=== PATIENT | male | born 1955 ===

== ENCOUNTER 2019-09-16 07:24 | Day surgery (SDC) | payer BC ==
[~2019-09-16 07:24] MED LIST: DEXAMETHASONE SOD PHOSPHATE 10 MG/ML 1 ML VIAL IV ONE; HEPARIN SODIUM,PORCINE 5,000 UNIT/ML 1 ML VIAL SQ ONE; HYDROmorphone 0.5 MG/0.5 ML SYRINGE IVP PRN; LACTATED RINGERS 1,000 ML IV SCH; LIDOCAINE 1% (10MG/ML) FOR IV START INTRADERMA PRN; MIDAZOLAM 2 MG/2 ML VIAL IV PRN; ONDANSETRON 4 MG/2 ML VIAL IVP ONE; metroNIDAZOLE-NS PMX 500 MG in SALINE 1 100ML.BAG IVPB ONE
[2019-09-16 07:38] VITALS: TEMP 98.8
[2019-09-16 08:09] LABS: Glucose,Whole Blood 124 mg/dL (75-99)
[2019-09-16] MEDS ORDERED: KETOROLAC 30 MG/ML 1 ML VIAL ONE (08:18)
[2019-09-16] MEDS ORDERED: fentaNYL (PF) 50 MCG/ML 2 ML AMP ONE (08:18)
[2019-09-16] MEDS ORDERED: PROPOFOL 10 MG/ML 20 ML VIAL IV ONE (08:18)
[2019-09-16] MEDS ORDERED: MIDAZOLAM 2 MG/2 ML VIAL ONE (08:18)
--- NOTE | 2019-09-16 08:29 | P.GSHP ---
History of Present Illness H&P Date: 09/16/19 Chief Complaint: Perirectal abscess This is a 64-year-old male with a chronically inflamed perirectal abscess. Patient presents today for incision and drainage and debridement. Past Medical History Past Medical History: Diabetes Mellitus, Hyperlipidemia, Hypertension History of Any Multi-Drug Resistant Organisms: None Reported Past Surgical History: Ear Surgery Additional Past Surgical History / Comment(s): RHINOPLASTY. TOOTH IMPLANT. EAR SX Past Anesthesia/Blood Transfusion Reactions: No Reported Reaction Smoking Status: Never smoker - Past Family History Mother Family Medical History: No Reported History Medications and Allergies Home Medications Medication Instructions Recorded Confirmed Type Empagliflozin [Jardiance] 10 mg PO DAILY 09/14/19 09/14/19 History Lisinopril [Zestril] 10 mg PO DAILY 09/14/19 09/14/19 History Simvastatin 10 mg PO DAILY 09/14/19 09/14/19 History metFORMIN HCL 1,000 mg PO BID 09/14/19 09/14/19 History sitaGLIPtin [Januvia] 100 mg PO DAILY 09/14/19 09/14/19 History Allergies Allergy/AdvReac Type Severity Reaction Status Date / Time No Known Allergies Allergy Verified 09/14/19 10:54 Surgical - Exam Vital Signs Temp Pulse Resp BP Pulse Ox 98.8 F 60 20 167/87 99 09/16/19 07:35 09/16/19 07:35 09/16/19 07:35 09/16/19 07:35 09/16/19 07:35 - General well developed, well nourished, no distress - Eyes PERRL - ENT normal pinna - Neck no masses - Respiratory normal expansion - Cardiovascular Rhythm: regular - Abdomen Abdomen: soft, non tender - Rectum 1 cm perirectal abscess in the left lateral area Results - Labs Abnormal Lab Results - Last 24 Hours (Table) 09/16/19 Range/Units 07:52 POC Glucose (mg/dL) 124 H (75-99) mg/dL Assessment and Plan Assessment: Labs is. We'll perform incision and drainage and debridement.
[2019-09-16] MEDS ORDERED: BUPIVACAINE (PF) 0.5% 30 ML VIAL SQ ONE (08:39)
--- NOTE | 2019-09-16 08:56 | P.OP ---
Date of Procedure: 09/16/19 Preoperative Diagnosis: Left perirectal abscess Postoperative Diagnosis: Left perirectal abscess Procedure(s) Performed: Incision and drainage and debridement of left perirectal abscess Anesthesia: MAC Surgeon: Bob Segundo Estimated Blood Loss (ml): 5 Pathology: other (Left perirectal abscess) Disposition: PACU Description of Procedure: The patient's placed on the operating table in the lateral position. He received IV sedation. His perineum was prepped and draped usual sterile fashion. The perianal area was examined. There is evidence of chronic inflammation the left sami-anal area. The skin was anesthetized 1% local Xylocaine. Using an elliptical skin incision the area was incised and using cautery the subcu tissues and chronically inflamed fat were debrided. This was taken back to the level of healthy tissue. The area about approximately 2 x 1 x 1 cm. The Bovie hemostasis. The wound was then packed with wet-to-dry dressing. Sterile dressing was applied. Patient top she will was sent to recovery room stable condition.
[2019-09-16 09:14] VITALS: BP 113/71; PULSE 87; RESP 18
== END 2019-09-16 10:21 | disposition home or self-care (01) ==
LOC: OR 07:24
PROVIDERS: ATTEND Surgery
DX: K61.1 Rectal abscess (principal); E11.9 Type 2 diabetes mellitus without complications; I10 Essential (primary) hypertension; E78.5 Hyperlipidemia, unspecified; Z79.899 Other long term (current) drug therapy; Z79.84 Long term (current) use of oral hypoglycemic drugs; Z98.890 Other specified postprocedural states
CPT/HCPCS: 88304; 46040; J2250; J1644; J1100; J0690; J2405; J3010; J1885; J2704

== ENCOUNTER 2020-05-18 10:58 | Day surgery (SDC) | payer BC, OTHER ==
[2020-05-17 09:29] VITALS: BMI 29.0
[~2020-05-18 10:58] MED LIST changes: +ACETAMINOPHEN TAB 500 MG TAB PO ONE; -LIDOCAINE 1% (10MG/ML) FOR IV START INTRADERMA PRN; +LIDOCAINE 1%-EPI 1:100,000 20 ML VIAL SQ ONE; -MIDAZOLAM 2 MG/2 ML VIAL IV PRN
[2020-05-18 11:21] LABS: Glucose,Whole Blood 104 mg/dL (75-99)
[2020-05-18] MEDS ORDERED: LIDOCAINE 1% (10MG/ML) FOR IV START INTRADERMA ONE (11:21)
[2020-05-18] MEDS ORDERED: LIDOCAINE 1% INJ 10MG/ML (20 ML MDV) ONE (11:36)
[2020-05-18] MEDS ORDERED: SUCCINYLCHOLINE CHLORIDE 100 MG/5 ML SYR IV ONE (11:36)
[2020-05-18] MEDS ORDERED: MIDAZOLAM 2 MG/2 ML VIAL ONE (11:36)
[2020-05-18] MEDS ORDERED: PROPOFOL 10 MG/ML 20 ML VIAL IV ONE (11:36)
[2020-05-18] MEDS ORDERED: fentaNYL (PF) 50 MCG/ML 2 ML AMP ONE (11:36)
--- NOTE | 2020-05-18 11:36 | P.GSHP ---
History of Present Illness H&P Date: 05/18/20 Chief Complaint: History of perirectal abscess This is a 62-year-old male with chronic. Biopsies. Patient will stay for incision and drainage. Past Medical History Past Medical History: Diabetes Mellitus, Hyperlipidemia, Hypertension Additional Past Medical History / Comment(s): perirectal abscess History of Any Multi-Drug Resistant Organisms: None Reported Past Surgical History: Ear Surgery Additional Past Surgical History / Comment(s): RHINOPLASTY. TOOTH IMPLANT Past Anesthesia/Blood Transfusion Reactions: No Reported Reaction Additional Past Anesthesia/Blood Transfusion Reaction / Comment(s): no hx blood transfusion Smoking Status: Never smoker - Past Family History Mother Family Medical History: Diabetes Mellitus Medications and Allergies Home Medications Medication Instructions Recorded Confirmed Type Empagliflozin [Jardiance] 10 mg PO DAILY 09/14/19 05/18/20 History Simvastatin 10 mg PO DAILY 09/14/19 05/18/20 History lisinopriL [Zestril] 10 mg PO QAM 09/14/19 05/18/20 History metFORMIN HCL 1,000 mg PO BID 09/14/19 05/18/20 History sitaGLIPtin [Januvia] 100 mg PO DAILY 09/14/19 05/18/20 History Allergies Allergy/AdvReac Type Severity Reaction Status Date / Time No Known Allergies Allergy Verified 05/17/20 09:21 Surgical - Exam Vital Signs Temp Pulse Resp BP Pulse Ox 97.6 F 79 16 136/78 95 05/18/20 11:11 05/18/20 11:11 05/18/20 11:11 05/18/20 11:11 05/18/20 11:11 - General well developed, well nourished, no distress - Eyes PERRL - ENT normal pinna - Neck no masses - Respiratory normal expansion - Cardiovascular Rhythm: regular - Abdomen Abdomen: soft, non tender - Rectum 1 cm perirectal abscess Results - Labs Abnormal Lab Results - Last 24 Hours (Table) 05/18/20 Range/Units 11:19 POC Glucose (mg/dL) 104 H (75-99) mg/dL Assessment and Plan Assessment: Total abscess. We'll perform incision and drainage.
[2020-05-18] MEDS ORDERED: LIDOCAINE 1%-EPI 1:100,000 20 ML VIAL SQ ONE (12:01)
--- NOTE | 2020-05-18 12:09 | P.OP ---
Date of Procedure: 05/18/20 Preoperative Diagnosis: Perirectal fistula Postoperative Diagnosis: Perirectal fistula Procedure(s) Performed: Unroofing of perirectal fistula Anesthesia: JERRI Surgeon: Bob Segundo Estimated Blood Loss (ml): 5 Pathology: none sent Condition: stable Disposition: PACU Description of Procedure: The patient's placed on the operative table in the prone position after receiving general anesthesia. His anus was prepped and draped usual sterile fashion. Patient had a fistulous tract to the left. Rectal area. A blunt probe was placed through the tract and the tract was followed to the area the anus. The tract was very superficial and believed to be superficial to the sphincter. This point the tract was unroofed using left cautery. The internal/external sphincter were not visualized. The tract was superficial to the sphincter. The wound was examined for cyst. No bleeding seen. A she received a sterile dressing. Patient sent to recovery in stable condition.
[2020-05-18 12:21] VITALS: TEMP 97.8
[2020-05-18 12:34] LABS: Glucose,Whole Blood 140 mg/dL (75-99)
[2020-05-18 13:24] VITALS: RESP 20
[2020-05-18 14:06] VITALS: BP 124/70; PULSE 69
== END 2020-05-18 14:09 | disposition home or self-care (01) ==
LOC: OR 10:58
PROVIDERS: ATTEND Surgery
DX: K61.1 Rectal abscess (principal); I10 Essential (primary) hypertension; E78.5 Hyperlipidemia, unspecified; E11.9 Type 2 diabetes mellitus without complications; Z79.84 Long term (current) use of oral hypoglycemic drugs; Z79.899 Other long term (current) drug therapy; Z98.890 Other specified postprocedural states; Z83.3 Family history of diabetes mellitus
CPT/HCPCS: 46050; J2250; J1644; J1100; J0690; J2405; J2001; J3010; J0330; J2704

== ENCOUNTER 2024-01-06 20:49 | Emergency (ER) | payer MEDICARE, OTHER ==
--- NOTE | 2024-01-06 21:16 | ED ---
General Adult HPI - General Source: patient, family, RN notes reviewed Mode of arrival: ambulatory Limitations: language barrier <Stephanie Galindo - Last Filed: 01/06/24 21:15> - General Source: patient, family, RN notes reviewed, old records reviewed Mode of arrival: ambulatory Limitations: language barrier - History of Present Illness -: days(s) Location: abdomen Severity scale (1-10): 10 Consistency: constant, intermittent Worsens with: none <Zacarias Miles - Last Filed: 01/17/24 22:34> - General Stated complaint: Abnormal Labs Time Seen by Provider: 01/06/24 21:16 - History of Present Illness Initial comments: Quick note: 68-year-old male presented to the ER with a chief complaint of fatigue. Patient had labs performed recently and was found to have transaminitis. Patient is a known diabetic. States for the past couple days he is also noticed yellowing of the sclera. He denies any abdominal pain, unintentional weight loss, fevers, chills. (Stephanie Galindo) This is a 68-year-old male to the ER for evaluation with recent abnormal lab values. Patient had significant yellowing of skin and sclera (Zacarias Miles) - Related Data Home Medications Medication Instructions Recorded Confirmed Empagliflozin [Jardiance] 10 mg PO DAILY 09/14/19 05/18/20 Simvastatin 10 mg PO DAILY 09/14/19 05/18/20 lisinopriL [Zestril] 10 mg PO QAM 09/14/19 05/18/20 metFORMIN HCL [Glucophage] 1,000 mg PO BID 09/14/19 05/18/20 sitaGLIPtin [Januvia] 100 mg PO DAILY 09/14/19 05/18/20 Previous Rx's Medication Instructions Recorded Acetaminophen Tab [Tylenol] 650 mg PO Q6H #30 tab 05/18/20 Docusate [Colace] 100 mg PO BID #20 capsule 05/18/20 Ibuprofen [Motrin] 600 mg PO Q6HR PRN #40 tab 05/18/20 oxyCODONE HCL [OxyIR] 5 mg PO Q4H PRN 3 Days #18 tab 05/18/20 Allergies Allergy/AdvReac Type Severity Reaction Status Date / Time No Known Allergies Allergy Verified 05/17/20 09:21 Review of Systems ROS Other: All systems not noted in ROS Statement are negative. <Stephanie Galindo - Last Filed: 01/06/24 21:15> ROS Other: All systems not noted in ROS Statement are negative. <Zacarias Miles - Last Filed: 01/17/24 22:34> ROS Statement: Those systems with pertinent positive or pertinent negative responses have been documented in the HPI. Past Medical History Past Medical History: Diabetes Mellitus, Hyperlipidemia, Hypertension Additional Past Medical History / Comment(s): perirectal abscess History of Any Multi-Drug Resistant Organisms: None Reported Past Surgical History: Ear Surgery Additional Past Surgical History / Comment(s): RHINOPLASTY. TOOTH IMPLANT Past Anesthesia/Blood Transfusion Reactions: No Reported Reaction Additional Past Anesthesia/Blood Transfusion Reaction / Comment(s): no hx blood transfusion Smoking Status: Never smoker - Past Family History Mother Family Medical History: Diabetes Mellitus <Stephanie Galindo - Last Filed: 01/06/24 21:15> General Exam <AnthonyStephanie sweeney - Last Filed: 01/06/24 21:15> General appearance: alert, in no apparent distress Head exam: Present: atraumatic, normocephalic, normal inspection Eye exam: Present: normal appearance, PERRL, EOMI. Absent: scleral icterus, conjunctival injection, periorbital swelling ENT exam: Present: normal exam, mucous membranes moist Neck exam: Present: normal inspection. Absent: tenderness, meningismus, lymphadenopathy Respiratory exam: Present: normal lung sounds bilaterally. Absent: respiratory distress, wheezes, rales, rhonchi, stridor Cardiovascular Exam: Present: regular rate, normal rhythm, normal heart sounds. Absent: systolic murmur, diastolic murmur, rubs, gallop, clicks GI/Abdominal exam: Present: soft, normal bowel sounds. Absent: distended, tenderness, guarding, rebound, rigid Extremities exam: Present: normal inspection, full ROM, normal capillary refill. Absent: tenderness, pedal edema, joint swelling, calf tenderness Back exam: Present: normal inspection Neurological exam: Present: alert, oriented X3, CN II-XII intact Psychiatric exam: Present: normal affect, normal mood Skin exam: Present: warm, dry, intact, normal color. Absent: rash <Zaacrias Miles - Last Filed: 01/17/24 22:34> - General Exam Comments Initial Comments: Visual Physical Exam Vital signs reviewed General: Well-appearing, nontoxic, no acute distress. Head: Normocephalic, atraumatic Eyes: PERRLA, EOMI ENT: Airway patent Chest: Nonlabored breathing Skin: No visual rash, normal skin tone Neuro: Alert and oriented 3 Musculoskeletal: No gross abnormalities (Stephanie Galindo) jaundice (Zacarias Miles) Course <Zacarias Miles - Last Filed: 01/17/24 22:34> Vital Signs 01/06/24 01/06/24 01/07/24 21:17 23:08 01:39 Temperature 98.1 F Pulse Rate 63 63 59 L Respiratory 17 16 16 Rate Blood Pressure 158/81 143/83 130/80 O2 Sat by Pulse 98 98 98 Oximetry 01/07/24 03:28 Temperature Pulse Rate 60 Respiratory 16 Rate Blood Pressure O2 Sat by Pulse 95 Oximetry - Reevaluation(s) Reevaluation #1: 01/07/24 01:58 Records reviewed (Zacarias Miles) Reevaluation #2: 01/07/24 01:58 Patient symptoms unchanged (Zacarias Miles) Reevaluation #3: 01/07/24 01:58 Patient informed of results and questions answered (Zacarias Miles) Reevaluation #4: Was pt. sent in by a medical professional or institution (, PA, STEREO EQUIPMENT REPAIRER, urgent care, hospital, or jail...) When possible be specific @ -no Did you speak to anyone other than the patient for history (EMS, parent, family, police, friend...)? What history was obtained from this source @ -no Did you review nursing and triage notes (agree or disagree)? Why? @ -agree Are old charts reviewed (outside hosp., previous admission, EMS record, old EKG, old radiological studies, urgent care reports/EKG's, jail records)? Report findings @ -yes Differential Diagnosis (chest pain, altered mental status, abdominal pain women, abdominal pain men, vaginal bleeding, weakness, fever, dyspnea, syncope, headache, dizziness, GI bleed, back pain, seizure, CVA, palpatations, mental he alth, musculoskeletal)? @ -prior EKG interpreted by me (3pts min.). @ -yes X-rays interpreted by me (1pt min.). @ -no CT interpreted by me (1pt min.). @ -no U/S interpreted by me (1pt. min.). @ -yes negative for acute disease What testing was considered but not performed or refused? (CT, X-rays, U/S, labs)? Why? @ -none What meds were considered but not given or refused? Why? @ -none Did you discuss the management of the patient with other professionals (professionals i.e. , PA, STEREO EQUIPMENT REPAIRER, lab, RT, psych nurse, social science teacher, cobol developer, teacher, mortgage loan officer, telephonic nurse case manager)? Give summary @ -no Was smoking cessation discussed for >3mins.? @ -no Was critical care preformed (if so, how long)? @ -no Were there social determinants of health that impacted care today? How? (Homelessness, low income, unemployed, alcoholism, drug addiction, transportation, low edu. Level, literacy, decrease access to med. care, intermediate, rehab)? @ -none Was there de-escalation of care discussed even if they declined (Discuss DNR or withdrawal of care, Hospice)? DNR status @ -no What co-morbidities impacted this encounter? (DM, HTN, Smoking, COPD, CAD, Cancer, CVA, ARF, Chemo, Hep., AIDS, mental health diagnosis, sleep apnea, morbid obesity)? @ -none Was patient admitted / discharged? Hospital course, mention meds given and route, prescriptions, significant lab abnormalities, going to OR and other pe rtinent info. @ - 68 male to the ED co abnormal outpatient labs, acute hepatitis, transaminitis, hyperbili, hyperammonemia, will transfer to outside facility [facility] Transferred Undiagnosed new problem with uncertain prognosis? @ -no Drug Therapy requiring intensive monitoring for toxicity (Heparin, Nitro, Insulin, Cardizem)? @ -no Were any procedures done? @ -no Diagnosis/symptom? @ -Acute hepatitis and transaminitis hyperbilirubinemia and hyperammonemia Acute, or Chronic, or Acute on Chronic? @ -Acute Uncomplicated (without systemic symptoms) or Complicated (systemic symptoms)? @ -Complicated Side effects of treatment? @ -no Exacerbation, Progression, or Severe Exacerbation? @ -exacerbation Poses a threat to life or bodily function? How? (Chest pain, USA, MT, pneumonia, PE, COPD, DKA, ARF, appy, cholecystitis, CVA, Diverticulitis, Homicidal, Suicidal, threat to staff... and all critical care pts) @ -yes significant liver damage (Zacarias Miles) - Consultations Consultation #1: Spoke with [facility] they do accept this patient as a transfer (Zacarias Miles) Medical Decision Making <Stephanie Galindo - Last Filed: 01/06/24 21:15> - Lab Data Result diagrams: 01/06/24 21:30 01/06/24 21:30 - Radiology Data Radiology results: report reviewed (Ultrasound gallbladder is negative for acute disease), image reviewed <Zacarias Miles - Last Filed: 01/17/24 22:34> - Medical Decision Making I performed the quick note portion of this chart. Electronically signed by Stephanie Galindo PA-C (Stephanie Galindo) 68 male to the ED co abnormal outpatient labs, acute hepatitis, transaminitis, hyperbili, hyperammonemia, will transfer to outside facility [facility] (Zacarias Miles) - Lab Data Lab Results 01/06/24 01/06/24 01/06/24 Range/Units 21:30 21:30 21:30 WBC 7.4 (3.8-10.6) k/uL RBC 5.39 (4.30-5.90) m/uL Hgb 15.5 (13.0-17.5) gm/dL Hct 50.3 (39.0-53.0) % MCV 93.4 (80.0-100.0) fL MCH 28.8 (25.0-35.0) pg MCHC 30.9 L (31.0-37.0) g/dL RDW 15.5 (11.5-15.5) % Plt Count 194 (150-450) k/uL MPV 8.7 Neutrophils % 62 % Lymphocytes % 24 % Monocytes % 8 % Eosinophils % 2 % Basophils % 1 % Neutrophils # 4.6 (1.3-7.7) k/uL Lymphocytes # 1.8 (1.0-4.8) k/uL Monocytes # 0.6 (0-1.0) k/uL Eosinophils # 0.1 (0-0.7) k/uL Basophils # 0.1 (0-0.2) k/uL PT (10.0-12.5) sec INR (<1.2) APTT (22.0-30.0) sec Sodium 137 (137-145) mmol/L Potassium 4.8 (3.5-5.1) mmol/L Chloride 104 (98-107) mmol/L Carbon Dioxide 17 L (22-30) mmol/L Anion Gap 16 mmol/L BUN 16 (9-20) mg/dL Creatinine 0.79 (0.66-1.25) mg/dL Est GFR (CKD-EPI)AfAm >90 (>60 ml/min/1.73 sqM) Est GFR (CKD-EPI)NonAf >90 (>60 ml/min/1.73 sqM) Glucose 121 H (74-99) mg/dL Plasma Lactic Acid Chris (0.7-2.0) mmol/L Calcium 9.2 (8.4-10.2) mg/dL Phosphorus 3.6 (2.5-4.5) mg/dL Magnesium 1.9 (1.6-2.3) mg/dL Total Bilirubin 8.6 H (0.2-1.3) mg/dL Conjugated Bilirubin 4.2 H (0.0-0.3) mg/dL Unconjugated Bilirubin 1.4 H (0.0-1.1) mg/dL Delta Bilirubin 3.0 H (0.0-0.2) mg/dL AST 189 H (17-59) U/L ALT 350 H (4-49) U/L Alkaline Phosphatase 183 H (38-126) U/L Ammonia (<30) umol/L Total Protein 7.7 (6.3-8.2) g/dL Albumin 4.4 (3.5-5.0) g/dL Lipase 351 H (23-300) U/L Acetaminophen ug/mL Hepatitis A IgM Ab (Nonreactive) Hep Bs Antigen (Nonreactive) Hep B Core IgM Ab (Nonreactive) Hep C IgG Ab (Nonreactive) 0601/06/24 01/07/24 Range/Units 21:30 23:35 02:45 WBC (3.8-10.6) k/uL RBC (4.30-5.90) m/uL Hgb (13.0-17.5) gm/dL Hct (39.0-53.0) % MCV (80.0-100.0) fL MCH (25.0-35.0) pg MCHC (31.0-37.0) g/dL RDW (11.5-15.5) % Plt Count (150-450) k/uL MPV Neutrophils % % Lymphocytes % % Monocytes % % Eosinophils % % Basophils % % Neutrophils # (1.3-7.7) k/uL Lymphocytes # (1.0-4.8) k/uL Monocytes # (0-1.0) k/uL Eosinophils # (0-0.7) k/uL Basophils # (0-0.2) k/uL PT 10.8 (10.0-12.5) sec INR 1.0 (<1.2) APTT 22.1 (22.0-30.0) sec Sodium (137-145) mmol/L Potassium (3.5-5.1) mmol/L Chloride (98-107) mmol/L Carbon Dioxide (22-30) mmol/L Anion Gap mmol/L BUN (9-20) mg/dL Creatinine (0.66-1.25) mg/dL Est GFR (CKD-EPI)AfAm (>60 ml/min/1.73 sqM) Est GFR (CKD-EPI)NonAf (>60 ml/min/1.73 sqM) Glucose (74-99) mg/dL Plasma Lactic Acid Chris 1.5 (0.7-2.0) mmol/L Calcium (8.4-10.2) mg/dL Phosphorus (2.5-4.5) mg/dL Magnesium (1.6-2.3) mg/dL Total Bilirubin (0.2-1.3) mg/dL Conjugated Bilirubin (0.0-0.3) mg/dL Unconjugated Bilirubin (0.0-1.1) mg/dL Delta Bilirubin (0.0-0.2) mg/dL AST (17-59) U/L ALT (4-49) U/L Alkaline Phosphatase (38-126) U/L Ammonia 41 H (<30) umol/L Total Protein (6.3-8.2) g/dL Albumin (3.5-5.0) g/dL Lipase (23-300) U/L Acetaminophen <10.0 ug/mL Hepatitis A IgM Ab (Nonreactive) Hep Bs Antigen (Nonreactive) Hep B Core IgM Ab (Nonreactive) Hep C IgG Ab (Nonreactive) 01/07/24 Range/Units 02:57 WBC (3.8-10.6) k/uL RBC (4.30-5.90) m/uL Hgb (13.0-17.5) gm/dL Hct (39.0-53.0) % MCV (80.0-100.0) fL MCH (25.0-35.0) pg MCHC (31.0-37.0) g/dL RDW (11.5-15.5) % Plt Count (150-450) k/uL MPV Neutrophils % % Lymphocytes % % Monocytes % % Eosinophils % % Basophils % % Neutrophils # (1.3-7.7) k/uL Lymphocytes # (1.0-4.8) k/uL Monocytes # (0-1.0) k/uL Eosinophils # (0-0.7) k/uL Basophils # (0-0.2) k/uL PT (10.0-12.5) sec INR (<1.2) APTT (22.0-30.0) sec Sodium (137-145) mmol/L Potassium (3.5-5.1) mmol/L Chloride (98-107) mmol/L Carbon Dioxide (22-30) mmol/L Anion Gap mmol/L BUN (9-20) mg/dL Creatinine (0.66-1.25) mg/dL Est GFR (CKD-EPI)AfAm (>60 ml/min/1.73 sqM) Est GFR (CKD-EPI)NonAf (>60 ml/min/1.73 sqM) Glucose (74-99) mg/dL Plasma Lactic Acid Chris (0.7-2.0) mmol/L Calcium (8.4-10.2) mg/dL Phosphorus (2.5-4.5) mg/dL Magnesium (1.6-2.3) mg/dL Total Bilirubin (0.2-1.3) mg/dL Conjugated Bilirubin (0.0-0.3) mg/dL Unconjugated Bilirubin (0.0-1.1) mg/dL Delta Bilirubin (0.0-0.2) mg/dL AST (17-59) U/L ALT (4-49) U/L Alkaline Phosphatase (38-126) U/L Ammonia (<30) umol/L Total Protein (6.3-8.2) g/dL Albumin (3.5-5.0) g/dL Lipase (23-300) U/L Acetaminophen ug/mL Hepatitis A IgM Ab Nonreactive (Nonreactive) Hep Bs Antigen Nonreactive (Nonreactive) Hep B Core IgM Ab Nonreactive (Nonreactive) Hep C IgG Ab Nonreactive (Nonreactive) Disposition <Stephanie Galindo - Last Filed: 01/06/24 21:15> Is patient prescribed a controlled substance at d/c from ED?: No - Out of Hospital Transfer - Req. Specs Out of Hospital Transfer - Requested Specifics: Other Emergency Center ([facility]) <Zacarias Miles - Last Filed: 01/17/24 22:34> Clinical Impression: Acute hepatitis, Hyperbilirubinemia, Hyperammonemia Disposition: TRANSFER TO PSYCH HOSP/UNIT Condition: Fair Referrals: Carole Jaimes DO [Primary Care Provider] - 1-2 days
[2024-01-06 21:20] VITALS: TEMP 98.1
[2024-01-06 21:40] LABS: Basophils # (A) 0.1 k/uL (0-0.2); Basophils % (A) 1 %; Eosinophils # (A) 0.1 k/uL (0-0.7); Eosinophils % (A) 2 %; HCT 50.3 % (39.0-53.0); HGB 15.5 gm/dL (13.0-17.5); Lymphocytes # (A) 1.8 k/uL (1.0-4.8); Lymphocytes % (A) 24 %; MCH 28.8 pg (25.0-35.0); MCHC 30.9 g/dL (31.0-37.0); MCV 93.4 fL (80.0-100.0); Mean Platelet Volume 8.7; Monocytes # (A) 0.6 k/uL (0-1.0); Monocytes % (A) 8 %; Neutrophils # (A) 4.6 k/uL (1.3-7.7); Neutrophils % (A) 62 %; Platelet Count 194 k/uL (150-450); RBC 5.39 m/uL (4.30-5.90); RDW 15.5 % (11.5-15.5); WBC 7.4 k/uL (3.8-10.6)
[2024-01-06 22:01] LABS: ALT 350 U/L (4-49); AST 189 U/L (17-59); African American GFR (CKD) >90 (>60 ml/min/1.73 sqM); Albumin 4.4 g/dL (3.5-5.0); Alkaline Phosphatase 183 U/L (38-126); Bilirubin, Conjugated 4.2 mg/dL (0.0-0.3); Bilirubin,Unconjugated 1.4 mg/dL (0.0-1.1); Blood Urea Nitrogen 16 mg/dL (9-20); Calcium 9.2 mg/dL (8.4-10.2); Carbon Dioxide 17 mmol/L (22-30); Chloride 104 mmol/L (98-107); Glucose 121 mg/dL (74-99); Non-African American GFR(CKD) >90 (>60 ml/min/1.73 sqM); Total Bilirubin 8.6 mg/dL (0.2-1.3); Total Protein 7.7 g/dL (6.3-8.2)
[2024-01-06 22:10] LABS: Anion Gap 16 mmol/L; Potassium 4.8 mmol/L (3.5-5.1); Sodium 137 mmol/L (137-145)
[2024-01-06 23:11] VITALS: RESP 16
[2024-01-06] MEDS: SODIUM CHLORIDE 0.9% 1,000 ML IV STA (23:36)
[2024-01-06] MEDS: SODIUM CHLORIDE 0.9% 1,000 ML IV SCH (23:36)
[2024-01-06 23:56] LABS: Magnesium 1.9 mg/dL (1.6-2.3); Phosphorus 3.6 mg/dL (2.5-4.5)
[2024-01-07 00:38] LABS: Lactic Acid, Venous 1.5 mmol/L (0.7-2.0)
[2024-01-07 01:42] VITALS: BP 130/80
--- NOTE | 2024-01-07 01:58 | US ---
EXAM: US Abdomen Limited, Gallbladder CLINICAL HISTORY: ITS.REASON US Reason: transaminitis TECHNIQUE: Real-time ultrasound of the right upper quadrant with image documentation. COMPARISON: No relevant prior studies available. FINDINGS: Limitations: Exam slightly limited secondary to overlying bowel gas. Gallbladder: Unremarkable. No gallstones. Common bile duct: Unremarkable as visualized. No stones. No dilation. Pancreas: Unremarkable as visualized. IMPRESSION: No acute findings in the right upper quadrant.
[2024-01-07 03:30] LABS: Partial Thromboplastin Time 22.1 sec (22.0-30.0); Prothrombin Time 10.8 sec (10.0-12.5)
[2024-01-07 03:37] VITALS: PULSE 60
[2024-01-07 08:53] LABS: Hepatitis A Antibody IgM Nonreactive (Nonreactive); Hepatitis B Core IgM Nonreactive (Nonreactive); Hepatitis B Surface Antigen Nonreactive (Nonreactive); Hepatitis C IgG Antibody Nonreactive (Nonreactive)
== END 2024-01-07 03:36 ==
LOC: EC 20:49
DX: B17.9 Acute viral hepatitis, unspecified (principal); E72.20 Disorder of urea cycle metabolism, unspecified
CPT/HCPCS: 36415; 76705; 80053; 80074; 80143; 82140; 82248; 83605; 83690; 83735; 84100; 85025; 85610; 85730; 96360; 96361; 99285

== ENCOUNTER 2024-04-10 16:10 | Inpatient (IN) | payer MEDICARE ==
--- NOTE | 2024-04-10 16:37 | ED ---
ENT HPI - General Chief complaint: ENT Stated complaint: ELEANOR, throat swelling, chemo Time Seen by Provider: 04/10/24 16:30 Source: patient, RN notes reviewed Mode of arrival: ambulatory Limitations: no limitations - History of Present Illness Initial comments: This is a 68-year-old male with pancreatic cancer currently on chemotherapy presenting to the emergency department accompanied by her daughter with chief complaint of throat pain and difficulty swallowing liquids. Majority of history is provided by patient's daughter as the patient is predominantly Portuguese- speaking. It is reported that patient has been complaining of pain of his neck and difficulty swallowing liquids over the past 4 days. Patient's daughter spoke with oncologist who reports that this is a common side effect from the chemotherapy that he is on and they will decrease his dosage. Recommend that patient use thickened liquids at home to combat symptoms, but this has not been trialed yet. Patient denies difficulty breathing, chest pain, heart palpitations, abdominal pain, fevers, chills. He has been having a mild cough as well however this was reported as a side effect of his chemotherapy. - Related Data Home Medications Medication Instructions Recorded Confirmed metFORMIN HCL [Glucophage] 1,000 mg PO BID 09/14/19 04/10/24 Pantoprazole [Protonix] 40 mg PO DAILY 03/10/24 04/10/24 OLANZapine [ZyPREXA] 2.5 mg PO HS 03/24/24 04/10/24 Benzonatate [Tessalon Perles] 100 mg PO TID PRN 04/10/24 04/10/24 Empagliflozin [Jardiance] 25 mg PO DAILY 04/10/24 04/10/24 Lipase/Protease/Amylase [[place] Dr 1 cap PO TID-W/MEALS 04/10/24 04/10/24 36,000 Unit Capsule] Ondansetron Odt [Zofran Odt] 4 - 8 mg PO Q4H PRN 04/10/24 04/10/24 Prochlorperazine [Compazine] 10 mg PO Q6H PRN 04/10/24 04/10/24 lisinopriL [Zestril] 20 mg PO DAILY 04/10/24 04/10/24 Allergies Allergy/AdvReac Type Severity Reaction Status Date / Time No Known Allergies Allergy Verified 04/10/24 19:17 Review of Systems ROS Statement: Those systems with pertinent positive or pertinent negative responses have been documented in the HPI. ROS Other: All systems not noted in ROS Statement are negative. Past Medical History Past Medical History: Cancer, Diabetes Mellitus, Hyperlipidemia, Hypertension Additional Past Medical History / Comment(s): perirectal abscess,PANCREATIC CANC ER History of Any Multi-Drug Resistant Organisms: None Reported Past Surgical History: Ear Surgery Additional Past Surgical History / Comment(s): RHINOPLASTY. TOOTH IMPLANT,WHIPPLE Past Anesthesia/Blood Transfusion Reactions: No Reported Reaction Additional Past Anesthesia/Blood Transfusion Reaction / Comment(s): no hx blood transfusion Past Psychological History: No Psychological Hx Reported Smoking Status: Never smoker - Past Family History Mother Family Medical History: Diabetes Mellitus General Exam Limitations: no limitations, language barrier (mainly khmer speaking) Head exam: Present: atraumatic, normocephalic, normal inspection ENT exam: Present: normal exam, mucous membranes moist Neck exam: Present: normal inspection, tenderness (with ROM/rotation). Absent: meningismus, lymphadenopathy, thyromegaly Expanded Neck exam: Absent: midline deformity, anterior neck swelling, thyroid mass, tracheal deviation Respiratory exam: Present: normal lung sounds bilaterally. Absent: respiratory distress, wheezes, rales, rhonchi, stridor Cardiovascular Exam: Present: regular rate, normal rhythm, normal heart sounds. Absent: systolic murmur, diastolic murmur, rubs, gallop, clicks GI/Abdominal exam: Present: soft, normal bowel sounds. Absent: distended, tenderness, guarding, rebound, rigid Extremities exam: Present: normal inspection, full ROM, normal capillary refill. Absent: tenderness, pedal edema, joint swelling, calf tenderness Back exam: Present: normal inspection Skin exam: Present: warm, dry, intact, normal color. Absent: rash Course Vital Signs 04/10/24 04/10/24 16:14 18:47 Temperature 97.8 F 98.1 F Pulse Rate 70 68 Respiratory 20 16 Rate Blood Pressure 114/75 110/74 O2 Sat by Pulse 99 100 Oximetry Medical Decision Making - Medical Decision Making Was pt. sent in by a medical professional or institution (, PA, [employer], urgent care, hospital, or fci...) When possible be specific @ -No Did you speak to anyone other than the patient for history (EMS, parent, family, police, friend...)? What history was obtained from this source @ -Spoke to the patient's daughter at bedside who relayed most of the history of present illness due to patient being predominantly Portuguese-speaking. Did you review nursing and triage notes (agree or disagree)? Why? @ -I reviewed and agree with nursing and triage notes Were old charts reviewed (outside hosp., previous admission, EMS record, old EKG, old radiological studies, urgent care reports/EKG's, fci records)? Report findings @ -No old charts were reviewed Differential Diagnosis (chest pain, altered mental status, abdominal pain women, abdominal pain men, vaginal bleeding, weakness, fever, dyspnea, syncope, headache, dizziness, GI bleed, back pain, seizure, CVA, palpatations, mental health, musculoskeletal)? @ -COVID 19, RSV, influenza, pneumonia, acute bronchitis, URI, this list is not all inclusive EKG interpreted by me (3pts min.). @ -None X-rays interpreted by me (1pt min.). @ -None done CT interpreted by me (1pt min.). @ -CT of the soft tissues of the neck with contrast reveals a enlarged left neck lymph node adjacent to the thyroid gland, correlate for history of malignancy U/S interpreted by me (1pt. min.). @ -None done What testing was considered but not performed or refused? (CT, X-rays, U/S, labs)? Why? @ -None What meds were considered but not given or refused? Why? @ -None Did you discuss the management of the patient with other professionals (professionals i.e. , PA, [employer], lab, RT, psych nurse, social work coordinator, dispenser operator, teacher, jail officer, field case manager)? Give summary @ -I spoke with nurse practitioner from the service and hospitalist in regard to the patient's hyponatremia and dysphagia. Patient is excepted for admission with swallow study and oncology on consult for further evaluation of possible metastatic disease, hyponatremia, and dysphagia. Was smoking cessation discussed for >3mins.? @ -No Was critical care preformed (if so, how long)? @ -No Were there social determinants of health that impacted care today? How? (Homelessness, low income, unemployed, alcoholism, drug addiction, t ransportation, low edu. Level, literacy, decrease access to med. care, fci, rehab)? @ -No Was there de-escalation of care discussed even if they declined (Discuss DNR or withdrawal of care, Hospice)? DNR status @ -No What co-morbidities impacted this encounter? (DM, HTN, Smoking, COPD, CAD, Cancer, CVA, ARF, Chemo, Hep., AIDS, mental health diagnosis, sleep apnea, morbid obesity)? @ -None Was patient admitted / discharged? Hospital course, mention meds given and route, prescriptions, significant lab abnormalities, going to OR and other pertinent info. @ -admitted. 68-year-old male with dysphagia. Vitals are stable. Patient is majority Portuguese-speaking and daughter at bedside aids in translation. CBC reveals mild leukocytosis of 12.6, neutrophils of 10.1, hyponatremia of 127, elevated alk phos of 231. Patient will be admitted to internal medicine with heme-onc on consult and swallow study ordered for further evaluation of dysphagia and hyponatremia. Initially, see CT scan of the neck with IV contrast reveals an enlarged lymph node of the left side of the neck which is possible for metastatic disease and oncology will be on board for further evaluation of this. Discussed with Dr. Golden Undiagnosed new problem with uncertain prognosis? @ -No Drug Therapy requiring intensive monitoring for toxicity (Heparin, Nitro, Insulin, Cardizem)? @ -No Were any procedures done? @ -No Diagnosis/symptom? @ -dysphagia, hyponatremia, pancreatic cancer Acute, or Chronic, or Acute on Chronic? @ -Acute Uncomplicated (without systemic symptoms) or Complicated (systemic symptoms)? @ -Uncomplicated Side effects of treatment? @ -No Exacerbation, Progression, or Severe Exacerbation? @ -No Poses a threat to life or bodily function? How? (Chest pain, [place], [place], pneumonia, PE, COPD, DKA, ARF, appy, cholecystitis, CVA, Diverticulitis, Homicidal, Suicidal, threat to staff... and all critical care pts) @ -No - Lab Data Result diagrams: 04/10/24 17:10 04/10/24 17:10 Lab Results 04/10/24 04/10/24 04/10/24 Range/Units 17:10 17:10 18:54 WBC 12.6 H (3.8-10.6) k/uL RBC 4.79 (4.30-5.90) m/uL Hgb 12.3 L (13.0-17.5) gm/dL Hct 38.7 L (39.0-53.0) % MCV 80.8 (80.0-100.0) fL MCH 25.7 (25.0-35.0) pg MCHC 31.9 (31.0-37.0) g/dL RDW 17.8 H (11.5-15.5) % Plt Count 267 (150-450) k/uL MPV 7.3 Neutrophils % 80 % Lymphocytes % 17 % Monocytes % 2 % Eosinophils % 1 % Basophils % 0 % Neutrophils # 10.1 H (1.3-7.7) k/uL Lymphocytes # 2.1 (1.0-4.8) k/uL Monocytes # 0.2 (0-1.0) k/uL Eosinophils # 0.1 (0-0.7) k/uL Basophils # 0.0 (0-0.2) k/uL Hypochromasia Slight Anisocytosis Slight Sodium 127 L (137-145) mmol/L Potassium 4.3 (3.5-5.1) mmol/L Chloride 101 (98-107) mmol/L Carbon Dioxide 23 (22-30) mmol/L Anion Gap 3 mmol/L BUN 12 (9-20) mg/dL Creatinine 0.49 L (0.66-1.25) mg/dL Est GFR (CKD-EPI)AfAm >90 (>60 ml/min/1.73 sqM) Est GFR (CKD-EPI)NonAf >90 (>60 ml/min/1.73 sqM) Glucose 117 H (74-99) mg/dL Calcium 8.1 L (8.4-10.2) mg/dL Total Bilirubin 0.8 (0.2-1.3) mg/dL AST 39 (17-59) U/L ALT 42 (4-49) U/L Alkaline Phosphatase 231 H (38-126) U/L Total Protein 5.8 L (6.3-8.2) g/dL Albumin 2.9 L (3.5-5.0) g/dL Influenza Type A (PCR) Not Detected (Not Detectd) Influenza Type B (PCR) Not Detected (Not Detectd) RSV (PCR) Not Detected (Not Detectd) SARS-CoV-2 (PCR) Not Detected (Not Detectd) Disposition Clinical Impression: Hyponatremia, Dysphagia Disposition: ADMITTED IP TO THIS HOSP Condition: Stable Is patient prescribed a controlled substance at d/c from ED?: No Decision to Admit Reason: Admit from EC Decision Date: 04/10/24 Decision Time: 19:22
[2024-04-10] MEDS: SODIUM CHLORIDE 0.9% 1,000 ML IV STA (17:07)
[2024-04-10 17:22] LABS: Anisocytosis Slight; Basophils % (A) 0 %; Eosinophils # (A) 0.1 k/uL (0-0.7); Eosinophils % (A) 1 %; HCT 38.7 % (39.0-53.0); HGB 12.3 gm/dL (13.0-17.5); Hypochromasia Slight; Lymphocytes # (A) 2.1 k/uL (1.0-4.8); Lymphocytes % (A) 17 %; MCH 25.7 pg (25.0-35.0); MCHC 31.9 g/dL (31.0-37.0); MCV 80.8 fL (80.0-100.0); Mean Platelet Volume 7.3; Monocytes # (A) 0.2 k/uL (0-1.0); Monocytes % (A) 2 %; Neutrophils # (A) 10.1 k/uL (1.3-7.7); Neutrophils % (A) 80 %; Platelet Count 267 k/uL (150-450); RBC 4.79 m/uL (4.30-5.90); RDW 17.8 % (11.5-15.5); WBC 12.6 k/uL (3.8-10.6)
[2024-04-10 17:32] LABS: ALT 42 U/L (4-49); AST 39 U/L (17-59); African American GFR (CKD) >90 (>60 ml/min/1.73 sqM); Albumin 2.9 g/dL (3.5-5.0); Alkaline Phosphatase 231 U/L (38-126); Anion Gap 3 mmol/L; Blood Urea Nitrogen 12 mg/dL (9-20); Calcium 8.1 mg/dL (8.4-10.2); Carbon Dioxide 23 mmol/L (22-30); Chloride 101 mmol/L (98-107); Glucose 117 mg/dL (74-99); Non-African American GFR(CKD) >90 (>60 ml/min/1.73 sqM); Potassium 4.3 mmol/L (3.5-5.1); Sodium 127 mmol/L (137-145); Total Bilirubin 0.8 mg/dL (0.2-1.3); Total Protein 5.8 g/dL (6.3-8.2)
--- NOTE | 2024-04-10 18:47 | CT ---
EXAMINATION TYPE: CT soft tissue neck w con CT DLP: 162.9 mGycm, Automated exposure control for dose reduction was used. DATE OF EXAM: 04/10/2024 6:32 PM COMPARISON: None. CLINICAL INDICATION: Male, 68 years old with history of throat pain, difficulty swallowing liquids; P HH, Throat pain and difficulty swallowing x3 days. TECHNIQUE: Standard enhanced CT of the neck. Axial sections with coronal and sagittal reformats were obtained. Contrast used:100 ml mL of Isovue 300 with IV Contrast, (None if empty) Oral contrast used: (None if empty) FINDINGS: Brain: Visualized portions are grossly unremarkable. Orbits: Unremarkable Sinuses: Grossly unremarkable. Spaces of the neck: Clear and symmetric. Musculoskeletal: No acute osseous pathology. Lymph nodes: Enlarged left neck lymph node just lateral to the left thyroid gland measuring up to 19 mm. Vascular structures: Visualized major arteries are patent without evidence of aneurysm. Thoracic Inlet/airway: Airway is patent. The lung apices are clear. Soft tissues/Thyroid: Thyroid and remainder of the soft tissues are unremarkable. Other: none. IMPRESSION Enlarged left neck lymph node adjacent to the thyroid gland. Correlate for history of malignancy. [facility], , 04/10/2024 6:44 PM
[2024-04-10] MEDS ORDERED: ACETAMINOPHEN TAB 325 MG TAB PO PRN (19:23)
[2024-04-10] MEDS ORDERED: IBUPROFEN 400 MG TAB PO PRN (19:23)
[2024-04-10] MEDS ORDERED: NALOXONE 0.4 MG/ML 1 ML VIAL IV PRN (19:23)
[2024-04-10] MEDS: SODIUM CHLORIDE 0.9% 1,000 ML IV SCH (19:44)
[2024-04-10] MEDS: KETOROLAC 15 MG/ML 1 ML VIAL IVP PRN (19:52)
[2024-04-10] MEDS ORDERED: DEXTROSE 50% SYRINGE 50 ML IVP PRN ×2 (20:37)
[2024-04-10] MEDS: INSULIN ASPART (NovoLOG) 100 UNIT/ML VIAL SQ SCH (21:47)
[2024-04-11 08:29] VITALS: RESP 16
[2024-04-11] MEDS: guaiFENesin SYRUP 100MG/5ML 200 MG/10 ML CUP PO PRN (08:31)
[2024-04-11 09:53] LABS: HCT 33.3 % (39.6-50.0); HGB 10.5 g/dL (13.0-17.0); MCHC 31.5 g/dL (32.0-37.0); MCV 79.3 FL (80.0-97.0); Mean Platelet Volume 9.2 FL (9.5-12.2); NRBC Per 100 WBC 0 X 10*3/uL (0.00-0.01); Platelet Count 181 X 10*3/uL (140-440); RDW 18.4 % (11.5-14.5); WBC 34.98 X 10*3/uL (4.50-10.00)
[2024-04-11 10:37] LABS: Basophils # (A) 0.18 X 10*3/uL (0.00-0.10); Basophils % (A) 0.5 %; Eosinophils # (A) 0.17 X 10*3/uL (0.04-0.35); Eosinophils % (A) 0.5 %; Lymphocytes % (A) 6.6 %; Monocytes # (A) 0.15 X 10*3/uL (0.20-1.00); Monocytes % (A) 0.4 %; Neutrophils # (A) 30.68 X 10*3/uL (1.80-7.70); Neutrophils % (A) 87.7 %
[2024-04-11 11:18] LABS: ALT 31 U/L (10-49); AST 27 U/L (14-35); Albumin 2.7 g/dL (3.8-4.9); Albumin/Globulin Ratio 1.12 Ratio (1.60-3.17); Alkaline Phosphatase 239 U/L (41-126); Blood Urea Nitrogen 10.1 mg/dL (9.0-27.0); Calcium 7.7 mg/dL (8.7-10.3); Carbon Dioxide 20.2 mmol/L (21.6-31.8); Chloride 102 mmol/L (96-109); Globulin 2.4 g/dL (1.6-3.3); Glucose 78 mg/dL (70-110); Potassium 4.5 mmol/L (3.5-5.5); Sodium 132 mmol/L (135-145); Total Bilirubin 0.4 mg/dL (0.3-1.2); Total Protein 5.1 g/dL (6.2-8.2)
[2024-04-11 11:34] VITALS: BMI 20.1
--- NOTE | 2024-04-11 13:22 | P.HPIM ---
History of Present Illness This is a pleasant 68 years old male with past medical history of diabetes mellitus, hypertension, hyperlipidemia He was recently diagnosed with pancreatic cancer last December. His oncologist is Dr. Dee, he is getting chemotherapy, his third cycle was finished last Saturday. Patient has been having coughing with phlegm especially at night for about 1 week He comes to the hospital with swallowing difficulty especially for liquids, he states when he drinks liquids his throat closes up. He has no neck pain, he denies coughing currently no chest pain or dyspnea No GI/ symptom No headache dizziness weakness numbness He denies smoking alcohol or illicit drugs patient has 2 daughters at bedside this morning. Patient states that this morning he feels better And that he can eat and drink. Actually patient was requesting to go home. However patient agrees to stay in the hospital and treated especially with significant worsening leukocytosis Vital stable and afebrile Labs reviewed his sodium on admission was 127, he was placed on normal saline 75 mL/h and sodium this morning is 132 Also his white cell count jumped from 12 yesterday down to 34. Today, hemoglobin slightly low 12 down to 10.5 Liver enzymes and respiratory viruses were checked and they were negative He has soft tissue neck CAT scan with IV contrast showing enlarged lymph node on the left side with adjacent to the thyroid gland Review of Systems Review of systems CONSTITUTIONAL: No fever, no malaise, no fatigue. HEENT: No recent visual problems or hearing problems. Denied any sore throat. CARDIOVASCULAR: No orthopnea, PND, no palpitations, no syncope. PULMONARY: No shortness of breath, no cough, no hemoptysis. GASTROINTESTINAL: No diarrhea, no nausea, no vomiting, no abdominal pain. Normoactive bowel sounds. NEUROLOGICAL: No headaches, no weakness, no numbness. HEMATOLOGICAL: Denies any bleeding or petechiae. GENITOURINARY: Denies any burning micturition, frequency, or urgency. MUSCULOSKELETAL/RHEUMATOLOGICAL: Denies any joint pain, swelling, or any muscle pain. ENDOCRINE: Denies any polyuria or polydipsia. Past Medical History Past Medical History: Cancer, Diabetes Mellitus, Hyperlipidemia, Hypertension Additional Past Medical History / Comment(s): perirectal abscess,PANCREATIC CANCER History of Any Multi-Drug Resistant Organisms: None Reported Past Surgical History: Ear Surgery Additional Past Surgical History / Comment(s): RHINOPLASTY. TOOTH IMPLANT,WHIPPLE Past Anesthesia/Blood Transfusion Reactions: No Reported Reaction Additional Past Anesthesia/Blood Transfusion Reaction / Comment(s): no hx blood transfusion Past Psychological History: No Psychological Hx Reported Smoking Status: Never smoker Past Alcohol Use History: None Reported Past Drug Use History: None Reported - Past Family History Mother Family Medical History: Diabetes Mellitus Father Family Medical History: Diabetes Mellitus Medications and Allergies Home Medications Medication Instructions Recorded Confirmed Type metFORMIN HCL [Glucophage] 1,000 mg PO BID 09/14/19 04/10/24 History Pantoprazole [Protonix] 40 mg PO DAILY 03/10/24 04/10/24 History OLANZapine [ZyPREXA] 2.5 mg PO HS 03/24/24 04/10/24 History Benzonatate [Tessalon Perles] 100 mg PO TID PRN 04/10/24 04/10/24 History Empagliflozin [Jardiance] 25 mg PO DAILY 04/10/24 04/10/24 History Lipase/Protease/Amylase [[place] Dr 1 cap PO TID-W/MEALS 04/10/24 04/10/24 History 36,000 Unit Capsule] Ondansetron Odt [Zofran Odt] 4 - 8 mg PO Q4H PRN 04/10/24 04/10/24 History Prochlorperazine [Compazine] 10 mg PO Q6H PRN 04/10/24 04/10/24 History lisinopriL [Zestril] 20 mg PO DAILY 04/10/24 04/10/24 History Allergies Allergy/AdvReac Type Severity Reaction Status Date / Time No Known Allergies Allergy Verified 04/10/24 19:17 Physical Exam Vitals: Vital Signs Temp Pulse Pulse Resp BP BP BP 04/11/24 09:00 61 16 04/11/24 07:21 98.1 F 61 16 111/71 04/11/24 02:00 98.4 F 68 14 116/72 04/10/24 20:00 98.2 F 66 14 116/78 04/10/24 19:46 68 18 119/81 04/10/24 18:47 98.1 F 68 16 110/74 04/10/24 16:14 97.8 F 70 20 114/75 Pulse Ox 04/11/24 09:00 04/11/24 07:21 100 04/11/24 02:00 04/10/24 20:00 99 04/10/24 19:46 99 04/10/24 18:47 100 04/10/24 16:14 99 Intake and Output 04/10/24 04/11/24 04/11/24 22:59 06:59 14:59 Intake Total 795 Balance 795 Intake: Intake, IV Titration 675 Amount Sodium Chloride 0.9% 1, 675 000 ml @ 75 mls/hr IV . [id number] [facility] Rx#:[id number] Oral 120 Other: Voiding Method Toilet Toilet Urinal Urinal Weight 56.699 kg 56.699 kg GENERAL: The patient is alert and oriented x3, not in any acute distress. Well developed, well nourished. -HEENT: Pupils are round and equally reacting to light. EOMI. No scleral icterus. No conjunctival pallor. Normocephalic, atraumatic. No pharyngeal erythema. No thyromegaly. Slight fullness on the left neck CARDIOVASCULAR: S1 and S2 present. No murmurs, rubs, or gallops. PULMONARY: Chest is clear to auscultation, no wheezing , no crackles. ABDOMEN: Soft, nontender, nondistended, normoactive bowel sounds. No palpable organomegaly. MUSCULOSKELETAL: No joint swelling or deformity. EXTREMITIES: No cyanosis, clubbing, or pedal edema. NEUROLOGICAL: Gross neurological examination did not reveal any focal deficits. SKIN: No rashes. no petechiae. Results CBC & Chem 7: 04/11/24 05:33 04/11/24 05:33 Labs: Abnormal Lab Results - Last 24 Hours (Table) 04/10/24 04/10/24 04/11/24 Range/Units 17:10 17:10 05:33 WBC 12.6 H (3.8-10.6) k/uL RBC (4.40-5.60) X 10*6/uL Hgb 12.3 L (13.0-17.5) gm/dL Hct 38.7 L (39.0-53.0) % MCV (80.0-97.0) FL MCH (27.0-32.0) pg MCHC (32.0-37.0) g/dL RDW 17.8 H (11.5-15.5) % MPV (9.5-12.2) FL Immature Gran # (0.00-0.04) X 10*3/uL Neutrophils # 10.1 H (1.3-7.7) k/uL Monocytes # (0.20-1.00) X 10*3/uL Basophils # (0.00-0.10) X 10*3/uL Sodium 127 L (137-145) mmol/L Carbon Dioxide (21.6-31.8) mmol/L Creatinine 0.49 L (0.66-1.25) mg/dL BUN/Creatinine Ratio (12.00-20.00) Ratio Glucose 117 H (74-99) mg/dL Hemoglobin A1c 7.6 H (<=6.0) % Calcium 8.1 L (8.4-10.2) mg/dL Alkaline Phosphatase 231 H (38-126) U/L Total Protein 5.8 L (6.3-8.2) g/dL Albumin 2.9 L (3.5-5.0) g/dL Albumin/Globulin Ratio (1.60-3.17) Ratio 04/11/24 04/11/24 Range/Units 05:33 05:33 WBC 34.98 H (3.8-10.6) k/uL RBC 4.20 L (4.40-5.60) X 10*6/uL Hgb 10.5 L (13.0-17.5) gm/dL Hct 33.3 L (39.0-53.0) % MCV 79.3 L (80.0-97.0) FL MCH 25.0 L (27.0-32.0) pg MCHC 31.5 L (32.0-37.0) g/dL RDW 18.4 H (11.5-15.5) % MPV 9.2 L (9.5-12.2) FL Immature Gran # 1.50 H (0.00-0.04) X 10*3/uL Neutrophils # 30.68 H (1.3-7.7) k/uL Monocytes # 0.15 L (0.20-1.00) X 10*3/uL Basophils # 0.18 H (0.00-0.10) X 10*3/uL Sodium 132 L (137-145) mmol/L Carbon Dioxide 20.2 L (21.6-31.8) mmol/L Creatinine 0.5 L (0.66-1.25) mg/dL BUN/Creatinine Ratio 20.20 H (12.00-20.00) Ratio Glucose (74-99) mg/dL Hemoglobin A1c (<=6.0) % Calcium 7.7 L (8.4-10.2) mg/dL Alkaline Phosphatase 239 H (38-126) U/L Total Protein 5.1 L (6.3-8.2) g/dL Albumin 2.7 L (3.5-5.0) g/dL Albumin/Globulin Ratio 1.12 L (1.60-3.17) Ratio Thrombosis Risk Factor Assmnt - Choose All That Apply Any of the Below Risk Factors Present?: No Other Risk Factors: Yes Each Risk Factor Represents 2 Points: Age 61-74 years Each Risk Factor Represents 5 Points: Major surgery lasting over 3 hours Thrombosis Risk Factor Assessment Total Risk Factor Score: 7 Thrombosis Risk Factor Assessment Level: High Risk Assessment and Plan Assessment: Dysphagia related to a large left cervical lymphadenopathy, could be related to his history of pancreatic cancer Pancreatic cancer recently diagnosed getting chemotherapy, 3 cycles of 4 Dehydration and hypovolemic hyponatremia secondary to above, improving Significant leukocytosis, suspicious of infection is high which could be respiratory versus soft tissue neck versus others Diabetes mellitus Hypertension Hyperlipidemia Plan: Check blood culture and procalcitonin Check chest x-ray and urine analysis Start Zosyn Consult infectious disease team Dr. Dong up has been consulted his oncologist Continue with normal saline Speech and swallow evaluation Labs and medication were reviewed.. Continue same treatment. Continue with symptomatic treatment. Resume home medication. Monitor lytes and vitals. DVT and GI prophylaxis. Further recommendations depends on the clinical course of the patient DVT prophylaxis: Subcutaneous heparin GI Prophylaxis: Pepcid PT/OT: Pending Prognosis is guarded
--- NOTE | 2024-04-11 14:01 | XR ---
EXAMINATION TYPE: XR chest 2V DATE OF EXAM: 04/11/2024 1:57 PM CLINICAL INDICATION: Male, 68 years old with history of Leukocytosis; [facility] COMPARISON: None TECHNIQUE: XR chest 2V Frontal view of the chest. FINDINGS: Lungs/Pleura: There is no evidence of pleural effusion, focal consolidation, or pneumothorax. Pulmonary vascularity: Unremarkable. Heart/mediastinum: Cardiomediastinal silhouette is unremarkable. Musculoskeletal: No acute osseous pathology. Other findings: None Lines/Tubes: [id number] projecting over the left hemithorax with distal tip at the cavoatrial junction. IMPRESSION: No acute cardiopulmonary disease/process. [facility], , 04/11/2024 1:58 PM
[2024-04-11] MEDS: ONDANSETRON 4 MG/2 ML VIAL IVP PRN (14:58)
[2024-04-11] MEDS: PIPERACILLIN-TAZOBACTAM 3.375 GM in SODIUM CHLORIDE 0.9% 100 ML IVPB SCH (15:10)
[2024-04-11 18:36] LABS: Appearance,Urine Clear (Clear); Bilirubin,Urine Negative (Negative); Blood,Urine Negative (Negative); Color,Urine Light Yellow; Glucose,Urine (UA) 2+ (Negative); Ketones,Urine Negative (Negative); Leukocyte Esterase,Urine Negative (Negative); Nitrite,Urine Negative (Negative); Protein,Urine Negative (Negative); Urobilinogen,Urine <2.0 mg/dL (<2.0)
[2024-04-11] MEDS: AMPICILLIN-SULBACTAM 3 GM in SODIUM CHLORIDE 0.9% 100 ML IVPB SCH (18:53)
[2024-04-11] MEDS: PANTOPRAZOLE 40 MG/10 ML VIAL IVP SCH (22:05)
[2024-04-12] MEDS: HEPARIN SODIUM,PORCINE 5,000 UNIT/ML 1 ML VIAL SQ SCH (08:23)
--- NOTE | 2024-04-12 08:54 | P.CONS ---
History of Present Illness - Reason for Consult Consult date: 04/11/24 Leukocytosis Requesting physician: Chris E Sheet - Chief Complaint Neck pain and difficulty swallowing x 1 day - History of Present Illness Patient is a 68-year-old male Nepali-speaking apparently the patient recently did have Whipple procedure at [facility] for pancreatic cancer and the patient has been started on chemotherapy with the patient is currently receiving care at [place] last chemo was on patient has been brought into the hospital concerning for throat pain and difficulty swallowing liquids and this patient symptom has been going on for a day or 2 before the patient has been brought into the hospital patient denies having any headache any sinus or upper airway symptoms mostly soreness at the left lateral angle of the mouth and difficulty swallowing but no sores in the mouth denies having difficulty breathing no chest pain shortness of breath or cough no nausea no vomiting no abdominal pain or any diarrhea with the symptoms the patient has been evaluated on presentation to the hospital the patient was afebrile and a few have been recorded subsequently patient was not tachycardic hypotensive or hypoxic and no need for supplemental oxygen he did have white count of 12.6 repeat is up to 34,000 that has prompted this consultation patient kidney function was normal liver enzymes are normal urine has been negative he tested negative for influenza RSV and COVID patient did have chest x-ray and large left neck lymph node adjacent to the thyroid gland correlate for history of malignancy no other acute abnormality patient did have a chest x-ray that was negative for acute cardiopulmonary disease process patient was started on Zosyn infectious disease was consulted for further management of antibiotic therapy Review of Systems Positive point and negatives has been mentioned in the HPI, complete review of systems was performed and all other systems are negative Past Medical History Past Medical History: Cancer, Diabetes Mellitus, Hyperlipidemia, Hypertension Additional Past Medical History / Comment(s): perirectal abscess,PANCREATIC CANCER History of Any Multi-Drug Resistant Organisms: None Reported Past Surgical History: Ear Surgery Additional Past Surgical History / Comment(s): RHINOPLASTY. TOOTH IMPLANT,WHIPPLE Past Anesthesia/Blood Transfusion Reactions: No Reported Reaction Additional Past Anesthesia/Blood Transfusion Reaction / Comm: no hx blood transfusion Past Psychological History: No Psychological Hx Reported Smoking Status: Never smoker Past Alcohol Use History: None Reported Past Drug Use History: None Reported - Past Family History Mother Family Medical History: Diabetes Mellitus Father Family Medical History: Diabetes Mellitus Medications and Allergies Home Medications Medication Instructions Recorded Confirmed Type metFORMIN HCL [Glucophage] 1,000 mg PO BID 09/14/19 04/10/24 History Pantoprazole [Protonix] 40 mg PO DAILY 03/10/24 04/10/24 History OLANZapine [ZyPREXA] 2.5 mg PO HS 03/24/24 04/10/24 History Benzonatate [Tessalon Perles] 100 mg PO TID PRN 04/10/24 04/10/24 History Empagliflozin [Jardiance] 25 mg PO DAILY 04/10/24 04/10/24 History Lipase/Protease/Amylase [Fernando Dr 1 cap PO TID-W/MEALS 04/10/24 04/10/24 History 36,000 Unit Capsule] Ondansetron Odt [Zofran Odt] 4 - 8 mg PO Q4H PRN 04/10/24 04/10/24 History Prochlorperazine [Compazine] 10 mg PO Q6H PRN 04/10/24 04/10/24 History lisinopriL [Zestril] 20 mg PO DAILY 04/10/24 04/10/24 History Allergies Allergy/AdvReac Type Severity Reaction Status Date / Time No Known Allergies Allergy Verified 04/10/24 19:17 Physical Exam Vitals: Vital Signs Temp Pulse Pulse Resp BP BP BP 04/11/24 13:24 97.6 F 74 16 144/80 04/11/24 09:00 61 16 04/11/24 07:21 98.1 F 61 16 111/71 04/11/24 02:00 98.4 F 68 14 116/72 04/10/24 20:00 98.2 F 66 14 116/78 04/10/24 19:46 68 18 119/81 04/10/24 18:47 98.1 F 68 16 110/74 04/10/24 16:14 97.8 F 70 20 114/75 Pulse Ox 04/11/24 13:24 99 04/11/24 09:00 04/11/24 07:21 100 04/11/24 02:00 04/10/24 20:00 99 04/10/24 19:46 99 04/10/24 18:47 100 04/10/24 16:14 99 Intake and Output 0904/11/24 04/11/24 06:59 14:59 22:59 Intake Total 795 Balance 795 Intake: Intake, IV Titration 675 Amount Sodium Chloride 0.9% 1, 675 000 ml @ 75 mls/hr IV . [id number] REPLACED BY [facility] Rx#:[id number] Oral 120 Other: Voiding Method Toilet Urinal Weight 56.699 kg GENERAL DESCRIPTION: Middle-aged male lying in bed, no distress. No tachypnea or accessory muscle of respiration use. HEENT: Shows Pallor , no scleral icterus. Oral mucous membrane is dry. No pharyngeal erythema or thrush NECK: Trachea central, no thyromegaly. LUNGS: Unlabored breathing. Clear to auscultation anteriorly. No wheeze or crackle. HEART: S1, S2, regular rate and rhythm. No loud murmur ABDOMEN: Soft, no tenderness , guarding or rigidity, no organomegaly EXTREMITIES: No edema of feet. SKIN: No rash, no masses palpable. NEUROLOGICAL: The patient is awake, alert, oriented x3, mood and affect normal. Results CBC & Chem 7: 04/11/24 05:33 04/11/24 05:33 Labs: Abnormal Lab Results - Last 24 Hours (Table) 04/10/24 04/10/24 04/11/24 Range/Units 17:10 17:10 05:33 WBC 12.6 H (3.8-10.6) k/uL RBC (4.40-5.60) X 10*6/uL Hgb 12.3 L (13.0-17.5) gm/dL Hct 38.7 L (39.0-53.0) % MCV (80.0-97.0) FL MCH (27.0-32.0) pg MCHC (32.0-37.0) g/dL RDW 17.8 H (11.5-15.5) % MPV (9.5-12.2) FL Immature Gran # (0.00-0.04) X 10*3/uL Neutrophils # 10.1 H (1.3-7.7) k/uL Monocytes # (0.20-1.00) X 10*3/uL Basophils # (0.00-0.10) X 10*3/uL Sodium 127 L (137-145) mmol/L Carbon Dioxide (21.6-31.8) mmol/L Creatinine 0.49 L (0.66-1.25) mg/dL BUN/Creatinine Ratio (12.00-20.00) Ratio Glucose 117 H (74-99) mg/dL Hemoglobin A1c 7.6 H (<=6.0) % Calcium 8.1 L (8.4-10.2) mg/dL Alkaline Phosphatase 231 H (38-126) U/L Total Protein 5.8 L (6.3-8.2) g/dL Albumin 2.9 L (3.5-5.0) g/dL Albumin/Globulin Ratio (1.60-3.17) Ratio 04/11/24 04/11/24 Range/Units 05:33 05:33 WBC 34.98 H (3.8-10.6) k/uL RBC 4.20 L (4.40-5.60) X 10*6/uL Hgb 10.5 L (13.0-17.5) gm/dL Hct 33.3 L (39.0-53.0) % MCV 79.3 L (80.0-97.0) FL MCH 25.0 L (27.0-32.0) pg MCHC 31.5 L (32.0-37.0) g/dL RDW 18.4 H (11.5-15.5) % MPV 9.2 L (9.5-12.2) FL Immature Gran # 1.50 H (0.00-0.04) X 10*3/uL Neutrophils # 30.68 H (1.3-7.7) k/uL Monocytes # 0.15 L (0.20-1.00) X 10*3/uL Basophils # 0.18 H (0.00-0.10) X 10*3/uL Sodium 132 L (137-145) mmol/L Carbon Dioxide 20.2 L (21.6-31.8) mmol/L Creatinine 0.5 L (0.66-1.25) mg/dL BUN/Creatinine Ratio 20.20 H (12.00-20.00) Ratio Glucose (74-99) mg/dL Hemoglobin A1c (<=6.0) % Calcium 7.7 L (8.4-10.2) mg/dL Alkaline Phosphatase 239 H (38-126) U/L Total Protein 5.1 L (6.3-8.2) g/dL Albumin 2.7 L (3.5-5.0) g/dL Albumin/Globulin Ratio 1.12 L (1.60-3.17) Ratio Assessment and Plan (1) Leukocytosis Current Visit: Yes Status: Acute Code(s): D72.829 - ELEVATED WHITE BLOOD CELL COUNT, UNSPECIFIED SNOMED Code(s): 482710287 (2) Cervical lymphadenopathy Current Visit: Yes Status: Acute Code(s): R59.0 - LOCALIZED ENLARGED LYMPH NODES SNOMED Code(s): 624107554 Plan: 1patient with elevated white count in this patient who did have a history of pancreatic cancer status post Whipple procedure has been on chemotherapy last chemo few days before presentation to the hospital and the patient may have received Neulasta as per discussion with the daughter at the bedside presenting predominantly with the neck pain and difficulty swallowing there is no evidence of any oral ulcer except at the angle of the mouth no evidence of thrush questionably elevated white related to the drug effect versus related to the upper airway/mouth area 2-we will wait for the inflammatory markers to be finalized and cultures 3-switch Zosyn to Unasyn Multiple question concern answered We will follow on clinical condition and cultures to further adjust medication if needed Thank you for this consultation we will follow the patient along with you Dictation was produced using [employer] dictation software. please excuse any grammatical, word or spelling errors. Time with Patient: Greater than 30
[2024-04-12 09:20] LABS: HGB 10.4 g/dL (13.0-17.0); MCH 24.9 pg (27.0-32.0); MCHC 31.5 g/dL (32.0-37.0); MCV 79.1 FL (80.0-97.0); Mean Platelet Volume 9.2 FL (9.5-12.2); NRBC Per 100 WBC 0 X 10*3/uL (0.00-0.01); Platelet Count 161 X 10*3/uL (140-440); RBC 4.17 X 10*6/uL (4.40-5.60); RDW 18.2 % (11.5-14.5); WBC 24.22 X 10*3/uL (4.50-10.00)
[2024-04-12 10:26] LABS: Blood Urea Nitrogen 4.6 mg/dL (9.0-27.0); Calcium 7.5 mg/dL (8.7-10.3); Carbon Dioxide 21.1 mmol/L (21.6-31.8); Chloride 102 mmol/L (96-109); Glucose 104 mg/dL (70-110); Sodium 133 mmol/L (135-145)
[2024-04-12 11:10] LABS: Basophils # (M) 0 X 10*3/uL (0.00-0.10); Eosinophils # (M) 0 X 10*3/uL (0.04-0.35); Lymphocytes # (M) 0.48 X 10*3/uL (0.90-5.00); Monocytes # (M) 0 X 10*3/uL (0.20-1.00); Neutrophils # (M) 23.74 X 10*3/uL (1.80-7.70); Neutrophils % (M) 98 %
--- NOTE | 2024-04-12 11:27 | P.CONS ---
History of Present Illness - Reason for Consult Consult date: 04/12/24 pancreatic cancer Requesting physician: Pato Chaudhry - Chief Complaint Dysphagia and throat pain - History of Present Illness Pt comes in for throat pain and dysphagia, worsening over past 2 days. He comes to ED where work up shows leukocytosis, WBC 34, Hgb 10.5, plt 180. Cr and LFT's normal. Na 132. Infectious work up including CXR and UA, and COVID/flu negative. He had CT neck which shows left neck LN enlargement, likely reactive. Started on IV fluids and antibiotics. Feeling better. We were consulted for further rec's on his oncologic care with pancreatic cancer, on chemo. Onc History Follows with Dr. Burton Stanford 02/03/24: Initial consult: Mr. Cloud is a 68-year-old gentleman with a past medical history significant for diabetes mellitus type 2, hypertension, hyperlipidemia who presents to establish care for recently diagnosed pancreatic adenocarcinoma. He was noted to have progressive weight loss of 10 to 20 pounds, constipation, anorexia, and progressive scleral icterus. He had imaging revealing pancreatic head mass with obstructive jaundice. He was transferred to [facility] where MRCP along with EGD/EUS performed with biopsy of the pancreatic head mass revealed adenocarcinoma. Shortly thereafter, he developed progressive abdominal pain and presented to [facility] in [place], [place]. CT abdomen/pelvis on 01/11/2024 noted distended gallbladder with mild wall thickening along with placement of common bile duct stent. There was an ill-defined hypodense lesion in the pancreatic head measuring 1.9 x 1 x 1.9 cm with no pancreatic ductal dilatation. CT of the chest on 01/12/2024 revealed no evidence of metastatic disease. CA 19-9 at that time was noted to be 81 with normal CEA of 3.2. He was evaluated by Dr. Brandt Mustafa who performed Whipple with regional lymphadenectomy on 01/14/2024. Postoperative pathology revealed poorly differentiated pancreatic adenocarcinoma measuring 3 cm with negative margins. Perineural invasion was noted along with 11 of 23 lymph nodes being positive for metastatic carcinoma. Pathologic diagnosis was pT2N2. Currently, he has recovered well from surgery. He did have hospitalization for abdominal pain and was noted to have constipation, has been relieved with stool softeners. He denies any postoperative fevers, chills, or bleeding. He is currently able to increasingly eat solids and liquids without nausea, vomiting, or abdominal pain. He denies any cigarette smoking, alcohol abuse, or illicit drug use. He has had 2 first-degree cousins with malignancy, but does not recall details with regards to the primary site. He also had second-degree paternal uncle also diagnosed with malignancy of the GI tract. He has a total of 4 children ranging from the late 20s to the late 30s in age and are otherwise healthy. 03/10/24: C1D1 of adjuvant FOLFIRINOX 03/24/24: C2D1 of adjuvant FOLFIRINOX 04/07/24: C3D1 of adjuvant FOLFIRINOX Past Medical History Past Medical History: Cancer, Diabetes Mellitus, Hyperlipidemia, Hypertension Additional Past Medical History / Comment(s): perirectal abscess,PANCREATIC CANCER History of Any Multi-Drug Resistant Organisms: None Reported Past Surgical History: Ear Surgery Additional Past Surgical History / Comment(s): RHINOPLASTY. TOOTH IMPLANT,WHIPPLE Past Anesthesia/Blood Transfusion Reactions: No Reported Reaction Additional Past Anesthesia/Blood Transfusion Reaction / Comm: no hx blood transfusion Past Psychological History: No Psychological Hx Reported Smoking Status: Never smoker Past Alcohol Use History: None Reported Past Drug Use History: None Reported - Past Family History Mother Family Medical History: Diabetes Mellitus Father Family Medical History: Diabetes Mellitus Medications and Allergies Home Medications Medication Instructions Recorded Confirmed Type metFORMIN HCL [Glucophage] 1,000 mg PO BID 09/14/19 04/10/24 History Pantoprazole [Protonix] 40 mg PO DAILY 03/10/24 04/10/24 History OLANZapine [ZyPREXA] 2.5 mg PO HS 03/24/24 04/10/24 History Benzonatate [Tessalon Perles] 100 mg PO TID PRN 04/10/24 04/10/24 History Empagliflozin [Jardiance] 25 mg PO DAILY 04/10/24 04/10/24 History Lipase/Protease/Amylase [Creon Dr 1 cap PO TID-W/MEALS 04/10/24 04/10/24 History 36,000 Unit Capsule] Ondansetron Odt [Zofran Odt] 4 - 8 mg PO Q4H PRN 04/10/24 04/10/24 History Prochlorperazine [Compazine] 10 mg PO Q6H PRN 04/10/24 04/10/24 History lisinopriL [Zestril] 20 mg PO DAILY 04/10/24 04/10/24 History Allergies Allergy/AdvReac Type Severity Reaction Status Date / Time No Known Allergies Allergy Verified 04/10/24 19:17 Physical Exam Vitals: Vital Signs Temp Pulse Pulse Resp BP Pulse Ox 04/12/24 07:20 98.1 F 65 16 126/74 100 04/12/24 02:00 98.1 F 67 16 109/68 100 04/11/24 20:00 98.4 F 80 61 16 130/77 04/11/24 13:24 97.6 F 74 16 144/80 99 Intake and Output 04/11/24 04/12/24 04/12/24 22:59 06:59 14:59 Intake Total 720 240 Balance 720 240 Intake: Oral 720 240 Other: Voiding Method Toilet Urinal In no acute distress. Mucosa moist. Has signs of thrush on tongue. small sore/crack on the left corner of his lip. No respiratory distress. Heart is regular rate. No leg swelling. Alert and oriented x 3. Results CBC & Chem 7: 04/12/24 05:54 04/12/24 05:54 Labs: Abnormal Lab Results - Last 24 Hours (Table) 04/11/24 04/11/24 04/11/24 Range/Units 05:33 05:33 18:30 WBC 34.98 H (4.50-10.00) X 10*3/uL RBC 4.20 L (4.40-5.60) X 10*6/uL Hgb 10.5 L (13.0-17.0) g/dL Hct 33.3 L (39.6-50.0) % MCV 79.3 L (80.0-97.0) FL MCH 25.0 L (27.0-32.0) pg MCHC 31.5 L (32.0-37.0) g/dL RDW 18.4 H (11.5-14.5) % MPV 9.2 L (9.5-12.2) FL Immature Gran # 1.50 H (0.00-0.04) X 10*3/uL Neutrophils # 30.68 H (1.80-7.70) X 10*3/uL Monocytes # 0.15 L (0.20-1.00) X 10*3/uL Basophils # 0.18 H (0.00-0.10) X 10*3/uL Sodium 132 L (135-145) mmol/L Carbon Dioxide 20.2 L (21.6-31.8) mmol/L Creatinine 0.5 L (0.6-1.5) mg/dL BUN/Creatinine Ratio 20.20 H (12.00-20.00) Ratio Calcium 7.7 L (8.7-10.3) mg/dL Alkaline Phosphatase 239 H (41-126) U/L Total Protein 5.1 L (6.2-8.2) g/dL Albumin 2.7 L (3.8-4.9) g/dL Albumin/Globulin Ratio 1.12 L (1.60-3.17) Ratio Urine Glucose (UA) 2+ H (Negative) 04/12/24 Range/Units 05:54 WBC 24.22 H (4.50-10.00) X 10*3/uL RBC 4.17 L (4.40-5.60) X 10*6/uL Hgb 10.4 L (13.0-17.0) g/dL Hct 33.0 L (39.6-50.0) % MCV 79.1 L (80.0-97.0) FL MCH 24.9 L (27.0-32.0) pg MCHC 31.5 L (32.0-37.0) g/dL RDW 18.2 H (11.5-14.5) % MPV 9.2 L (9.5-12.2) FL Immature Gran # (0.00-0.04) X 10*3/uL Neutrophils # (1.80-7.70) X 10*3/uL Monocytes # (0.20-1.00) X 10*3/uL Basophils # (0.00-0.10) X 10*3/uL Sodium (135-145) mmol/L Carbon Dioxide (21.6-31.8) mmol/L Creatinine (0.6-1.5) mg/dL BUN/Creatinine Ratio (12.00-20.00) Ratio Calcium (8.7-10.3) mg/dL Alkaline Phosphatase (41-126) U/L Total Protein (6.2-8.2) g/dL Albumin (3.8-4.9) g/dL Albumin/Globulin Ratio (1.60-3.17) Ratio Urine Glucose (UA) (Negative) Chest x-ray: report reviewed (CT neck report reviewed) Assessment and Plan Assessment: 1. Chemo induced mucositis 2. Leukocytosis, likely reactive due to infection 3. Anemia due to chemo 4. Dehydration Plan: Mr. Cloud is a very pleasant 68 yo male with history of pancreatic cancer, s/p Whipple followed by 3 cycles of adjuvant FOLFIRINOX, here for throat pain and dysphagia, likely due to chemo induced mucositis with possible superimposed infection. - CT neck reviewed, LAD likely reactive - Agree with antibiotics as per ID, feeling better - Hydration - Supportive care, antiemetics prn, pain control - Nystatin solution - Consider diflucan if thrush dysphagia/odynophagia not improving - Monitor CBC, Hgb and plt overall stable, leukocytosis likely due to G-CSF which he received on 04/10/24, and possibly in part reactive due to infection, improving - Next chemo due 04/21/24 - He can follow up after discharge for OP chemo if he continues to improve Discussed with pt/family and they are agreeable. All questions answered.
[2024-04-12] MEDS: NYSTATIN 100,000 UNIT/ML SUSP 500,000 UNIT/5 ML CUP PO SCH (12:20)
--- NOTE | 2024-04-12 14:25 | P.PN ---
Subjective Progress Note Date: 04/12/24 Principal diagnosis: Reason for follow-up is leukocytosis Patient is a 68-year-old male Azeri-speaking apparently the patient recently did have Whipple procedure at [facility] for pancreatic cancer and the patient has been started on chemotherapy, last chemo on 04/07/2024 presented to hospital with difficulty with swallowing pain did have elevated white count. On today's evaluation that is 04/12/2024, Patient is afebrile this morning patient denies having any chest pain shortness of breath or cough, the patient is breathing comfortably on room air, patient denies any abdominal pain no diarrhea no nausea no vomiting patient did mention overall soreness in the mouth has improved denies difficulty swallowing or breathing. Patient white count is down to 24.22, creatinine 0.5 Objective - Vital Signs Vital signs: Vital Signs Temp 97.9 F 04/12/24 12:07 Pulse 72 04/12/24 12:07 Resp 16 04/12/24 12:07 BP 124/77 04/12/24 12:07 Pulse Ox 100 04/12/24 12:07 FiO2 Intake & Output 04/11/24 04/12/24 04/12/24 18:59 06:59 18:59 Intake Total 720 240 Balance 720 240 Weight 56.699 kg Intake: Oral 720 240 Other: Voiding Method Toilet Toilet Toilet Urinal Urinal Urinal - Exam GENERAL DESCRIPTION: An elderly male up in the chair in no distress RESPIRATORY SYSTEM: Unlabored breathing , decreased breath sounds at bases HEART: S1 S2 regular rate and rhythm , ABDOMEN: Soft , no tenderness EXTREMITIES: No edema feet - Labs CBC & Chem 7: 04/12/24 05:54 04/12/24 05:54 Labs: Abnormal Lab Results - Last 24 Hours (Table) 04/11/24 04/12/24 04/12/24 Range/Units 18:30 05:54 05:54 WBC 24.22 H (4.50-10.00) X 10*3/uL RBC 4.17 L (4.40-5.60) X 10*6/uL Hgb 10.4 L (13.0-17.0) g/dL Hct 33.0 L (39.6-50.0) % MCV 79.1 L (80.0-97.0) FL MCH 24.9 L (27.0-32.0) pg MCHC 31.5 L (32.0-37.0) g/dL RDW 18.2 H (11.5-14.5) % MPV 9.2 L (9.5-12.2) FL Neutrophils # (Manual) 23.74 H (1.80-7.70) X 10*3/uL Lymphocytes # (Manual) 0.48 L (0.90-5.00) X 10*3/uL Monocytes # (Manual) 0 L (0.20-1.00) X 10*3/uL Eosinophils # (Manual) 0 L (0.04-0.35) X 10*3/uL Sodium 133 L (135-145) mmol/L Carbon Dioxide 21.1 L (21.6-31.8) mmol/L BUN 4.6 L (9.0-27.0) mg/dL Creatinine 0.5 L (0.6-1.5) mg/dL BUN/Creatinine Ratio 9.20 L (12.00-20.00) Ratio Calcium 7.5 L (8.7-10.3) mg/dL Urine Glucose (UA) 2+ H (Negative) Assessment and Plan (1) Leukocytosis Current Visit: Yes Status: Acute Code(s): D72.829 - ELEVATED WHITE BLOOD CELL COUNT, UNSPECIFIED SNOMED Code(s): 724829417 (2) Cervical lymphadenopathy Current Visit: Yes Status: Acute Code(s): R59.0 - LOCALIZED ENLARGED LYMPH NODES SNOMED Code(s): 702535438 Plan: 1patient with elevated white count in this patient who did have a history of pancreatic cancer status post Whipple procedure has been on chemotherapy last chemo few days before presentation to the hospital and the patient may have received Neulasta as per discussion with the daughter at the bedside presenting predominantly with the neck pain and difficulty swallowing there is no evidence of any oral ulcer except at the angle of the mouth no evidence of thrush questionably chemo associated mucositis and possible second infection 2-patient did have improvement in his symptoms and the patient white count is trending down we will continue patient on Unasyn and reevaluate tomorrow Dictation was produced using [employer] dictation software. please excuse any grammatical, word or spelling errors. Time with Patient: Less than 30
[2024-04-12] MEDS: LIPASE 5,000/PROTEASE 17,000/AMYLASE 24,000 PO SCH (17:18)
--- NOTE | 2024-04-12 21:58 | P.PN ---
Subjective This is a pleasant 68 years old male with past medical history of diabetes mellitus, hypertension, hyperlipidemia He was recently diagnosed with pancreatic cancer last December. His oncologist is Dr. Dee, he is getting chemotherapy, his third cycle was finished last Saturday. Patient has been having coughing with phlegm especially at night for about 1 week He comes to the hospital with swallowing difficulty especially for liquids, he states when he drinks liquids his throat closes up. He has no neck pain, he denies coughing currently no chest pain or dyspnea No GI/ symptom No headache dizziness weakness numbness He denies smoking alcohol or illicit drugs patient has 2 daughters at bedside this morning. Patient states that this morning he feels better And that he can eat and drink. Actually patient was requesting to go home. However patient agrees to stay in the hospital and treated especially with significant worsening leukocytosis Vital stable and afebrile Labs reviewed his sodium on admission was 127, he was placed on normal saline 75 mL/h and sodium this morning is 132 Also his white cell count jumped from 12 yesterday down to 34. Today, hemoglobin slightly low 12 down to 10.5 Liver enzymes and respiratory viruses were checked and they were negative He has soft tissue neck CAT scan with IV contrast showing enlarged lymph node on the left side with adjacent to the thyroid gland 04/12/2024 Patient feels better He states his swallowing is better, he eats better and his talking is better Family at bedside and agree with this No significant pain Currently covered with IV Unasyn Patient evaluated by oncology at next treatment is scheduled on 04/21 Objective - Vital Signs Vital signs: Vital Signs Temp 98.0 F 04/12/24 20:00 Pulse 69 04/12/24 20:00 Resp 16 04/12/24 20:00 BP 114/72 04/12/24 20:00 Pulse Ox 100 04/12/24 20:00 FiO2 Intake & Output 04/12/24 04/12/24 04/13/24 06:59 18:59 06:59 Intake Total 240 160 Balance 240 160 Intake: Oral 240 160 Other: Voiding Method Toilet Toilet Urinal Urinal # Voids 4 - Exam GENERAL: The patient is alert and oriented x3, not in any acute distress. Well developed, well nourished. HEENT: Pupils are round and equally reacting to light. EOMI. No scleral icterus. No conjunctival pallor. Normocephalic, atraumatic. No pharyngeal erythema. No thyromegaly. CARDIOVASCULAR: S1 and S2 present. No murmurs, rubs, or gallops. PULMONARY: Chest is clear to auscultation, no wheezing , no crackles. ABDOMEN: Soft, nontender, nondistended, normoactive bowel sounds. No palpable organomegaly. MUSCULOSKELETAL: No joint swelling or deformity. EXTREMITIES: No cyanosis, clubbing, or pedal edema. NEUROLOGICAL: Gross neurological examination did not reveal any focal deficits. SKIN: No rashes. no petechiae. - Labs CBC & Chem 7: 04/12/24 05:54 04/12/24 05:54 Labs: Abnormal Lab Results - Last 24 Hours (Table) 04/12/24 04/12/24 Range/Units 05:54 05:54 WBC 24.22 H (4.50-10.00) X 10*3/uL RBC 4.17 L (4.40-5.60) X 10*6/uL Hgb 10.4 L (13.0-17.0) g/dL Hct 33.0 L (39.6-50.0) % MCV 79.1 L (80.0-97.0) FL MCH 24.9 L (27.0-32.0) pg MCHC 31.5 L (32.0-37.0) g/dL RDW 18.2 H (11.5-14.5) % MPV 9.2 L (9.5-12.2) FL Neutrophils # (Manual) 23.74 H (1.80-7.70) X 10*3/uL Lymphocytes # (Manual) 0.48 L (0.90-5.00) X 10*3/uL Monocytes # (Manual) 0 L (0.20-1.00) X 10*3/uL Eosinophils # (Manual) 0 L (0.04-0.35) X 10*3/uL Sodium 133 L (135-145) mmol/L Carbon Dioxide 21.1 L (21.6-31.8) mmol/L BUN 4.6 L (9.0-27.0) mg/dL Creatinine 0.5 L (0.6-1.5) mg/dL BUN/Creatinine Ratio 9.20 L (12.00-20.00) Ratio Calcium 7.5 L (8.7-10.3) mg/dL Assessment and Plan Assessment: Dysphagia related to a large left cervical lymphadenopathy, could be related to his history of pancreatic cancer Pancreatic cancer recently diagnosed getting chemotherapy, 3 cycles of 4 Dehydration and hypovolemic hyponatremia secondary to above, improving Significant leukocytosis, suspicious of infection is high which could be respiratory versus soft tissue neck versus others Diabetes mellitus Hypertension Hyperlipidemia Plan: Continue with Unasyn Consult infectious disease team Oncology team consult Speech and swallow evaluation Labs and medication were reviewed.. Continue same treatment. Continue with symptomatic treatment. Resume home medication. Monitor lytes and vitals. DVT and GI prophylaxis. Further recommendations depends on the clinical course of the patient DVT prophylaxis: Subcutaneous heparin GI Prophylaxis: Pepcid PT/OT: Pending Prognosis is guarded
--- NOTE | 2024-04-13 12:54 | P.PN ---
Subjective Progress Note Date: 04/13/24 Principal diagnosis: Reason for follow-up is leukocytosis Patient is a 68-year-old male Hebrew-speaking apparently the patient recently did have Whipple procedure at [facility] for pancreatic cancer and the patient has been started on chemotherapy, last chemo on 04/07/2024 presented to hospital with difficulty with swallowing pain did have elevated white count. On today's evaluation that is 04/13/2024,the patient denies any fever or any chills, patient is breathing comfortably on room air, the patient denies chest pain shortness of breath and no significant cough, patient denies abdominal pain, no nausea vomiting or diarrhea. Patient denies having any sores in the mouth no difficulty swallowing feeling better wants to go home. No new lab has been obtained today blood culture has been negative so far Objective - Vital Signs Vital signs: Vital Signs Temp 97.9 F 04/13/24 07:47 Pulse 61 04/13/24 07:47 Resp 16 04/13/24 07:47 BP 122/71 04/13/24 07:47 Pulse Ox 99 04/13/24 07:47 FiO2 Intake & Output 04/12/24 04/13/24 04/13/24 18:59 06:59 18:59 Intake Total 160 590 Balance 160 590 Intake: Oral 160 590 Other: Voiding Method Toilet Toilet Urinal Urinal # Voids 4 1 - Exam GENERAL DESCRIPTION: An elderly male up in the chair in no distress RESPIRATORY SYSTEM: Unlabored breathing , decreased breath sounds at bases HEART: S1 S2 regular rate and rhythm , ABDOMEN: Soft , no tenderness EXTREMITIES: No edema feet - Labs CBC & Chem 7: 04/12/24 05:54 04/12/24 05:54 Labs: Abnormal Lab Results - Last 24 Hours (Table) 04/12/24 Range/Units 05:54 Neutrophils # (Manual) 23.74 H (1.80-7.70) X 10*3/uL Lymphocytes # (Manual) 0.48 L (0.90-5.00) X 10*3/uL Monocytes # (Manual) 0 L (0.20-1.00) X 10*3/uL Eosinophils # (Manual) 0 L (0.04-0.35) X 10*3/uL Microbiology - Last 24 Hours (Table) 04/11/24 14:20 Blood Culture - Preliminary Blood Assessment and Plan (1) Leukocytosis Current Visit: Yes Status: Acute Code(s): D72.829 - ELEVATED WHITE BLOOD CELL COUNT, UNSPECIFIED SNOMED Code(s): 220175200 (2) Cervical lymphadenopathy Current Visit: Yes Status: Acute Code(s): R59.0 - LOCALIZED ENLARGED LYMPH NODES SNOMED Code(s): 490507593 Plan: 1patient with elevated white count in this patient who did have a history of pancreatic cancer status post Whipple procedure has been on chemotherapy last chemo few days before presentation to the hospital and the patient may have received Neulasta as per discussion with the daughter at the bedside presenting predominantly with the neck pain and difficulty swallowing there is no evidence of any oral ulcer except at the angle of the mouth no evidence of thrush questionably chemo associated mucositis and possible second infection 2-patient did have improvement in his symptoms and the patient white count is trending down as of yesterday no CBC was done today patient is feeling better on Unasyn we will be able to finish therapy with oral Augmentin Dictation was produced using [employer] software. please excuse any grammatical, word or spelling errors. Time with Patient: Less than 30
[2024-04-13] MEDS: PROCHLORPERAZINE INJ 10 MG/2 ML VIAL IVP PRN (13:08)
[2024-04-13 14:25] VITALS: BP 120/77; PULSE 74; TEMP 97.6
--- NOTE | 2024-04-13 15:37 | P.PN ---
Subjective Progress Note Date: 04/13/24 Principal diagnosis: Oral irritation 2/2 chemo In f/u today pt radha mouth is feeling better, it is easier to swallow, no longer having pain. He passed swallow evaluation, ate most of his breakfast. No other c/o on a 10 point ROS Objective - Vital Signs Vital signs: Vital Signs Temp 97.6 F 04/13/24 13:48 Pulse 74 04/13/24 13:48 Resp 16 04/13/24 13:48 BP 120/77 04/13/24 13:48 Pulse Ox 100 04/13/24 13:48 FiO2 Intake & Output 04/12/24 04/13/24 04/13/24 18:59 06:59 18:59 Intake Total 160 590 Balance 160 590 Weight 56.699 kg Intake: Oral 160 590 Other: Voiding Method Toilet Toilet Toilet Urinal Urinal Urinal # Voids 4 1 - Constitutional General appearance: Present: average body habitus, cooperative, no acute distress - EENT Eyes: Present: anicteric sclerae, EOMI ENT: Present: hearing grossly normal, normal oropharynx - Respiratory Respiratory: bilateral: CTA - Cardiovascular Rhythm: regular Heart sounds: normal: S1, S2 Abnormal Heart Sounds: Absent: systolic murmur, diastolic murmur, rub, S3 Gallop, S4 Gallop, click, other - Peripheral edema leg Peripheral Edema: bilateral: None - Gastrointestinal General gastrointestinal: Present: soft - Neurologic Neurologic: Present: CNII-XII intact - Musculoskeletal Musculoskeletal: Present: strength equal bilaterally - Psychiatric Psychiatric: Present: A&O x's 3, appropriate affect, intact judgment & insight - Labs CBC & Chem 7: 04/12/24 05:54 04/12/24 05:54 Labs: Microbiology - Last 24 Hours (Table) 04/11/24 14:20 Blood Culture - Preliminary Blood Assessment and Plan (1) Dysphagia Current Visit: Yes Status: Acute Priority: High Code(s): R13.10 - DYSPHAGIA, UNSPECIFIED SNOMED Code(s): 89044711 (2) Pancreatic adenocarcinoma Current Visit: Yes Status: Acute Priority: Medium Code(s): C25.9 - MALIGNANT NEOPLASM OF PANCREAS, UNSPECIFIED SNOMED Code(s): 899185637 (3) Anemia due to antineoplastic chemotherapy Current Visit: Yes Status: Acute Priority: Medium Code(s): D64.81 - ANEMIA DUE TO ANTINEOPLASTIC CHEMOTHERAPY; T45.1X5A - ADVERSE EFFECT OF ANTINEOPLASTIC AND IMMUNOSUP DRUGS, INIT SNOMED Code(s): 737849513780857 (4) Leukocytosis Current Visit: Yes Status: Acute Priority: Medium Code(s): D72.829 - ELEVATED WHITE BLOOD CELL COUNT, UNSPECIFIED SNOMED Code(s): 767717750 Plan: oral irritation -2/2 chemo-more cold sensitivity -much improved as pt gets further away from chemo -plans for dose reduction to reduce incidence and severity of side effects -pt did pass swallow evaluation Pancreatic adenocarcinoma -s/p whipple -on adjuvant chemo, 3 cycles complete -plans for dose reduction in chemo for next cycle to reduce incidence and severity of chemo side effects chemo induced anemia -mild, no transfusions needed at this time leuocytosis -2/2 GCSF administration, no acute intervention. Count will drop as pt gets further from GCSF injection and into chemo bienvenido. attests: I have seen and examined pt, performed H&P, developed impression and plan of care. Discussed with dictator. Agree with documentation, dictated as a scribe
[2024-04-13] MEDS: NYSTATIN 100,000 UNIT/GM OINT 30 GM TUBE TOPICAL SCH (16:37)
[2024-04-13] MEDS: TRIAMCINOLONE ACET 0.1% OINTMENT 15 GM TUBE TOPICAL SCH (16:37)
[2024-04-13] MEDS: MAG HYDROX/AL HYDROX/SIMETH 30 ML, LIDOCAINE VISCOUS 2% 30 ML, diphenhydrAMINE ELIXIR 7... PO SCH (16:37)
[2024-04-13] MEDS ORDERED: NYSTAT-TRIAMCIN 100,000-0.1 UNIT/GM-% OINT 30 GM TUBE TOPICAL SCH (21:00)
[2024-04-17 15:04] LABS: Glucose,Whole Blood 163 mg/dL (70-110)
[2024-04-17 15:05] LABS: Glucose,Whole Blood 115 mg/dL (70-110)
[2024-04-17 15:05] LABS: Glucose,Whole Blood 118 mg/dL (70-110)
[2024-04-17 15:05] LABS: Glucose,Whole Blood 141 mg/dL (70-110)
[2024-04-17 15:05] LABS: Glucose,Whole Blood 150 mg/dL (70-110)
[2024-04-17 15:06] LABS: Glucose,Whole Blood 99 mg/dL (70-110)
[2024-04-17 15:06] LABS: Glucose,Whole Blood 131 mg/dL (70-110)
[2024-04-17 15:06] LABS: Glucose,Whole Blood 105 mg/dL (70-110)
[2024-04-17 15:06] LABS: Glucose,Whole Blood 120 mg/dL (70-110)
[2024-04-17 15:06] LABS: Glucose,Whole Blood 169 mg/dL (70-110)
[2024-04-17 15:07] LABS: Glucose,Whole Blood 124 mg/dL (70-110)
== END 2024-04-13 16:58 | disposition home or self-care (01) | DRG 158 ==
LOC: EC 16:10 → 5NMEDONC 18:58 → OBSVTOIN 18:59 → 5NMEDONC 20:18
PROVIDERS: ADMIT Hospitalist; ATTEND Hospitalist
DX: K12.31 Oral mucositis (ulcerative) due to antineoplastic therapy (principal); C25.0 Malignant neoplasm of head of pancreas; E87.1 Hypo-osmolality and hyponatremia; C79.9 Secondary malignant neoplasm of unspecified site; C77.0 Secondary and unspecified malignant neoplasm of lymph nodes of head, face and neck; R63.0 Anorexia; E86.1 Hypovolemia; D64.81 Anemia due to antineoplastic chemotherapy; D72.829 Elevated white blood cell count, unspecified; E11.9 Type 2 diabetes mellitus without complications; E78.5 Hyperlipidemia, unspecified; E86.0 Dehydration; I10 Essential (primary) hypertension; K59.00 Constipation, unspecified; T45.1X5A Adverse effect of antineoplastic and immunosuppressive drugs, initial encounter; R13.10 Dysphagia, unspecified; Z20.822 Contact with and (suspected) exposure to COVID-19; Z79.899 Other long term (current) drug therapy; Z68.20 Body mass index [BMI] 20.0-20.9, adult
CPT/HCPCS: 36415; 70491; 71046; 80048; 80053; 81003; 83036; 84145; 85025; 87040; 87070; 87205; 87636; 96361; 96374; 99285

== ENCOUNTER 2024-06-05 14:08 | Inpatient (IN) | payer MEDICARE ==
--- NOTE | 2024-06-05 15:08 | ED ---
Weakness HPI - General Source: patient, family, RN notes reviewed Mode of arrival: wheelchair Limitations: physical limitation - History of Present Illness MD Complaint: generalized weakness Onset/Timin -: days(s) <Umesh Stoner - Last Filed: 06/05/24 15:03> <Soo Mace - Last Filed: 06/06/24 13:00> - General Stated complaint: Weakness Time Seen by Provider: 06/05/24 14:21 - History of Present Illness Initial comments: Quick note: This is a 68-year-old male with history of pancreatic cancer presenting for weakness x 7 days. Family states patient recently finished 6 cycles of chemotherapy with subsequent weakness. Family states patient is unable to ambulate, which is new. Also endorses bilateral pedal edema, abdominal pain and blood clots in urine and stool x 3 days. Endorses surgical removal of affected segment of pancreas on January 13 with subsequent chemotherapy. (GeorgianaUmesh) 68-year-old male with past medical history of pancreatic cancer who presents to the emergency department with weakness. Patient had a Whipple in January and has been following with Dr. Stanford. He currently went through 6 cycles of chemotherapy. His last treatment was on the may. Daughter states that since his last treatment he has been weak. He did receive a Neulasta injection. He has been unable to ambulate. They note that he has had some swelling within his lower extremities. Possibly some bood clots in his urine and stool. From what family understands they state that the cancer has been c ontained. They deny fevers. No nausea or vomiting. They report that the patient has been eating and has a good appetite. He does admit to some epigastric discomfort which is new over the past 2 days. No history of heart failure. No other alleviating, precipitating or modifying factors (Soo Mace) - Related Data Home Medications Medication Instructions Recorded Confirmed metFORMIN HCL [Glucophage] 1,000 mg PO BID 09/14/19 06/05/24 Pantoprazole [Protonix] 40 mg PO DAILY 03/10/24 06/05/24 OLANZapine [ZyPREXA] 2.5 mg PO HS 03/24/24 06/05/24 Empagliflozin [Jardiance] 25 mg PO DAILY 04/10/24 06/05/24 Lipase/Protease/Amylase [Fernando Sotelo 1 cap PO TID-W/MEALS 04/10/24 06/05/24 36,000 Unit Capsule] Ondansetron Odt [Zofran ODT] 4 - 8 mg PO Q4H PRN 04/10/24 06/05/24 Prochlorperazine [Compazine] 10 mg PO Q6H PRN 04/10/24 06/05/24 LORazepam [Ativan] 0.5 mg PO TID PRN 06/05/24 06/05/24 Simvastatin [Zocor] 10 mg PO HS 06/05/24 06/05/24 lisinopriL [Zestril] 20 mg PO DAILY 06/05/24 06/05/24 Allergies Allergy/AdvReac Type Severity Reaction Status Date / Time No Known Allergies Allergy Verified 06/05/24 20:42 Review of Systems ROS Other: All systems not noted in ROS Statement are negative. <Umesh Stoner - Last Filed: 06/05/24 15:03> ROS Other: All systems not noted in ROS Statement are negative. <Soo Mace - Last Filed: 06/06/24 13:00> ROS Statement: Those systems with pertinent positive or pertinent negative responses have been documented in the HPI. Past Medical History Past Medical History: Cancer, Diabetes Mellitus, Hyperlipidemia, Hypertension Additional Past Medical History / Comment(s): perirectal abscess,PANCREATIC CANCER History of Any Multi-Drug Resistant Organisms: None Reported Past Surgical History: Ear Surgery Additional Past Surgical History / Comment(s): RHINOPLASTY. TOOTH I MPLANT,WHIPPLE Past Anesthesia/Blood Transfusion Reactions: No Reported Reaction Additional Past Anesthesia/Blood Transfusion Reaction / Comment(s): no hx blood transfusion Smoking Status: Never smoker - Past Family History Mother Family Medical History: Diabetes Mellitus Father Family Medical History: Diabetes Mellitus <Umesh Stoner - Last Filed: 06/05/24 15:03> General Exam <Umesh Stoner - Last Filed: 06/05/24 15:03> Limitations: language barrier General appearance: alert, cachectic, other (weak) Head exam: Present: atraumatic, normocephalic, normal inspection Eye exam: Present: normal appearance, PERRL, EOMI. Absent: scleral icterus, conjunctival injection, periorbital swelling ENT exam: Present: mucous membranes dry Neck exam: Present: normal inspection. Absent: tenderness, meningismus, lymphadenopathy Respiratory exam: Present: normal lung sounds bilaterally. Absent: respiratory distress, wheezes, rales, rhonchi, stridor Cardiovascular Exam: Present: regular rate, normal rhythm, normal heart sounds. Absent: systolic murmur, diastolic murmur, rubs, gallop, clicks GI/Abdominal exam: Present: tenderness (epigastric) Extremities exam: Present: normal inspection, full ROM, normal capillary refill, pedal edema (very mild). Absent: tenderness, joint swelling, calf tenderness Neurological exam: Present: alert Psychiatric exam: Present: flat affect <Soo Mace - Last Filed: 06/06/24 13:00> - General Exam Comments Initial Comments: Visual Physical Exam Vital signs reviewed General: Well-appearing, nontoxic, no acute distress. Patient seated in wheelchair Head: Normocephalic, atraumatic Eyes: PERRLA, EOMI ENT: Airway patent Chest: Nonlabored breathing Skin: No visual rash, normal skin tone Neuro: Alert and oriented 3 Musculoskeletal: No gross abnormalities (Umesh Stoner) Course Vital Signs 06/05/24 06/05/24 06/05/24 15:03 17:25 19:11 Temperature 98.2 F 98.3 F Pulse Rate 82 77 76 Respiratory 18 18 16 Rate Blood Pressure 92/66 104/72 88/67 O2 Sat by Pulse 100 98 98 Oximetry 06/06/24 06/06/24 01:21 05:37 Temperature Pulse Rate 80 74 Respiratory 18 16 Rate Blood Pressure 90/58 96/65 O2 Sat by Pulse Oximetry Medical Decision Making <Umesh Stoner - Last Filed: 06/05/24 15:03> - Lab Data Result diagrams: 06/06/24 06:20 06/06/24 06:20 <Soo Mace - Last Filed: 06/06/24 13:00> - Medical Decision Making I completed the quick note portion of this chart signed JUAN CARLOS Rodriguez (Umesh Stoner) Was pt. sent in by a medical professional or institution (ARABELLA Sloan, KEY ATTENDANT, urgent care, hospital, or custodial...) When possible be specific @ -No Did you speak to anyone other than the patient for history (EMS, parent, family, police, friend...)? What history was obtained from this source @ -Spoke with daughter for history as patient does not speak Palauan Did you review nursing and triage notes (agree or disagree)? Why? @ -I reviewed and agree with nursing and triage notes Were old charts reviewed (outside hosp., previous admission, EMS record, old EK G, old radiological studies, urgent care reports/EKG's, custodial records)? Report findings @ -I reviewed discharge summary from June 04 Differential Diagnosis (chest pain, altered mental status, abdominal pain women, abdominal pain men, vaginal bleeding, weakness, fever, dyspnea, syncope, headache, dizziness, GI bleed, back pain, seizure, CVA, palpatations, mental health, musculoskeletal)? @ -Differential Weakness: Hypoglycemia, shock, sepsis, hyponatremia, anemia, infection, IA, ETOH, adverse medicine reaction, overdose, stroke, this is not meant to be an all-inclusive list. EKG interpreted by me (3pts min.). @ -Yes and demonstrates sinus rhythm with a rate of 78. MN interval 116. QRS 112. QTc of 391. No acute ST segment elevations. Q waves in the inferior leads X-rays interpreted by me (1pt min.). @ -Yes and demonstrates no acute process CT interpreted by me (1pt min.). @ -Yes and demonstrates signs of metastatic disease to the liver. Local recurrence near the site of the Whipple U/S interpreted by me (1pt. min.). @ -None done What testing was considered but not performed or refused? (CT, X-rays, U/S, labs)? Why? @ -None What meds were considered but not given or refused? Why? @ -None Did you discuss the management of the patient with other professionals (professionals i.e. , PA, KEY ATTENDANT, lab, RT, psych nurse, social insurance analyst, stunt double, teacher, boating safety officer, rehabilitation case coordinator)? Give summary @ -Spoke with Ana from [facility] for admission Was smoking cessation discussed for >3mins.? @ -No Was critical care preformed (if so, how long)? @ -No Were there social determinants of health that impacted care today? How? (Homelessness, low income, unemployed, alcoholism, drug addiction, transportation, low edu. Level, literacy, decrease access to med. care, fdc, rehab)? @ -Patient does not speak Palauan Was there de-escalation of care discussed even if they declined (Discuss DNR or withdrawal of care, Hospice)? DNR status @ -No What co-morbidities impacted this encounter? (DM, HTN, Smoking, COPD, CAD, Cancer, CVA, ARF, Chemo, Hep., AIDS, mental health diagnosis, sleep apnea, morbid obesity)? @ -Pancreatic cancer Was patient admitted / discharged? Hospital course, mention meds given and route, prescriptions, significant lab abnormalities, going to OR and other pertinent info. @ -Upon arrival patient seen and evaluated in bed 17. Thorough history and physical exam was performed. IV was established and laboratory studies are conducted. Patient does have elevated white blood cell count. Unknown if this is from the patient's Neulasta or possible infection. He is empirically covered with a dose of cefepime. D-dimer was ordered and positive and therefore patient requires CT of his chest. No PE. I did perform a CT of the patient's abdomen and pelvis because of his reported epigastric pain with history of pancreatic cancer. Appears that the patient has diffuse metastatic disease. Family is unaware of this finding. Their impression was that the cancer was only localized to the pancreas. I did recommend admission for oncology cons ultation due to this finding. Family was agreeable to this. Patient admitted to [facility]. Spoke with Ana for admission. Oncology will be placed on consult Undiagnosed new problem with uncertain prognosis? @ -Yes Drug Therapy requiring intensive monitoring for toxicity (Heparin, Nitro, Insulin, Cardizem)? @ -No Were any procedures done? @ -No Diagnosis/symptom? @ -Multiple falls, generalized weakness, acute on chronic leukocytosis, epigastric pain, possible new diagnosis of metastatic disease, history of pancreatic adenocarcinoma Acute, or Chronic, or Acute on Chronic? @ -Acute on chronic Uncomplicated (without systemic symptoms) or Complicated (systemic symptoms)? @ -Complicated Side effects of treatment? @ -No Exacerbation, Progression, or Severe Exacerbation? @ -No Poses a threat to life or bodily function? How? (Chest pain, USA, IA, pneumonia, PE, COPD, DKA, ARF, appy, cholecystitis, CVA, Diverticulitis, Homicidal, Suicidal, threat to staff... and all critical care pts) @ -Yes as patient has signs of metastatic disease (Soo Mace) - Lab Data Lab Results 06/05/24 06/05/24 06/05/24 Range/Units 15:42 15:42 15:42 WBC (3.8-10.6) k/uL RBC (4.30-5.90) m/uL Hgb (13.0-17.5) gm/dL Hct (39.0-53.0) % MCV (80.0-100.0) fL MCH (25.0-35.0) pg MCHC (31.0-37.0) g/dL RDW (11.5-15.5) % Plt Count (150-450) k/uL MPV Neutrophils % (Manual) % Band Neuts % (Manual) % Lymphocytes % (Manual) % Monocytes % (Manual) % Metamyelocytes % % Neutrophils # (Manual) (1.3-7.7) k/uL Lymphocytes # (Manual) (1.0-4.8) k/uL Monocytes # (Manual) (0-1.0) k/uL Metamyelocytes # (Man) (0) k/uL Nucleated RBCs (0-0) /100 WBC Manual Slide Review Hypochromasia Anisocytosis Microcytosis Macrocytosis D-Dimer (<0.60) mg/L FEU Sodium 126 L (137-145) mmol/L Potassium 5.4 H (3.5-5.1) mmol/L Chloride 100 (98-107) mmol/L Carbon Dioxide 22 (22-30) mmol/L Anion Gap 4 mmol/L BUN 13 (9-20) mg/dL Creatinine 0.50 L (0.66-1.25) mg/dL Est GFR (CKD-EPI)AfAm >90 (>60 ml/min/1.73 sqM) Est GFR (CKD-EPI)NonAf >90 (>60 ml/min/1.73 sqM) Glucose 101 H (74-99) mg/dL Lactic Ac Sepsis Rflx Plasma Lactic Acid Chris (0.7-2.0) mmol/L Calcium 7.8 L (8.4-10.2) mg/dL Total Bilirubin 1.7 H (0.2-1.3) mg/dL AST 98 H (17-59) U/L ALT 47 (4-49) U/L Alkaline Phosphatase 628 H (38-126) U/L Troponin I <0.012 (0.000-0.034) ng/mL Total Protein 6.0 L (6.3-8.2) g/dL Albumin 2.5 L (3.5-5.0) g/dL Amylase <30 L (30-110) U/L Lipase 17 L (23-300) U/L Influenza Type A (PCR) Not Detected (Not Detectd) Influenza Type B (PCR) Not Detected (Not Detectd) RSV (PCR) Not Detected (Not Detectd) SARS-CoV-2 (PCR) Not Detected (Not Detectd) 06/05/24 06/05/24 06/05/24 Range/Units 15:42 15:56 15:56 WBC 34.4 H (3.8-10.6) k/uL RBC 3.72 L (4.30-5.90) m/uL Hgb 10.3 L (13.0-17.5) gm/dL Hct 32.7 L (39.0-53.0) % MCV 88.0 D (80.0-100.0) fL MCH 27.6 (25.0-35.0) pg MCHC 31.4 (31.0-37.0) g/dL RDW 26.3 H (11.5-15.5) % Plt Count 269 (150-450) k/uL MPV 8.1 Neutrophils % (Manual) 90 % Band Neuts % (Manual) 2 % Lymphocytes % (Manual) 4 % Monocytes % (Manual) 4 % Metamyelocytes % 1 % Neutrophils # (Manual) 31.60 H (1.3-7.7) k/uL Lymphocytes # (Manual) 1.38 (1.0-4.8) k/uL Monocytes # (Manual) 1.38 H (0-1.0) k/uL Metamyelocytes # (Man) 0.34 H (0) k/uL Nucleated RBCs 0 (0-0) /100 WBC Manual Slide Review Performed Hypochromasia Slight Anisocytosis Marked Microcytosis Slight Macrocytosis Slight D-Dimer 3.54 H (<0.60) mg/L FEU Sodium (137-145) mmol/L Potassium (3.5-5.1) mmol/L Chloride (98-107) mmol/L Carbon Dioxide (22-30) mmol/L Anion Gap mmol/L BUN (9-20) mg/dL Creatinine (0.66-1.25) mg/dL Est GFR (CKD-EPI)AfAm (>60 ml/min/1.73 sqM) Est GFR (CKD-EPI)NonAf (>60 ml/min/1.73 sqM) Glucose (74-99) mg/dL Lactic Ac Sepsis Rflx Plasma Lactic Acid Chris 2.2 H* (0.7-2.0) mmol/L Calcium (8.4-10.2) mg/dL Total Bilirubin (0.2-1.3) mg/dL AST (17-59) U/L ALT (4-49) U/L Alkaline Phosphatase (38-126) U/L Troponin I (0.000-0.034) ng/mL Total Protein (6.3-8.2) g/dL Albumin (3.5-5.0) g/dL Amylase (30-110) U/L Lipase (23-300) U/L Influenza Type A (PCR) (Not Detectd) Influenza Type B (PCR) (Not Detectd) RSV (PCR) (Not Detectd) SARS-CoV-2 (PCR) (Not Detectd) 06/05/24 06/05/24 Range/Units 17:08 19:16 WBC (3.8-10.6) k/uL RBC (4.30-5.90) m/uL Hgb (13.0-17.5) gm/dL Hct (39.0-53.0) % MCV (80.0-100.0) fL MCH (25.0-35.0) pg MCHC (31.0-37.0) g/dL RDW (11.5-15.5) % Plt Count (150-450) k/uL MPV Neutrophils % (Manual) % Band Neuts % (Manual) % Lymphocytes % (Manual) % Monocytes % (Manual) % Metamyelocytes % % Neutrophils # (Manual) (1.3-7.7) k/uL Lymphocytes # (Manual) (1.0-4.8) k/uL Monocytes # (Manual) (0-1.0) k/uL Metamyelocytes # (Man) (0) k/uL Nucleated RBCs (0-0) /100 WBC Manual Slide Review Hypochromasia Anisocytosis Microcytosis Macrocytosis D-Dimer (<0.60) mg/L FEU Sodium (137-145) mmol/L Potassium (3.5-5.1) mmol/L Chloride (98-107) mmol/L Carbon Dioxide (22-30) mmol/L Anion Gap mmol/L BUN (9-20) mg/dL Creatinine (0.66-1.25) mg/dL Est GFR (CKD-EPI)AfAm (>60 ml/min/1.73 sqM) Est GFR (CKD-EPI)NonAf (>60 ml/min/1.73 sqM) Glucose (74-99) mg/dL Lactic Ac Sepsis Rflx Y Plasma Lactic Acid Chris 1.5 (0.7-2.0) mmol/L Calcium (8.4-10.2) mg/dL Total Bilirubin (0.2-1.3) mg/dL AST (17-59) U/L ALT (4-49) U/L Alkaline Phosphatase (38-126) U/L Troponin I (0.000-0.034) ng/mL Total Protein (6.3-8.2) g/dL Albumin (3.5-5.0) g/dL Amylase (30-110) U/L Lipase (23-300) U/L Influenza Type A (PCR) (Not Detectd) Influenza Type B (PCR) (Not Detectd) RSV (PCR) (Not Detectd) SARS-CoV-2 (PCR) (Not Detectd) Disposition <Umesh Stoner - Last Filed: 06/05/24 15:03> Is patient prescribed a controlled substance at d/c from ED?: No Time of Disposition: 21:21 Decision to Admit Reason: Admit from EC Decision Date: 06/05/24 Decision Time: 21:21 <Soo Mace - Last Filed: 06/06/24 13:00> Clinical Impression: Pancreatic adenocarcinoma, Weakness, Metastatic disease, Leukocytosis Disposition: [facility] Condition: Serious
[2024-06-05 16:24] LABS: Anisocytosis Marked; HCT 32.7 % (39.0-53.0); HGB 10.3 gm/dL (13.0-17.5); Hypochromasia Slight; MCH 27.6 pg (25.0-35.0); MCHC 31.4 g/dL (31.0-37.0); Macrocytosis Slight; Mean Platelet Volume 8.1; Microcytosis Slight; Platelet Count 269 k/uL (150-450); RBC 3.72 m/uL (4.30-5.90); RDW 26.3 % (11.5-15.5); WBC 34.4 k/uL (3.8-10.6)
[2024-06-05 16:27] LABS: ALT 47 U/L (4-49); African American GFR (CKD) >90 (>60 ml/min/1.73 sqM); Albumin 2.5 g/dL (3.5-5.0); Amylase <30 U/L (30-110); Anion Gap 4 mmol/L; Blood Urea Nitrogen 13 mg/dL (9-20); Calcium 7.8 mg/dL (8.4-10.2); Carbon Dioxide 22 mmol/L (22-30); Chloride 100 mmol/L (98-107); Glucose 101 mg/dL (74-99); Lipase 17 U/L (23-300); Non-African American GFR(CKD) >90 (>60 ml/min/1.73 sqM); Sodium 126 mmol/L (137-145); Total Bilirubin 1.7 mg/dL (0.2-1.3)
--- NOTE | 2024-06-05 16:28 | XR ---
2 view chest. HISTORY: Weakness. COMPARISON: 04/03/2024. TECHNIQUE: PA and lateral views of the chest obtained FINDINGS: PA and lateral chest HISTORY: Cough, chest pain, shortness of breath COMPARISON: TECHNIQUE: PA and lateral views the chest were obtained. FINDINGS: The lungs are clear of consolidative, interstitial or masslike opacity. There is no pleural effusion, pleural thickening or pneumothorax. The heart, pulmonary vasculature, mediastinum and stone are within normal limits. The osseous structures and soft tissues of the thorax are intact. IMPRESSION: No significant abnormality. No acute cardiopulmonary disease. [facility], , 06/05/2024 4:25 PM
[2024-06-05 17:04] LABS: AST 98 U/L (17-59); Alkaline Phosphatase 628 U/L (38-126); Potassium 5.4 mmol/L (3.5-5.1)
[2024-06-05 17:41] LABS: Band Neutrophils % 2 %; Lymphocytes # (M) 1.38 k/uL (1.0-4.8); Metamyelocytes # (M) 0.34 k/uL (0); Metamyelocytes % 1 %; Monocytes # (M) 1.38 k/uL (0-1.0); Neutrophils % (M) 90 %; Nucleated Red Blood Cells 0 /100 WBC (0-0); Total Cells Counted 200
[2024-06-05] MEDS: SODIUM CHLORIDE 0.9% 1,000 ML IV ONE (17:46)
--- NOTE | 2024-06-05 18:53 | CT ---
EXAMINATION TYPE: CT angio chest DATE OF EXAM: 06/05/2024 6:16 PM COMPARISON: Same day chest radiograph, CT neck dated 04/10/2024. CLINICAL INDICATION: Male, 68 years old with history of pe, hx cancer, elevated d-dimer; Elevated D-d dev. R/O PE. TECHNIQUE/CONTRAST: CTA scan of the thorax is performed with IV Contrast, patient injected with 100 ml mL of Isovue 370, MIP images are created and reviewed these are created on a separate workstation.. CT DLP: Combined DLP of 1062.7 mGycm, Automated exposure control for dose reduction was used. FINDINGS: Heart size within normal limits. No pericardial effusion. No discrete filling defect within the pulmo nary vasculature to suggest acute bone embolism. Thoracic aorta normal in caliber without aneurysmal dilatation. No focal dissection within the thoracic aorta. Coronary artery calcifications. No patholo gic mediastinal lymphadenopathy. Left chest wall port catheter with distal catheter tip terminating n ear the cavoatrial junction. No pathologic axillary lymphadenopathy. Partially visualized enlarged left cervical radicular lymph n ode measuring 20 mm in short axis compared to approximately 19 mm in short axis on prior study 024. Small right and trace left pleural effusions. Mucous plugging in the right upper lobe (axial images 3 2). Additionally, there are subcentimeter pulmonary nodules. Example, a 5 dominant nodule in the post erior aspect of the right upper lobe (image 24). 4 mm pleural-based nodule in the left lower lobe (im age 28). 5 mm nodule in the anterior aspect of the right upper lobe (image 35). 6 mm nodule in the ri ght middle lobe (image 75). Right lower lobe compressive atelectasis. No pneumothorax. Please refer to CT abdomen/pelvis report for findings in the abdomen. No acute fracture. Nonspecific mild sclerotic changes in the upper sternum. IMPRESSION: 1. No evidence of acute pulmonary embolism. Small right and trace left pleural effusions with adjace nt lower lobe compressive atelectasis. 2. Subcentimeter pulmonary nodules throughout the bilateral lungs which are suspicious for metastati c disease. 3. Soft tissue density material filling the right upper lobe segmental bronchi which could reflect m ucous plugging. Other etiologies are possible as well. 4. Partially visualized enlarged left supraclavicular node suspicious for metastatic disease, slight ly increasing from prior CT neck study dated 04/10/2024. [facility], , 06/05/2024 6:50 PM
--- NOTE | 2024-06-05 19:16 | CT ---
EXAMINATION TYPE: CT abdomen pelvis w con DATE OF EXAM: 06/05/2024 6:15 PM COMPARISON: None available. CLINICAL INDICATION: Male, 68 years old with history of epigastric pain s/p whipple; Epigastric pain s/p whipple. TECHNIQUE: Axial CT abdomen pelvis w con;Sagittal and coronal reformats were created on a separate w orkstation. Contrast used:100 ml mL of Isovue 370 with IV Contrast, (none if empty) Oral contrast used: without Oral Contrast (none if empty) CT DLP: Combined DLP of 1062.7 mGycm, Automated exposure control for dose reduction was used. FINDINGS: ABDOMEN Innumerable hypodense metastatic liver lesions. There is heterogeneous soft tissue mass in the margie hepatic region measuring 6.3 x 9.0 cm (axial series image 27). Postsurgical changes compatible with p revious Whipple's procedure without evidence of pancreatic ductal dilatation. Gallbladder surgical ab sent. Rounded bile duct not well visualized. Gastrojejunostomy unremarkable in appearance. There is s evere narrowing of the portal vein and splenic confluence due to adjacent mass effect. Soft tissue en casement of the celiac artery and common hepatic artery. Kidneys unremarkable. No suspicious adrenal nodules. Spleen normal in size and morphology. Calcified atelectatic disease of the abdominal aorta. Small volume diffuse abdominal ascites. No evid ence of free air. Indeterminate soft tissue nodule in the right hemiabdomen measuring 6 mm in short a ccess. Additional soft tissue nodule in the right lower quadrant (axial image 43) measuring 6 mm in s hort axis. Urinary bladder unremarkable. Central prostate gland calcifications. No evidence of small bowel obstruction. IMPRESSION: 1. Large 9.0 x 6.3 cm soft tissue mass in the margie hepatic region abutting the remnant pancreas sta tus post previous Whipple's procedure. Findings are highly suspicious for local recurrence. There is significant narrowing of the portal vein and SMV near the confluence. Soft tissue encasement of the d istal celiac artery and common hepatic artery. 2. Innumerable hypodense metastatic liver lesions. 3. Small volume diffuse abdominal ascites. 4. Small soft tissue nodules in the right hemiabdomen which are indeterminate for peritoneal implant s, consider correlation with any prior outside imaging if available. [facility], , 06/05/2024 7:13 PM
[2024-06-05] MEDS ORDERED: NALOXONE 0.4 MG/ML 1 ML VIAL IV PRN (21:22)
[2024-06-05] MEDS: CEFEPIME 1 GM in SODIUM CHLORIDE 0.9% 50 ML IVPB ONE (23:41)
[2024-06-05] MEDS: OLANZapine 2.5 MG TAB PO SCH (23:42)
[2024-06-05] MEDS: SODIUM CHLORIDE 0.9% 1,000 ML IV SCH (23:42)
[2024-06-06] MEDS ORDERED: PROCHLORPERAZINE 10 MG TAB PO PRN
[2024-06-06 00:09] LABS: Appearance,Urine Clear (Clear); Bilirubin,Urine 1+ (Negative); Blood,Urine Negative (Negative); Calcium Oxalate Crystals,Urine Occasional /hpf; Color,Urine Yellow; Glucose,Urine (UA) Negative (Negative); Ketones,Urine Trace (Negative); Leukocyte Esterase,Urine Negative (Negative); Mucus,Urine Rare /hpf; Nitrite,Urine Negative (Negative); Protein,Urine 1+ (Negative); RBC,Urine 16 /hpf (0-5); WBC,Urine 3 /hpf (0-5)
[2024-06-06 00:13] LABS: Specific Gravity,Urine >1.050 (1.001-1.035); Sperm,Urine Few /hpf
[2024-06-06 07:03] LABS: Anisocytosis Marked; Basophils % (A) 0 %; Eosinophils # (A) 0.1 k/uL (0-0.7); Eosinophils % (A) 0 %; HCT 27.6 % (39.0-53.0); HGB 8.9 gm/dL (13.0-17.5); Hypochromasia Moderate; Lymphocytes # (A) 2.3 k/uL (1.0-4.8); Lymphocytes % (A) 13 %; MCH 29.2 pg (25.0-35.0); MCHC 32.3 g/dL (31.0-37.0); MCV 90.2 fL (80.0-100.0); Macrocytosis Slight; Mean Platelet Volume 7.7; Microcytosis Slight; Monocytes # (A) 0.7 k/uL (0-1.0); Monocytes % (A) 4 %; Neutrophils # (A) 14.3 k/uL (1.3-7.7); Neutrophils % (A) 80 %; Platelet Count 234 k/uL (150-450); RBC 3.06 m/uL (4.30-5.90); WBC 17.8 k/uL (3.8-10.6)
[2024-06-06 07:07] LABS: RDW 26.2 % (11.5-15.5)
[2024-06-06 07:13] LABS: African American GFR (CKD) >90 (>60 ml/min/1.73 sqM); Anion Gap 3 mmol/L; Blood Urea Nitrogen 11 mg/dL (9-20); Calcium 7.2 mg/dL (8.4-10.2); Carbon Dioxide 20 mmol/L (22-30); Chloride 105 mmol/L (98-107); Glucose 79 mg/dL (74-99); Non-African American GFR(CKD) >90 (>60 ml/min/1.73 sqM); Potassium 4.3 mmol/L (3.5-5.1); Sodium 128 mmol/L (137-145)
[2024-06-06] MEDS: AMYLASE PO SCH (08:57)
[2024-06-06] MEDS: PROTEASE PO SCH (08:57)
[2024-06-06] MEDS: LIPASE PO SCH (08:57)
[2024-06-06] MEDS: [UNRECOGNIZED DRUG - OTHER] PO SCH (08:57)
[2024-06-06] MEDS: PANTOPRAZOLE 40 MG TABLET PO SCH (08:59)
--- NOTE | 2024-06-06 13:37 | P.CONS ---
History of Present Illness - Reason for Consult Consult date: 06/06/24 - Chief Complaint Weakness - History of Present Illness Mr. Cloud is a 68-year-old gentleman with a past medical history significant for stage III pancreatic adenocarcinoma (T2N2M0) resected at [facility] in [place] with Whipple resection on 01/14/2024 and completed 6 cycles of adjuvant FOLFIRINOX from 03/10/2024 through 05/19/2024 presenting with progressive weakness, bilateral pedal edema, abdominal pain. He was seen in clinic on 05/28/2024 and was given 1 L bolus of normal saline. The weakness persisted with concern for blood clots in the urine and stool for 3 days prior to presentation. In the ED, he was noted to have systolic blood pressures in the 90s/60s with other vital signs being stable. CMP on presentation noted sodium 126, potassium 5.4, creatinine 0.5, total bilirubin 1.7, AST 98, alkaline phosphatase 628, amylase less than 30, and lipase 17. CBC on admission noted WBC 34.4 (ANC 31.6), hemoglobin 10.3 (MCV 88), platelets 269. Viral PCR was negative. Urina lysis revealed 1+ protein and urine bilirubin that was negative for blood, nitrate, or leukocyte esterase. 16 RBCs were noted. D-dimer was elevated at 3.54. CTA of the chest revealed no evidence of pulmonary embolism, but did note subcentimeter nodules in both lungs concerning for metastatic disease. CT abdomen/pelvis with contrast noted large 9 x 6.3 cm soft tissue mass in the margie hepatic region abutting the remnant pancreas suspicious for local recurrence and causing significant narrowing of the portal vein near the SMV confluence. There were innumerable hypodense metastatic lesions in the liver and small volume ascites also concerning for metastatic disease. Small soft tissue nodules in the right hemiabdomen were indeterminate for peritoneal implants. He received 1 L bolus of normal saline along with cefepime and was admitted to internal medicine for additional management. Repeat labs noted sodium 128, creatinine 0.46, WBC 17.8 (ANC 14.3), hemoglobin 8.9 (MCV 90.2), platelets 234. Review of Systems 14 point review of systems was conducted with pertinent positives and negatives as noted per HPI Past Medical History Past Medical History: Cancer, Diabetes Mellitus, Hyperlipidemia, Hypertension Additional Past Medical History / Comment(s): perirectal abscess, PANCREATIC CANCER diagnosed December 2023 History of Any Multi-Drug Resistant Organisms: None Reported Past Surgical History: Ear Surgery Additional Past Surgical History / Comment(s): RHINOPLASTY, TOOTH IMPLANT, Whipple procedure January 14, 2024, infusaport placement February 2024 Past Anesthesia/Blood Transfusion Reactions: No Reported Reaction Additional Past Anesthesia/Blood Transfusion Reaction / Comm: no hx blood transfusion Smoking Status: Never smoker - Past Family History Mother Family Medical History: Diabetes Mellitus Father Family Medical History: Diabetes Mellitus Medications and Allergies Home Medications Medication Instructions Recorded Confirmed Type metFORMIN HCL [Glucophage] 1,000 mg PO BID 09/14/19 06/05/24 History Pantoprazole [Protonix] 40 mg PO DAILY 03/10/24 06/05/24 History OLANZapine [ZyPREXA] 2.5 mg PO HS 03/24/24 06/05/24 History Empagliflozin [Jardiance] 25 mg PO DAILY 04/10/24 06/05/24 History Lipase/Protease/Amylase [Creon Dr 1 cap PO TID-W/MEALS 04/10/24 06/05/24 History 36,000 Unit Capsule] Ondansetron Odt [Zofran ODT] 4 - 8 mg PO Q4H PRN 04/10/24 06/05/24 History Prochlorperazine [Compazine] 10 mg PO Q6H PRN 04/10/24 06/05/24 History LORazepam [Ativan] 0.5 mg PO TID PRN 06/05/24 06/05/24 History Simvastatin [Zocor] 10 mg PO HS 06/05/24 06/05/24 History lisinopriL [Zestril] 20 mg PO DAILY 06/05/24 06/05/24 History Allergies Allergy/AdvReac Type Severity Reaction Status Date / Time No Known Allergies Allergy Verified 06/05/24 20:42 Physical Exam Vitals: Vital Signs Temp Pulse Pulse Resp BP BP Pulse Ox 06/06/24 07:40 97.8 F 74 14 98/66 100 06/06/24 05:37 74 16 96/65 06/06/24 01:21 80 18 90/58 06/05/24 19:11 76 16 88/67 98 06/05/24 17:25 98.3 F 77 18 104/72 98 06/05/24 15:03 98.2 F 82 18 92/66 100 Intake and Output 06/05/24 06/06/24 06/06/24 22:59 06:59 14:59 Other: Weight 50.802 kg 50.802 kg - Constitutional General appearance: cooperative, no acute distress - EENT Eyes: EOMI - Respiratory Nonlabored breathing - Cardiovascular Rhythm: regular - Gastrointestinal General gastrointestinal: no distended, normal bowel sounds, soft, no tenderness - Integumentary Integumentary: pale - Neurologic Neurologic: CNII-XII intact Results CBC & Chem 7: 06/06/24 06:20 06/06/24 06:20 Labs: Abnormal Lab Results - Last 24 Hours (Table) 06/05/24 06/05/24 06/05/24 Range/Units 15:42 15:42 15:56 WBC 34.4 H (3.8-10.6) k/uL RBC 3.72 L (4.30-5.90) m/uL Hgb 10.3 L (13.0-17.5) gm/dL Hct 32.7 L (39.0-53.0) % RDW 26.3 H (11.5-15.5) % Neutrophils # (1.3-7.7) k/uL Neutrophils # (Manual) 31.60 H (1.3-7.7) k/uL Monocytes # (Manual) 1.38 H (0-1.0) k/uL Metamyelocytes # (Man) 0.34 H (0) k/uL D-Dimer 3.54 H (<0.60) mg/L FEU Sodium 126 L (137-145) mmol/L Potassium 5.4 H (3.5-5.1) mmol/L Carbon Dioxide (22-30) mmol/L Creatinine 0.50 L (0.66-1.25) mg/dL Glucose 101 H (74-99) mg/dL Plasma Lactic Acid Hcris (0.7-2.0) mmol/L Calcium 7.8 L (8.4-10.2) mg/dL Total Bilirubin 1.7 H (0.2-1.3) mg/dL AST 98 H (17-59) U/L Alkaline Phosphatase 628 H (38-126) U/L Total Protein 6.0 L (6.3-8.2) g/dL Albumin 2.5 L (3.5-5.0) g/dL Amylase <30 L (30-110) U/L Lipase 17 L (23-300) U/L Ur Specific [place] (1.001-1.035) Urine Protein (Negative) Urine Ketones (Negative) Urine Bilirubin (Negative) Urine RBC (0-5) /hpf Calcium Oxalate Crystal (None) /hpf Urine Mucus (None) /hpf 06/05/24 06/05/24 06/06/24 Range/Units 15:56 23:50 06:20 WBC 17.8 H (3.8-10.6) k/uL RBC 3.06 L (4.30-5.90) m/uL Hgb 8.9 L (13.0-17.5) gm/dL Hct 27.6 L (39.0-53.0) % RDW 26.2 H (11.5-15.5) % Neutrophils # 14.3 H (1.3-7.7) k/uL Neutrophils # (Manual) (1.3-7.7) k/uL Monocytes # (Manual) (0-1.0) k/uL Metamyelocytes # (Man) (0) k/uL D-Dimer (<0.60) mg/L FEU Sodium (137-145) mmol/L Potassium (3.5-5.1) mmol/L Carbon Dioxide (22-30) mmol/L Creatinine (0.66-1.25) mg/dL Glucose (74-99) mg/dL Plasma Lactic Acid Chris 2.2 H* (0.7-2.0) mmol/L Calcium (8.4-10.2) mg/dL Total Bilirubin (0.2-1.3) mg/dL AST (17-59) U/L Alkaline Phosphatase (38-126) U/L Total Protein (6.3-8.2) g/dL Albumin (3.5-5.0) g/dL Amylase (30-110) U/L Lipase (23-300) U/L Ur Specific [place] >1.050 H (1.001-1.035) Urine Protein 1+ H (Negative) Urine Ketones Trace H (Negative) Urine Bilirubin 1+ H (Negative) Urine RBC 16 H (0-5) /hpf Calcium Oxalate Crystal Occasional H (None) /hpf Urine Mucus Rare H (None) /hpf 06/06/24 Range/Units 06:20 WBC (3.8-10.6) k/uL RBC (4.30-5.90) m/uL Hgb (13.0-17.5) gm/dL Hct (39.0-53.0) % RDW (11.5-15.5) % Neutrophils # (1.3-7.7) k/uL Neutrophils # (Manual) (1.3-7.7) k/uL Monocytes # (Manual) (0-1.0) k/uL Metamyelocytes # (Man) (0) k/uL D-Dimer (<0.60) mg/L FEU Sodium 128 L (137-145) mmol/L Potassium (3.5-5.1) mmol/L Carbon Dioxide 20 L (22-30) mmol/L Creatinine 0.46 L (0.66-1.25) mg/dL Glucose (74-99) mg/dL Plasma Lactic Acid Chris (0.7-2.0) mmol/L Calcium 7.2 L (8.4-10.2) mg/dL Total Bilirubin (0.2-1.3) mg/dL AST (17-59) U/L Alkaline Phosphatase (38-126) U/L Total Protein (6.3-8.2) g/dL Albumin (3.5-5.0) g/dL Amylase (30-110) U/L Lipase (23-300) U/L Ur Specific [place] (1.001-1.035) Urine Protein (Negative) Urine Ketones (Negative) Urine Bilirubin (Negative) Urine RBC (0-5) /hpf Calcium Oxalate Crystal (None) /hpf Urine Mucus (None) /hpf CT scan - abdomen: report reviewed, image reviewed CT scan - chest: report reviewed, image reviewed Assessment and Plan (1) Neutrophilic leukocytosis Current Visit: Yes Status: Acute Code(s): D72.828 - OTHER ELEVATED WHITE BLOOD CELL COUNT SNOMED Code(s): 691089140 (2) Anemia due to antineoplastic chemotherapy Current Visit: No Status: Acute Priority: Medium Code(s): D64.81 - ANEMIA DUE TO ANTINEOPLASTIC CHEMOTHERAPY; T45.1X5A - ADVERSE EFFECT OF ANTINEOPLASTIC AND IMMUNOSUP DRUGS, INIT SNOMED Code(s): 902352661930403 (3) Pancreatic adenocarcinoma Current Visit: Yes Status: Acute Priority: Medium Code(s): C25.9 - MALIGN ANT NEOPLASM OF PANCREAS, UNSPECIFIED SNOMED Code(s): 597393724 Plan: #Abdominal pain, bilateral lower extremity swelling, weakness -Progressive over the past few weeks -CT abdomen/pelvis on admission noted to have 9 x 6.3 cm soft tissue mass at the margie hepatis near the previous Whipple site causing severe narrowing of the portal vein and soft and tissue casement of the celiac artery and common hepatic artery along with innumerable liver lesions and possible peritoneal lesions in the right abdomen concerning for metastatic disease -We we did discuss CT findings today in detail -I did recommend palliative radiation therapy given the large intra-abdominal mass resulting in compression of the portal vein, which is likely the etiology of the bilateral lower extremity edema and abdominal pain. We will consult them on 06/08/2024 as they are not here over the weekend -We did discuss the possibility of hospice as well, which Oswaldo and his family will think about over the next few days -Clinically, he has improved since admission with regards to his weakness, which is an encouraging sign. As long as this is the case, I do believe it is reasonable to obtain additional information regarding his malignancy to assess alternative treatment options. They are in agreement with this plan -NGS from the surgical tissue and circulating tumor DNA will be obtained outpatient to assess for targetable mutations and MSI status #Normocytic anemia secondary to chemotherapy and iron deficiency -Previously was noted to have iron deficiency and received ferlicit in late March/early April 2024 -Iron studies ordered outpatient last week reported ferritin of 1098, but did not report iron saturation -We will repeat iron studies in addition to vitamin B12/methylmalonic acid, folic acid #Neutrophilic leukocytosis -Likely secondary to metastatic disease -Continue to monitor #Pancreatic adenocarcinoma -Initially diagnosed in December 2023 and underwent Whipple resection on 01/14/2024 with noted 11 positive lymph nodes and lymphovascular invasion and was diagnosed with stage III (T2N2M0) disease -At the time of surgery, CA 19-9 was 81 -He received 6 cycles of adjuvant FOLFIRINOX from 03/10/2024 through 05/19/2024 -CA 19-9 from clinic visit on 05/28/2024 was elevated at 285 from 25 on 02/05/2024 -Noted goals of care discussion above -Consult for radiation oncology and NGS/circulating tumor DNA as noted above to further determine treatment options Burton Stanford MD Time with Patient: Greater than 30
[2024-06-06] MEDS: metroNIDAZOLE-NS PMX 500 MG in SALINE 1 100ML.BAG IVPB SCH (14:42)
[2024-06-06 15:35] VITALS: BMI 18.1
--- NOTE | 2024-06-06 19:45 | P.HPIM ---
History of Present Illness This is a pleasant 68 years old male with past medical history of diabetes mellitus, hypertension, hyperlipidemia He was recently diagnosed with pancreatic cancer last December. His oncologist is Dr. Zuluaga, Patient presents this time with generalized weakness and bilateral leg swelling with dark urine Patient is very weak and information were obtained with the help of his daughter Homa at bedside with the phone #[phone] Patient finished his chemotherapy on May 19, After that he started having vomiting with diarrhea for 1 week ago. He was getting gentle fluids However on Saturday and Saturday he became very weak and he had leg swelling. Also his urine was dark Patient denies chest pain, no abdominal pain, no diarrhea or vomiting this morning Patient fell last week No alcohol or illicit drugs or smoking On admission blood pressure respiratory systolic 92-96, with baseline systolic blood pressure 110-102 He is afebrile WBC is chronically elevated was 34K on admission improved to 17.8 Hemoglobin 10.3 and 8.9 with baseline 10-12 Sodium 126 and 128 Liver enzymes mildly elevated D-dimer was elevated at 3.5 Lactic acid was elevated 2.2 came down to 1.5 EKG showing sinus rhythm at [address]-T changes CTA of the abdomen pelvis with contrast showing large 9 x 6.3 cm soft tissue mass in margie hepatis region abutting the remanent of pancreas, patient status post Whipple procedure, with significant narrowing of the portal vein and SMV, also there is innumerable hypodense metastatic liver lesion and peritoneal nodule CTA of the chest was negative for PE but showing bilateral pulmonary nodule jaxon picious for metastasis with enlarged left supr supraclavicular lymph node Pro- Calcitonin is negative Review of Systems Review of systems CONSTITUTIONAL: No fever, no malaise HEENT: No recent visual problems or hearing problems. Denied any sore throat. CARDIOVASCULAR: No orthopnea, PND, no palpitations, no syncope. PULMONARY: No shortness of breath, no cough, no hemoptysis. GASTROINTESTINAL: No diarrhea, no nausea, no vomiting, no abdominal pain. Normoactive bowel sounds. NEUROLOGICAL: No headaches, no weakness, no numbness. HEMATOLOGICAL: Denies any bleeding or petechiae. GENITOURINARY: Denies any burning micturition, frequency, or urgency. MUSCULOSKELETAL/RHEUMATOLOGICAL: Denies any joint pain, swelling, or any muscle pain. ENDOCRINE: Denies any polyuria or polydipsia. Past Medical History Past Medical History: Cancer, Diabetes Mellitus, Hyperlipidemia, Hypertension Additional Past Medical History / Comment(s): perirectal abscess, PANCREATIC CANCER diagnosed December 2023 History of Any Multi-Drug Resistant Organisms: None Reported Past Surgical History: Ear Surgery Additional Past Surgical History / Comment(s): RHINOPLASTY, TOOTH IMPLANT, Whipple procedure January 14, 2024, infusaport placement February 2024 Past Anesthesia/Blood Transfusion Reactions: No Reported Reaction Additional Past Anesthesia/Blood Transfusion Reaction / Comment(s): no hx blood transfusion Smoking Status: Never smoker - Past Family History Mother Family Medical History: Diabetes Mellitus Father Family Medical History: Diabetes Mellitus Medications and Allergies Home Medications Medication Instructions Recorded Confirmed Type metFORMIN HCL [Glucophage] 1,000 mg PO BID 09/14/19 06/05/24 History Pantoprazole [Protonix] 40 mg PO DAILY 03/10/24 06/05/24 History OLANZapine [ZyPREXA] 2.5 mg PO HS 03/24/24 06/05/24 History Empagliflozin [Jardiance] 25 mg PO DAILY 04/10/24 06/05/24 History Lipase/Protease/Amylase [Creon Dr 1 cap PO TID-W/MEALS 04/10/24 06/05/24 History 36,000 Unit Capsule] Ondansetron Odt [Zofran ODT] 4 - 8 mg PO Q4H PRN 04/10/24 06/05/24 History Prochlorperazine [Compazine] 10 mg PO Q6H PRN 04/10/24 06/05/24 History LORazepam [Ativan] 0.5 mg PO TID PRN 06/05/24 06/05/24 History Simvastatin [Zocor] 10 mg PO HS 06/05/24 06/05/24 History lisinopriL [Zestril] 20 mg PO DAILY 06/05/24 06/05/24 History Allergies Allergy/AdvReac Type Severity Reaction Status Date / Time No Known Allergies Allergy Verified 06/05/24 20:42 Physical Exam Vitals: Vital Signs Temp Pulse Pulse Resp BP BP Pulse Ox 06/06/24 07:40 97.8 F 74 14 98/66 100 06/06/24 05:37 74 16 96/65 06/06/24 01:21 80 18 90/58 06/05/24 19:11 76 16 88/67 98 06/05/24 17:25 98.3 F 77 18 104/72 98 06/05/24 15:03 98.2 F 82 18 92/66 100 Intake and Output 06/05/24 06/06/24 06/06/24 22:59 06:59 14:59 Other: Weight 50.802 kg 50.802 kg -GENERAL: The patient is alert and oriented x3, not in any acute distress. Well developed, well nourished. Cachectic HEENT: Pupils are round and equally reacting to light. EOMI. No scleral icterus. No conjunctival pallor. Normocephalic, atraumatic. No pharyngeal erythema. No thyromegaly. CARDIOVASCULAR: S1 and S2 present. No murmurs, rubs, or gallops. PULMONARY: Chest is clear to auscultation, no wheezing , no crackles. ABDOMEN: Soft, nontender, nondistended, normoactive bowel sounds. No palpable organomegaly. MUSCULOSKELETAL: No joint swelling or deformity. EXTREMITIES: No cyanosis, clubbing, or pedal edema. NEUROLOGICAL: Gross neurological examination did not reveal any focal deficits. SKIN: No rashes. no petechiae. Results CBC & Chem 7: 06/06/24 06:20 06/06/24 06:20 Labs: Abnormal Lab Results - Last 24 Hours (Table) 06/05/24 06/05/24 06/05/24 Range/Units 15:42 15:42 15:56 WBC 34.4 H (3.8-10.6) k/uL RBC 3.72 L (4.30-5.90) m/uL Hgb 10.3 L (13.0-17.5) gm/dL Hct 32.7 L (39.0-53.0) % RDW 26.3 H (11.5-15.5) % Neutrophils # (1.3-7.7) k/uL Neutrophils # (Manual) 31.60 H (1.3-7.7) k/uL Monocytes # (Manual) 1.38 H (0-1.0) k/uL Metamyelocytes # (Man) 0.34 H (0) k/uL D-Dimer 3.54 H (<0.60) mg/L FEU Sodium 126 L (137-145) mmol/L Potassium 5.4 H (3.5-5.1) mmol/L Carbon Dioxide (22-30) mmol/L Creatinine 0.50 L (0.66-1.25) mg/dL Glucose 101 H (74-99) mg/dL Plasma Lactic Acid Chris (0.7-2.0) mmol/L Calcium 7.8 L (8.4-10.2) mg/dL Total Bilirubin 1.7 H (0.2-1.3) mg/dL AST 98 H (17-59) U/L Alkaline Phosphatase 628 H (38-126) U/L Total Protein 6.0 L (6.3-8.2) g/dL Albumin 2.5 L (3.5-5.0) g/dL Amylase <30 L (30-110) U/L Lipase 17 L (23-300) U/L Ur Specific [place] (1.001-1.035) Urine Protein (Negative) Urine Ketones (Negative) Urine Bilirubin (Negative) Urine RBC (0-5) /hpf Calcium Oxalate Crystal (None) /hpf Urine Mucus (None) /hpf 06/05/24 06/05/24 06/06/24 Range/Units 15:56 23:50 06:20 WBC 17.8 H (3.8-10.6) k/uL RBC 3.06 L (4.30-5.90) m/uL Hgb 8.9 L (13.0-17.5) gm/dL Hct 27.6 L (39.0-53.0) % RDW 26.2 H (11.5-15.5) % Neutrophils # 14.3 H (1.3-7.7) k/uL Neutrophils # (Manual) (1.3-7.7) k/uL Monocytes # (Manual) (0-1.0) k/uL Metamyelocytes # (Man) (0) k/uL D-Dimer (<0.60) mg/L FEU Sodium (137-145) mmol/L Potassium (3.5-5.1) mmol/L Carbon Dioxide (22-30) mmol/L Creatinine (0.66-1.25) mg/dL Glucose (74-99) mg/dL Plasma Lactic Acid Chris 2.2 H* (0.7-2.0) mmol/L Calcium (8.4-10.2) mg/dL Total Bilirubin (0.2-1.3) mg/dL AST (17-59) U/L Alkaline Phosphatase (38-126) U/L Total Protein (6.3-8.2) g/dL Albumin (3.5-5.0) g/dL Amylase (30-110) U/L Lipase (23-300) U/L Ur Specific [place] >1.050 H (1.001-1.035) Urine Protein 1+ H (Negative) Urine Ketones Trace H (Negative) Urine Bilirubin 1+ H (Negative) Urine RBC 16 H (0-5) /hpf Calcium Oxalate Crystal Occasional H (None) /hpf Urine Mucus Rare H (None) /hpf 06/06/24 Range/Units 06:20 WBC (3.8-10.6) k/uL RBC (4.30-5.90) m/uL Hgb (13.0-17.5) gm/dL Hct (39.0-53.0) % RDW (11.5-15.5) % Neutrophils # (1.3-7.7) k/uL Neutrophils # (Manual) (1.3-7.7) k/uL Monocytes # (Manual) (0-1.0) k/uL Metamyelocytes # (Man) (0) k/uL D-Dimer (<0.60) mg/L FEU Sodium 128 L (137-145) mmol/L Potassium (3.5-5.1) mmol/L Carbon Dioxide 20 L (22-30) mmol/L Creatinine 0.46 L (0.66-1.25) mg/dL Glucose (74-99) mg/dL Plasma Lactic Acid Chris (0.7-2.0) mmol/L Calcium 7.2 L (8.4-10.2) mg/dL Total Bilirubin (0.2-1.3) mg/dL AST (17-59) U/L Alkaline Phosphatase (38-126) U/L Total Protein (6.3-8.2) g/dL Albumin (3.5-5.0) g/dL Amylase (30-110) U/L Lipase (23-300) U/L Ur Specific [place] (1.001-1.035) Urine Protein (Negative) Urine Ketones (Negative) Urine Bilirubin (Negative) Urine RBC (0-5) /hpf Calcium Oxalate Crystal (None) /hpf Urine Mucus (None) /hpf Thrombosis Risk Factor Assmnt - Choose All That Apply Any of the Below Risk Factors Present?: Yes Each Factor Represents 1 point: Swollen legs (current) Other Risk Factors: Yes Each Risk Factor Represents 2 Points: Age 61-74 years, Central venous access, Malignancy Other congenital or acquired thrombophilia - If yes, enter type in comment: No Thrombosis Risk Factor Assessment Total Risk Factor Score: 7 Thrombosis Risk Factor Assessment Level: High Risk Assessment and Plan Assessment: Recurrent nausea vomiting could be related to his recent chemotherapy on May 19 with resistant hypovolemia and hypotension Soft tissue mass at the margie hepatis 9 x 6.3 cm could be related to his recent pain genetic cancer diagnosis, s/p Whipple procedure. With evidence of suspected liver and lung metastasis Pancreatic cancer recently diagnosed getting chemotherapy, 3-4 cycles of chemotherapy. With evidence of liver, lung and peritoneal metastasis Fall 1 week prior to hospitalization Dehydration and hypovolemic hyponatremia secondary to above, improving Significant leukocytosis, suspicious of infection is low given chronicity and lack of fever Recent history of dysphagia related to a large left cervical lymphadenopathy, could be related to his history of pancreatic cancer Diabetes mellitus Hypertension Hyperlipidemia Plan: Continue with IV hydration, currently on normal saline 30 mL/h Hold metoprolol and lisinopril Monitor blood pressure Antibiotics may be discontinued as his leukocytosis is chronic since 02/2024, patient with no fever, no abdominal pain. With negative procalcitonin. We will keep monitoring off antibiotic Hematology/oncology consult Labs and medication were reviewed.. Continue same treatment. Continue with symptomatic treatment. Resume home medication. Monitor labs and vitals. DVT and GI prophylaxis. Further recommendations as per clinical course of the p atient DVT prophylaxis: Subcutaneous heparin GI Prophylaxis: Pepcid Prognosis is guarded
[2024-06-06] MEDS: ATORVASTATIN 10 MG TAB PO SCH (20:52)
[2024-06-06 23:32] LABS: % Iron Saturation 40.48 (15.00-50.00); Iron 51 UG/DL (65-175); Total Iron Binding Capacity 126 UG/DL (228-460)
[2024-06-07 00:01] LABS: Vitamin B12 >3600.0 pg/mL (200.0-944.0)
[2024-06-07 09:30] LABS: HCT 25.3 % (39.6-50.0); HGB 8.4 g/dL (13.0-17.0); MCH 29.1 pg (27.0-32.0); MCHC 33.2 g/dL (32.0-37.0); MCV 87.5 FL (80.0-97.0); Mean Platelet Volume 9.6 FL (9.5-12.2); NRBC Per 100 WBC 0 X 10*3/uL (0.00-0.01); Platelet Count 209 X 10*3/uL (140-440); RBC 2.89 X 10*6/uL (4.40-5.60); RDW 28.7 % (11.5-14.5); WBC 20.03 X 10*3/uL (4.50-10.00)
[2024-06-07 10:04] LABS: Basophils # (A) 0.09 X 10*3/uL (0.00-0.10); Basophils % (A) 0.4 %; Eosinophils # (A) 0.06 X 10*3/uL (0.04-0.35); Eosinophils % (A) 0.3 %; Lymphocytes # (A) 2.15 X 10*3/uL (0.90-5.00); Lymphocytes % (A) 10.7 %; Macrocytosis (M) 2+; Monocytes # (A) 1.02 X 10*3/uL (0.20-1.00); Monocytes % (A) 5.1 %; Neutrophils # (A) 16.36 X 10*3/uL (1.80-7.70); Neutrophils % (A) 81.8 %
[2024-06-07 10:33] LABS: ALT 43 U/L (10-49); AST 68 U/L (14-35); Albumin/Globulin Ratio 0.83 Ratio (1.60-3.17); Alkaline Phosphatase 541 U/L (41-126); BUN/Creat Ratio 21.75 Ratio (12.00-20.00); Bilirubin, Conjugated 0.68 mg/dL (0.20-0.40); Bilirubin,Unconjugated 0.32 mg/dL (0.20-1.00); Blood Urea Nitrogen 8.7 mg/dL (9.0-27.0); Calcium 7.3 mg/dL (8.7-10.3); Carbon Dioxide 19.4 mmol/L (21.6-31.8); Chloride 104 mmol/L (96-109); Globulin 2.4 g/dL (1.6-3.3); Glucose 83 mg/dL (70-110); Potassium 3.8 mmol/L (3.5-5.5); Sodium 132 mmol/L (135-145); Total Protein 4.4 g/dL (6.2-8.2)
--- NOTE | 2024-06-07 12:35 | P.PN ---
Subjective This is a pleasant 68 years old male with past medical history of diabetes mellitus, hypertension, hyperlipidemia He was recently diagnosed with pancreatic cancer last December. His oncologist is Dr. Zuluaga, Patient presents this time with generalized weakness and bilateral leg swelling with dark urine Patient is very weak and information were obtained with the help of his daughter Homa at bedside with the phone #[phone] Patient finished his chemotherapy on May 19, After that he started having vomiting with diarrhea for 1 week ago. He was getting gentle fluids However on Saturday and Saturday he became very weak and he had leg swelling. Also his urine was dark Patient denies chest pain, no abdominal pain, no diarrhea or vomiting this morning Patient fell last week No alcohol or illicit drugs or smoking On admission blood pressure respiratory systolic 92-96, with baseline systolic blood pressure 110-102 He is afebrile WBC is chronically elevated was 34K on admission improved to 17.8 Hemoglobin 10.3 and 8.9 with baseline 10-12 Sodium 126 and 128 Liver enzymes mildly elevated D-dimer was elevated at 3.5 Lactic acid was elevated 2.2 came down to 1.5 EKG showing sinus rhythm at [address]-T changes CTA of the abdomen pelvis with contrast showing large 9 x 6.3 cm soft tissue mass in margie hepatis region abutting the remanent of pancreas, patient status post Whipple procedure, with 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 Patient looks calm and relaxed No abdominal pain. Patient able to tolerate food more and more small frequent meals. No bowel movement yet. No other new complaint WBC is 20.3 which is chronic, hemoglobin 8.4 which is stable. Sodium improved up to 132. Blood pressure still 91/58 Patient remains on normal saline with 30 mL/h Blood pressure medication of lisinopril and metoprolol remain on hold I discussed the case with oncology team, most likely patient has metastatic disease. His CA 19-9 is also elevated which caused with tumor. Besides the CAT scan imaging of neuro bowel nodules and opacities in both liver lung and peritoneum highly suspicious for metastatic The suspicion of infection is low, no fever. Pro- Calcitonin is negative at 0.27 and blood culture so far negative We will stop antibiotics and close monitoring Review of systems CONSTITUTIONAL: No fever, no malaise, no fatigue. HEENT: No recent visual problems or hearing problems. Denied any sore throat. CARDIOVASCULAR: No orthopnea, PND, no palpitations, no syncope. GENITOURINARY: Denies any burning micturition, frequency, or urgency. MUSCULOSKELETAL/RHEUMATOLOGICAL: Denies any joint pain, swelling, or any muscle pain. ENDOCRINE: Denies any polyuria or polydipsia. Active Medications Generic Name Dose Route Start Last Admin Trade Name Freq PRN Reason Stop Dose Admin Atorvastatin Calcium 10 mg 06/06/24 21:00 06/06/24 20:52 Atorvastatin 10 Mg Tab PO 10 mg HS DANIELEL Administration Sodium Chloride 1,000 mls @ 130 mls/hr 06/05/24 21:30 06/07/24 07:29 Saline 0.9% IV 130 mls/hr .Q7H42M DANIELLE Administration Naloxone HCl 0.2 mg 06/05/24 21:22 Naloxone 0.4 Mg/Ml 1 Ml Vial IV Q2M PRN Opioid Reversal Non-Formulary Medication 1 cap 06/06/24 07:30 06/07/24 10:06 Lipase/Protease/Amylase [Fernando Sotelo 36,000 Unit Capsule] PO 1 cap TID-W/MEALS DANIELLE Administration Olanzapine 2.5 mg 06/05/24 21:45 06/06/24 20:52 Olanzapine 2.5 Mg Tab PO 2.5 mg HS DANIELLE Administration Pantoprazole Sodium 40 mg 06/06/24 09:00 06/07/24 10:06 Pantoprazole 40 Mg Tablet PO 40 mg DAILY DANIELLE Administration Prochlorperazine Maleate 10 mg 06/06/24 00:00 Prochlorperazine 10 Mg Tab PO Q6H PRN Nausea And Vomiting Objective - Vital Signs Vital signs: Vital Signs Temp 97.4 F L 06/07/24 07:42 Pulse 66 06/07/24 07:42 Resp 16 06/07/24 07:42 BP 91/58 06/07/24 07:42 Pulse Ox 95 06/07/24 07:42 FiO2 Intake & Output 06/06/24 06/07/24 06/07/24 18:59 06:59 18:59 Intake Total 1600 590 Output Total 300 Balance 1600 290 Weight 50.802 kg Intake: Intake, IV Titration 1060 Amount Sodium Chloride 0.9% 1, 910 000 ml @ 130 mls/hr IV . Q7H42M DANIELLE Rx#:[id number] cefTRIAXone 1 gm In 50 Sodium Chloride 0.9% 50 ml @ 100 mls/hr IVPB Q24HR DANIELLE Rx#:[id number] metroNIDAZOLE-NS PMX 500 100 mg In Saline 1 100ml.bag @ 100 mls/hr IVPB Q8H DANIELLE Rx#:[id number] Oral 540 590 Output: Urine 300 Other: # Voids 1 - Exam -GENERAL: The patient is alert and oriented x3, not in any acute distress. Well developed, well nourished. Cachectic HEENT: Pupils are round and equally reacting to light. EOMI. No scleral icterus. No conjunctival pallor. Normocephalic, atraumatic. No pharyngeal erythema. No thyromegaly. CARDIOVASCULAR: S1 and S2 present. No murmurs, rubs, or gallops. PULMONARY: Chest is clear to auscultation, no wheezing , no crackles. ABDOMEN: Soft, nontender, nondistended, normoactive bowel sounds. No palpable organomegaly. MUSCULOSKELETAL: No joint swelling or deformity. EXTREMITIES: No cyanosis, clubbing, or pedal edema. NEUROLOGICAL: Gross neurological examination did not reveal any focal deficits. SKIN: No rashes. no petechiae. - Labs CBC & Chem 7: 06/07/24 06:16 06/07/24 06:16 Labs: Abnormal Lab Results - Last 24 Hours (Table) 06/06/24 06/07/24 06/07/24 Range/Units 06:20 06:16 06:16 WBC 20.03 H (4.50-10.00) X 10*3/uL RBC 2.89 L (4.40-5.60) X 10*6/uL Hgb 8.4 L (13.0-17.0) g/dL Hct 25.3 L (39.6-50.0) % RDW 28.7 H (11.5-14.5) % Immature Gran # 0.35 H (0.00-0.04) X 10*3/uL Neutrophils # 16.36 H (1.80-7.70) X 10*3/uL Monocytes # 1.02 H (0.20-1.00) X 10*3/uL Macrocytosis (manual) 2+ A Sodium 132 L (135-145) mmol/L Carbon Dioxide 19.4 L (21.6-31.8) mmol/L BUN 8.7 L (9.0-27.0) mg/dL Creatinine 0.4 L (0.6-1.5) mg/dL BUN/Creatinine Ratio 21.75 H (12.00-20.00) Ratio Calcium 7.3 L (8.7-10.3) mg/dL Iron 51 L (65-175) UG/DL TIBC 126 L (228-460) UG/DL Transferrin 89.7 L (204.0-354.0) mg/dL Ferritin 926.0 H (22.0-322.0) ng/mL Conjugated Bilirubin 0.68 H (0.20-0.40) mg/dL AST 68 H (14-35) U/L Alkaline Phosphatase 541 H (41-126) U/L Total Protein 4.4 L (6.2-8.2) g/dL Albumin 2.0 L (3.8-4.9) g/dL Albumin/Globulin Ratio 0.83 L (1.60-3.17) Ratio Vitamin B12 >3600.0 H (200.0-944.0) pg/mL Assessment and Plan Assessment: Recurrent nausea vomiting could be related to his recent chemotherapy on May 19 with resistant hypovolemia and hypotension. Improving Soft tissue mass at the margie hepatis 9 x 6.3 cm could be related to his recent pain genetic cancer diagnosis, s/p Whipple procedure. With evidence of suspected liver and lung metastasis Pancreatic cancer recently diagnosed getting chemotherapy, 6 cycles of chemotherapy. With evidence of liver, lung and peritoneal metastasis Fall 1 week prior to hospitalization Dehydration and hypovolemic hyponatremia secondary to above, improving Significant leukocytosis, suspicious of infection is low given chronicity and lack of fever Recent history of dysphagia related to a large left cervical lymphadenopathy, could be related to his history of pancreatic cancer Diabetes mellitus Hypertension Hyperlipidemia Plan: Continue with IV hydration, currently on normal saline 130 mL/h Hold metoprolol and lisinopril Monitor blood pressure Antibiotics may be discontinued as his leukocytosis is chronic since 02/2024, patient with no fever, no abdominal pain. With negative procalcitonin. We will keep monitoring off antibiotic Hematology/oncology consult Labs and medication were reviewed.. Continue same treatment. Continue with symptomatic treatment. Resume home medication. Monitor labs and vitals. DVT and GI prophylaxis. Further recommendations as per clinical course of the patient DVT prophylaxis: Subcutaneous heparin GI Prophylaxis: Pepcid Prognosis is guarded
--- NOTE | 2024-06-07 13:03 | P.PN ---
Subjective Progress Note Date: 06/07/24 Principal diagnosis: Pancreatic adenocarcinoma -Afebrile, no acute events overnight -Improved weakness today compared to admission with no new signs or symptoms -Denies any significant abdominal discomfort, nausea, vomiting, or constipation and is continuing to eat without significant limitations Objective - Vital Signs Vital signs: Vital Signs Temp 97.4 F L 06/07/24 07:42 Pulse 66 06/07/24 07:42 Resp 16 06/07/24 07:42 BP 91/58 06/07/24 07:42 Pulse Ox 95 06/07/24 07:42 FiO2 Intake & Output 06/06/24 06/07/24 06/07/24 18:59 06:59 18:59 Intake Total 1600 590 Output Total 300 Balance 1600 290 Weight 50.802 kg Intake: Intake, IV Titration 1060 Amount Sodium Chloride 0.9% 1, 910 000 ml @ 130 mls/hr IV . Q7H42M DANIELLE Rx#:[id number] cefTRIAXone 1 gm In 50 Sodium Chloride 0.9% 50 ml @ 100 mls/hr IVPB Q24HR DANIELLE Rx#:[id number] metroNIDAZOLE-NS PMX 500 100 mg In Saline 1 100ml.bag @ 100 mls/hr IVPB Q8H DANIELLE Rx#:[id number] Oral 540 590 Output: Urine 300 Other: # Voids 1 - Constitutional General appearance: Present: cooperative, no acute distress - EENT Eyes: Present: EOMI - Respiratory Details: Nonlabored breathing - Cardiovascular Details: Warm and well-perfused - Gastrointestinal General gastrointestinal: Present: normal bowel sounds, soft. Absent: distended, tenderness - Integumentary Integumentary: Absent: rash - Neurologic Neurologic: Present: CNII-XII intact. Absent: focal deficits - Psychiatric Psychiatric: Present: A&O x's 3, appropriate affect - Labs CBC & Chem 7: 06/07/24 06:16 06/07/24 06:16 Labs: Abnormal Lab Results - Last 24 Hours (Table) 06/06/24 06/07/24 06/07/24 Range/Units 06:20 06:16 06:16 WBC 20.03 H (4.50-10.00) X 10*3/uL RBC 2.89 L (4.40-5.60) X 10*6/uL Hgb 8.4 L (13.0-17.0) g/dL Hct 25.3 L (39.6-50.0) % RDW 28.7 H (11.5-14.5) % Immature Gran # 0.35 H (0.00-0.04) X 10*3/uL Neutrophils # 16.36 H (1.80-7.70) X 10*3/uL Monocytes # 1.02 H (0.20-1.00) X 10*3/uL Macrocytosis (manual) 2+ A Sodium 132 L (135-145) mmol/L Carbon Dioxide 19.4 L (21.6-31.8) mmol/L BUN 8.7 L (9.0-27.0) mg/dL Creatinine 0.4 L (0.6-1.5) mg/dL BUN/Creatinine Ratio 21.75 H (12.00-20.00) Ratio Calcium 7.3 L (8.7-10.3) mg/dL Iron 51 L (65-175) UG/DL TIBC 126 L (228-460) UG/DL Transferrin 89.7 L (204.0-354.0) mg/dL Ferritin 926.0 H (22.0-322.0) ng/mL Conjugated Bilirubin 0.68 H (0.20-0.40) mg/dL AST 68 H (14-35) U/L Alkaline Phosphatase 541 H (41-126) U/L Total Protein 4.4 L (6.2-8.2) g/dL Albumin 2.0 L (3.8-4.9) g/dL Albumin/Globulin Ratio 0.83 L (1.60-3.17) Ratio Vitamin B12 >3600.0 H (200.0-944.0) pg/mL Assessment and Plan (1) Neutrophilic leukocytosis Current Visit: Yes Status: Acute Code(s): D72.828 - OTHER ELEVATED WHITE BLOOD CELL COUNT SNOMED Code(s): 735739605 (2) Anemia due to antineoplastic chemotherapy Current Visit: No Status: Acute Priority: Medium Code(s): D64.81 - ANEMIA DUE TO ANTINEOPLASTIC CHEMOTHERAPY; T45.1X5A - ADVERSE EFFECT OF ANTINEOPLASTIC AND IMMUNOSUP DRUGS, INIT SNOMED Code(s): 335596544322294 (3) Pancreatic adenocarcinoma Current Visit: Yes Status: Acute Priority: Medium Code(s): C25.9 - MALIGNANT NEOPLASM OF PANCREAS, UNSPECIFIED SNOMED Code(s): 696655828 Plan: #Abdominal discomfort, bilateral lower extremity swelling, weakness -Progressive over the past few weeks -CT abdomen/pelvis on admission noted to have 9 x 6.3 cm soft tissue mass at the margie hepatis near the previous Whipple site causing severe narrowing of the portal vein and soft and tissue casement of the celiac artery and common hepatic artery along with innumerable liver lesions and possible peritoneal lesions in the right abdomen concerning for metastatic disease -We we did discuss CT findings in detail on admission -Clinically, Oswaldo and his family have noted improvement since admission with IV hydration and is eating without nausea, vomiting, constipation -I did recommend palliative radiation therapy given the large intra-abdominal mass resulting in compression of the portal vein, which is likely the etiology of the bilateral lower extremity edema and abdominal discomfort -Consult for radiation oncology placed today -Currently, Mr. Anthony Henderson and his family are agreeable to obtain NGS from the surgical specimen as well as circulating tumor DNA on discharge to assess for targetable mutations and MSI status #Normocytic anemia secondary to chemotherapy and iron deficiency -Previously was noted to have iron deficiency and received ferlicit in late March/early April 2024 -Iron studies ordered outpatient last week reported ferritin of 1098, but did not report iron saturation -Repeat labs show no evidence of deficiency in iron, vitamin B12, folic acid #Neutrophilic leukocytosis -Likely secondary to metastatic disease -Continue to monitor #Pancreatic adenocarcinoma -Initially diagnosed in December 2023 and underwent Whipple resection on 01/14/2024 with noted 11 positive lymph nodes and lymphovascular invasion and was diagnosed with stage III (T2N2M0) disease -At the time of surgery, CA 19-9 was 81 -He received 6 cycles of adjuvant FOLFIRINOX from 03/10/2024 through 05/19/2024 -CA 19-9 from clinic visit on 05/28/2024 was elevated at 285 from 25 on 02/05/2024 -Noted goals of care discussion above -Consult for radiation oncology and NGS/circulating tumor DNA as noted above to further determine treatment options Burton Stanford MD
[2024-06-07] MEDS: ONDANSETRON 4 MG/2 ML VIAL IVP PRN (15:57)
[2024-06-07] MEDS: DOCUSATE 100 MG CAP PO SCH (21:15)
[2024-06-08 09:08] LABS: Blood Urea Nitrogen 8.4 mg/dL (9.0-27.0); Calcium 7.2 mg/dL (8.7-10.3); Chloride 107 mmol/L (96-109); Glucose 82 mg/dL (70-110); Potassium 3.8 mmol/L (3.5-5.5); Sodium 132 mmol/L (135-145)
[2024-06-08 09:11] LABS: Basophils # (A) 0.05 X 10*3/uL (0.00-0.10); Basophils % (A) 0.3 %; Eosinophils # (A) 0.08 X 10*3/uL (0.04-0.35); Eosinophils % (A) 0.5 %; HCT 24.4 % (39.6-50.0); HGB 7.8 g/dL (13.0-17.0); Lymphocytes # (A) 2.29 X 10*3/uL (0.90-5.00); Lymphocytes % (A) 12.9 %; MCH 29.3 pg (27.0-32.0); MCV 91.7 FL (80.0-97.0); Mean Platelet Volume 9.5 FL (9.5-12.2); Monocytes # (A) 1.09 X 10*3/uL (0.20-1.00); Monocytes % (A) 6.1 %; NRBC Per 100 WBC 0 X 10*3/uL (0.00-0.01); Neutrophils # (A) 14.01 X 10*3/uL (1.80-7.70); Neutrophils % (A) 78.8 %; Platelet Count 208 X 10*3/uL (140-440); RBC 2.66 X 10*6/uL (4.40-5.60); RDW 29.1 % (11.5-14.5); WBC 17.76 X 10*3/uL (4.50-10.00)
--- NOTE | 2024-06-08 15:28 | P.PN ---
Subjective Progress Note Date: 06/08/24 Principal diagnosis: dehydration, weakness, progressive disease on adjuvant treatment for pancreatic adenocarcinoma In f/u family is reporting that pt is eating and drinking more, not as weak as he was on admit. Abd feels bloated, mild discomfort in the epigastric area, no recent vomiting. No recent BM. Objective - Vital Signs Vital signs: Vital Signs Temp 98.1 F 06/08/24 11:57 Pulse 70 06/08/24 11:57 Resp 19 06/08/24 07:45 BP 100/64 06/08/24 11:57 Pulse Ox 99 06/08/24 11:57 FiO2 Intake & Output 06/07/24 06/08/24 06/08/24 18:59 06:59 18:59 Intake Total 2100 590 Balance 2100 590 Intake: Intake, IV Titration 1560 Amount Sodium Chloride 0.9% 1, 1560 000 ml @ 130 mls/hr IV . Q7H42M [facility] Rx#:[id number] Oral 540 590 Other: Voiding Method Toilet Urinal # Voids 1 - Constitutional General appearance: Present: cooperative, no acute distress, thin - EENT Eyes: Present: anicteric sclerae, EOMI ENT: Present: hearing grossly normal - Respiratory Details: resp even and unlabored at rest - Cardiovascular Details: radial pulse 2+, regular - Peripheral edema leg Peripheral Edema: bilateral: None - Gastrointestinal General gastrointestinal: Present: soft, tenderness - Neurologic Neurologic: Present: CNII-XII intact - Musculoskeletal Musculoskeletal: Present: generalized weakness, strength equal bilaterally - Psychiatric Psychiatric: Present: A&O x's 3, appropriate affect, intact judgment & insight - Labs CBC & Chem 7: 06/08/24 04:42 06/08/24 04:42 Labs: Abnormal Lab Results - Last 24 Hours (Table) 06/08/24 06/08/24 Range/Units 04:42 04:42 WBC 17.76 H (4.50-10.00) X 10*3/uL RBC 2.66 L (4.40-5.60) X 10*6/uL Hgb 7.8 L (13.0-17.0) g/dL Hct 24.4 L (39.6-50.0) % RDW 29.1 H (11.5-14.5) % Immature Gran # 0.24 H (0.00-0.04) X 10*3/uL Neutrophils # 14.01 H (1.80-7.70) X 10*3/uL Monocytes # 1.09 H (0.20-1.00) X 10*3/uL Sodium 132 L (135-145) mmol/L Carbon Dioxide 19.0 L (21.6-31.8) mmol/L BUN 8.4 L (9.0-27.0) mg/dL Creatinine 0.4 L (0.6-1.5) mg/dL BUN/Creatinine Ratio 21.00 H (12.00-20.00) Ratio Calcium 7.2 L (8.7-10.3) mg/dL Microbiology - Last 24 Hours (Table) 06/05/24 23:10 Blood Culture - Preliminary Blood Assessment and Plan (1) Metastatic disease Current Visit: Yes Status: Acute Code(s): C79.9 - SECONDARY MALIGNANT NEOPLASM OF UNSPECIFIED SITE SNOMED Code(s): 334379951 (2) Pancreatic adenocarcinoma Current Visit: Yes Status: Acute Priority: Medium Code(s): C25.9 - MALIGNANT NEOPLASM OF PANCREAS, UNSPECIFIED SNOMED Code(s): 923605495 (3) Anemia due to antineoplastic chemotherapy Current Visit: No Status: Acute Priority: Medium Code(s): D64.81 - ANEMIA DUE TO ANTINEOPLASTIC CHEMOTHERAPY; T45.1X5A - ADVERSE EFFECT OF ANTINEOPLASTIC AND IMMUNOSUP DRUGS, INIT SNOMED Code(s): 696955095284408 Plan: Pancreatic adenocarcinoma -Diagnosis and treatment as documented in consult. Stage III (T2N2M0) disease, at time of surgery, CA 19-9 was 81. S/P 6 cycles of adjuvant FOLFIRINOX from 03/10/2024 through 05/19/2024. CA 19-9 from clinic visit on 05/28/2024 was elevated at 285 from 25 on 02/05/2024 -Patient was currently receiving adjuvant treatment. Unfortunately, recent imaging shows metastatic disease. There does not appear to be any obstruction. -Case was discussed with Radiation Oncologist. They will meet with patient to discuss role of palliative radiation with symptomatic disease and treat as needed. -Patient's family has requested discussion with surgeon Dr. Stefan Mustafa at [facility] in [place]. Will plan on contacting surgeon to discuss the patient's case. requested CT disc for pt to take with him to appt -Patient is agreeable to allow next-generation sequencing on original biopsy. This has been requested. -ctDNA from peripheral blood will be drawn on patient once he is discharged Anemia, progressive -Previously was noted to have iron deficiency and received ferlicit in late March/early April 2024 -Iron studies ordered outpatient last week reported ferritin of 1098, but did not report iron saturation -Repeat labs show no evidence of deficiency in iron, vitamin B12, folic acid Neutrophilic leukocytosis -Likely secondary to metastatic disease, stable Constipation -Pt has medications available, encouraged family to inquire for pt -Fluids encouraged -Ambulation encouraged with assistance Doctor attests: I performed a history and physical examination of this patient, developed impression and plan of care. Discussed with dictator. I agree with dictators note, documented as a scribe.
--- NOTE | 2024-06-08 20:53 | P.PN ---
Subjective This is a pleasant 68 years old male with past medical history of diabetes mellitus, hypertension, hyperlipidemia He was recently diagnosed with pancreatic cancer last December. His oncologist is Dr. Zuluaga, Patient presents this time with generalized weakness and bilateral leg swelling with dark urine Patient is very weak and information were obtained with the help of his daughter Homa at bedside with the phone #[phone] Patient finished his chemotherapy on May 19, After that he started having vomiting with diarrhea for 1 week ago. He was getting gentle fluids However on Saturday and Saturday he became very weak and he had leg swelling. Also his urine was dark Patient denies chest pain, no abdominal pain, no diarrhea or vomiting this morning Patient fell last week No alcohol or illicit drugs or smoking On admission blood pressure respiratory systolic 92-96, with baseline systolic blood pressure 110-102 He is afebrile WBC is chronically elevated was 34K on admission improved to 17.8 Hemoglobin 10.3 and 8.9 with baseline 10-12 Sodium 126 and 128 Liver enzymes mildly elevated D-dimer was elevated at 3.5 Lactic acid was elevated 2.2 came down to 1.5 EKG showing sinus rhythm at [address]-T changes CTA of the abdomen pelvis with contrast showing large 9 x 6.3 cm soft tissue mass in margie hepatis region abutting the remanent of pancreas, patient status post Whipple procedure, with 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 Patient looks calm and relaxed No abdominal pain. Patient able to tolerate food more and more small frequent meals. No bowel movement yet. No other new complaint WBC is 20.3 which is chronic, hemoglobin 8.4 which is stable. Sodium improved up to 132. Blood pressure still 91/58 Patient remains on normal saline with 30 mL/h Blood pressure medication of lisinopril and metoprolol remain on hold I discussed the case with oncology team, most likely patient has metastatic disease. His CA 19-9 is also elevated which caused with tumor. Besides the CAT scan imaging of neuro bowel nodules and opacities in both liver lung and peritoneum highly suspicious for metastatic The suspicion of infection is low, no fever. Pro- Calcitonin is negative at 0.27 and blood culture so far negative We will stop antibiotics and close monitoring 06/08 Patient eating with no abdominal pain Multiple family member at bedside all questions answered Objective - Vital Signs Vital signs: Vital Signs Temp 98.1 F 06/08/24 11:57 Pulse 70 06/08/24 11:57 Resp 19 06/08/24 07:45 BP 100/64 06/08/24 11:57 Pulse Ox 99 06/08/24 11:57 FiO2 Intake & Output 06/07/24 06/08/24 06/08/24 18:59 06:59 18:59 Intake Total 2100 590 Balance 2100 590 Intake: Intake, IV Titration 1560 Amount Sodium Chloride 0.9% 1, 1560 000 ml @ 130 mls/hr IV . Q7H42M [facility] Rx#:[id number] Oral 540 590 Other: Voiding Method Toilet Urinal # Voids 1 - Exam -GENERAL: The patient is alert and oriented x3, not in any acute distress. Well developed, well nourished. Cachectic HEENT: Pupils are round and equally reacting to light. EOMI. No scleral icterus. No conjunctival pallor. Normocephalic, atraumatic. No pharyngeal erythema. No thyromegaly. CARDIOVASCULAR: S1 and S2 present. No murmurs, rubs, or gallops. PULMONARY: Chest is clear to auscultation, no wheezing , no crackles. ABDOMEN: Soft, nontender, nondistended, normoactive bowel sounds. No palpable organomegaly. MUSCULOSKELETAL: No joint swelling or deformity. EXTREMITIES: No cyanosis, clubbing, or pedal edema. NEUROLOGICAL: Gross neurological examination did not reveal any focal deficits. SKIN: No rashes. no petechiae. - Labs CBC & Chem 7: 06/08/24 04:42 06/08/24 04:42 Labs: Abnormal Lab Results - Last 24 Hours (Table) 06/08/24 06/08/24 Range/Units 04:42 04:42 WBC 17.76 H (4.50-10.00) X 10*3/uL RBC 2.66 L (4.40-5.60) X 10*6/uL Hgb 7.8 L (13.0-17.0) g/dL Hct 24.4 L (39.6-50.0) % RDW 29.1 H (11.5-14.5) % Immature Gran # 0.24 H (0.00-0.04) X 10*3/uL Neutrophils # 14.01 H (1.80-7.70) X 10*3/uL Monocytes # 1.09 H (0.20-1.00) X 10*3/uL Sodium 132 L (135-145) mmol/L Carbon Dioxide 19.0 L (21.6-31.8) mmol/L BUN 8.4 L (9.0-27.0) mg/dL Creatinine 0.4 L (0.6-1.5) mg/dL BUN/Creatinine Ratio 21.00 H (12.00-20.00) Ratio Calcium 7.2 L (8.7-10.3) mg/dL Microbiology - Last 24 Hours (Table) 06/05/24 23:10 Blood Culture - Preliminary Blood Assessment and Plan Assessment: Recurrent nausea vomiting could be related to his recent chemotherapy on May 19 with resistant hypovolemia and hypotension. Improving Soft tissue mass at the margie hepatis 9 x 6.3 cm could be related to his recent pain genetic cancer diagnosis, s/p Whipple procedure. With evidence of suspected liver and lung metastasis Pancreatic cancer recently diagnosed getting chemotherapy, 6 cycles of chemot herapy. With evidence of liver, lung and peritoneal metastasis Fall 1 week prior to hospitalization Dehydration and hypovolemic hyponatremia secondary to above, improving Significant leukocytosis, suspicious of infection is low given chronicity and lack of fever Recent history of dysphagia related to a large left cervical lymphadenopathy, could be related to his history of pancreatic cancer Diabetes mellitus Hypertension Hyperlipidemia Plan: Continue with IV hydration, currently on normal saline 130 mL/h Hold metoprolol and lisinopril Monitor blood pressure Antibiotics may be discontinued as his leukocytosis is chronic since 02/2024, patient with no fever, no abdominal pain. With negative procalcitonin. We will keep monitoring off antibiotic Hematology/oncology consult Labs and medication were reviewed.. Continue same treatment. Continue with symptomatic treatment. Resume home medication. Monitor labs and vitals. DVT and GI prophylaxis. Further recommendations as per clinical course of the patient DVT prophylaxis: Subcutaneous heparin GI Prophylaxis: Pepcid Prognosis is guarded
[2024-06-09] MEDS: droNABinol 2.5 MG CAP PO SCH (12:15)
--- NOTE | 2024-06-09 13:39 | P.CONS ---
History of Present Illness - Reason for Consult Consult date: 06/08/24 epigastric pain, weakness Requesting physician: Burton Stanford - Chief Complaint weakness, dehydration - History of Present Illness The patient is a 68-year-old male previously treated with a Whipple surgery in January 2024 for a stage III adenocarcinoma of the head of the pancreas. He initiated adjuvant FOLFIRINOX finishing 6 cycles on 05/19/2024. He presented to the ER secondary to profound weakness and lower extremity edema. His imaging revealed recurrent disease. The patient was admitted on 06/05/2024 secondary to significant weakness. According to the family he was unable to walk and eating and drinking very little. On admission, he had a CT of the abdomen and pelvis performed. Unfortunately, this revealed a 6.3 x 9 cm mass involving the surgical bed and the margie hepatis. There were innumerable new liver metastases. There are also concerning areas of peritoneal implants. At this time, the patient reports he is doing a bit better following the past 3 days in the hospital. He has been able to eat small meals. He is ambulating, but still does have some swelling in the legs. He has no significant pain, but does have epigastric fullness at this time. Review of Systems Constitutional: Denies chills, Denies fever Ears, nose, mouth and throat: Denies headache Respiratory: Denies cough Gastrointestinal: Reports as per HPI Genitourinary: Denies dysuria Integumentary: Denies rash Neurological: Denies aphasia, Denies ataxia Psychiatric: Denies anxiety, Denies confusion Past Medical History Past Medical History: Cancer, Diabetes Mellitus, Hyperlipidemia, Hypertension Additional Past Medical History / Comment(s): perirectal abscess, PANCREATIC CANCER diagnosed December 2023 History of Any Multi-Drug Resistant Organisms: None Reported Past Surgical History: Ear Surgery Additional Past Surgical History / Comment(s): RHINOPLASTY, TOOTH IMPLANT, Whipple procedure January 14, 2024, infusaport placement February 2024 Past Anesthesia/Blood Transfusion Reactions: No Reported Reaction Additional Past Anesthesia/Blood Transfusion Reaction / Comm: no hx blood transfusion Smoking Status: Never smoker - Past Family History Mother Family Medical History: Diabetes Mellitus Father Family Medical History: Diabetes Mellitus Medications and Allergies Home Medications Medication Instructions Recorded Confirmed Type metFORMIN HCL [Glucophage] 1,000 mg PO BID 09/14/19 06/05/24 History Pantoprazole [Protonix] 40 mg PO DAILY 03/10/24 06/05/24 History OLANZapine [ZyPREXA] 2.5 mg PO HS 03/24/24 06/05/24 History Empagliflozin [Jardiance] 25 mg PO DAILY 04/10/24 06/05/24 History Lipase/Protease/Amylase [Fernando Dr 1 cap PO TID-W/MEALS 04/10/24 06/05/24 History 36,000 Unit Capsule] Ondansetron Odt [Zofran ODT] 4 - 8 mg PO Q4H PRN 04/10/24 06/05/24 History Prochlorperazine [Compazine] 10 mg PO Q6H PRN 04/10/24 06/05/24 History LORazepam [Ativan] 0.5 mg PO TID PRN 06/05/24 06/05/24 History Simvastatin [Zocor] 10 mg PO HS 06/05/24 06/05/24 History lisinopriL [Zestril] 20 mg PO DAILY 06/05/24 06/05/24 History Allergies Allergy/AdvReac Type Severity Reaction Status Date / Time No Known Allergies Allergy Verified 06/05/24 20:42 Physical Exam Vitals: Vital Signs Temp Pulse Resp BP Pulse Ox 06/09/24 07:30 98.5 F 80 20 92/63 98 06/09/24 01:47 98.3 F 78 12 97/61 100 06/08/24 20:00 98.2 F 73 12 99/64 100 Intake and Output 06/08/24 06/09/24 06/09/24 22:59 06:59 14:59 Intake Total 1560 540 Balance 1560 540 Intake: Intake, IV Titration 1560 Amount Sodium Chloride 0.9% 1, 1560 000 ml @ 130 mls/hr IV . Q7H42M [facility] Rx#:[id number] Oral 540 Other: # Voids 2 - Constitutional General appearance: thin - EENT Eyes: EOMI, PERRLA - Neck Neck: no lymphadenopathy - Respiratory Respiratory: bilateral: CTA - Cardiovascular Rhythm: regular - Gastrointestinal General gastrointestinal: no distended, no tenderness - Integumentary Integumentary: no rash - Neurologic Neurologic: CNII-XII intact - Psychiatric Psychiatric: A&O x's 3, appropriate affect Results CBC & Chem 7: 06/08/24 04:42 06/08/24 04:42 Labs: Microbiology - Last 24 Hours (Table) 06/05/24 23:10 Blood Culture - Preliminary Blood CT scan - abdomen: report reviewed, image reviewed CT scan - pelvis: report reviewed, image reviewed Assessment and Plan Assessment: The patient is a 68-year-old male previously treated with a Whipple surgery in January 2024 for a stage III adenocarcinoma of the head of the pancreas. He initiated adjuvant FOLFIRINOX finishing 6 cycles on 05/19/2024. He presented to the ER secondary to profound weakness and lower extremity edema. His imaging revealed recurrent disease. Plan: 1. Epigastric discomfort/fullness: The patient's CT scan shows a large local recurrence of his pancreatic cancer unfortunately with elsewhere metastasis involving the liver and peritoneum. This unfortunately represents progressive disease, despite the patient undergoing an aggressive regimen of FOLFIRINOX. I discussed that we could have the patient undergo a short course of palliative radiotherapy. I explained this may help with his discomfort and fulllness. 2. Metastatic pancreatic cancer: Unfortunately, the patient likely has a poor prognosis secondary to progression despite an aggressive chemotherapy regimen. He will follow-up with Dr. Stanford regarding other possible treatment regimens. Time with Patient: Greater than 30
--- NOTE | 2024-06-09 15:18 | P.PN ---
Subjective Progress Note Date: 06/09/24 Principal diagnosis: dehydration, weakness, progressive disease on adjuvant treatment for pancreatic adenocarcinoma In f/u pt is stable, no N,V, appetite is fair/poor, mild nausea, no vomiting, abd is mildly distended, mild tenderness on palpation. Sill no BM. Objective - Vital Signs Vital signs: Vital Signs Temp 98.5 F 06/09/24 07:30 Pulse 80 06/09/24 07:30 Resp 20 06/09/24 07:30 BP 92/63 06/09/24 07:30 Pulse Ox 98 06/09/24 07:30 FiO2 Intake & Output 06/08/24 06/09/24 06/09/24 18:59 06:59 18:59 Intake Total 2100 Balance 2100 Intake: Intake, IV Titration 1560 Amount Sodium Chloride 0.9% 1, 1560 000 ml @ 130 mls/hr IV . Q7H42M [facility] Rx#:[id number] Oral 540 Other: Voiding Method Toilet Urinal # Voids 2 - Constitutional General appearance: Present: cooperative, no acute distress, thin - EENT Eyes: Present: anicteric sclerae, EOMI ENT: Present: hearing grossly normal, normal oropharynx - Respiratory Details: resp even and unlabored at rest - Cardiovascular Details: skin warm and dry, well perfused - Peripheral edema leg Peripheral Edema: bilateral: None - Gastrointestinal General gastrointestinal: Present: tenderness - Neurologic Neurologic: Present: CNII-XII intact - Musculoskeletal Musculoskeletal: Present: generalized weakness - Psychiatric Psychiatric: Present: A&O x's 3, appropriate affect, intact judgment & insight - Labs CBC & Chem 7: 06/08/24 04:42 06/08/24 04:42 Labs: Microbiology - Last 24 Hours (Table) 06/05/24 23:10 Blood Culture - Preliminary Blood Assessment and Plan (1) Metastatic disease Current Visit: Yes Status: Acute Code(s): C79.9 - SECONDARY MALIGNANT NEOPLASM OF UNSPECIFIED SITE SNOMED Code(s): 566349402 (2) Pancreatic adenocarcinoma Current Visit: Yes Status: Acute Priority: Medium Code(s): C25.9 - MALIGNANT NEOPLASM OF PANCREAS, UNSPECIFIED SNOMED Code(s): 981667529 (3) Anemia due to antineoplastic chemotherapy Current Visit: No Status: Acute Priority: Medium Code(s): D64.81 - ANEMIA DUE TO ANTINEOPLASTIC CHEMOTHERAPY; T45.1X5A - ADVERSE EFFECT OF ANTINEOPLASTIC AND IMMUNOSUP DRUGS, INIT SNOMED Code(s): 969752824583261 Plan: Pancreatic adenocarcinoma -Diagnosis and treatment as documented in consult. Stage III (T2N2M0) disease, at time of surgery, CA 19-9 was 81. S/P 6 cycles of adjuvant FOLFIRINOX from 03/10/2024 through 05/19/2024. CA 19-9 from clinic visit on 05/28/2024 was e levated at 285 from 25 on 02/05/2024 -Patient was currently receiving adjuvant treatment. Unfortunately, recent imaging shows metastatic disease, local recurrence. There does not appear to be any gross obstruction, but the local recurrence is likely causing symptoms because of size. -Radiation Oncologist spoke with pt and family about the role of palliative radiation with symptomatic disease. -Patient's family has dropped off CT disc to surgeon Dr. Stefan Mustafa at [facility] in [place]. Will plan on contacting surgeon to discuss the patient's case. -Patient is agreeable to allow next-generation sequencing on original biopsy. This has been requested. -ctDNA from peripheral blood will be drawn on patient once he is discharged -F/U with Dr. William Stanford to discuss treatment options. Pt and family do understand that treatment is palliative intent, to alleviate symptoms of cancer and prolong life. Anemia, progressive -Previously was noted to have iron deficiency and received ferrlecit in late March/early April 2024 -Iron studies ordered outpatient last week reported ferritin of 1098, but did not report iron saturation -Repeat labs show no evidence of deficiency in iron, vitamin B12, folic acid -Marrow suppression from chemo or from disease, poor oral intake. Will cont to m onitor CBC. Transfuse for Hgb <7 or if symptomatic Neutrophilic leukocytosis -Likely secondary to metastatic disease, stable Constipation -Pt has medications available to treat -See an order now for c-diff but no documentation of BM. Pt did not report diarrhea when seen this AM -Pending stool collection and results Doctor attests: I performed a history and physical examination of this patient, developed impression and plan of care. Discussed with dictator. I agree with dictators note, documented as a scribe.
[2024-06-09] MEDS: polyethylene glycoL 3350 17 GM POWD.PACK PO SCH (15:54)
[2024-06-10 05:38] LABS: Anisocytosis Marked; Basophils # (A) 0.1 k/uL (0-0.2); Basophils % (A) 0 %; Eosinophils # (A) 0.1 k/uL (0-0.7); Eosinophils % (A) 1 %; HCT 25.9 % (39.0-53.0); HGB 8.1 gm/dL (13.0-17.5); Hypochromasia Marked; Lymphocytes # (A) 2.2 k/uL (1.0-4.8); Lymphocytes % (A) 12 %; MCH 29.8 pg (25.0-35.0); MCHC 31.3 g/dL (31.0-37.0); Macrocytosis Moderate; Mean Platelet Volume 7.2; Microcytosis Slight; Monocytes # (A) 0.6 k/uL (0-1.0); Monocytes % (A) 3 %; Neutrophils # (A) 14.9 k/uL (1.3-7.7); Neutrophils % (A) 82 %; Platelet Count 225 k/uL (150-450); RBC 2.72 m/uL (4.30-5.90); WBC 18.3 k/uL (3.8-10.6)
[2024-06-10 05:43] LABS: MCV 95.3 fL (80.0-100.0); RDW 26.3 % (11.5-15.5)
--- NOTE | 2024-06-10 06:32 | P.PN ---
Subjective Progress Note Date: 06/09/24 This is a pleasant 68 years old male with past medical history of diabetes mellitus, hypertension, hyperlipidemia He was recently diagnosed with pancreatic cancer last December. His oncologist is Dr. Zuluaga, Patient presents this time with generalized weakness and bilateral leg swelling with dark urine Patient is very weak and information were obtained with the help of his daughter Homa at bedside with the phone #[phone] Patient finished his chemotherapy on May 19, After that he started having vomiting with diarrhea for 1 week ago. He was getting gentle fluids However on Saturday and Saturday he became very weak and he had leg swelling. Also his urine was dark Patient denies chest pain, no abdominal pain, no diarrhea or vomiting this morning Patient fell last week No alcohol or illicit drugs or smoking On admission blood pressure respiratory systolic 92-96, with baseline systolic blood pressure 110-102 He is afebrile WBC is chronically elevated was 34K on admission improved to 17.8 Hemoglobin 10.3 and 8.9 with baseline 10-12 Sodium 126 and 128 Liver enzymes mildly elevated D-dimer was elevated at 3.5 Lactic acid was elevated 2.2 came down to 1.5 EKG showing sinus rhythm at [address]-T changes CTA of the abdomen pelvis with contrast showing large 9 x 6.3 cm soft tissue mass in margie hepatis region abutting the remanent of pancreas, patient status post Whipple procedure, with significant narrowing of the portal vein and SMV, also there is innumerable hypodense metastatic liver lesion and peritoneal nodule CTA of the chest was negative for PE but showing bilateral pulmonary nodule suspicious for metastasis with enlarged left supr supraclavicular lymph node Pro- Calcitonin is negative 06/07 Patient still weak generally, mentation at baseline. Patient looks calm and relaxed No abdominal pain. Patient able to tolerate food more and more small frequent meals. No bowel movement yet. No other new complaint WBC is 20.3 which is chronic, hemoglobin 8.4 which is stable. Sodium improved up to 132. Blood pressure still 91/58 Patient remains on normal saline with 30 mL/h Blood pressure medication of lisinopril and metoprolol remain on hold I discussed the case with oncology team, most likely patient has metastatic disease. His CA 19-9 is also elevated which caused with tumor. Besides the CAT scan imaging of neuro bowel nodules and opacities in both liver lung and peritoneum highly suspicious for metastatic The suspicion of infection is low, no fever. Pro- Calcitonin is negative at 0.27 and blood culture so far negative We will stop antibiotics and close monitoring 06/08 Patient eating with no abdominal pain Multiple family member at bedside all questions answered 06/09/2024 Patient is seen in follow-up eating a little more although per family at the bedside was able to eat a small bowl of fruit. Oncology following and stimulant being added. Patient per family also reports to no bowel movement since hospitalization and will add MiraLAX as well as as needed medications for supportive care. Awaiting reevaluation with Dr. Rosado radiation oncology to discuss possible mapping for palliative radiation. Discharge planning in [facility]. Patient will require a wheelchair on discharge to be wheeled around to continue with ADLs. Patient does have support in the home that we will be able to wheel him around. Patient with pancreatic cancer with metastasis. Review of systems: Constitutional: No reports of fatigue, fever, or chills Cardiovascular: No reports of chest pain or palpitations Respiratory: No reports of shortness of breath or cough GI: No reports of nausea, vomiting, or diarrhea : No reports of dysuria or retention Neurovascular: No reports of weakness or numbness All medications have been reviewed Physical exam: GENERAL: The patient is alert and oriented x3, not in any acute distress. Well developed, thin build, cachectic HEENT: Pupils are round and equally reacting to light. EOMI. No scleral icterus. No conjunctival pallor. Normocephalic, atraumatic. No pharyngeal erythema. No thyromegaly. CARDIOVASCULAR: S1 and S2 present. No murmurs, rubs, or gallops. PULMONARY: Chest is clear to auscultation, no wheezing , no crackles. ABDOMEN: Soft, nontender, nondistended, normoactive bowel sounds. No palpable organomegaly. MUSCULOSKELETAL: No joint swelling or deformity. EXTREMITIES: No cyanosis, clubbing, or pedal edema. NEUROLOGICAL: Gross neurological examination did not reveal any focal deficits. Diffusely weak SKIN: No rashes. no petechiae. Assessment: Recurrent nausea vomiting could be related to his recent chemotherapy on May 19 with resistant hypovolemia and hypotension. Improving Soft tissue mass at the margie hepatis 9 x 6.3 cm could be related to his recent pain genetic cancer diagnosis, s/p Whipple procedure. With evidence of suspected liver and lung metastasis Pancreatic cancer recently diagnosed getting chemotherapy, 6 cycles of chemotherapy. With evidence of liver, lung and peritoneal metastasis Fall 1 week prior to hospitalization Dehydration and hypovolemic hyponatremia secondary to above, improving Significant leukocytosis, suspicious of infection is low given chronicity and lack of fever Recent history of dysphagia related to a large left cervical lymphadenopathy, could be related to his history of pancreatic cancer Diabetes mellitus Hypertension Hyperlipidemia Plan: Continue with gentle IV hydration, appetite stimulant being added Continue holding metoprolol and lisinopril for hypotension, blood pressure stable above 90 systolic Antibiotics have been discontinued as his leukocytosis is chronic since 02/2024, patient with no fever, no abdominal pain. With negative procalcitonin. We will keep monitoring off antibiotic Hematology/oncology following along with radiation oncology and discussing possible mapping for palliative radiation. Awaiting reevaluation with Dr. Rosado Overall prognosis is guarded possible discharge planning in 24 hours The impression and plan of care has been dictated by Ana Pringle, Nurse Practitioner as directed. Dr. Ree MD I have performed a history and examination and MDM of this patient, discussed the same with the dictator, and agree with the dictator's assessment and plan as written ,documented as a scribe. Based on total visit time, I have performed more than 50% of the visit. Follow Objective - Vital Signs Vital signs: Vital Signs Temp 98.5 F 06/09/24 07:30 Pulse 80 06/09/24 07:30 Resp 20 06/09/24 07:30 BP 92/63 06/09/24 07:30 Pulse Ox 98 06/09/24 07:30 FiO2 Intake & Output 06/08/24 06/09/24 06/09/24 18:59 06:59 18:59 Intake Total 2100 Balance 2100 Weight 50.802 kg Intake: Intake, IV Titration 1560 Amount Sodium Chloride 0.9% 1, 1560 000 ml @ 130 mls/hr IV . Q7H42M [facility] Rx#:[id number] Oral 540 Other: Voiding Method Toilet Urinal # Voids 2 - Labs CBC & Chem 7: 06/10/24 06:00 06/08/24 04:42 Labs: Microbiology - Last 24 Hours (Table) 06/05/24 23:10 Blood Culture - Preliminary Blood
[2024-06-10 14:13] VITALS: BP 100/65; PULSE 79; RESP 18; TEMP 98.5
--- NOTE | 2024-06-10 15:59 | P.PN ---
Subjective Progress Note Date: 06/10/24 Principal diagnosis: dehydration, weakness, progressive disease on adjuvant treatment for pancreatic adenocarcinoma In f/u pt is stable, no new c/o, he is tolerating medications for symptoms well at this time. He will have radiation today. No BM. Objective - Vital Signs Vital signs: Vital Signs Temp 98.2 F 06/10/24 07:37 Pulse 87 06/10/24 07:37 Resp 17 06/10/24 07:37 BP 108/71 06/10/24 07:37 Pulse Ox 99 06/10/24 07:37 FiO2 Intake & Output 06/09/24 06/10/24 06/10/24 18:59 06:59 18:59 Intake Total 1560 200 Balance 1560 200 Weight 50.802 kg Intake: Intake, IV Titration 1560 Amount Sodium Chloride 0.9% 1, 1560 000 ml @ 130 mls/hr IV . Q7H42M [facility] Rx#:[id number] Oral 200 Other: Voiding Method Toilet Toilet Urinal - Constitutional General appearance: Present: cooperative, no acute distress, thin - EENT Eyes: Present: EOMI, scleral icterus ENT: Present: hearing grossly normal - Respiratory Details: resp unlabored at rest - Cardiovascular Rhythm: regular (radial pulse) - Peripheral edema leg Peripheral Edema: bilateral: None - Gastrointestinal General gastrointestinal: Present: soft, tenderness - Integumentary Integumentary: Present: normal - Neurologic Neurologic: Present: CNII-XII intact - Musculoskeletal Musculoskeletal: Present: generalized weakness, strength equal bilaterally - Psychiatric Psychiatric: Present: A&O x's 3, appropriate affect, intact judgment & insight - Labs CBC & Chem 7: 06/10/24 06:00 06/08/24 04:42 Labs: Abnormal Lab Results - Last 24 Hours (Table) 06/10/24 Range/Units 06:00 WBC 18.3 H (3.8-10.6) k/uL RBC 2.72 L (4.30-5.90) m/uL Hgb 8.1 L (13.0-17.5) gm/dL Hct 25.9 L (39.0-53.0) % RDW 26.3 H (11.5-15.5) % Neutrophils # 14.9 H (1.3-7.7) k/uL Microbiology - Last 24 Hours (Table) 06/05/24 23:10 Blood Culture - Preliminary Blood Assessment and Plan (1) Metastatic disease Current Visit: Yes Status: Acute Code(s): C79.9 - SECONDARY MALIGNANT NEOPLASM OF UNSPECIFIED SITE SNOMED Code(s): 213010813 (2) Pancreatic adenocarcinoma Current Visit: Yes Status: Acute Priority: Medium Code(s): C25.9 - MALIGNANT NEOPLASM OF PANCREAS, UNSPECIFIED SNOMED Code(s): 262726103 (3) Anemia due to antineoplastic chemotherapy Current Visit: No Status: Acute Priority: Medium Code(s): D64.81 - ANEMIA DUE TO ANTINEOPLASTIC CHEMOTHERAPY; T45.1X5A - ADVERSE EFFECT OF ANTINEOPLASTIC AND IMMUNOSUP DRUGS, INIT SNOMED Code(s): 698529762555886 Plan: Pancreatic adenocarcinoma -Diagnosis and treatment as documented in consult. Stage III (T2N2M0) disease, at time of surgery, CA 19-9 was 81. S/P 6 cycles of adjuvant FOLFIRINOX from 03/10/2024 through 05/19/2024. CA 19-9 from clinic visit on 05/28/2024 was elevated at 285 from 25 on 02/05/2024 -Patient was currently receiving adjuvant treatment. Unfortunately, recent imaging shows metastatic disease and local recurrence. There does not appear to be any gross obstruction, but the local recurrence is likely causing symptoms because of size. -Radiation Oncologist spoke with pt and family about the role of palliative radiation with symptomatic disease. Pt has been simulated. Pt is going to have radiation today-spoke with Dr. Rosado. -Patient's family has dropped off CT disc to surgeon Dr. Stefan Mustafa at [facility] in [place]. Will plan on contacting surgeon to discuss the patient's case next week. -Patient is agreeable to allow next-generation sequencing on original biopsy. This has been requested. -ctDNA from peripheral blood will be drawn on patient once he is discharged-he is to come to [facility] for the lab draw if he is discharged before 5 today, if not, we can draw at next visit -F/U with Dr. William Stanford to discuss treatment options. Pt and family do understand that treatment is palliative intent, to alleviate symptoms of cancer and prolong life. Anemia, progressive -Previously was noted to have iron deficiency and received ferrlecit in late March/early April 2024 -Iron studies ordered outpatient last week reported ferritin of 1098, but did not report iron saturation -Repeat labs show no evidence of deficiency in iron, vitamin B12, folic acid -Marrow suppression from chemo or from disease, poor oral intake. Hgb is stable at this time. Will cont to monitor CBC. Transfuse for Hgb <7 or if symptomatic Neutrophilic leukocytosis -Likely secondary to metastatic disease, stable Constipation -Pt has medications available to treat Reviewed complicated medication list with patient's daughter. Written instructions were given. Prescriptions for Marinol, Ativan sent to [facility]. Patient's daughter confirmed already has prescription for Zofran, Compazine, olanzapine. Recommended senna/Colace 1 to 2 tablets, 1-2 times every day to maintain a soft easily passable bowel movement every 1 to 3 days. MiraLAX twice a day if no bowel movement and to continue until patient has a bowel movement. Any worsening abdominal pain or vomiting experienced in the setting of no bowel movement, return to the hospital. All questions were answered to their satisfaction. Case discussed briefly with Attending BUILDING CONSTRUCTION ENGINEER Doctor attests: I performed a history and physical examination of this patient, developed impression and plan of care. Discussed with dictator. I agree with dictators note, documented as a scribe. Time with Patient: Greater than 30 (>60 counseling and coordinating care)
--- NOTE | 2024-06-14 12:00 | P.DS ---
Providers Date of admission: 06/05/24 21:25 Expected date of discharge: 06/10/24 Attending physician: Pato Chaudhry Consults: 06/05/24 21:22 Consult Physician Urgent Consulting Provider: Burton Stanford Consult Reason/Comments: metastatic pancreatic adenocarcinoma Do you want consulting provider notified?: Yes 06/07/24 12:56 Consult Physician Routine Consulting Provider: Fabio Rosado Consult Reason/Comments: Recurrent pancreatic cancer with abdominal mass Do you want consulting provider notified?: Yes, Notify in am Primary care physician: Carole Patel Hospital Course: Final diagnosis Recurrent nausea vomiting could be related to his recent chemotherapy on May 19 with resistant hypovolemia and hypotension. Improving Soft tissue mass at the margie hepatis 9 x 6.3 cm could be related to his recent pain genetic cancer diagnosis, s/p Whipple procedure. With evidence of suspected liver and lung metastasis Pancreatic cancer recently diagnosed getting chemotherapy, 6 cycles of chemotherapy. With evidence of liver, lung and peritoneal metastasis Fall 1 week prior to hospitalization Dehydration and hypovolemic hyponatremia secondary to above, improving Significant leukocytosis, suspicious of infection is low given chronicity and lack of fever Recent history of dysphagia related to a large left cervical lymphadenopathy, could be related to his history of pancreatic cancer Diabetes mellitus Hypertension Hyperlipidemia Moderate calorie malnutrition with a BMI of 18.1 GI prophylaxis DVT prophylaxis Full code Discharge disposition Patient is being discharged in a stable condition with guarded prognosis to home. Patient will follow-up with Dr. Patel in the outpatient setting upon discharge. Patient is to continue with current medications and regimen with outpatient follow-up with radiation oncology as well as oncology as scheduled. Total time taken is greater than 35 minutes. Hospital course This is a 68-year-old male who was recently admitted with recurrent nausea vomiting and tolerable to diet with dehydration and hypovolemia. Patient recently received chemotherapy and also underwent further imaging showing evidence of liver, lung, peritoneal metastasis. Patient evaluated by radiation oncology underwent mapping and will follow-up outpatient for palliative radiation. Patient is maintained on appetite stimulant along with scheduled bowel regimen and pain management per oncology. Patient instructed to follow-up with oncology outpatient and doing slightly better. Patient family would like to take patient home on discharge. Patient has been cleared by consultations for discharge. Please refer to consultation notes for further HPI. currently no reports of chest pain, shortness of breath, or palpitations. Patient is afebrile. No reports of nausea or vomiting and patient is tolerating diet. Patient will be discharged home today. Guarded prognosis and overall poor prognosis. Physical exam: Gen: This is a 68-year-old male who is awake, thin built, elderly appearing, ill-appearing HEENT: Head is atraumatic, normocephalic. Pupils equal, round. Sclerae is anicteric. NECK: Supple. No JVD. No lymphadenopathy. No thyromegaly. LUNGS: Diminished breath sounds bilaterally otherwise clear to auscultation. No wheezes or rhonchi. No intercostal retractions. HEART: Regular rate and rhythm. No murmur. ABDOMEN: Soft. Thin, scaphoid bowel sounds are present. No masses. No tenderness. EXTREMITIES: No pedal edema. No calf tenderness. NEUROLOGICAL: Patient is awake, alert and oriented x3. Cranial nerves 2 through 12 are grossly intact. Diffusely weak Please refer to medication reconciliation sheet for a list of medications. The impression and plan of care has been dictated by Ana Pringle, Nurse Practitioner as directed. Dr. Ree MD I have performed a history and examination and MDM of this patient, discussed the same with the dictator, and agree with the dictator's assessment and plan as written ,documented as a scribe. Based on total visit time, I have performed more than 50% of the visit. Patient Condition at Discharge: Fair Plan - Discharge Summary Discharge Rx Participant: Yes New Discharge Prescriptions: New Docusate [Colace] 100 mg PO DAILY #30 cap droNABinol [Marinol] 2.5 mg PO AC-BID cap polyethylene glycoL 3350 [Miralax] 17 gm PO DAILY #30 packet Continue metFORMIN HCL [Glucophage] 1,000 mg PO BID Pantoprazole [Protonix] 40 mg PO DAILY OLANZapine [ZyPREXA] 2.5 mg PO HS Ondansetron Odt [Zofran ODT] 4 - 8 mg PO Q4H PRN PRN Reason: Nausea Empagliflozin [Jardiance] 25 mg PO DAILY Simvastatin [Zocor] 10 mg PO HS Prochlorperazine [Compazine] 10 mg PO Q6H PRN PRN Reason: Nausea And Vomiting Lipase/Protease/Amylase [Fernando Sotelo 36,000 Unit Capsule] 1 cap PO TID-W/MEALS LORazepam [Ativan] 0.5 mg PO TID PRN PRN Reason: Anxiety Discontinued lisinopriL [Zestril] 20 mg PO DAILY Discharge Medication List metFORMIN HCL [Glucophage] 1,000 mg PO BID 09/14/19 [History] Pantoprazole [Protonix] 40 mg PO DAILY 03/10/24 [History] OLANZapine [ZyPREXA] 2.5 mg PO HS 03/24/24 [History] Empagliflozin [Jardiance] 25 mg PO DAILY 04/10/24 [History] Lipase/Protease/Amylase [Fernando Dr 36,000 Unit Capsule] 1 cap PO TID-W/MEALS 04/10/24 [History] Ondansetron Odt [Zofran ODT] 4 - 8 mg PO Q4H PRN 04/10/24 [History] Prochlorperazine [Compazine] 10 mg PO Q6H PRN 04/10/24 [History] LORazepam [Ativan] 0.5 mg PO TID PRN 06/05/24 [History] Simvastatin [Zocor] 10 mg PO HS 06/05/24 [History] Docusate [Colace] 100 mg PO DAILY #30 cap 06/10/24 [Rx] droNABinol [Marinol] 2.5 mg PO AC-BID cap 06/10/24 [Rx] polyethylene glycoL 3350 [Miralax] 17 gm PO DAILY #30 packet 06/10/24 [Rx] Follow up Appointment(s)/Referral(s): Burton Stanford MD [STAFF PHYSICIAN] - 06/23/24 1:30 pm [facility] [NON-STAFF] - 1 Week Carole Patel DO [Primary Care Provider] - 06/15/24 10:00 am Fabio Rosado MD [STAFF PHYSICIAN] - 06/10/24 3:30 pm Patient Instructions/Handouts: Leukocytosis (DC) Activity/Diet/Wound Care/Special Instructions: Activity limited until follow-up Follow-up with radiation oncology as well as oncology outpatient as discussed Continue taking medications as prescribed Follow-up primary care provider on discharge Discharge Disposition: HOME SELF-CARE
== END 2024-06-10 16:32 | disposition home or self-care (01) | DRG 436 ==
LOC: EC 14:08 → 5NMEDONC 21:25
PROVIDERS: ADMIT Hospitalist; ATTEND Hospitalist
DX: C25.9 Malignant neoplasm of pancreas, unspecified (principal); C78.01 Secondary malignant neoplasm of right lung; C78.6 Secondary malignant neoplasm of retroperitoneum and peritoneum; R18.8 Other ascites; C78.7 Secondary malignant neoplasm of liver and intrahepatic bile duct; E44.0 Moderate protein-calorie malnutrition; Z68.1 Body mass index [BMI] 19.9 or less, adult; C78.02 Secondary malignant neoplasm of left lung; Z11.52 Encounter for screening for COVID-19; D64.81 Anemia due to antineoplastic chemotherapy; E78.5 Hyperlipidemia, unspecified; I10 Essential (primary) hypertension; D72.828 Other elevated white blood cell count; E11.9 Type 2 diabetes mellitus without complications; T45.1X5A Adverse effect of antineoplastic and immunosuppressive drugs, initial encounter; Z90.411 Acquired partial absence of pancreas; X58.XXXA Exposure to other specified factors, initial encounter; E86.0 Dehydration; Z85.07 Personal history of malignant neoplasm of pancreas; Z79.84 Long term (current) use of oral hypoglycemic drugs; Z79.899 Other long term (current) drug therapy
CPT/HCPCS: 36415; 71046; 71275; 74177; 80048; 80053; 80076; 81001; 82150; 82607; 82728; 82746; 83540; 83550; 83605; 83690; 84145; 84484; 85025; 85379; 87040; 87636; 93005; 96361; 96365; 96366; 96367; 99285

== ENCOUNTER 2024-06-20 15:04 | Inpatient (IN) | payer MEDICARE ==
--- NOTE | 2024-06-20 15:39 | ED ---
Weakness HPI - General Chief complaint: Abdominal Pain Stated complaint: abd pain Time Seen by Provider: 06/20/24 15:14 Source: EMS, RN notes reviewed, old records reviewed Mode of arrival: EMS Limitations: no limitations - History of Present Illness Initial comments: This is a 68-year-old male to the ER for evaluation today. Patient was recently rediagnosed with pancreatic recurrent pancreatic cancer prior history of pancreatic cancer surgery Whipple procedure, patient coming in for weakness currently going through chemo and radiation lower extremity edema leg edema abdominal pain and cramping with abdominal swelling cough and congestion which h as been going on since yesterday. Patient is short of breath especially with activity and talking but decreased activity level secondary to weakness MD Complaint: generalized weakness, lack of energy, difficulty walking -: days(s) Location: generalized, LLE, RLE Severity: moderate Severity scale (1-10): 6 Quality: aching Consistency: constant Improves with: none Worsens with: none Context: new medication, recent illness, history of similar Associated Symptoms: confusion, loss of appetite, nausea/vomiting, shortness of breath - Related Data Home Medications Medication Instructions Recorded Confirmed metFORMIN HCL [Glucophage] 1,000 mg PO BID 09/14/19 06/20/24 Pantoprazole [Protonix] 40 mg PO DAILY 03/10/24 06/20/24 OLANZapine [ZyPREXA] 2.5 mg PO HS 03/24/24 06/20/24 Empagliflozin [Jardiance] 25 mg PO DAILY 04/10/24 06/20/24 Lipase/Protease/Amylase [Creon Dr 1 cap PO TID-W/MEALS 04/10/24 06/20/24 36,000 Unit Capsule] Prochlorperazine [Compazine] 10 mg PO Q6H PRN 04/10/24 06/20/24 LORazepam [Ativan] 0.5 mg PO TID PRN 06/05/24 06/20/24 Simvastatin [Zocor] 10 mg PO HS 06/05/24 06/20/24 Ondansetron Odt [Zofran Odt] 8 mg PO Q8HR PRN 06/20/24 06/20/24 Previous Rx's Medication Instructions Recorded Docusate [Colace] 100 mg PO DAILY #30 cap 06/10/24 droNABinol [Marinol] 2.5 mg PO AC-BID cap 06/10/24 polyethylene glycoL 3350 [Miralax] 17 gm PO DAILY #30 packet 06/10/24 Allergies Allergy/AdvReac Type Severity Reaction Status Date / Time No Known Allergies Allergy Verified 06/20/24 18:04 Review of Systems ROS Statement: Those systems with pertinent positive or pertinent negative responses have been documented in the HPI. ROS Other: All systems not noted in ROS Statement are negative. Past Medical History Past Medical History: Cancer, Diabetes Mellitus, Hyperlipidemia, Hypertension Additional Past Medical History / Comment(s): perirectal abscess, PANCREATIC CANCER diagnosed December 2023 History of Any Multi-Drug Resistant Organisms: None Reported Past Surgical History: Ear Surgery Additional Past Surgical History / Comment(s): RHINOPLASTY, TOOTH IMPLANT, Whipple procedure January 14, 2024, infusaport placement February 2024 Past Anesthesia/Blood Transfusion Reactions: No Reported Reaction Additional Past Anesthesia/Blood Transfusion Reaction / Comment(s): no hx blood transfusion Past Psychological History: No Psychological Hx Reported Smoking Status: Never smoker Past Alcohol Use History: None Reported Past Drug Use History: None Reported - Past Family History Mother Family Medical History: Diabetes Mellitus Father Family Medical History: Diabetes Mellitus General Exam General appearance: alert, in no apparent distress Head exam: Present: atraumatic, normocephalic, normal inspection Eye exam: Present: normal appearance, PERRL, EOMI. Absent: scleral icterus, conjunctival injection, periorbital swelling ENT exam: Present: normal exam, mucous membranes moist Neck exam: Present: normal inspection. Absent: tenderness, meningismus, lymphadenopathy Respiratory exam: Present: normal lung sounds bilaterally. Absent: respiratory distress, wheezes, rales, rhonchi, stridor Cardiovascular Exam: Present: regular rate, normal rhythm, normal heart sounds. Absent: systolic murmur, diastolic murmur, rubs, gallop, clicks GI/Abdominal exam: Present: soft, normal bowel sounds. Absent: distended, tenderness, guarding, rebound, rigid Extremities exam: Present: normal inspection, full ROM, normal capillary refill. Absent: tenderness, pedal edema, joint swelling, calf tenderness Back exam: Present: normal inspection Neurological exam: Present: alert, oriented X3, CN II-XII intact Psychiatric exam: Present: normal affect, normal mood Skin exam: Present: warm, dry, intact, normal color. Absent: rash Course Vital Signs 06/20/24 06/21/24 06/21/24 15:13 00:42 05:01 Temperature 97.4 F L Pulse Rate 77 96 90 Respiratory 16 16 16 Rate Blood Pressure 100/64 93/61 94/65 O2 Sat by Pulse 97 97 Oximetry 06/21/24 06/21/24 06/21/24 13:05 16:11 17:35 Temperature 98.6 F 98 F Pulse Rate 93 82 90 Respiratory 15 14 18 Rate Blood Pressure 85/52 87/51 88/53 O2 Sat by Pulse 100 99 96 Oximetry - Reevaluation(s) Reevaluation #1: 06/20/24 15:48 Medical records reviewed Reevaluation #2: 06/20/24 18:12 Patient symptoms unchanged Reevaluation #3: 06/20/24 18:12 Patient informed of results questions answered Reevaluation #4: Was pt. sent in by a medical professional or institution (, PA, OPERATIONS CHIEF, urgent care, hospital, or [facility]...) When possible be specific @ -no Did you speak to anyone other than the patient for history (EMS, parent, family, police, friend...)? What history was obtained from this source @ -no Did you review nursing and triage notes (agree or disagree)? Why? @ -agree Are old charts reviewed (outside hosp., previous admission, EMS record, old EKG, old radiological studies, urgent care reports/EKG's, [facility] records)? Report findings @ -yes Differential Diagnosis (chest pain, altered mental status, abdominal pain women, abdominal pain men, vaginal bleeding, weakness, fever, dyspnea, syncope, headache, dizziness, GI bleed, back pain, seizure, CVA, palpatations, mental health, musculoskeletal)? @ -prior EKG interpreted by me (3pts min.). @ -yes X-rays interpreted by me (1pt min.). @ -yes if confirmed pleural effusions CT interpreted by me (1pt min.). @ -Positive for significant anasarca and effusion U/S interpreted by me (1pt. min.). @ -no What testing was considered but not performed or refused? (CT, X-rays, U/S, labs)? Why? @ -none What meds were considered but not given or refused? Why? @ -none Did you discuss the management of the patient with other professionals (professionals i.e. DrFredrick, PA, OPERATIONS CHIEF, lab, RT, psych nurse, social work supervisor, typing element machine operator, teacher, air intelligence officer, watch case polisher)? Give summary @ -no Was smoking cessation discussed for >3mins.? @ -no Was critical care preformed (if so, how long)? @ -yes31 Were there social determinants of health that impacted care today? How? (Homelessness, low income, unemployed, alcoholism, drug addiction, transportation, low edu. Level, literacy, decrease access to med. care, fci, rehab)? @ -none Was there de-escalation of care discussed even if they declined (Discuss DNR or withdrawal of care, Hospice)? DNR status @ -no What co-morbidities impacted this encounter? (DM, HTN, Smoking, COPD, CAD, Cancer, CVA, ARF, Chemo, Hep., AIDS, mental health diagnosis, sleep apnea, morbid obesity)? @ -none Was patient admitted / discharged? Hospital course, mention meds given and route, prescriptions, significant lab abnormalities, going to OR and other perti nent info. @ - 68 male will be admitted for complex medical conditions related to cancer. Bilateral lower extremity DVT suspected clotting throughout vascular system, patient does have recurrent cancer recurrent pancreatic cancer with metastasis and severe anasarca bilateral pulmonary edema and pleural effusions Admitted Undiagnosed new problem with uncertain prognosis? @ -no Drug Therapy requiring intensive monitoring for toxicity (Heparin, Nitro, Insulin, Cardizem)? @ -no Were any procedures done? @ -no Diagnosis/symptom? @ -Significant anasarca with effusions abdominal ascites and significant laboratory abnormalities Acute, or Chronic, or Acute on Chronic? @ -Acute Uncomplicated (without systemic symptoms) or Complicated (systemic symptoms)? @ -Complicated Side effects of treatment? @ -no Exacerbation, Progression, or Severe Exacerbation? @ -exacerbation Poses a threat to life or bodily function? How? (Chest pain, [place], [place], pneumonia, PE, COPD, DKA, ARF, appy, cholecystitis, CVA, Diverticulitis, Homicidal, Suicidal, threat to staff... and all critical care pts) @ -yes significant cancer burden Reevaluation #5: Differential Weakness: Hypoglycemia, shock, sepsis, hyponatremia, anemia, infection, [place], ETOH, adverse medicine reaction, overdose, stroke, this is not meant to be an all-inclusive list. - Consultations Consultation #1: Spoke with [facility] who agrees to admit this patient Medical Decision Making - Medical Decision Making 68 male will be admitted for complex medical conditions related to cancer. Bilateral lower extremity DVT suspected clotting throughout vascular system, patient does have recurrent cancer recurrent pancreatic cancer with metastasis and severe anasarca bilateral pulmonary edema and pleural effusions - Lab Data Result diagrams: 06/26/24 06:37 06/27/24 06:20 Lab Results 06/20/24 06/20/24 06/20/24 Range/Units 16:08 16:08 16:08 WBC 15.3 H (3.8-10.6) k/uL RBC 2.54 L (4.30-5.90) m/uL Hgb 8.5 L (13.0-17.5) gm/dL Hct 26.9 L (39.0-53.0) % MCV 105.6 H D (80.0-100.0) fL MCH 33.6 (25.0-35.0) pg MCHC 31.8 (31.0-37.0) g/dL RDW 26.4 H (11.5-15.5) % Plt Count 60 L D (150-450) k/uL MPV 10.5 Neutrophils % 90 % Lymphocytes % 5 % Monocytes % 3 % Eosinophils % 0 % Basophils % 0 % Neutrophils # 13.7 H (1.3-7.7) k/uL Lymphocytes # 0.8 L (1.0-4.8) k/uL Monocytes # 0.5 (0-1.0) k/uL Eosinophils # 0.0 (0-0.7) k/uL Basophils # 0.0 (0-0.2) k/uL Manual Slide Review Performed Hypochromasia Slight Anisocytosis Marked Macrocytosis Marked A PT 14.9 H (10.0-12.5) sec INR 1.4 H (<1.2) APTT 31.7 H (22.0-30.0) sec Sodium 126 L (137-145) mmol/L Potassium 4.9 (3.5-5.1) mmol/L Chloride 102 (98-107) mmol/L Carbon Dioxide 17 L (22-30) mmol/L Anion Gap 7 mmol/L BUN 22 H (9-20) mg/dL Creatinine 0.69 (0.66-1.25) mg/dL Est GFR (CKD-EPI)AfAm >90 (>60 ml/min/1.73 sqM) Est GFR (CKD-EPI)NonAf >90 (>60 ml/min/1.73 sqM) Glucose 88 (74-99) mg/dL Lactic Ac Sepsis Rflx Plasma Lactic Acid Chris (0.7-2.0) mmol/L Calcium 7.0 L (8.4-10.2) mg/dL Total Bilirubin 3.6 H (0.2-1.3) mg/dL AST 90 H (17-59) U/L ALT 41 (4-49) U/L Alkaline Phosphatase 802 H (38-126) U/L Ammonia (<30) umol/L Troponin I (0.000-0.034) ng/mL Total Protein 5.4 L (6.3-8.2) g/dL Albumin 1.8 L (3.5-5.0) g/dL Amylase <30 L (30-110) U/L Lipase 13 L (23-300) U/L Urine Color Urine Appearance (Clear) Urine pH (5.0-8.0) Ur Specific [place] (1.001-1.035) Urine Protein (Negative) Urine Glucose (UA) (Negative) Urine Ketones (Negative) Urine Blood (Negative) Urine Nitrite (Negative) Urine Bilirubin (Negative) Urine Urobilinogen (<2.0) mg/dL Ur Leukocyte Esterase (Negative) Urine RBC (0-5) /hpf Urine WBC (0-5) /hpf Hyaline Casts (0-2) /lpf Urine Mucus (None) /hpf Influenza Type A (PCR) (Not Detectd) Influenza Type B (PCR) (Not Detectd) RSV (PCR) (Not Detectd) SARS-CoV-2 (PCR) (Not Detectd) 06/20/24 06/20/24 06/20/24 Range/Units 16:08 16:08 16:20 WBC (3.8-10.6) k/uL RBC (4.30-5.90) m/uL Hgb (13.0-17.5) gm/dL Hct (39.0-53.0) % MCV (80.0-100.0) fL MCH (25.0-35.0) pg MCHC (31.0-37.0) g/dL RDW (11.5-15.5) % Plt Count (150-450) k/uL MPV Neutrophils % % Lymphocytes % % Monocytes % % Eosinophils % % Basophils % % Neutrophils # (1.3-7.7) k/uL Lymphocytes # (1.0-4.8) k/uL Monocytes # (0-1.0) k/uL Eosinophils # (0-0.7) k/uL Basophils # (0-0.2) k/uL Manual Slide Review Hypochromasia Anisocytosis Macrocytosis PT (10.0-12.5) sec INR (<1.2) APTT (22.0-30.0) sec Sodium (137-145) mmol/L Potassium (3.5-5.1) mmol/L Chloride (98-107) mmol/L Carbon Dioxide (22-30) mmol/L Anion Gap mmol/L BUN (9-20) mg/dL Creatinine (0.66-1.25) mg/dL Est GFR (CKD-EPI)AfAm (>60 ml/min/1.73 sqM) Est GFR (CKD-EPI)NonAf (>60 ml/min/1.73 sqM) Glucose (74-99) mg/dL Lactic Ac Sepsis Rflx Plasma Lactic Acid Chris 2.3 H* (0.7-2.0) mmol/L Calcium (8.4-10.2) mg/dL Total Bilirubin (0.2-1.3) mg/dL AST (17-59) U/L ALT (4-49) U/L Alkaline Phosphatase (38-126) U/L Ammonia 10 (<30) umol/L Troponin I <0.012 (0.000-0.034) ng/mL Total Protein (6.3-8.2) g/dL Albumin (3.5-5.0) g/dL Amylase (30-110) U/L Lipase (23-300) U/L Urine Color Urine Appearance (Clear) Urine pH (5.0-8.0) Ur Specific [place] (1.001-1.035) Urine Protein (Negative) Urine Glucose (UA) (Negative) Urine Ketones (Negative) Urine Blood (Negative) Urine Nitrite (Negative) Urine Bilirubin (Negative) Urine Urobilinogen (<2.0) mg/dL Ur Leukocyte Esterase (Negative) Urine RBC (0-5) /hpf Urine WBC (0-5) /hpf Hyaline Casts (0-2) /lpf Urine Mucus (None) /hpf Influenza Type A (PCR) Not Detected (Not Detectd) Influenza Type B (PCR) Not Detected (Not Detectd) RSV (PCR) Not Detected (Not Detectd) SARS-CoV-2 (PCR) Not Detected (Not Detectd) 06/20/24 06/20/24 Range/Units 16:34 16:58 WBC (3.8-10.6) k/uL RBC (4.30-5.90) m/uL Hgb (13.0-17.5) gm/dL Hct (39.0-53.0) % MCV (80.0-100.0) fL MCH (25.0-35.0) pg MCHC (31.0-37.0) g/dL RDW (11.5-15.5) % Plt Count (150-450) k/uL MPV Neutrophils % % Lymphocytes % % Monocytes % % Eosinophils % % Basophils % % Neutrophils # (1.3-7.7) k/uL Lymphocytes # (1.0-4.8) k/uL Monocytes # (0-1.0) k/uL Eosinophils # (0-0.7) k/uL Basophils # (0-0.2) k/uL Manual Slide Review Hypochromasia Anisocytosis Macrocytosis PT (10.0-12.5) sec INR (<1.2) APTT (22.0-30.0) sec Sodium (137-145) mmol/L Potassium (3.5-5.1) mmol/L Chloride (98-107) mmol/L Carbon Dioxide (22-30) mmol/L Anion Gap mmol/L BUN (9-20) mg/dL Creatinine (0.66-1.25) mg/dL Est GFR (CKD-EPI)AfAm (>60 ml/min/1.73 sqM) Est GFR (CKD-EPI)NonAf (>60 ml/min/1.73 sqM) Glucose (74-99) mg/dL Lactic Ac Sepsis Rflx Y Plasma Lactic Acid Chris (0.7-2.0) mmol/L Calcium (8.4-10.2) mg/dL Total Bilirubin (0.2-1.3) mg/dL AST (17-59) U/L ALT (4-49) U/L Alkaline Phosphatase (38-126) U/L Ammonia (<30) umol/L Troponin I (0.000-0.034) ng/mL Total Protein (6.3-8.2) g/dL Albumin (3.5-5.0) g/dL Amylase (30-110) U/L Lipase (23-300) U/L Urine Color Dark Brown Urine Appearance Cloudy (Clear) Urine pH 5.5 (5.0-8.0) Ur Specific [place] 1.031 (1.001-1.035) Urine Protein 1+ H (Negative) Urine Glucose (UA) Negative (Negative) Urine Ketones Trace H (Negative) Urine Blood Negative (Negative) Urine Nitrite Negative (Negative) Urine Bilirubin 2+ H (Negative) Urine Urobilinogen 12.0 (<2.0) mg/dL Ur Leukocyte Esterase Small H (Negative) Urine RBC 2 (0-5) /hpf Urine WBC 10 H (0-5) /hpf Hyaline Casts 53 H (0-2) /lpf Urine Mucus Many H (None) /hpf Influenza Type A (PCR) (Not Detectd) Influenza Type B (PCR) (Not Detectd) RSV (PCR) (Not Detectd) SARS-CoV-2 (PCR) (Not Detectd) - Radiology Data Radiology results: report reviewed (Chest x-ray positive for pleural effusions, CT abdomen pelvis positive for anasarca ultrasound lower extremities positive for DVT), image reviewed Critical Care Time Critical Care Time: Yes Total Critical Care Time: 31 Disposition Clinical Impression: Weakness, Hyponatremia, Abdominal pain, Metastatic disease, Pancreatic cancer, Bilateral pleural effusion, Anasarca, DVT, bilateral lower limbs, Neutrophilic leukocytosis, Abnormal liver enzymes, Bicytopenia, Anemia due to antineoplastic chemotherapy Disposition: ADMITTED IP TO THIS HOSP Is patient prescribed a controlled substance at d/c from ED?: No Time of Disposition: 18:10
[2024-06-20] MEDS: ONDANSETRON 4 MG/2 ML VIAL IVP STA (15:44)
[2024-06-20] MEDS: SODIUM CHLORIDE 0.9% 1,000 ML IV STA (15:44)
[2024-06-20] MEDS: PANTOPRAZOLE 40 MG/10 ML VIAL IVP STA (15:44)
[2024-06-20] MEDS: HYDROmorphone 0.5 MG/0.5 ML SYRINGE IVP STA (15:45)
--- NOTE | 2024-06-20 16:29 | XR ---
EXAMINATION TYPE: XR chest 1V DATE OF EXAM: 06/20/2024 4:23 PM COMPARISON: Previous chest radiograph 06/03/2024. CLINICAL INDICATION: Male, 68 years old with history of cough; H TECHNIQUE: XR chest 1V Frontal view of the chest. FINDINGS: Low lung volumes. Left-sided PICC line with distal catheter tip terminating near the right atrium. Patchy bilateral interstitial opacities and small effusions. No pneumothorax. No acute osseous abnorm ality. IMPRESSION: Bilateral patchy interstitial opacities and small effusions suggesting pulmonary edema and/or underly ing infectious etiology. [facility], , 06/20/2024 4:27 PM
[2024-06-20 16:33] LABS: ALT 41 U/L (4-49); AST 90 U/L (17-59); African American GFR (CKD) >90 (>60 ml/min/1.73 sqM); Albumin 1.8 g/dL (3.5-5.0); Alkaline Phosphatase 802 U/L (38-126); Amylase <30 U/L (30-110); Anion Gap 7 mmol/L; Blood Urea Nitrogen 22 mg/dL (9-20); Carbon Dioxide 17 mmol/L (22-30); Chloride 102 mmol/L (98-107); Glucose 88 mg/dL (74-99); Lipase 13 U/L (23-300); Non-African American GFR(CKD) >90 (>60 ml/min/1.73 sqM); Potassium 4.9 mmol/L (3.5-5.1); Sodium 126 mmol/L (137-145); Total Bilirubin 3.6 mg/dL (0.2-1.3); Total Protein 5.4 g/dL (6.3-8.2)
[2024-06-20 16:34] LABS: Lactic Acid, Venous 2.3 mmol/L (0.7-2.0)
[2024-06-20 16:39] LABS: INR 1.4 (<1.2); Partial Thromboplastin Time 31.7 sec (22.0-30.0); Prothrombin Time 14.9 sec (10.0-12.5)
[2024-06-20 16:41] LABS: Anisocytosis Marked; Basophils % (A) 0 %; Eosinophils % (A) 0 %; HCT 26.9 % (39.0-53.0); HGB 8.5 gm/dL (13.0-17.5); Hypochromasia Slight; Lymphocytes # (A) 0.8 k/uL (1.0-4.8); Lymphocytes % (A) 5 %; MCH 33.6 pg (25.0-35.0); MCHC 31.8 g/dL (31.0-37.0); Macrocytosis Marked; Mean Platelet Volume 10.5; Monocytes # (A) 0.5 k/uL (0-1.0); Monocytes % (A) 3 %; Neutrophils # (A) 13.7 k/uL (1.3-7.7); Neutrophils % (A) 90 %; RBC 2.54 m/uL (4.30-5.90); WBC 15.3 k/uL (3.8-10.6)
[2024-06-20 16:43] LABS: MCV 105.6 fL (80.0-100.0); RDW 26.4 % (11.5-15.5)
--- NOTE | 2024-06-20 16:53 | CT ---
EXAMINATION TYPE: CT abdomen pelvis wo con DATE OF EXAM: 06/20/2024 4:45 PM COMPARISON: Previous CT abdomen/pelvis of 06/03/2024. CLINICAL INDICATION: Male, 68 years old with history of abdominal pain; C/O abdominal pain, recently diagnosed with pancreatic CA. TECHNIQUE: Axial CT abdomen pelvis wo con;Sagittal and coronal reformats were created on a separate workstation. Discussion Oral contrast used: without Oral Contrast (none if empty) CT DLP: 718.1 mGycm, Automated exposure control for dose reduction was used. FINDINGS: Study limited due to lack of IV contrast. Moderate-sized bilateral pleural effusions with adjacent lo wer lobe compressive atelectasis. Few scattered pulmonary nodules again visualized. Coronary artery c alcifications. Hypodense metastatic liver lesions, not well evaluated given lack of IV contrast. We demonstration po st surgical changes of previous Whipple's procedure with large soft tissue density mass abutting the remnant pancreas. Gallbladder surgically absent. Spleen normal in size and morphology. Moderate volum e diffuse abdominal ascites. Mild/moderate colonic stool burden. No evidence of small bowel obstructi on. Previous gastrojejunostomy. Otherwise, stomach appears unremarkable. Few scattered right upper qu adrant soft tissue density nodules (70) measuring up to 14 mm in short access, possibly reflecting pe ritoneal implants. Additional peritoneal implant in the anterior right hemiabdomen measuring 2.1 cm ( image 74). Kidneys unremarkable. No suspicious adrenal gland nodule. No evidence of free air/pneumoperitoneum. B ladder unremarkable. Prostate gland calcifications. Diffuse body wall edema/anasarca. No acute osseous abnormality. IMPRESSION: 1. Moderate sized bilateral pleural effusions with adjacent lower lobe compressive atelectasis in th e partially visualized lower lungs. 2. Moderate diffuse abdominal ascites and body wall edema/anasarca. 3. Large soft tissue mass abutting the remnant pancreas status post previous Whipple procedure as ab ove, similar to recent study 06/03/2024. 4. Findings compatible with peritoneal carcinomatosis. 5. Metastatic disease involving the liver. [facility], , 06/20/2024 4:51 PM
[2024-06-20 16:54] LABS: Platelet Count 60 k/uL (150-450)
[2024-06-20 17:33] LABS: Appearance,Urine Cloudy (Clear); Bilirubin,Urine 2+ (Negative); Blood,Urine Negative (Negative); Color,Urine Dark Brown; Glucose,Urine (UA) Negative (Negative); Hyaline Casts,Urine 53 /lpf (0-2); Ketones,Urine Trace (Negative); Leukocyte Esterase,Urine Small (Negative); Mucus,Urine Many /hpf; Nitrite,Urine Negative (Negative); PH, Urine 5.5 (5.0-8.0); Protein,Urine 1+ (Negative); RBC,Urine 2 /hpf (0-5); Specific Gravity,Urine 1.031 (1.001-1.035); WBC,Urine 10 /hpf (0-5)
--- NOTE | 2024-06-20 17:53 | US ---
EXAMINATION TYPE: US venous doppler duplex LE BI DATE OF EXAM: 06/20/2024 3:39 PM COMPARISON: NONE CLINICAL INDICATION: Male, 68 years old with history of pain; pain, weakness, cough. Not on blood thi nners, Pain TECHNIQUE: The lower extremity deep venous system is examined utilizing real time linear array sonog henri with graded compression, color doppler sonography, and spectral doppler. SIDE PERFORMED: Bilateral FINDINGS: VESSELS IMAGED: Common Femoral Vein Deep Femoral Vein Greater Saphenous Vein Femoral Vein Popliteal Vein Small Saphenous Vein Proximal Calf Veins Right Leg: Echoes seen in prox femoral vein with limited blood flow and no compression, Color Dopple r imaging shows patency of the vessels. Spectral waveforms are within normal limits. Left Leg: EIV, CFV, and Prox femoral vein are noncompressible with limited blood flow., Color Dopple r imaging shows patency of the vessels. Spectral waveforms are within normal limits. IMPRESSION: 1. Deep vein thrombosis of the right proximal femoral vein. 2. Deep vein thrombosis involving the left internal iliac vein, common femoral vein and proximal fem oral veins. [facility], , 06/20/2024 5:50 PM
[2024-06-20] MEDS ORDERED: HEPARIN SODIUM 1,000 UN/ML (10ML VL) IV PRN (18:08)
[2024-06-20] MEDS ORDERED: NALOXONE 0.4 MG/ML 1 ML VIAL IV PRN (18:09)
[2024-06-20] MEDS: SODIUM CHLORIDE 0.9% 1,000 ML IV SCH (19:07)
[2024-06-20] MEDS: HEPARIN SOD,PORK IN 0.45% NACL 25,000 UNIT in 0.45% NACL 1 250ML.BAG IV SCH (19:09)
[2024-06-20] MEDS: HEPARIN SODIUM 1,000 UN/ML (10ML VL) IV ONE (19:17)
[2024-06-20] MEDS: HYDROmorphone 0.5 MG/0.5 ML SYRINGE IVP PRN (20:59)
[2024-06-21 06:16] LABS: ALT 37 U/L (4-49); AST 78 U/L (17-59); African American GFR (CKD) >90 (>60 ml/min/1.73 sqM); Albumin 1.8 g/dL (3.5-5.0); Anion Gap 8 mmol/L; Blood Urea Nitrogen 24 mg/dL (9-20); Calcium 7.3 mg/dL (8.4-10.2); Carbon Dioxide 13 mmol/L (22-30); Chloride 105 mmol/L (98-107); Glucose 56 mg/dL (74-99); Magnesium 1.7 mg/dL (1.6-2.3); Non-African American GFR(CKD) 89 (>60 ml/min/1.73 sqM); Phosphorus 5.1 mg/dL (2.5-4.5); Potassium 5.3 mmol/L (3.5-5.1); Sodium 126 mmol/L (137-145); Total Bilirubin 3.6 mg/dL (0.2-1.3); Total Protein 5.5 g/dL (6.3-8.2)
[2024-06-21 06:34] LABS: Alkaline Phosphatase 818 U/L (38-126)
[2024-06-21 06:51] LABS: Anisocytosis Marked; Basophils % (A) 0 %; Eosinophils % (A) 0 %; HCT 26.7 % (39.0-53.0); HGB 8.3 gm/dL (13.0-17.5); Hypochromasia Moderate; Lymphocytes # (A) 0.9 k/uL (1.0-4.8); Lymphocytes % (A) 5 %; MCH 33.9 pg (25.0-35.0); MCHC 31.1 g/dL (31.0-37.0); Macrocytosis Marked; Mean Platelet Volume 10.2; Monocytes # (A) 0.5 k/uL (0-1.0); Monocytes % (A) 3 %; Neutrophils # (A) 16.1 k/uL (1.3-7.7); Neutrophils % (A) 90 %; RBC 2.44 m/uL (4.30-5.90); WBC 17.8 k/uL (3.8-10.6)
[2024-06-21 07:00] LABS: MCV 109.2 fL (80.0-100.0); Platelet Count 71 k/uL (150-450); RDW 26.5 % (11.5-15.5)
--- NOTE | 2024-06-21 10:20 | P.HPIM ---
History of Present Illness 68-year-old male came in because of severe bilateral flank pain. Patient was also found to have bilateral DVTs. Patient has history of pancreatic cancer for which patient has a Whipple's procedure and completed a chemotherapy is pres ently receiving radiation therapy. Patient had a CT of the chest and abdomen chest showed bilateral pleural effusions no pulmonary embolism patient does have significant ascites as well patient had a ascitic tap recently. Patient pain is better controlled with Dilaudid at this time I will start him on Eliquis as well as Toradol for pain. REVIEW OF SYSTEMS: All other systems are negative except those mentioned in the HPI PHYSICAL EXAMINATION: GENERAL: The patient is alert and oriented x3, not in any acute distress. Thin built cachectic male HEENT: Pupils are round and equally reacting to light. EOMI. No scleral icterus. No conjunctival pallor. Normocephalic, atraumatic. No pharyngeal erythema. No thyromegaly. CARDIOVASCULAR: S1 and S2 present. No murmurs, rubs, or gallops. PULMONARY: Chest is clear to auscultation, no wheezing or crackles. ABDOMEN: Soft, nontender, does have ascites MUSCULOSKELETAL: No joint swelling or deformity. EXTREMITIES: No cyanosis, clubbing, or pedal edema. NEUROLOGICAL no focal deficit with significant generalized weakness SKIN: No rashes. Assessment and plan -Abdominal pain secondary to peritoneal carcinomatosis patient will be started on Toradol as well as [place] along with senna and MiraLAX. -Bilateral pleural effusion secondary to pancreatic cancer patient is not short of breath is not requiring oxygen at this time although may benefit from pleural tap because of patient consulting pulmonary -Bilateral lower extremity DVT for which patient is on IV heparin can be transition to Eliquis -Significant generalized weakness PT and OT consultation -Hyponatremia probably SIADH will obtain urine osmolality serum osmolality fluid restriction, nephrology consultation discontinue IV fluids. Will also obtain urine and sodium -Metastatic pancreatic cancer oncology consultation -Cough symptomatic treatment -Leukocytosis reactive -Type 2 diabetes mellitus -Hypertension For above-mentioned chronic medical problems patient resumed on appropriate home medications DVT prophylaxis: Patient is on IV heparin -GI prophylaxis Protonix Past Medical History Past Medical History: Cancer, Diabetes Mellitus, Hyperlipidemia, Hypertension Additional Past Medical History / Comment(s): perirectal abscess, PANCREATIC CANCER diagnosed December 2023 History of Any Multi-Drug Resistant Organisms: None Reported Past Surgical History: Ear Surgery Additional Past Surgical History / Comment(s): RHINOPLASTY, TOOTH IMPLANT, Whipple procedure January 14, 2024, infusaport placement February 2024 Past Anesthesia/Blood Transfusion Reactions: No Reported Reaction Additional Past Anesthesia/Blood Transfusion Reaction / Comment(s): no hx blood transfusion Past Psychological History: No Psychological Hx Reported Smoking Status: Never smoker Past Alcohol Use History: None Reported Past Drug Use History: None Reported - Past Family History Mother Family Medical History: Diabetes Mellitus Father Family Medical History: Diabetes Mellitus Medications and Allergies Home Medications Medication Instructions Recorded Confirmed Type metFORMIN HCL [Glucophage] 1,000 mg PO BID 09/14/19 06/20/24 History Pantoprazole [Protonix] 40 mg PO DAILY 03/10/24 06/20/24 History OLANZapine [ZyPREXA] 2.5 mg PO HS 03/24/24 06/20/24 History Empagliflozin [Jardiance] 25 mg PO DAILY 04/10/24 06/20/24 History Lipase/Protease/Amylase [Creon Dr 1 cap PO TID-W/MEALS 04/10/24 06/20/24 History 36,000 Unit Capsule] Prochlorperazine [Compazine] 10 mg PO Q6H PRN 04/10/24 06/20/24 History LORazepam [Ativan] 0.5 mg PO TID PRN 06/05/24 06/20/24 History Simvastatin [Zocor] 10 mg PO HS 06/05/24 06/20/24 History Docusate [Colace] 100 mg PO DAILY #30 cap 06/10/24 06/20/24 Rx droNABinol [Marinol] 2.5 mg PO AC-BID cap 06/10/24 06/20/24 Rx polyethylene glycoL 3350 [Miralax] 17 gm PO DAILY #30 packet 06/10/24 06/20/24 Rx Ondansetron Odt [Zofran Odt] 8 mg PO Q8HR PRN 06/20/24 06/20/24 History Allergies Allergy/AdvReac Type Severity Reaction Status Date / Time No Known Allergies Allergy Verified 06/20/24 18:04 Physical Exam Vitals: Vital Signs Temp Pulse Resp BP Pulse Ox 06/21/24 05:01 90 16 94/65 97 12/08/24 00:42 96 16 93/61 12/07/24 15:13 97.4 F L 77 16 100/64 97 Intake and Output 06/20/24 06/21/24 06/21/24 22:59 06:59 14:59 Intake Total 90.722 Balance 90.722 Intake: Intake, IV Titration 90.722 Amount Heparin Sod,Pork in 0.45% 90.722 NaCl 25,000 unit In 0.45 % NaCl 1 250ml.bag @ 18 UNITS/KG/HR 9.226 mls/hr IV .Q24H [facility] Rx#: [id number] Other: Weight 51.256 kg Results CBC & Chem 7: 06/21/24 05:03 06/21/24 05:03 Labs: Abnormal Lab Results - Last 24 Hours (Table) 06/20/24 06/20/24 06/20/24 Range/Units 16:08 16:08 16:08 WBC 15.3 H (3.8-10.6) k/uL RBC 2.54 L (4.30-5.90) m/uL Hgb 8.5 L (13.0-17.5) gm/dL Hct 26.9 L (39.0-53.0) % MCV 105.6 H D (80.0-100.0) fL RDW 26.4 H (11.5-15.5) % Plt Count 60 L D (150-450) k/uL Neutrophils # 13.7 H (1.3-7.7) k/uL Lymphocytes # 0.8 L (1.0-4.8) k/uL Macrocytosis Marked A PT 14.9 H (10.0-12.5) sec INR 1.4 H (<1.2) APTT 31.7 H (22.0-30.0) sec Sodium 126 L (137-145) mmol/L Potassium (3.5-5.1) mmol/L Carbon Dioxide 17 L (22-30) mmol/L BUN 22 H (9-20) mg/dL Glucose (74-99) mg/dL Plasma Lactic Acid Chris (0.7-2.0) mmol/L Calcium 7.0 L (8.4-10.2) mg/dL Phosphorus (2.5-4.5) mg/dL Total Bilirubin 3.6 H (0.2-1.3) mg/dL AST 90 H (17-59) U/L Alkaline Phosphatase 802 H (38-126) U/L Total Protein 5.4 L (6.3-8.2) g/dL Albumin 1.8 L (3.5-5.0) g/dL Amylase <30 L (30-110) U/L Lipase 13 L (23-300) U/L Urine Protein (Negative) Urine Ketones (Negative) Urine Bilirubin (Negative) Ur Leukocyte Esterase (Negative) Urine WBC (0-5) /hpf Hyaline Casts (0-2) /lpf Urine Mucus (None) /hpf 06/20/24 06/20/24 06/20/24 Range/Units 16:08 16:58 18:53 WBC (3.8-10.6) k/uL RBC (4.30-5.90) m/uL Hgb (13.0-17.5) gm/dL Hct (39.0-53.0) % MCV (80.0-100.0) fL RDW (11.5-15.5) % Plt Count (150-450) k/uL Neutrophils # (1.3-7.7) k/uL Lymphocytes # (1.0-4.8) k/uL Macrocytosis PT (10.0-12.5) sec INR (<1.2) APTT (22.0-30.0) sec Sodium (137-145) mmol/L Potassium (3.5-5.1) mmol/L Carbon Dioxide (22-30) mmol/L BUN (9-20) mg/dL Glucose (74-99) mg/dL Plasma Lactic Acid Chris 2.3 H* 2.1 H* (0.7-2.0) mmol/L Calcium (8.4-10.2) mg/dL Phosphorus (2.5-4.5) mg/dL Total Bilirubin (0.2-1.3) mg/dL AST (17-59) U/L Alkaline Phosphatase (38-126) U/L Total Protein (6.3-8.2) g/dL Albumin (3.5-5.0) g/dL Amylase (30-110) U/L Lipase (23-300) U/L Urine Protein 1+ H (Negative) Urine Ketones Trace H (Negative) Urine Bilirubin 2+ H (Negative) Ur Leukocyte Esterase Small H (Negative) Urine WBC 10 H (0-5) /hpf Hyaline Casts 53 H (0-2) /lpf Urine Mucus Many H (None) /hpf 06/21/24 06/21/24 06/21/24 Range/Units 01:09 01:09 05:03 WBC 17.8 H (3.8-10.6) k/uL RBC 2.44 L (4.30-5.90) m/uL Hgb 8.3 L (13.0-17.5) gm/dL Hct 26.7 L (39.0-53.0) % MCV 109.2 H (80.0-100.0) fL RDW 26.5 H (11.5-15.5) % Plt Count 71 L (150-450) k/uL Neutrophils # 16.1 H (1.3-7.7) k/uL Lymphocytes # 0.9 L (1.0-4.8) k/uL Macrocytosis Marked A PT (10.0-12.5) sec INR (<1.2) APTT 193.9 H* (22.0-30.0) sec Sodium (137-145) mmol/L Potassium (3.5-5.1) mmol/L Carbon Dioxide (22-30) mmol/L BUN (9-20) mg/dL Glucose (74-99) mg/dL Plasma Lactic Acid Chris 2.9 H* (0.7-2.0) mmol/L Calcium (8.4-10.2) mg/dL Phosphorus (2.5-4.5) mg/dL Total Bilirubin (0.2-1.3) mg/dL AST (17-59) U/L Alkaline Phosphatase (38-126) U/L Total Protein (6.3-8.2) g/dL Albumin (3.5-5.0) g/dL Amylase (30-110) U/L Lipase (23-300) U/L Urine Protein (Negative) Urine Ketones (Negative) Urine Bilirubin (Negative) Ur Leukocyte Esterase (Negative) Urine WBC (0-5) /hpf Hyaline Casts (0-2) /lpf Urine Mucus (None) /hpf 06/21/24 06/21/24 Range/Units 05:03 05:03 WBC (3.8-10.6) k/uL RBC (4.30-5.90) m/uL Hgb (13.0-17.5) gm/dL Hct (39.0-53.0) % MCV (80.0-100.0) fL RDW (11.5-15.5) % Plt Count (150-450) k/uL Neutrophils # (1.3-7.7) k/uL Lymphocytes # (1.0-4.8) k/uL Macrocytosis PT (10.0-12.5) sec INR (<1.2) APTT (22.0-30.0) sec Sodium 126 L (137-145) mmol/L Potassium 5.3 H (3.5-5.1) mmol/L Carbon Dioxide 13 L (22-30) mmol/L BUN 24 H (9-20) mg/dL Glucose 56 L (74-99) mg/dL Plasma Lactic Acid Chris 4.3 H* (0.7-2.0) mmol/L Calcium 7.3 L (8.4-10.2) mg/dL Phosphorus 5.1 H (2.5-4.5) mg/dL Total Bilirubin 3.6 H (0.2-1.3) mg/dL AST 78 H (17-59) U/L Alkaline Phosphatase 818 H (38-126) U/L Total Protein 5.5 L (6.3-8.2) g/dL Albumin 1.8 L (3.5-5.0) g/dL Amylase (30-110) U/L Lipase (23-300) U/L Urine Protein (Negative) Urine Ketones (Negative) Urine Bilirubin (Negative) Ur Leukocyte Esterase (Negative) Urine WBC (0-5) /hpf Hyaline Casts (0-2) /lpf Urine Mucus (None) /hpf
[2024-06-21] MEDS: PANTOPRAZOLE 40 MG/10 ML VIAL IV SCH (10:37)
--- NOTE | 2024-06-21 11:51 | P.NPCON ---
History of Present Illness - Reason for Consult Consult date: 06/21/24 - Chief Complaint Swelling - History of Present Illness Patient is a 68 yo male presenting for worsening leg swelling and pain. He has history of pancreatic cancer on chemotherapy now on radiation therapy. Was hospitalized one week ago for weakness and nausea with vomiting thought to be related to chemotherapy. Had leg swelling at that time and per family was told it was related to his cancer. After discharge his edema continued to worsen and was brought back to hospital and found to have bilateral DVT in legs. His appetite has been OK bt not great since discharge. Denies any NSAID use. Was found to have worsening hyponatremia. Vitals reviewed GENERAL: NAD, AAOx3 cachectic CARDIOVASCULAR: S1 and S2 present. No murmurs, rubs, or gallops. PULMONARY: Chest is clear to auscultation, no wheezing or crackles. ABDOMEN: Soft, nontender, does have ascites MUSCULOSKELETAL: No joint swelling or deformity. EXTREMITIES: + dependent edema LE and hips NEUROLOGICAL no focal deficit with significant generalized weakness Review of Systems Constitutional: Reports as per HPI Past Medical History Past Medical History: Cancer, Diabetes Mellitus, Hyperlipidemia, Hypertension Additional Past Medical History / Comment(s): perirectal abscess, PANCREATIC CANCER diagnosed December 2023 History of Any Multi-Drug Resistant Organisms: None Reported Past Surgical History: Ear Surgery Additional Past Surgical History / Comment(s): RHINOPLASTY, TOOTH IMPLANT, Whipple procedure January 14, 2024, infusaport placement February 2024 Past Anesthesia/Blood Transfusion Reactions: No Reported Reaction Additional Past Anesthesia/Blood Transfusion Reaction / Comment(s): no hx blood transfusion Past Psychological History: No Psychological Hx Reported Smoking Status: Never smoker Past Alcohol Use History: None Reported Past Drug Use History: None Reported - Past Family History Mother Family Medical History: Diabetes Mellitus Father Family Medical History: Diabetes Mellitus Medications and Allergies Home Medications Medication Instructions Recorded Confirmed Type metFORMIN HCL [Glucophage] 1,000 mg PO BID 09/14/19 06/20/24 History Pantoprazole [Protonix] 40 mg PO DAILY 03/10/24 06/20/24 History OLANZapine [ZyPREXA] 2.5 mg PO HS 03/24/24 06/20/24 History Empagliflozin [Jardiance] 25 mg PO DAILY 04/10/24 06/20/24 History Lipase/Protease/Amylase [Creon Dr 1 cap PO TID-W/MEALS 04/10/24 06/20/24 History 36,000 Unit Capsule] Prochlorperazine [Compazine] 10 mg PO Q6H PRN 04/10/24 06/20/24 History LORazepam [Ativan] 0.5 mg PO TID PRN 06/05/24 06/20/24 History Simvastatin [Zocor] 10 mg PO HS 06/05/24 06/20/24 History Docusate [Colace] 100 mg PO DAILY #30 cap 06/10/24 06/20/24 Rx droNABinol [Marinol] 2.5 mg PO AC-BID cap 06/10/24 06/20/24 Rx polyethylene glycoL 3350 [Miralax] 17 gm PO DAILY #30 packet 06/10/24 06/20/24 Rx Ondansetron Odt [Zofran Odt] 8 mg PO Q8HR PRN 06/20/24 06/20/24 History Allergies Allergy/AdvReac Type Severity Reaction Status Date / Time No Known Allergies Allergy Verified 06/20/24 18:04 Physical Exam Vitals: Vital Signs Temp Pulse Resp BP Pulse Ox 06/21/24 05:01 90 16 94/65 97 06/21/24 00:42 96 16 93/61 06/20/24 15:13 97.4 F L 77 16 100/64 97 Intake and Output 06/20/24 06/21/24 06/21/24 22:59 06:59 14:59 Intake Total 90.722 Balance 90.722 Intake: Intake, IV Titration 90.722 Amount Heparin Sod,Pork in 0.45% 90.722 NaCl 25,000 unit In 0.45 % NaCl 1 250ml.bag @ 18 UNITS/KG/HR 9.226 mls/hr IV .Q24H [facility] Rx#: [id number] Other: Weight 51.256 kg Results - Lab Results Most recent lab results Calcium 7.3 mg/dL (8.4-10.2) L 06/21/24 05:03 Phosphorus 5.1 mg/dL (2.5-4.5) H 06/21/24 05:03 Magnesium 1.7 mg/dL (1.6-2.3) 06/21/24 05:03 06/21/24 05:03 06/21/24 05:03 Assessment and Plan Assessment: 1. Non-oliguric SREEDHAR likely volume depletion poor intake. Baseline creatinine 0.4, now 0.9. UA shows many hyaline casts. 2. Hyperkalemia related to SREEDHAR 3. Hyponatremia etiology difficult to discern. Stable 126 4. Metastatic Pancreatic Cancer 5. Lactic Acidosis 6. Hypotension 7. Acute bilateral LE DVT Plan: Although has signs of fluid overload, given low BP with lactic acidosis and SREEDHAR would benefit from IVF Would continue gentle IVF for now Urine studies have been ordered BP on low side, consider septic work-up Check bladder scan, strict I/O's Further recommendations pending work-up
--- NOTE | 2024-06-21 13:54 | P.CONS ---
History of Present Illness - Reason for Consult Consult date: 06/21/24 Metastatic pancreatic cancer, abdominal pain, leg swelling - History of Present Illness The patient is a 68-year-old male, well-known to our service. His oncology history is as follows: stage III pancreatic adenocarcinoma (T2N2M0) resected at [facility] in [place] with Whipple resection on 01/14/2024 and completed 6 cycles of adjuvant FOLFIRINOX from 03/10/2024 through 05/19/2024 presenting with progressive weakness, bilateral pedal edema, abdominal pain. He was seen in clinic on 05/15 and was given 1 L bolus of normal saline. The weakness persisted with concern for blood clots in the urine and stool for 3 days prior to presentation. His CA 19-9 was also noted to be elevated on his evaluation in 06/07, compared to before. The patient was sent into the emergency room for persistent symptoms, and admitted on 06/05/2024. In the ED, he was noted to have systolic blood pressures in the 90s/60s with other vital signs being stable. CMP on presentation noted sodium 126, potassium 5.4, creatinine 0.5, total bilirubin 1.7, AST 98, alkaline phosphatase 628, amylase less than 30, and lipase 17. CBC on admission noted WBC 34.4 (ANC 31.6), hemoglobin 10.3 (MCV 88), platelets 269. Viral PCR was negative. Urinalysis revealed 1+ protein and urine bilirubin that was negative for blood, nitrate, or leukocyte esterase. 16 RBCs were noted. D-dimer was elevated at 3.54. CTA of the chest revealed no evidence of pulmonary embolism, but did note subcentimeter nodules in both lungs concerning for metastatic disease. CT abdomen/pelvis with contrast noted large 9 x 6.3 cm soft tissue mass in the margie hepatic region abutting the remnant pancreas suspicious for local recurr ence and causing significant narrowing of the portal vein near the SMV confluence. There were innumerable hypodense metastatic lesions in the liver and small volume ascites also concerning for metastatic disease. Small soft tissue nodules in the right hemiabdomen were indeterminate for peritoneal implants. The patient therefore appeared to have developed widespread metastatic disease, while on aggressive adjuvant chemotherapy. He was treated supportively, with pain medications, and also received palliative radiation to the mass in the margie hepatis region, on 06/10/24 The patient had NGS testing ordered on his surgical sample, and then post discharge had biomarker testing on liquid biopsy ordered. Results of these are pending. He was brought back to the hospital this time by his family, as he was having progressive lower extremity swelling now going up above the knee. He was having episodes of right upper quadrant and right flank pain, intermittently, more prominent and severe than before. Appetite was overall poor. He was having progressive generalized weakness, as well as increasing shortness of breath on exertion. He had episodes of nausea and occasional vomiting with food. Imaging studies included CT of the abdomen and pelvis, bilateral venous Dopplers, and chest x-ray. The patient was found to have bilateral lower extremity DVTs. Abdominal imaging showed the mass in the margie hepatis to be stable and did not mention any evidence of biliary obstruction. The patient now appears to have developed bilateral moderate pleural effusions. Some additional parenchymal opacities were also seen on chest x-ray The patient was started on IV heparin, admitted, and consult placed. His labs showed a drop in platelet count into the 60-70,000 range, which is new compared to his recent admission. In addition there was worsening of his liver enzymes including bilirubin, and alkaline phosphatase. Review of Systems Constitutional: Reports chronic pain, Reports fatigue, Reports poor appetite, Reports weakness, Reports weight loss Eyes: denies blurred vision, denies pain Ears: deny: decreased hearing, ear discharge, earache, tinnitus Ears, nose, mouth and throat: Denies headache, Denies sore throat Cardiovascular: Reports shortness of breath Respiratory: Reports cough with sputum, Reports dyspnea Gastrointestinal: Reports as per HPI, Reports abdominal pain, Reports nausea, Reports vomiting Genitourinary: Reports as per HPI Musculoskeletal: Reports as per HPI (Progressive bilateral lower extremity edema), Reports muscle weakness Integumentary: Reports as per HPI Neurological: Reports weakness Psychiatric: Denies anxiety, Denies depression Endocrine: Reports fatigue, Reports weight change Hematologic/Lymphatic: Reports as per HPI Past Medical History Past Medical History: Cancer, Diabetes Mellitus, Hyperlipidemia, Hypertension Additional Past Medical History / Comment(s): perirectal abscess, PANCREATIC CANCER diagnosed December 2023 History of Any Multi-Drug Resistant Organisms: None Reported Past Surgical History: Ear Surgery Additional Past Surgical History / Comment(s): RHINOPLASTY, TOOTH IMPLANT, Whipple procedure January 14, 2024, infusaport placement February 2024 Past Anesthesia/Blood Transfusion Reactions: No Reported Reaction Additional Past Anesthesia/Blood Transfusion Reaction / Comm: no hx blood transfusion Past Psychological History: No Psychological Hx Reported Smoking Status: Never smoker Past Alcohol Use History: None Reported Past Drug Use History: None Reported - Past Family History Mother Family Medical History: Diabetes Mellitus Father Family Medical History: Diabetes Mellitus Medications and Allergies Home Medications Medication Instructions Recorded Confirmed Type metFORMIN HCL [Glucophage] 1,000 mg PO BID 09/14/19 06/20/24 History Pantoprazole [Protonix] 40 mg PO DAILY 03/10/24 06/20/24 History OLANZapine [ZyPREXA] 2.5 mg PO HS 03/24/24 06/20/24 History Empagliflozin [Jardiance] 25 mg PO DAILY 04/10/24 06/20/24 History Lipase/Protease/Amylase [Creon Dr 1 cap PO TID-W/MEALS 04/10/24 06/20/24 History 36,000 Unit Capsule] Prochlorperazine [Compazine] 10 mg PO Q6H PRN 04/10/24 06/20/24 History LORazepam [Ativan] 0.5 mg PO TID PRN 06/05/24 06/20/24 History Simvastatin [Zocor] 10 mg PO HS 06/05/24 06/20/24 History Docusate [Colace] 100 mg PO DAILY #30 cap 06/10/24 06/20/24 Rx droNABinol [Marinol] 2.5 mg PO AC-BID cap 06/10/24 06/20/24 Rx polyethylene glycoL 3350 [Miralax] 17 gm PO DAILY #30 packet 06/10/24 06/20/24 Rx Ondansetron Odt [Zofran Odt] 8 mg PO Q8HR PRN 06/20/24 06/20/24 History Allergies Allergy/AdvReac Type Severity Reaction Status Date / Time No Known Allergies Allergy Verified 06/20/24 18:04 Physical Exam Vitals: Vital Signs Temp Pulse Resp BP Pulse Ox 06/21/24 13:05 93 15 85/52 100 06/21/24 05:01 90 16 94/65 97 06/21/24 00:42 96 16 93/61 06/20/24 15:13 97.4 F L 77 16 100/64 97 Intake and Output 06/20/24 06/21/24 06/21/24 22:59 06:59 14:59 Intake Total 90.722 44.847 Balance 90.722 44.847 Intake: Intake, IV Titration 90.722 44.847 Amount Heparin Sod,Pork in 0.45% 90.722 44.847 NaCl 25,000 unit In 0.45 % NaCl 1 250ml.bag @ 18 UNITS/KG/HR 9.226 mls/hr IV .Q24H [facility] Rx#: [id number] Other: Weight 51.256 kg - Constitutional Mild generalized weakness, lethargy General appearance: no acute distress - EENT Eyes: EOMI, PERRLA ENT: hearing grossly normal, normal oropharynx - Respiratory Respiratory: bilateral: diminished - Cardiovascular Rhythm: regular Heart sounds: normal: S1, S2 - Gastrointestinal General gastrointestinal: distended, normal bowel sounds, soft, tenderness Localized gastrointestinal: tender: RUQ - Integumentary Thickening of skin of abdominal wall due to anasarca - Neurologic Neurologic: CNII-XII intact - Musculoskeletal Musculoskeletal: generalized weakness, strength equal bilaterally - Psychiatric Psychiatric: A&O x's 3, appropriate affect Results CBC & Chem 7: 06/21/24 05:03 06/21/24 05:03 Labs: Abnormal Lab Results - Last 24 Hours (Table) 06/20/24 06/20/24 06/20/24 Range/Units 16:08 16:08 16:08 WBC 15.3 H (3.8-10.6) k/uL RBC 2.54 L (4.30-5.90) m/uL Hgb 8.5 L (13.0-17.5) gm/dL Hct 26.9 L (39.0-53.0) % MCV 105.6 H D (80.0-100.0) fL RDW 26.4 H (11.5-15.5) % Plt Count 60 L D (150-450) k/uL Neutrophils # 13.7 H (1.3-7.7) k/uL Lymphocytes # 0.8 L (1.0-4.8) k/uL Macrocytosis Marked A PT 14.9 H (10.0-12.5) sec INR 1.4 H (<1.2) APTT 31.7 H (22.0-30.0) sec Sodium 126 L (137-145) mmol/L Potassium (3.5-5.1) mmol/L Carbon Dioxide 17 L (22-30) mmol/L BUN 22 H (9-20) mg/dL Glucose (74-99) mg/dL Plasma Lactic Acid Chris (0.7-2.0) mmol/L Calcium 7.0 L (8.4-10.2) mg/dL Phosphorus (2.5-4.5) mg/dL Total Bilirubin 3.6 H (0.2-1.3) mg/dL AST 90 H (17-59) U/L Alkaline Phosphatase 802 H (38-126) U/L Total Protein 5.4 L (6.3-8.2) g/dL Albumin 1.8 L (3.5-5.0) g/dL Amylase <30 L (30-110) U/L Lipase 13 L (23-300) U/L Urine Protein (Negative) Urine Ketones (Negative) Urine Bilirubin (Negative) Ur Leukocyte Esterase (Negative) Urine WBC (0-5) /hpf Hyaline Casts (0-2) /lpf Urine Mucus (None) /hpf 06/20/24 06/20/24 06/20/24 Range/Units 16:08 16:58 18:53 WBC (3.8-10.6) k/uL RBC (4.30-5.90) m/uL Hgb (13.0-17.5) gm/dL Hct (39.0-53.0) % MCV (80.0-100.0) fL RDW (11.5-15.5) % Plt Count (150-450) k/uL Neutrophils # (1.3-7.7) k/uL Lymphocytes # (1.0-4.8) k/uL Macrocytosis PT (10.0-12.5) sec INR (<1.2) APTT (22.0-30.0) sec Sodium (137-145) mmol/L Potassium (3.5-5.1) mmol/L Carbon Dioxide (22-30) mmol/L BUN (9-20) mg/dL Glucose (74-99) mg/dL Plasma Lactic Acid Chris 2.3 H* 2.1 H* (0.7-2.0) mmol/L Calcium (8.4-10.2) mg/dL Phosphorus (2.5-4.5) mg/dL Total Bilirubin (0.2-1.3) mg/dL AST (17-59) U/L Alkaline Phosphatase (38-126) U/L Total Protein (6.3-8.2) g/dL Albumin (3.5-5.0) g/dL Amylase (30-110) U/L Lipase (23-300) U/L Urine Protein 1+ H (Negative) Urine Ketones Trace H (Negative) Urine Bilirubin 2+ H (Negative) Ur Leukocyte Esterase Small H (Negative) Urine WBC 10 H (0-5) /hpf Hyaline Casts 53 H (0-2) /lpf Urine Mucus Many H (None) /hpf 06/21/24 06/21/24 06/21/24 Range/Units 01:09 01:09 05:03 WBC 17.8 H (3.8-10.6) k/uL RBC 2.44 L (4.30-5.90) m/uL Hgb 8.3 L (13.0-17.5) gm/dL Hct 26.7 L (39.0-53.0) % MCV 109.2 H (80.0-100.0) fL RDW 26.5 H (11.5-15.5) % Plt Count 71 L (150-450) k/uL Neutrophils # 16.1 H (1.3-7.7) k/uL Lymphocytes # 0.9 L (1.0-4.8) k/uL Macrocytosis Marked A PT (10.0-12.5) sec INR (<1.2) APTT 193.9 H* (22.0-30.0) sec Sodium (137-145) mmol/L Potassium (3.5-5.1) mmol/L Carbon Dioxide (22-30) mmol/L BUN (9-20) mg/dL Glucose (74-99) mg/dL Plasma Lactic Acid Chris 2.9 H* (0.7-2.0) mmol/L Calcium (8.4-10.2) mg/dL Phosphorus (2.5-4.5) mg/dL Total Bilirubin (0.2-1.3) mg/dL AST (17-59) U/L Alkaline Phosphatase (38-126) U/L Total Protein (6.3-8.2) g/dL Albumin (3.5-5.0) g/dL Amylase (30-110) U/L Lipase (23-300) U/L Urine Protein (Negative) Urine Ketones (Negative) Urine Bilirubin (Negative) Ur Leukocyte Esterase (Negative) Urine WBC (0-5) /hpf Hyaline Casts (0-2) /lpf Urine Mucus (None) /hpf 06/21/24 06/21/24 06/21/24 Range/Units 05:03 05:03 09:38 WBC (3.8-10.6) k/uL RBC (4.30-5.90) m/uL Hgb (13.0-17.5) gm/dL Hct (39.0-53.0) % MCV (80.0-100.0) fL RDW (11.5-15.5) % Plt Count (150-450) k/uL Neutrophils # (1.3-7.7) k/uL Lymphocytes # (1.0-4.8) k/uL Macrocytosis PT (10.0-12.5) sec INR (<1.2) APTT 85.5 H (22.0-30.0) sec Sodium 126 L (137-145) mmol/L Potassium 5.3 H (3.5-5.1) mmol/L Carbon Dioxide 13 L (22-30) mmol/L BUN 24 H (9-20) mg/dL Glucose 56 L (74-99) mg/dL Plasma Lactic Acid Chris 4.3 H* (0.7-2.0) mmol/L Calcium 7.3 L (8.4-10.2) mg/dL Phosphorus 5.1 H (2.5-4.5) mg/dL Total Bilirubin 3.6 H (0.2-1.3) mg/dL AST 78 H (17-59) U/L Alkaline Phosphatase 818 H (38-126) U/L Total Protein 5.5 L (6.3-8.2) g/dL Albumin 1.8 L (3.5-5.0) g/dL Amylase (30-110) U/L Lipase (23-300) U/L Urine Protein (Negative) Urine Ketones (Negative) Urine Bilirubin (Negative) Ur Leukocyte Esterase (Negative) Urine WBC (0-5) /hpf Hyaline Casts (0-2) /lpf Urine Mucus (None) /hpf Chest x-ray: report reviewed CT scan - abdomen: report reviewed CT scan - pelvis: report reviewed Venous US: report reviewed Assessment and Plan (1) DVT, bilateral lower limbs Narrative/Plan: The patient has new diagnosis of the same, with Dopplers being done due to progressive lower extremity swelling. It was discussed with the patient and his family, that the presence of metastatic malignancy is a major risk factor for development of venous thromboembolism. The patient has other risk factors, including recent hospitalization, intravascular volume depletion, and markedly diminished activity level. -Agree with IV heparin. Transition to oral AC in the next 1 to 2 days. Choice of outpatient anticoagulation would be dependent on his liver function. -Check CT angiogram within the next few days for baseline Current Visit: Yes Status: Acute Code(s): I82.403 - ACUTE EMBOLISM AND THOMBOS UNSP DEEP VEINS OF LOW EXTRM, BI SNOMED Code(s): 190098805 (2) Bicytopenia Narrative/Plan: The patient is felt to have low hemoglobin, due to anemia of malignancy/inflammation. The thrombocytopenia is new, compared to his recent admission. Differentials include effect of progressive liver damage, as well as tumor associated DIC .Plt counts are in a safe range. Additional workup will be ordered to check for DIC. Baseline coags were mildly elevated. Transfuse to keep platelet counts greater than 10,000, or greater than 40,000 if bleeding. Current Visit: Yes Status: Acute Code(s): D75.89 - OTHER SPECIFIED DISEASES OF BLOOD AND BLOOD-FORMING ORGANS SNOMED Code(s): 55509823 (3) Abnormal liver enzymes Narrative/Plan: There has been a significant increase in his total bilirubin, as well as alkaline phosphatase. Possible etiologies for the same were discussed in detail with the patient and his family. CT scan did not mention any evidence of biliary obstruction. Dedicated ultrasound will be ordered for the same. If there is no evidence of extrahepatic biliary obstruction, then most likely the change in liver enzymes is due to progression of the malignancy in the liver parenchyma. Current Visit: Yes Status: Acute Code(s): R74.8 - ABNORMAL LEVELS OF OTHER SERUM ENZYMES SNOMED Code(s): 153892044 (4) Pancreatic adenocarcinoma Narrative/Plan: The prognosis in this situation is quite guarded. The patient had developed widespread metastatic disease, while on aggressive adjuvant chemotherapy. Currently performance status is quite poor. If ultrasound of the liver does not show an acutely reversible condition such as extrahepatic biliary obstruction, then his labs likely indicate parenchymal progression. Rapid parenchymal progression of metastatic disease indicates a poor prognosis, and is typically difficult to reverse even with aggressive chemotherapy given emergently. It was therefore discussed that his performance status remains poor and/or he has evidence of aggressive parenchymal hepatic progression, it would be reasonable to consider a comfort care approach. -They had multiple questions, that were answered in detail. Will continue to m onitor closely and make further recommendations depending on the patient's course. Current Visit: No Status: Acute Priority: Medium Code(s): C25.9 - MALIGNANT NEOPLASM OF PANCREAS, UNSPECIFIED SNOMED Code(s): 103868846
[2024-06-21] MEDS: ONDANSETRON 4 MG/2 ML VIAL IVP PRN (16:02)
[2024-06-21] MEDS ORDERED: polyethylene glycoL 3350 17 GM POWD.PACK PO PRN (17:28)
[2024-06-21] MEDS ORDERED: SENNOSIDES 8.6 MG TAB PO PRN (17:28)
[2024-06-21] MEDS ORDERED: KETOROLAC 15 MG/ML 1 ML VIAL IVP PRN (18:16)
[2024-06-21] MEDS: PROCHLORPERAZINE INJ 10 MG/2 ML VIAL IVP PRN (20:00)
[2024-06-21 20:05] LABS: Glucose,Whole Blood 77 mg/dL (70-110)
[2024-06-21 23:38] LABS: Glucose,Whole Blood 85 mg/dL (70-110)
[2024-06-22] MEDS ORDERED: DEXTROSE 50% SYRINGE 50 ML IVP PRN (02:46)
[2024-06-22] MEDS: SODIUM CHLORIDE 0.9% 500 ML 500 ML IV ONE ×2 (04:14→05:50)
[2024-06-22 06:17] LABS: Glucose,Whole Blood 85 mg/dL (70-110)
[2024-06-22] MEDS: INSULIN ASPART (NovoLOG) 100 UNIT/ML VIAL SQ SCH (06:30)
[2024-06-22 06:58] LABS: Anisocytosis Marked; HCT 24.5 % (39.0-53.0); HGB 7.8 gm/dL (13.0-17.5); Hypochromasia Marked; MCH 34.8 pg (25.0-35.0); MCHC 31.6 g/dL (31.0-37.0); Macrocytosis Marked; Mean Platelet Volume 8.9; Platelet Count 59 k/uL (150-450); RBC 2.23 m/uL (4.30-5.90); RDW 26.2 % (11.5-15.5); WBC 12.3 k/uL (3.8-10.6)
[2024-06-22 06:59] LABS: MCV 109.9 fL (80.0-100.0)
[2024-06-22 07:45] LABS: ALT 41 U/L (4-49); AST 94 U/L (17-59); African American GFR (CKD) 86 (>60 ml/min/1.73 sqM); Albumin 1.6 g/dL (3.5-5.0); Alkaline Phosphatase 738 U/L (38-126); Anion Gap 7 mmol/L; Bilirubin, Conjugated 0.8 mg/dL (0.0-0.3); Bilirubin, Delta 1.6 mg/dL (0.0-0.2); Bilirubin,Unconjugated 0.8 mg/dL (0.0-1.1); Blood Urea Nitrogen 28 mg/dL (9-20); Calcium 6.7 mg/dL (8.4-10.2); Carbon Dioxide 16 mmol/L (22-30); Chloride 103 mmol/L (98-107); Glucose 73 mg/dL (74-99); Non-African American GFR(CKD) 74 (>60 ml/min/1.73 sqM); Potassium 4.8 mmol/L (3.5-5.1); Sodium 126 mmol/L (137-145); Total Bilirubin 3.2 mg/dL (0.2-1.3); Total Protein 4.9 g/dL (6.3-8.2)
[2024-06-22] MEDS: droNABinol 2.5 MG CAP PO SCH (08:15)
[2024-06-22] MEDS: DAPAGLIFLOZIN PROPANEDIOL 10 MG TABLET PO SCH (08:15)
--- NOTE | 2024-06-22 09:22 | US ---
EXAMINATION TYPE: US liver DATE OF EXAM: 06/22/2024 Exam done portable COMPARISON: CT & US 2023 CLINICAL INDICATION: Male, 68 years old with history of Elevated liver enz, evaluate for biliary obst ruct; TECHNIQUE: Grayscale and color Doppler imaging of the right upper quadrant was performed. FINDINGS: EXAM MEASUREMENTS: Liver Length: 15.1 cm CBD: 0.4 cm Right Kidney: 9.2 x 5.0 x 5.4 cm Pancreas: obscured by overlying midline bowel gas Liver: multiple lesions Gallbladder: surgically absent Evidence for sonographic Maya's sign: no CBD: visualized portions wnl, limited by overlying bowel gas Right Kidney: visualized portions wnl, inferior pole limited by overlying bowel gas Right pleural effusion Ascites RUQ and RLQ IMPRESSION: 1. Multiple hepatic lesions suspicious for metastatic disease. 2. Mild ascites. 3. Small right pleural effusion [facility] Steve Roberts, Workstation: 3, 06/22/2024 9:19 AM
--- NOTE | 2024-06-22 11:25 | P.GSCN ---
History of Present Illness Consult date: 06/22/24 Reason for Consult: Coagulopathy Requesting physician: Zacarias Miles History of present illness: This is a pleasant 68-year-old male with a past medical history of pancreatic adenocarcinoma with metastasis to the liver who had presented to the emergency department with complaints of weakness, abdominal pain and lower extremity swelling. Patient was recently discharged from the hospital. His son is at the bedside who is translating and states that since his hospitalization he has had lower extremity swelling. Patient has a history of pancreatic cancer diagnosed in December of this year status post Whipple procedure at [facility] with recurrence. Patient has been undergoing chemotherapy and has had 6 treatments. He had lower extremity venous duplex that reported bilateral DVTs with left lowe r extremity DVT in the internal iliac vein common femoral vein and proximal femoral vein. Patient denies any previous history of DVTs or pulmonary embolism. Vascular surgery was consulted for coagulopathy. He is currently on IV heparin drip. Oncology is following and apparently due to the metastatic disease they may be opting for more comfort care according to oncology notes. Patient states he has lower extremity pain with walking. No significant shortness of breath or chest pain. Review of Systems A 14 point review systems was completed all pertinent positives and negatives as stated in the HPI. Past Medical History Past Medical History: Cancer, Diabetes Mellitus, Deep Vein Thrombosis (DVT), Hyperlipidemia, Hypertension Additional Past Medical History / Comment(s): perirectal abscess, PANCREATIC CANCER diagnosed December 2023 History of Any Multi-Drug Resistant Organisms: None Reported Past Surgical History: Ear Surgery Additional Past Surgical History / Comment(s): RHINOPLASTY, TOOTH IMPLANT, Whipple procedure January 14, 2024, infusaport placement February 2024 Past Anesthesia/Blood Transfusion Reactions: No Reported Reaction Additional Past Anesthesia/Blood Transfusion Reaction / Comm: no hx blood transfusion Past Psychological History: No Psychological Hx Reported Smoking Status: Never smoker Past Alcohol Use History: None Reported Past Drug Use History: None Reported - Past Family History Mother Family Medical History: Diabetes Mellitus Father Family Medical History: Diabetes Mellitus Medications and Allergies Home Medications Medication Instructions Recorded Confirmed Type metFORMIN HCL [Glucophage] 1,000 mg PO BID 09/14/19 06/20/24 History Pantoprazole [Protonix] 40 mg PO DAILY 03/10/24 06/20/24 History OLANZapine [ZyPREXA] 2.5 mg PO HS 03/24/24 06/20/24 History Empagliflozin [Jardiance] 25 mg PO DAILY 04/10/24 06/20/24 History Lipase/Protease/Amylase [Creon Dr 1 cap PO TID-W/MEALS 04/10/24 06/20/24 History 36,000 Unit Capsule] Prochlorperazine [Compazine] 10 mg PO Q6H PRN 04/10/24 06/20/24 History LORazepam [Ativan] 0.5 mg PO TID PRN 06/05/24 06/20/24 History Simvastatin [Zocor] 10 mg PO HS 06/05/24 06/20/24 History Docusate [Colace] 100 mg PO DAILY #30 cap 06/10/24 06/20/24 Rx droNABinol [Marinol] 2.5 mg PO AC-BID cap 06/10/24 06/20/24 Rx polyethylene glycoL 3350 [Miralax] 17 gm PO DAILY #30 packet 06/10/24 06/20/24 Rx Ondansetron Odt [Zofran Odt] 8 mg PO Q8HR PRN 06/20/24 06/20/24 History Allergies Allergy/AdvReac Type Severity Reaction Status Date / Time No Known Allergies Allergy Verified 06/20/24 18:04 Surgical - Exam Vital Signs Temp Pulse Resp BP Pulse Ox 97.4 F L 77 16 100/64 97 06/20/24 15:13 06/20/24 15:13 06/20/24 15:13 06/20/24 15:13 06/20/24 15:13 General appearance: The patient is alert, oriented, appears in no acute distress. HET: Head is normocephalic and atraumatic. Pupils are equal and reactive. Neck: Supple. Heart: Regular. Lungs: Equal expansion, normal respiratory effort. Abdomen: Soft, nondistended. Extremities: Normal skin color and turgor. Bilateral lower extremity pitting edema from thigh down through feet. Palpable DP pulses. Neurological: Alert and oriented. Results - Labs 06/22/24 06:31 06/22/24 06:31 Abnormal Lab Results - Last 24 Hours (Table) 06/21/24 06/21/24 06/21/24 Range/Units 09:38 14:43 17:44 WBC (3.8-10.6) k/uL RBC (4.30-5.90) m/uL Hgb (13.0-17.5) gm/dL Hct (39.0-53.0) % MCV (80.0-100.0) fL RDW (11.5-15.5) % Plt Count (150-450) k/uL Macrocytosis APTT 85.5 H 51.0 H (22.0-30.0) sec Sodium (137-145) mmol/L Carbon Dioxide (22-30) mmol/L BUN (9-20) mg/dL Glucose (74-99) mg/dL Plasma Lactic Acid Chris 2.3 H* (0.7-2.0) mmol/L Calcium (8.4-10.2) mg/dL Total Bilirubin (0.2-1.3) mg/dL Conjugated Bilirubin (0.0-0.3) mg/dL Delta Bilirubin (0.0-0.2) mg/dL AST (17-59) U/L Alkaline Phosphatase (38-126) U/L Total Protein (6.3-8.2) g/dL Albumin (3.5-5.0) g/dL 06/22/24 06/22/24 06/22/24 Range/Units 06:31 06:31 06:31 WBC 12.3 H (3.8-10.6) k/uL RBC 2.23 L (4.30-5.90) m/uL Hgb 7.8 L (13.0-17.5) gm/dL Hct 24.5 L (39.0-53.0) % MCV 109.9 H (80.0-100.0) fL RDW 26.2 H (11.5-15.5) % Plt Count 59 L (150-450) k/uL Macrocytosis Marked A APTT 73.6 H (22.0-30.0) sec Sodium 126 L (137-145) mmol/L Carbon Dioxide 16 L (22-30) mmol/L BUN 28 H (9-20) mg/dL Glucose 73 L (74-99) mg/dL Plasma Lactic Acid Chris (0.7-2.0) mmol/L Calcium 6.7 L (8.4-10.2) mg/dL Total Bilirubin 3.2 H (0.2-1.3) mg/dL Conjugated Bilirubin 0.8 H (0.0-0.3) mg/dL Delta Bilirubin 1.6 H (0.0-0.2) mg/dL AST 94 H (17-59) U/L Alkaline Phosphatase 738 H (38-126) U/L Total Protein 4.9 L (6.3-8.2) g/dL Albumin 1.6 L (3.5-5.0) g/dL Diabetes panel 06/22/24 Range/Units 06:31 Sodium 126 L (137-145) mmol/L Potassium 4.8 (3.5-5.1) mmol/L Chloride 103 (98-107) mmol/L Carbon Dioxide 16 L (22-30) mmol/L BUN 28 H (9-20) mg/dL Creatinine 1.05 (0.66-1.25) mg/dL Glucose 73 L (74-99) mg/dL Calcium 6.7 L (8.4-10.2) mg/dL AST 94 H (17-59) U/L ALT 41 (4-49) U/L Alkaline Phosphatase 738 H (38-126) U/L Total Protein 4.9 L (6.3-8.2) g/dL Albumin 1.6 L (3.5-5.0) g/dL Calcium panel 06/22/24 Range/Units 06:31 Calcium 6.7 L (8.4-10.2) mg/dL Albumin 1.6 L (3.5-5.0) g/dL Pituitary panel 06/22/24 Range/Units 06:31 Sodium 126 L (137-145) mmol/L Potassium 4.8 (3.5-5.1) mmol/L Chloride 103 (98-107) mmol/L Carbon Dioxide 16 L (22-30) mmol/L BUN 28 H (9-20) mg/dL Creatinine 1.05 (0.66-1.25) mg/dL Glucose 73 L (74-99) mg/dL Calcium 6.7 L (8.4-10.2) mg/dL Adrenal panel 06/22/24 Range/Units 06:31 Sodium 126 L (137-145) mmol/L Potassium 4.8 (3.5-5.1) mmol/L Chloride 103 (98-107) mmol/L Carbon Dioxide 16 L (22-30) mmol/L BUN 28 H (9-20) mg/dL Creatinine 1.05 (0.66-1.25) mg/dL Glucose 73 L (74-99) mg/dL Calcium 6.7 L (8.4-10.2) mg/dL Total Bilirubin 3.2 H (0.2-1.3) mg/dL AST 94 H (17-59) U/L ALT 41 (4-49) U/L Alkaline Phosphatase 738 H (38-126) U/L Total Protein 4.9 L (6.3-8.2) g/dL Albumin 1.6 L (3.5-5.0) g/dL - Imaging Comments: Venous duplex. Deep vein thrombosis of the right proximal femoral vein. Deep vein thrombosis involving the left internal iliac vein, common femoral vein and proximal femoral veins. CT abdomen pelvis without contrast reports moderate size bilateral pleural effusions with adjacent lower lobe compressive atelectasis in the partially visualized lower lungs. Moderate diffuse abdominal ascites and body wall edema/anasarca. Large soft tissue mass abutting the remnant pancreas status post previous Whipple procedure as above, similar to recent study 06/03/2024. Findings compatible with peritoneal carcinomatosis. Metastatic disease involving the liver. Liver ultrasound reports multiple hepatic lesions suspicious for metastatic disease. Mild ascites. Small right pleural effusion. Assessment and Plan Assessment: 1. Bilateral lower extremity DVTs 2. Recurrent pancreatic adenocarcinoma with metastasis to liver 3. Lower extremity edema 4. Generalized anasarca Plan: 1. Apply thigh-high PÉREZ hose to bilateral lower extremities. Elevate lower extremities. 2. Continue IV heparin drip 3. No plans for any vascular surgical intervention 4. Will defer oral anticoagulation recommendations to oncology Thank you for this consultation, we will continue to follow. The impression and plan of care has been dictated as directed. I performed a history and examination of this patient, discussed the same with the dictator. I agree with the dictator's note ,documented as a scribe. Any additional findings or plans will be noted.
[2024-06-22 11:31] LABS: Glucose,Whole Blood 89 mg/dL (70-110)
[2024-06-22] MEDS: SODIUM CHLORIDE 0.9% 1,000 ML IV SCH (11:31)
[2024-06-22] MEDS: LIPASE PO SCH (11:35)
[2024-06-22] MEDS: [UNRECOGNIZED DRUG - OTHER] PO SCH (11:35)
[2024-06-22] MEDS: PROTEASE PO SCH (11:35)
[2024-06-22] MEDS: AMYLASE PO SCH (11:35)
[2024-06-22 11:53] VITALS: BMI 30.2
--- NOTE | 2024-06-22 12:59 | P.PN ---
Subjective patient is seen for follow-up for hyponatremia and acute kidney injury. Serum sodium staying at about 1 26 mg/L. BP has been low with systolic in the 80s. Patient is maintained on normal saline at 75 mL an hour. chest x-ray shows bilateral interstitial opacities and small effusions. No significant shortness of breath.O2 sats 98% on room air however family states that he has been feeling short of breath. Maintained on Toradol. Objective - Vital Signs Vital signs: Vital Signs Temp 97.8 F 06/22/24 11:45 Pulse 81 06/22/24 11:45 Resp 20 06/22/24 11:45 BP 84/48 06/22/24 11:45 Pulse Ox 98 06/22/24 11:45 FiO2 Intake & Output 06/21/24 06/22/24 06/22/24 18:59 06:59 18:59 Intake Total 44.847 96.947 37.979 Output Total 150 100 Balance 44.847 -53.053 -62.021 Weight 51.256 kg 77.5 kg 77.5 kg Intake: Intake, IV Titration 44.847 96.947 37.979 Amount Heparin Sod,Pork in 0.45% 44.847 96.947 37.979 NaCl 25,000 unit In 0.45 % NaCl 1 250ml.bag @ 18 UNITS/KG/HR 9.226 mls/hr IV .Q24H [facility] Rx#: [id number] Oral 0 Output: Urine 150 100 Other: Voiding Method External Catheter External Catheter # Bowel Movements 1 - Exam patient is awake, comfortable, no acute distress. Examination of the heart S1 and S2 Examination of the lungs bilateral breath sounds are heard Abdomen is soft nontender Examination of lower extremities shows 2+ edema bilaterally - Labs CBC & Chem 7: 06/22/24 06:31 06/22/24 06:31 Labs: Abnormal Lab Results - Last 24 Hours (Table) 06/21/24 06/21/24 06/22/24 Range/Units 14:43 17:44 06:31 WBC 12.3 H (3.8-10.6) k/uL RBC 2.23 L (4.30-5.90) m/uL Hgb 7.8 L (13.0-17.5) gm/dL Hct 24.5 L (39.0-53.0) % MCV 109.9 H (80.0-100.0) fL RDW 26.2 H (11.5-15.5) % Plt Count 59 L (150-450) k/uL Macrocytosis Marked A APTT 51.0 H (22.0-30.0) sec Sodium (137-145) mmol/L Carbon Dioxide (22-30) mmol/L BUN (9-20) mg/dL Glucose (74-99) mg/dL Plasma Lactic Acid Chris 2.3 H* (0.7-2.0) mmol/L Calcium (8.4-10.2) mg/dL Total Bilirubin (0.2-1.3) mg/dL Conjugated Bilirubin (0.0-0.3) mg/dL Delta Bilirubin (0.0-0.2) mg/dL AST (17-59) U/L Alkaline Phosphatase (38-126) U/L Total Protein (6.3-8.2) g/dL Albumin (3.5-5.0) g/dL 06/22/24 06/22/24 Range/Units 06:31 06:31 WBC (3.8-10.6) k/uL RBC (4.30-5.90) m/uL Hgb (13.0-17.5) gm/dL Hct (39.0-53.0) % MCV (80.0-100.0) fL RDW (11.5-15.5) % Plt Count (150-450) k/uL Macrocytosis APTT 73.6 H (22.0-30.0) sec Sodium 126 L (137-145) mmol/L Carbon Dioxide 16 L (22-30) mmol/L BUN 28 H (9-20) mg/dL Glucose 73 L (74-99) mg/dL Plasma Lactic Acid Chris (0.7-2.0) mmol/L Calcium 6.7 L (8.4-10.2) mg/dL Total Bilirubin 3.2 H (0.2-1.3) mg/dL Conjugated Bilirubin 0.8 H (0.0-0.3) mg/dL Delta Bilirubin 1.6 H (0.0-0.2) mg/dL AST 94 H (17-59) U/L Alkaline Phosphatase 738 H (38-126) U/L Total Protein 4.9 L (6.3-8.2) g/dL Albumin 1.6 L (3.5-5.0) g/dL Assessment and Plan Assessment: 1. Hyponatremia, appears hypervolemic. Blood pressure is low and patient has lower extremity edema which is also related to DVT. CT of the abdomen does show diffuse abdominal wall edema/anasarca. Currently maintained on normal saline. 2. Metastatic pancreatic cancer status post Whipple's procedure and chemotherapy 3. Acute kidney injury, nonoliguric associated with hypotension 4. Acute bilateral lower extremity DVT 5. Hyperkalemia associated with acute kidney injury, improved 6. Non-gap metabolic acidosis associated with acute kidney injury and IV fluids Plan: DC normal saline. Add midodrine for hypotension DC Toradol as this will worsen the edema as well as acute kidney injury and can also cause hyponatremia. IV Lasix 1 Repeat sodium this evening Add oral sodium bicarb.
[2024-06-22] MEDS ORDERED: FUROSEMIDE 10 MG/ML 2 ML VIAL IV ONE (13:00)
--- NOTE | 2024-06-22 13:12 | P.PN ---
Subjective Progress Note Date: 06/22/24 No acute events. Pt denying abd pain. Mild nausea persisting, tolerated some breakfast this morning. Encouraged requesting prn anti-emetics prior to meals to see if this helps with nausea. Bilirubin, LFTs stable. WBC 12.3, hgb 7.8, plt 59 Objective - Vital Signs Vital signs: Vital Signs Temp 97.8 F 06/22/24 11:45 Pulse 81 06/22/24 11:45 Resp 20 06/22/24 11:45 BP 84/48 06/22/24 11:45 Pulse Ox 98 06/22/24 11:45 FiO2 Intake & Output 06/21/24 06/22/24 06/22/24 18:59 06:59 18:59 Intake Total 44.847 96.947 37.979 Output Total 150 100 Balance 44.847 -53.053 -62.021 Weight 51.256 kg 77.5 kg 77.5 kg Intake: Intake, IV Titration 44.847 96.947 37.979 Amount Heparin Sod,Pork in 0.45% 44.847 96.947 37.979 NaCl 25,000 unit In 0.45 % NaCl 1 250ml.bag @ 18 UNITS/KG/HR 9.226 mls/hr IV .Q24H [facility] Rx#: [id number] Oral 0 Output: Urine 150 100 Other: Voiding Method External Catheter External Catheter # Bowel Movements 1 - Constitutional General appearance: Present: thin - EENT Eyes: Present: scleral icterus - Respiratory Details: breathing is even and unlabored - Cardiovascular Details: skin warm and dry - Gastrointestinal General gastrointestinal: Absent: tenderness - Integumentary Integumentary: Present: jaundiced - Musculoskeletal Musculoskeletal: Present: generalized weakness - Psychiatric Psychiatric: Present: A&O x's 3 - Labs CBC & Chem 7: 06/22/24 06:31 06/22/24 06:31 Labs: Abnormal Lab Results - Last 24 Hours (Table) 06/21/24 06/21/24 06/22/24 Range/Units 14:43 17:44 06:31 WBC 12.3 H (3.8-10.6) k/uL RBC 2.23 L (4.30-5.90) m/uL Hgb 7.8 L (13.0-17.5) gm/dL Hct 24.5 L (39.0-53.0) % MCV 109.9 H (80.0-100.0) fL RDW 26.2 H (11.5-15.5) % Plt Count 59 L (150-450) k/uL Macrocytosis Marked A APTT 51.0 H (22.0-30.0) sec Sodium (137-145) mmol/L Carbon Dioxide (22-30) mmol/L BUN (9-20) mg/dL Glucose (74-99) mg/dL Plasma Lactic Acid Chris 2.3 H* (0.7-2.0) mmol/L Calcium (8.4-10.2) mg/dL Total Bilirubin (0.2-1.3) mg/dL Conjugated Bilirubin (0.0-0.3) mg/dL Delta Bilirubin (0.0-0.2) mg/dL AST (17-59) U/L Alkaline Phosphatase (38-126) U/L Total Protein (6.3-8.2) g/dL Albumin (3.5-5.0) g/dL 06/22/24 06/22/24 Range/Units 06:31 06:31 WBC (3.8-10.6) k/uL RBC (4.30-5.90) m/uL Hgb (13.0-17.5) gm/dL Hct (39.0-53.0) % MCV (80.0-100.0) fL RDW (11.5-15.5) % Plt Count (150-450) k/uL Macrocytosis APTT 73.6 H (22.0-30.0) sec Sodium 126 L (137-145) mmol/L Carbon Dioxide 16 L (22-30) mmol/L BUN 28 H (9-20) mg/dL Glucose 73 L (74-99) mg/dL Plasma Lactic Acid Chris (0.7-2.0) mmol/L Calcium 6.7 L (8.4-10.2) mg/dL Total Bilirubin 3.2 H (0.2-1.3) mg/dL Conjugated Bilirubin 0.8 H (0.0-0.3) mg/dL Delta Bilirubin 1.6 H (0.0-0.2) mg/dL AST 94 H (17-59) U/L Alkaline Phosphatase 738 H (38-126) U/L Total Protein 4.9 L (6.3-8.2) g/dL Albumin 1.6 L (3.5-5.0) g/dL Assessment and Plan (1) Abdominal pain Current Visit: Yes Status: Acute Code(s): R10.9 - UNSPECIFIED ABDOMINAL PAIN SNOMED Code(s): 19173298 (2) Abnormal liver enzymes Current Visit: Yes Status: Acute Code(s): R74.8 - ABNORMAL LEVELS OF OTHER SERUM ENZYMES SNOMED Code(s): 030170401 (3) Bicytopenia Current Visit: Yes Status: Acute Code(s): D75.89 - OTHER SPECIFIED DISEASES OF BLOOD AND BLOOD-FORMING ORGANS SNOMED Code(s): 77151609 (4) DVT, bilateral lower limbs Current Visit: Yes Status: Acute Code(s): I82.403 - ACUTE EMBOLISM AND THOMBOS UNSP DEEP VEINS OF LOW EXTRM, BI SNOMED Code(s): 423608323 (5) Hyponatremia Current Visit: Yes Status: Acute Code(s): E87.1 - HYPO-OSMOLALITY AND HYPONATREMIA SNOMED Code(s): 80876538 (6) Metastatic disease Current Visit: Yes Status: Acute Code(s): C79.9 - SECONDARY MALIGNANT NEOPLASM OF UNSPECIFIED SITE SNOMED Code(s): 685064151 (7) Pancreatic cancer Current Visit: Yes Status: Acute Code(s): C25.9 - MALIGNANT NEOPLASM OF PANCREAS, UNSPECIFIED SNOMED Code(s): 266642291 Plan: DVT: The patient has new diagnosis of the same, with Dopplers being done due to progressive lower extremity swelling. It was discussed with the patient and his family, that the presence of metastatic malignancy is a major risk factor for development of venous thromboembolism. The patient has other risk factors, including recent hospitalization, intravascular volume depletion, and markedly diminished activity level. -Vascular surgery consulted -Agree with IV heparin. Transition to oral AC in the next 1 to 2 days once no intervention/procedures planned. Choice of outpatient anticoagulation would be dependent on his liver function. -Check CT angiogram within the next few days for baseline Bicytopenia: The patient is felt to have low hemoglobin, due to anemia of malignancy/inflammation. The thrombocytopenia is new, compared to his recent admission. Differentials include effect of progressive liver damage, as well as tumor associated DIC .Plt counts are in a safe range. DIC workup negative, m aking progressive liver damage more likely. Transfuse to keep platelet counts greater than 10,000, or greater than 40,000 if bleeding. Transfuse for hgb less than 7 or if symptomatic -Continue to monitor CBC Elevated LFTs: There has been a significant increase in his total bilirubin, as well as alkaline phosphatase. Possible etiologies for the same were discussed in detail with the patient and his family. CT scan did not mention any evidence of biliary obstruction. Dedicated ultrasound ordered for the same. There was no evidence of extrahepatic biliary obstruction on US, Hyperbilirubemia and elevated LFTs most likely due to progression of the malignancy in the liver parenchyma. Pancreatic adenocarcinoma: The prognosis in this situation is quite guarded. The patient had developed widespread metastatic disease, while on aggressive adjuvant chemotherapy. Currently performance status is quite poor. Concern for rapid parenchymal progression of metastatic disease, which indicates a poor prognosis, and is typically difficult to reverse even with aggressive chemotherapy given emergently. It was therefore discussed that his performance status remains poor and/or he has evidence of aggressive parenchymal hepatic progression, it would be reasonable to consider a comfort care approach. Family and pt verbalized understanding, and at this time would like to see how patient does over the next couple days. Family states patient would like to consider other treatment optio ns. NGS testing did not reveal targetable mutation and MSI was stable, so he is not a candidate for IO. Still awaiting guardant testing. Unfortunately at this time, treatment options would be limited, and pt would need to have improvement in his performance status. All questions and concerns were addressed -Will continue to monitor closely and make further recommendations depending on the patient's course.
--- NOTE | 2024-06-22 13:14 | US ---
EXAMINATION TYPE: US chest DATE OF EXAM: 06/22/2024 COMPARISON: NONE CLINICAL INDICATION: Male, 68 years old with history of Bilateral pleural effusions; patient unable t o sit upright without assistance, bilat effusions, SOB TECHNIQUE: Grayscale imaging of the chest. Targeted ultrasound of the posterior lower bilateral FINDINGS: EXAM MEASUREMENTS: Right Pleural Effusion pocket size: 13.6 cm Right skin surface to fluid distance: 2.6 cm Left Pleural Effusion pocket size: 10.4 cm Left skin surface to fluid distance: 2.6 cm Right side marked for possible thoracentesis outside the dept. Left side marked for possible thoracentesis outside the dept. Pulmonologists are able to review the images in the patient?s EMR. IMPRESSIONS: Bilateral pleural effusions. [facility], , 06/22/2024 1:12 PM
[2024-06-22] MEDS: MIDODRINE 5 MG TAB PO SCH (13:31)
[2024-06-22] MEDS: FUROSEMIDE 10 MG/ML 4 ML VIAL IV STA (13:31)
[2024-06-22] MEDS: guaiFENesin 600 MG TABLET.ER PO SCH (14:59)
[2024-06-22 16:23] LABS: Glucose,Whole Blood 89 mg/dL (70-110)
--- NOTE | 2024-06-22 16:55 | P.CNPUL ---
History of Present Illness Consult date: 06/22/24 Reason for consult: pleural effusion, abnormal CXR/CT Chief complaint: Abdominal pain History of present illness: This is a 68-year-old male patient with a recent diagnosis of widespread metastatic pancreatic adenocarcinoma and had undergone a Whipple procedure in January 2024 at [facility]. He had also received 6 cycles of FOLFIRINOX. He also received palliative radiation to the liver mass. He had presented here to the emergency room on 06/20/2024 with the weakness, abdominal pain and cramping. Chest x-ray revealed patchy interstitial opacities and small effusions bilaterally. Doppler of the lower extremities revealed bilateral DVTs. Ultrasound of the liver revealed multiple hepatic lesions suspicious for metastatic disease. Mild ascites. Small right pleural effusion. White count 12.3. Hemoglobin 7.8. Platelets 59,000. Sodium 126. Potassium 4.8. Bicarb 16. BUN 28. Creatinine 1.05. Glucose 73. He is seen today in consultation on the selective care unit. He is currently resting in bed. Awake and alert. Maintaining good O2 saturations in the 90s on room air. Afebrile. He has been initiated on a heparin drip. Received IV Lasix. Review of Systems REVIEW OF SYSTEMS: CONSTITUTIONAL: Positive for generalized weakness. Denies any recent significant weight loss or weight gain. EYES: Denies change in vision. EARS, NOSE, MOUTH, THROAT: Denies headaches, denies sore throat. CARDIOVASCULAR: Denies chest pain, palpitations or syncopal episodes. RESPIRATORY: Denies shortness of breath, cough, congestion or hemoptysis. GASTROINTESTINAL: Positive for abdominal pain GENITOURINARY: Denies hematuria, denies infections. MUSKULOSKELETAL: Denies pain, denies swelling. INTEGUMENTARY: Denies rash, denies eczema. NEUROLOGICAL: Denies recent memory loss, no recent seizure activity. PSYCHIATRIC: Denies anxiety, denies depression. HEMATOLOGIC/LYMPHATIC: Denies anemia, denies enlarged lymph nodes. Past Medical History Past Medical History: Cancer, Diabetes Mellitus, Deep Vein Thrombosis (DVT), Hyperlipidemia, Hypertension Additional Past Medical History / Comment(s): perirectal abscess, PANCREATIC CANCER diagnosed December 2023 History of Any Multi-Drug Resistant Organisms: None Reported Past Surgical History: Ear Surgery Additional Past Surgical History / Comment(s): RHINOPLASTY, TOOTH IMPLANT, Whipple procedure January 14, 2024, infusaport placement February 2024 Past Anesthesia/Blood Transfusion Reactions: No Reported Reaction Additional Past Anesthesia/Blood Transfusion Reaction / Comment(s): no hx blood transfusion Past Psychological History: No Psychological Hx Reported Smoking Status: Never smoker Past Alcohol Use History: None Reported Past Drug Use History: None Reported - Past Family History Mother Family Medical History: Diabetes Mellitus Father Family Medical History: Diabetes Mellitus Medications and Allergies Home Medications Medication Instructions Recorded Confirmed Type metFORMIN HCL [Glucophage] 1,000 mg PO BID 09/14/19 06/20/24 History Pantoprazole [Protonix] 40 mg PO DAILY 03/10/24 06/20/24 History OLANZapine [ZyPREXA] 2.5 mg PO HS 03/24/24 06/20/24 History Empagliflozin [Jardiance] 25 mg PO DAILY 04/10/24 06/20/24 History Lipase/Protease/Amylase [Creon Dr 1 cap PO TID-W/MEALS 04/10/24 06/20/24 History 36,000 Unit Capsule] Prochlorperazine [Compazine] 10 mg PO Q6H PRN 04/10/24 06/20/24 History LORazepam [Ativan] 0.5 mg PO TID PRN 06/05/24 06/20/24 History Simvastatin [Zocor] 10 mg PO HS 06/05/24 06/20/24 History Docusate [Colace] 100 mg PO DAILY #30 cap 06/10/24 06/20/24 Rx droNABinol [Marinol] 2.5 mg PO AC-BID cap 06/10/24 06/20/24 Rx polyethylene glycoL 3350 [Miralax] 17 gm PO DAILY #30 packet 06/10/24 06/20/24 Rx Ondansetron Odt [Zofran Odt] 8 mg PO Q8HR PRN 06/20/24 06/20/24 History Allergies Allergy/AdvReac Type Severity Reaction Status Date / Time No Known Allergies Allergy Verified 06/20/24 18:04 Physical Exam Osteopathic Statement: *. No significant issues noted on an osteopathic structural exam other than those noted in the History and Physical/Consult. Vitals: Vital Signs Temp Pulse Pulse Resp BP BP BP 06/22/24 16:15 97.9 F 81 20 92/58 06/22/24 11:45 97.8 F 81 20 84/48 06/22/24 08:00 98.3 F 81 18 84/50 06/22/24 06:29 83/50 06/22/24 04:57 86/56 06/22/24 03:59 97.9 F 84 16 80/51 06/21/24 23:57 97.5 F L 81 16 86/56 06/21/24 19:35 97.4 F L 85 16 84/52 06/21/24 18:31 97.8 F 83 16 95/63 06/21/24 17:35 98 F 90 18 88/53 Pulse Ox 06/22/24 16:15 99 06/22/24 11:45 98 06/22/24 08:00 100 06/22/24 06:29 06/22/24 04:57 06/22/24 03:59 98 06/21/24 23:57 99 06/21/24 19:35 98 06/21/24 18:31 97 06/21/24 17:35 96 Intake and Output 06/22/24 06/22/24 06/22/24 06:59 14:59 22:59 Intake Total 96.947 37.979 304.92 Output Total 150 100 750 Balance -53.053 -62.021 -445.08 Intake: IV 79.92 Heparin Sod,Pork in 0.45% 79.92 NaCl 25,000 unit In 0.45 % NaCl 1 250ml.bag @ 18 UNITS/KG/HR 9.226 mls/hr IV .Q24H [facility] Rx#: [id number] Intake, IV Titration 96.947 37.979 225 Amount Heparin Sod,Pork in 0.45% 96.947 37.979 NaCl 25,000 unit In 0.45 % NaCl 1 250ml.bag @ 18 UNITS/KG/HR 9.226 mls/hr IV .Q24H [facility] Rx#: [id number] Sodium Chloride 0.9% 1, 225 000 ml @ 75 mls/hr IV . [id number] [facility] Rx#:[id number] Oral 0 Output: Urine 150 100 750 Other: Voiding Method External Catheter External Catheter External Catheter Weight 77.5 kg 77.5 kg GENERAL EXAM: Alert, weak 68-year-old male patient, resting in bed, on room air, fairly comfortable in no apparent distress. HEAD: Normocephalic. EYES: Normal reaction of pupils, equal size. NOSE: Clear with pink turbinates. THROAT: No erythema or exudates. NECK: No masses, no JVD. CHEST: No chest wall deformity. LUNGS: Equal air entry with no crackles, wheeze, rhonchi or dullness. CVS: S1 and S2 normal with no audible murmur, regular rhythm. ABDOMEN: Distended. No hepatosplenomegaly, normal bowel sounds, no guarding or rigidity. SPINE: No scoliosis or deformity SKIN: No rashes CENTRAL NERVOUS SYSTEM: No focal deficits, tone is normal in all 4 extremities. EXTREMITIES: There is no peripheral edema. No clubbing, no cyanosis. Peripheral pulses are intact. Results - Laboratory Findings CBC and BMP: 06/22/24 06:31 06/22/24 06:31 PT/INR, D-dimer PT 14.9 sec (10.0-12.5) H 06/20/24 16:08 INR 1.4 (<1.2) H 06/20/24 16:08 Abnormal lab findings: Abnormal Labs 06/20/24 06/20/24 06/20/24 16:08 16:08 16:08 WBC 15.3 H RBC 2.54 L Hgb 8.5 L Hct 26.9 L MCV 105.6 H D RDW 26.4 H Plt Count 60 L D Neutrophils # 13.7 H Lymphocytes # 0.8 L Macrocytosis Marked A PT 14.9 H INR 1.4 H APTT 31.7 H Sodium 126 L Potassium Carbon Dioxide 17 L BUN 22 H Glucose Plasma Lactic Acid Chris Calcium 7.0 L Phosphorus Total Bilirubin 3.6 H Conjugated Bilirubin Delta Bilirubin AST 90 H Alkaline Phosphatase 802 H Total Protein 5.4 L Albumin 1.8 L Amylase <30 L Lipase 13 L Urine Protein Urine Ketones Urine Bilirubin Ur Leukocyte Esterase Urine WBC Hyaline Casts Urine Mucus 06/20/24 06/20/24 06/20/24 16:08 16:58 18:53 WBC RBC Hgb Hct MCV RDW Plt Count Neutrophils # Lymphocytes # Macrocytosis PT INR APTT Sodium Potassium Carbon Dioxide BUN Glucose Plasma Lactic Acid Chris 2.3 H* 2.1 H* Calcium Phosphorus Total Bilirubin Conjugated Bilirubin Delta Bilirubin AST Alkaline Phosphatase Total Protein Albumin Amylase Lipase Urine Protein 1+ H Urine Ketones Trace H Urine Bilirubin 2+ H Ur Leukocyte Esterase Small H Urine WBC 10 H Hyaline Casts 53 H Urine Mucus Many H 06/21/24 06/21/24 06/21/24 01:09 01:09 05:03 WBC 17.8 H RBC 2.44 L Hgb 8.3 L Hct 26.7 L MCV 109.2 H RDW 26.5 H Plt Count 71 L Neutrophils # 16.1 H Lymphocytes # 0.9 L Macrocytosis Marked A PT INR APTT 193.9 H* Sodium Potassium Carbon Dioxide BUN Glucose Plasma Lactic Acid Chris 2.9 H* Calcium Phosphorus Total Bilirubin Conjugated Bilirubin Delta Bilirubin AST Alkaline Phosphatase Total Protein Albumin Amylase Lipase Urine Protein Urine Ketones Urine Bilirubin Ur Leukocyte Esterase Urine WBC Hyaline Casts Urine Mucus 06/21/24 06/21/24 06/21/24 05:03 05:03 09:38 WBC RBC Hgb Hct MCV RDW Plt Count Neutrophils # Lymphocytes # Macrocytosis PT INR APTT 85.5 H Sodium 126 L Potassium 5.3 H Carbon Dioxide 13 L BUN 24 H Glucose 56 L Plasma Lactic Acid Chris 4.3 H* Calcium 7.3 L Phosphorus 5.1 H Total Bilirubin 3.6 H Conjugated Bilirubin Delta Bilirubin AST 78 H Alkaline Phosphatase 818 H Total Protein 5.5 L Albumin 1.8 L Amylase Lipase Urine Protein Urine Ketones Urine Bilirubin Ur Leukocyte Esterase Urine WBC Hyaline Casts Urine Mucus 06/21/24 06/21/24 06/22/24 14:43 17:44 06:31 WBC 12.3 H RBC 2.23 L Hgb 7.8 L Hct 24.5 L MCV 109.9 H RDW 26.2 H Plt Count 59 L Neutrophils # Lymphocytes # Macrocytosis Marked A PT INR APTT 51.0 H Sodium Potassium Carbon Dioxide BUN Glucose Plasma Lactic Acid Chris 2.3 H* Calcium Phosphorus Total Bilirubin Conjugated Bilirubin Delta Bilirubin AST Alkaline Phosphatase Total Protein Albumin Amylase Lipase Urine Protein Urine Ketones Urine Bilirubin Ur Leukocyte Esterase Urine WBC Hyaline Casts Urine Mucus 06/22/24 06/22/24 06:31 06:31 WBC RBC Hgb Hct MCV RDW Plt Count Neutrophils # Lymphocytes # Macrocytosis PT INR APTT 73.6 H Sodium 126 L Potassium Carbon Dioxide 16 L BUN 28 H Glucose 73 L Plasma Lactic Acid Chris Calcium 6.7 L Phosphorus Total Bilirubin 3.2 H Conjugated Bilirubin 0.8 H Delta Bilirubin 1.6 H AST 94 H Alkaline Phosphatase 738 H Total Protein 4.9 L Albumin 1.6 L Amylase Lipase Urine Protein Urine Ketones Urine Bilirubin Ur Leukocyte Esterase Urine WBC Hyaline Casts Urine Mucus - Diagnostic Findings Chest x-ray: image reviewed Assessment and Plan Assessment: Abdominal pain in a patient with previous Whipple procedure and aggressive adjuvant chemotherapy for widely metastatic pancreatic cancer. Ultrasound of the liver reveals multiple metastatic lesions Acute bilateral DVTs of the lower extremities. Initiated on a heparin drip Pleural effusions though the patient remains stable and on room air Pancytopenia Hyponatremia Mellitus Hyperlipidemia History of anxiety Plan: The patient was seen and evaluated Chest x-ray, labs and medications reviewed Will check ultrasound of the chest Stable and on room air The patient is on a heparin drip Prognosis is poor We will continue to follow and make further recommendations based on his clinical status I have personally seen and examined the patient, performed the documentation and the assessment and plan as written. Number of minutes spent on the visit: 20 Dictation was produced using [employer] dictation software. Please excuse any grammatical, word or spelling errors.
[2024-06-22 20:20] LABS: Glucose,Whole Blood 89 mg/dL (70-110)
[2024-06-22] MEDS ORDERED: guaiFENesin 600 MG TABLET.ER PO SCH (21:00)
[2024-06-22] MEDS: LIDOCAINE 4% PATCH TOPICAL SCH (21:08)
[2024-06-22] MEDS: OLANZapine 2.5 MG TAB PO SCH (21:09)
[2024-06-22] MEDS: ATORVASTATIN 10 MG TAB PO SCH (21:09)
[2024-06-22] MEDS: SODIUM BICARBONATE TAB 650 MG TAB PO SCH (21:09)
[2024-06-23 05:56] LABS: Glucose,Whole Blood 79 mg/dL (70-110)
--- NOTE | 2024-06-23 06:22 | P.PN ---
Subjective Progress Note Date: 06/22/24 68-year-old male came in because of severe bilateral flank pain. Patient was also found to have bilateral DVTs. Patient has history of pancreatic cancer for which patient has a Whipple's procedure and completed a chemotherapy is presently receiving radiation therapy. Patient had a CT of the chest and abdomen chest showed bilateral pleural effusions no pulmonary embolism patient does have significant ascites as well patient had a ascitic tap recently. Patient pain is better controlled with Dilaudid at this time I will start him on Eliquis as well as Toradol for pain. 06/22/2024 Patient is seen in follow-up today with multiple consultations following including nephrology, hematology/oncology and pulmonary has been consulted for pleural effusions. Patient is continued on IV heparin for the DVTs and discussing with oncology about initiating Eliquis. Will confirm with pulmonary and oncology if any further intervention being performed at this time prior to initiating the Eliquis. Patient is afebrile reports to feeling okay just tired and weak and has been eating. Patient was able to eat a whole banana today. Continue current other medication regimen. Overall prognosis remains extremely poor and guarded at this time. Review of systems: Constitutional: reports of fatigue, no fever, or chills Cardiovascular: No reports of chest pain or palpitations Respiratory: No reports of shortness of breath or cough GI: No reports of nausea, vomiting, or diarrhea, reports attempting to eat more : No reports of dysuria or retention Neurovascular: reports of extreme weakness and inability to walk All medications have been reviewed PHYSICAL EXAMINATION: GENERAL: The patient is alert and oriented x3, not in any acute distress. Thin built, cachectic male, elderly appearing, extremely ill appearing HEENT: Pupils are round and equally reacting to light. EOMI. No scleral icterus. No conjunctival pallor. Normocephalic, atraumatic. No pharyngeal erythema. No thyromegaly. CARDIOVASCULAR: S1 and S2 present. No murmurs, rubs, or gallops. PULMONARY: Chest is clear to auscultation, no wheezing or crackles. ABDOMEN: Soft, nontender, does have ascites MUSCULOSKELETAL: No joint swelling or deformity. EXTREMITIES: No cyanosis, clubbing, or pedal edema. cachectic, emaciated with s ignificant muscle wasting noted of upper extremities and chest and facial area NEUROLOGICAL no focal deficit with significant generalized weakness SKIN: No rashes. Assessment and plan -Abdominal pain secondary to peritoneal carcinomatosis patient will be started on Toradol as well as Marion along with senna and MiraLAX. -Bilateral pleural effusion secondary to pancreatic cancer patient is not short of breath is not requiring oxygen at this time although may benefit from pleural tap because of patient consulting pulmonary -Bilateral lower extremity DVT for which patient is on IV heparin can be transition to Eliquis -Significant generalized weakness PT and OT consultation -Hyponatremia probably SIADH will obtain urine osmolality serum osmolality fluid restriction, nephrology consultation discontinue IV fluids. Will also obtain urine and sodium -Metastatic pancreatic cancer oncology consultation -Cough symptomatic treatment -Leukocytosis reactive -Type 2 diabetes mellitus -Hypertension For above-mentioned chronic medical problems patient resumed on appropriate home medications DVT prophylaxis: Patient is on IV heparin -GI prophylaxis Protonix Plan: Patient being followed by multiple consultations including oncology, nephrology, and pulmonary consulted. Chest ultrasound performed and considering possible thoracentesis although patient is saturating well on room air and denies shortness of breath. Patient continues on IV heparin for bilateral DVT and discussing initiating El iquis. Will confirm with pulmonary and oncology no further testing is being performed at this time that requires holding anticoagulation Patient remains full code and family wants to continue to pursue other options and will monitor the patient over the next few days for any improvements in functionality Recommend PT/OT therapy daily Follow-up with repeat labs and replace electrolytes per protocol. Transfuse if 7 or less and if requiring platelets Continue Marinol and other appropriate home medications Encourage small frequent meals and sitting up in the chair more often Again overall prognosis is extremely poor and guarded at this time The impression and plan of care has been dictated by Ana Pringle, Nurse Practitioner as directed. Dr. Hua MD I have performed a history and examination and MDM of this patient, discussed the same with the dictator, and agree with the dictator's assessment and plan as written ,documented as a scribe. Based on total visit time, I have performed more than 50% of the visit. Objective - Vital Signs Vital signs: Vital Signs Temp 98.3 F 06/22/24 08:00 Pulse 81 06/22/24 08:00 Resp 18 06/22/24 08:00 BP 84/50 06/22/24 08:00 Pulse Ox 100 06/22/24 08:00 FiO2 Intake & Output 06/21/24 06/22/24 06/22/24 18:59 06:59 18:59 Intake Total 44.847 96.947 37.979 Output Total 150 Balance 44.847 -53.053 37.979 Weight 51.256 kg 77.5 kg Intake: Intake, IV Titration 44.847 96.947 37.979 Amount Heparin Sod,Pork in 0.45% 44.847 96.947 37.979 NaCl 25,000 unit In 0.45 % NaCl 1 250ml.bag @ 18 UNITS/KG/HR 9.226 mls/hr IV .[facility]H [facility] Rx#: [id number] Output: Urine 150 Other: Voiding Method External Catheter # Bowel Movements 1 - Labs CBC & Chem 7: 06/22/24 06:31 06/22/24 19:00 Labs: Abnormal Lab Results - Last 24 Hours (Table) 06/21/24 06/21/24 06/21/24 Range/Units 09:38 14:43 17:44 WBC (3.8-10.6) k/uL RBC (4.30-5.90) m/uL Hgb (13.0-17.5) gm/dL Hct (39.0-53.0) % MCV (80.0-100.0) fL RDW (11.5-15.5) % Plt Count (150-450) k/uL Macrocytosis APTT 85.5 H 51.0 H (22.0-30.0) sec Sodium (137-145) mmol/L Carbon Dioxide (22-30) mmol/L BUN (9-20) mg/dL Glucose (74-99) mg/dL Plasma Lactic Acid Chris 2.3 H* (0.7-2.0) mmol/L Calcium (8.4-10.2) mg/dL Total Bilirubin (0.2-1.3) mg/dL Conjugated Bilirubin (0.0-0.3) mg/dL Delta Bilirubin (0.0-0.2) mg/dL AST (17-59) U/L Alkaline Phosphatase (38-126) U/L Total Protein (6.3-8.2) g/dL Albumin (3.5-5.0) g/dL 06/22/24 06/22/2406/22/24 Range/Units 06:31 06:31 06:31 WBC 12.3 H (3.8-10.6) k/uL RBC 2.23 L (4.30-5.90) m/uL Hgb 7.8 L (13.0-17.5) gm/dL Hct 24.5 L (39.0-53.0) % MCV 109.9 H (80.0-100.0) fL RDW 26.2 H (11.5-15.5) % Plt Count 59 L (150-450) k/uL Macrocytosis Marked A APTT 73.6 H (22.0-30.0) sec Sodium 126 L (137-145) mmol/L Carbon Dioxide 16 L (22-30) mmol/L BUN 28 H (9-20) mg/dL Glucose 73 L (74-99) mg/dL Plasma Lactic Acid Chris (0.7-2.0) mmol/L Calcium 6.7 L (8.4-10.2) mg/dL Total Bilirubin 3.2 H (0.2-1.3) mg/dL Conjugated Bilirubin 0.8 H (0.0-0.3) mg/dL Delta Bilirubin 1.6 H (0.0-0.2) mg/dL AST 94 H (17-59) U/L Alkaline Phosphatase 738 H (38-126) U/L Total Protein 4.9 L (6.3-8.2) g/dL Albumin 1.6 L (3.5-5.0) g/dL
[2024-06-23 06:45] LABS: Anisocytosis Marked; Basophils % (A) 0 %; Eosinophils % (A) 0 %; HGB 7.9 gm/dL (13.0-17.5); Hypochromasia Moderate; Lymphocytes % (A) 7 %; MCH 34.8 pg (25.0-35.0); MCHC 31.6 g/dL (31.0-37.0); Mean Platelet Volume 9.8; Monocytes # (A) 0.6 k/uL (0-1.0); Monocytes % (A) 4 %; Neutrophils % (A) 87 %; RBC 2.27 m/uL (4.30-5.90); WBC 13.8 k/uL (3.8-10.6)
[2024-06-23 07:00] LABS: MCV 110.1 fL (80.0-100.0); Platelet Count 55 k/uL (150-450); RDW 25.8 % (11.5-15.5)
[2024-06-23 07:01] LABS: Macrocytosis Marked
[2024-06-23 07:10] LABS: ALT 37 U/L (4-49); AST 77 U/L (17-59); African American GFR (CKD) >90 (>60 ml/min/1.73 sqM); Albumin 1.6 g/dL (3.5-5.0); Alkaline Phosphatase 737 U/L (38-126); Anion Gap 9 mmol/L; Blood Urea Nitrogen 27 mg/dL (9-20); Calcium 6.7 mg/dL (8.4-10.2); Carbon Dioxide 17 mmol/L (22-30); Chloride 101 mmol/L (98-107); Glucose 80 mg/dL (74-99); Non-African American GFR(CKD) 89 (>60 ml/min/1.73 sqM); Potassium 4.1 mmol/L (3.5-5.1); Sodium 127 mmol/L (137-145); Total Bilirubin 3.6 mg/dL (0.2-1.3); Total Protein 4.9 g/dL (6.3-8.2)
[2024-06-23] MEDS ORDERED: APIXABAN 5 MG TAB PO SCH (09:00)
--- NOTE | 2024-06-23 10:47 | P.PN ---
Subjective Progress Note Date: 06/23/24 Principal diagnosis: Bilateral lower extremity DVT Patient is seen and examined today as a follow-up. He is still on IV heparin drip. He is being followed by oncology. Denies any pain in his lower extremities. Currently has knee-high PÉREZ hose on with improvement in his swell ing. He denies any pain in his legs. Objective - Vital Signs Vital signs: Vital Signs Temp 97.6 F 06/23/24 04:11 Pulse 82 06/23/24 04:11 Resp 20 06/23/24 04:11 BP 90/60 06/23/24 04:11 Pulse Ox 100 06/23/24 04:11 FiO2 Intake & Output 06/22/24 06/23/24 06/23/24 18:59 06:59 18:59 Intake Total 342.899 20 60 Output Total 850 550 Balance -507.101 -530 60 Weight 77.5 kg Intake: IV 79.92 20 Heparin Sod,Pork in 0.45% 79.92 NaCl 25,000 unit In 0.45 % NaCl 1 250ml.bag @ 18 UNITS/KG/HR 9.226 mls/hr IV .Q24H [facility] Rx#: [id number] Invasive Line 2 20 Intake, IV Titration 262.979 Amount Heparin Sod,Pork in 0.45% 37.979 NaCl 25,000 unit In 0.45 % NaCl 1 250ml.bag @ 18 UNITS/KG/HR 9.226 mls/hr IV .Q24H [facility] Rx#: [id number] Sodium Chloride 0.9% 1, 225 000 ml @ 75 mls/hr IV . [id number] [facility] Rx#:[id number] Oral 0 60 Output: Urine 850 550 Other: Voiding Method External Catheter External Catheter - Exam General appearance: The patient is alert, oriented, appears in no acute distress. HET: Head is normocephalic and atraumatic. Neck: Supple. Heart: Regular. Lungs: Equal expansion, normal respiratory effort. Abdomen: Soft, nondistended. Extremities: Normal skin color and turgor. Lower extremity swelling bilaterally. Below the knee swelling has improved and has PÉREZ hose in place. Neurological: No focal deficits. Alert and oriented. - Labs CBC & Chem 7: 06/23/24 06:30 06/23/24 06:30 Labs: Abnormal Lab Results - Last 24 Hours (Table) 06/22/24 06/22/24 06/23/24 Range/Units 10:26 19:00 06:30 WBC (3.8-10.6) k/uL RBC (4.30-5.90) m/uL Hgb (13.0-17.5) gm/dL Hct (39.0-53.0) % MCV (80.0-100.0) fL RDW (11.5-15.5) % Plt Count (150-450) k/uL Neutrophils # (1.3-7.7) k/uL Macrocytosis APTT 58.3 H (22.0-30.0) sec Sodium 125 L (137-145) mmol/L Carbon Dioxide (22-30) mmol/L BUN (9-20) mg/dL Calcium (8.4-10.2) mg/dL Total Bilirubin (0.2-1.3) mg/dL AST (17-59) U/L Alkaline Phosphatase (38-126) U/L Total Protein (6.3-8.2) g/dL Albumin (3.5-5.0) g/dL Ur Random Sodium <20 L (40-220) mmol/L 06/23/24 06/23/24 Range/Units 06:30 06:30 WBC 13.8 H (3.8-10.6) k/uL RBC 2.27 L (4.30-5.90) m/uL Hgb 7.9 L (13.0-17.5) gm/dL Hct 25.0 L (39.0-53.0) % MCV 110.1 H (80.0-100.0) fL RDW 25.8 H (11.5-15.5) % Plt Count 55 L (150-450) k/uL Neutrophils # 12.0 H (1.3-7.7) k/uL Macrocytosis Marked A APTT (22.0-30.0) sec Sodium 127 L (137-145) mmol/L Carbon Dioxide 17 L (22-30) mmol/L BUN 27 H (9-20) mg/dL Calcium 6.7 L (8.4-10.2) mg/dL Total Bilirubin 3.6 H (0.2-1.3) mg/dL AST 77 H (17-59) U/L Alkaline Phosphatase 737 H (38-126) U/L Total Protein 4.9 L (6.3-8.2) g/dL Albumin 1.6 L (3.5-5.0) g/dL Ur Random Sodium (40-220) mmol/L Assessment and Plan Assessment: 1. Bilateral lower extremity DVTs 2. Recurrent pancreatic adenocarcinoma with metastasis to liver 3. Lower extremity edema 4. Generalized anasarca Plan: 1. Apply thigh-high PÉREZ hose to bilateral lower extremities. Elevate lower extremities. 2. Anticoagulation per recommendations from oncology 3. No plans for any vascular surgical intervention 4. Activity as tolerated Thank you for this consultation, we will sign off at this time. The impression and plan of care has been dictated as directed. Dr. Byers I performed a history and examination of this patient, discussed the same with the dictator. I agree with the dictator's note ,documented as a scribe. Any additional findings or plans will be noted.
[2024-06-23 11:27] LABS: Glucose,Whole Blood 111 mg/dL (70-110)
--- NOTE | 2024-06-23 11:31 | PCN ---
PROCEDURE NOTE PROCEDURE: Right-sided thoracentesis. PREOPERATIVE DIAGNOSIS: Right-sided pleural effusion. POSTOPERATIVE DIAGNOSIS: Right-sided pleural effusion. The patient's procedure was done in room 370. There was informed consent and universal timeout. Indication Pleural effusion. A time-out was completed verifying correct patient, procedure, site, positioning , and implant (s) or special equipment if applicable. Ultrasound guidance was/was not used and appropriate fluid pocket was identified and marked. Patient was positioned, prepped and draped in usual sterile fashion. Lidocaine was used to anesthetize the area. A Thoracentesis catheter was introduced into the pleural space and fluid was removed. Blood loss was none. A chest x-ray was ordered to evaluate for pneumothorax. The posterior chest was marked by ultrasound. 800 mL of dark yellow fluid was removed from the right pleural space. The patient tolerated the procedure well. The fluid will be sent for analysis. There was no immediate complication. A chest x-ray was ordered. The heparin can be resumed. MMODL / IJN: [id number] /
--- NOTE | 2024-06-23 12:27 | XR ---
EXAMINATION TYPE: XR chest 1V portable DATE OF EXAM: 06/23/2024 11:08 AM COMPARISON: 06/20/2024 CLINICAL INDICATION: Male, 68 years old with history of S/P thoracentesis, TECHNIQUE: XR chest 1V portable view(s) obtained. FINDINGS: The heart size is normal. The pulmonary vasculature is normal. Minimal infiltrate is within the left lung base. Correlate for atelectasis or pneumonia. Previous rig ht lower lobe infiltrate has improved. Left central venous catheter line enters on the left with the tip in the proximal right atrium. IMPRESSION: 1. Improving right lower lobe infiltrate. 2. Residual left lower lobe infiltrate. Correlate for atelectasis or pneumonia [facility], , 06/23/2024 12:25 PM
--- NOTE | 2024-06-23 13:08 | P.PN ---
Subjective patient is seen for follow-up for hyponatremia and acute kidney injury. Serum sodium increased to 127 today. Status post IV Lasix yesterday. Currently off of IV fluids. BP has been low with systolic in the 80s and 90s. Started on midodrine and so dium bicarb tabs yesterday. No significant shortness of breath. Objective - Vital Signs Vital signs: Vital Signs Temp 97.7 F 06/23/24 09:38 Pulse 78 06/23/24 11:21 Resp 18 06/23/24 11:21 BP 81/53 06/23/24 12:43 Pulse Ox 99 06/23/24 11:21 FiO2 Intake & Output 06/22/24 06/23/24 06/23/24 18:59 06:59 18:59 Intake Total 342.899 20 70 Output Total 850 550 Balance -507.101 -530 70 Weight 77.5 kg Intake: IV 79.92 20 10 Heparin Sod,Pork in 0.45% 79.92 NaCl 25,000 unit In 0.45 % NaCl 1 250ml.bag @ 18 UNITS/KG/HR 9.226 mls/hr IV .Q24H DANIELLE Rx#: [id number] Invasive Line 2 20 10 Intake, IV Titration 262.979 Amount Heparin Sod,Pork in 0.45% 37.979 NaCl 25,000 unit In 0.45 % NaCl 1 250ml.bag @ 18 UNITS/KG/HR 9.226 mls/hr IV .Q24H DANIELLE Rx#: [id number] Sodium Chloride 0.9% 1, 225 000 ml @ 75 mls/hr IV . [id number] DANIELLE Rx#:[id number] Oral 0 60 Output: Urine 850 550 Other: Voiding Method External Catheter External Catheter External Catheter - Exam patient is awake, comfortable, no acute distress. Abdomen is soft nontender Examination of lower extremities shows 2+ edema bilaterally - Labs CBC & Chem 7: 06/23/24 06:30 06/23/24 06:30 Labs: Abnormal Lab Results - Last 24 Hours (Table) 06/22/24 06/22/24 06/23/24 Range/Units 10:26 19:00 06:30 WBC (3.8-10.6) k/uL RBC (4.30-5.90) m/uL Hgb (13.0-17.5) gm/dL Hct (39.0-53.0) % MCV (80.0-100.0) fL RDW (11.5-15.5) % Plt Count (150-450) k/uL Neutrophils # (1.3-7.7) k/uL Macrocytosis APTT 58.3 H (22.0-30.0) sec Sodium 125 L (137-145) mmol/L Carbon Dioxide (22-30) mmol/L BUN (9-20) mg/dL POC Glucose (mg/dL) (70-110) mg/dL Calcium (8.4-10.2) mg/dL Total Bilirubin (0.2-1.3) mg/dL AST (17-59) U/L Alkaline Phosphatase (38-126) U/L Total Protein (6.3-8.2) g/dL Albumin (3.5-5.0) g/dL Ur Random Sodium <20 L (40-220) mmol/L 06/23/24 06/23/24 06/23/24 Range/Units 06:30 06:30 11:26 WBC 13.8 H (3.8-10.6) k/uL RBC 2.27 L (4.30-5.90) m/uL Hgb 7.9 L (13.0-17.5) gm/dL Hct 25.0 L (39.0-53.0) % MCV 110.1 H (80.0-100.0) fL RDW 25.8 H (11.5-15.5) % Plt Count 55 L (150-450) k/uL Neutrophils # 12.0 H (1.3-7.7) k/uL Macrocytosis Marked A APTT (22.0-30.0) sec Sodium 127 L (137-145) mmol/L Carbon Dioxide 17 L (22-30) mmol/L BUN 27 H (9-20) mg/dL POC Glucose (mg/dL) 111 H (70-110) mg/dL Calcium 6.7 L (8.4-10.2) mg/dL Total Bilirubin 3.6 H (0.2-1.3) mg/dL AST 77 H (17-59) U/L Alkaline Phosphatase 737 H (38-126) U/L Total Protein 4.9 L (6.3-8.2) g/dL Albumin 1.6 L (3.5-5.0) g/dL Ur Random Sodium (40-220) mmol/L Assessment and Plan Assessment: 1. Hyponatremia, appears hypervolemic. Blood pressure is low and patient has lower extremity edema which is also related to DVT. CT of the abdomen does show diffuse abdominal wall edema/anasarca. Currently maintained on normal saline. 2. Metastatic pancreatic cancer status post Whipple's procedure and chemotherapy 3. Acute kidney injury, nonoliguric associated with hypotension 4. Acute bilateral lower extremity DVT 5. Hyperkalemia associated with acute kidney injury, improved 6. Non-gap metabolic acidosis associated with acute kidney injury and IV fluids Plan: continue off of normal saline and Toradol. Repeat IV Lasix Continue with midodrine for hypotension Continue with oral sodium bicarb. Repeat labs in a.m.
--- NOTE | 2024-06-23 14:56 | P.PN ---
Subjective Progress Note Date: 06/23/24 Principal diagnosis: Bilateral pleural effusion. This is a 68-year-old male patient with a recent diagnosis of widespread metastatic pancreatic adenocarcinoma and had undergone a Whipple procedure in January 2024 at [facility]. He had also received 6 cycles of FOLFIRINOX. He also received palliative radiation to the liver mass. He had presented here to the emergency room on 06/20/2024 with the weakness, abdominal pain and cramping. Chest x-ray revealed patchy interstitial opacities and small effusions bilaterally. Doppler of the lower extremities revealed bilateral DVTs. Ultrasound of the liver revealed multiple hepatic lesions suspicious for metastatic disease. Mild ascites. Small right pleural effusion. White count 12.3. Hemoglobin 7.8. Platelets 59,000. Sodium 126. Potassium 4.8. Bicarb 16. BUN 28. Creatinine 1.05. Glucose 73. He is seen today in consultation on the selective care unit. He is currently resting in bed. Awake and alert. Maintaining good O2 saturations in the 90s on room air. Afebrile. He has been initiated on a heparin drip. Received IV Lasix. Progress note dated June 23, 2024. 68-year-old male seen in consultation yesterday, for bilateral pleural effusions. Today, the patient had a right-sided thoracentesis, and 800 cc of dark yellow fluid was removed from the right pleural space. The patient's fluid was sent for analysis including cytology, microbiology, and chemistry. The fluid looks exudative. Anyway, the patient tolerated the procedure well. He was on IV heparin which was turned off for about an hour before the procedure. The patient is not receiving any supplemental oxygen. Current labs include a white count 13.8, hemoglobin 7.9, hematocrit 25, and a platelet count of 55,000. PTT is 58.3. Sodium 127, potassium 4.1, chlorides 101, CO2 17, BUN 27, creatinine 0.89. Albumin is only 1.6. Chest x-ray after the procedure, shows an improving right lower lobe infiltrate, and effusion. Objective - Vital Signs Vital signs: Vital Signs Temp 97.7 F 06/23/24 09:38 Pulse 78 06/23/24 14:00 Resp 18 06/23/24 14:00 BP 81/53 06/23/24 12:43 Pulse Ox 99 06/23/24 11:21 FiO2 Intake & Output 06/22/24 06/23/24 06/23/24 18:59 06:59 18:59 Intake Total 342.899 20 347.775 Output Total 850 550 Balance -507.101 -530 347.775 Weight 77.5 kg Intake: IV 79.92 20 20 Heparin Sod,Pork in 0.45% 79.92 NaCl 25,000 unit In 0.45 % NaCl 1 250ml.bag @ 18 UNITS/KG/HR 9.226 mls/hr IV .Q24H DANIELLE Rx#: [id number] Invasive Line 2 20 20 Intake, IV Titration 262.979 207.775 Amount Heparin Sod,Pork in 0.45% 37.979 207.775 NaCl 25,000 unit In 0.45 % NaCl 1 250ml.bag @ 18 UNITS/KG/HR 9.226 mls/hr IV .Q24H DANIELLE Rx#: [id number] Sodium Chloride 0.9% 1, 225 000 ml @ 75 mls/hr IV . [id number] DANIELLE Rx#:[id number] Oral 0 120 Output: Urine 850 550 Other: Voiding Method External Catheter External Catheter External Catheter - Exam No acute distress, oriented 3. No respiratory distress. Currently on room air. HEENT examination is grossly unremarkable. Mucous membranes are moist. No oral lesions. Neck supple. Full range of motion. No adenopathy thyromegaly or neck vein distention. Cardiovascular examination reveals regular rhythm rate. S1-S2 normal. No S3 or S4. No discernible murmur noted. Lungs reveal diminished bibasilar breath sounds. No rhonchi. No wheezes. No crackles. Abdomen distended, with normal bowel sounds. Extremities are intact. No cyanosis clubbing or edema. Skin is without rash or lesion. Neurologic examination is brief but nonfocal. - Labs CBC & Chem 7: 06/23/24 06:30 06/23/24 06:30 Labs: Abnormal Lab Results - Last 24 Hours (Table) 06/22/24 06/22/24 06/23/24 Range/Units 10:26 19:00 06:30 WBC (3.8-10.6) k/uL RBC (4.30-5.90) m/uL Hgb (13.0-17.5) gm/dL Hct (39.0-53.0) % MCV (80.0-100.0) fL RDW (11.5-15.5) % Plt Count (150-450) k/uL Neutrophils # (1.3-7.7) k/uL Macrocytosis APTT 58.3 H (22.0-30.0) sec Sodium 125 L (137-145) mmol/L Carbon Dioxide (22-30) mmol/L BUN (9-20) mg/dL POC Glucose (mg/dL) (70-110) mg/dL Calcium (8.4-10.2) mg/dL Total Bilirubin (0.2-1.3) mg/dL AST (17-59) U/L Alkaline Phosphatase (38-126) U/L Total Protein (6.3-8.2) g/dL Albumin (3.5-5.0) g/dL Ur Random Sodium <20 L (40-220) mmol/L 06/23/24 06/23/24 06/23/24 Range/Units 06:30 06:30 11:26 WBC 13.8 H (3.8-10.6) k/uL RBC 2.27 L (4.30-5.90) m/uL Hgb 7.9 L (13.0-17.5) gm/dL Hct 25.0 L (39.0-53.0) % MCV 110.1 H (80.0-100.0) fL RDW 25.8 H (11.5-15.5) % Plt Count 55 L (150-450) k/uL Neutrophils # 12.0 H (1.3-7.7) k/uL Macrocytosis Marked A APTT (22.0-30.0) sec Sodium 127 L (137-145) mmol/L Carbon Dioxide 17 L (22-30) mmol/L BUN 27 H (9-20) mg/dL POC Glucose (mg/dL) 111 H (70-110) mg/dL Calcium 6.7 L (8.4-10.2) mg/dL Total Bilirubin 3.6 H (0.2-1.3) mg/dL AST 77 H (17-59) U/L Alkaline Phosphatase 737 H (38-126) U/L Total Protein 4.9 L (6.3-8.2) g/dL Albumin 1.6 L (3.5-5.0) g/dL Ur Random Sodium (40-220) mmol/L Assessment and Plan Assessment: Abdominal pain in a patient with previous Whipple procedure and aggressive adjuvant chemotherapy for widely metastatic pancreatic cancer. Ultrasound of the liver reveals multiple metastatic lesions. Acute bilateral DVTs of the lower extremities. Bilateral pleural effusions. Pancytopenia. Hyponatremia. Diabetes mellitus. Hyperlipidemia. History of anxiety. Plan: Plan dated June 23, 2024. The patient was agreeable to have thoracentesis performed. He had bilateral pleural effusions, right greater than left. We did a right sided thoracentesis today. The patient tolerated the procedure well. There is no complication after the procedure. Were able to remove 800 cc of dark yellow fluid from the right pleural space. The patient tolerated the procedure well without complication. Additional recommendations and suggestions are forthcoming. Prognosis is poor. CODE STATUS should be addressed. Time with Patient: Less than 30
[2024-06-23 16:35] LABS: Glucose,Whole Blood 90 mg/dL (70-110)
[2024-06-23] MEDS: FUROSEMIDE 10 MG/ML 4 ML VIAL IV STA (17:06)
--- NOTE | 2024-06-23 17:33 | P.PN ---
Subjective Progress Note Date: 06/23/24 No acute events. Pt denying abd pain and vomiting. Bilirubin, LFTs stable. WBC 13.8, hgb 7.9, plt 55. S/p right sided thoracentesis with 800cc removed Objective - Vital Signs Vital signs: Vital Signs Temp 97.7 F 06/23/24 09:38 Pulse 78 06/23/24 11:21 Resp 18 06/23/24 11:21 BP 78/52 06/23/24 11:21 Pulse Ox 99 06/23/24 11:21 FiO2 Intake & Output 06/22/24 06/23/24 06/23/24 18:59 06:59 18:59 Intake Total 342.899 20 70 Output Total 850 550 Balance -507.101 -530 70 Weight 77.5 kg Intake: IV 79.92 20 10 Heparin Sod,Pork in 0.45% 79.92 NaCl 25,000 unit In 0.45 % NaCl 1 250ml.bag @ 18 UNITS/KG/HR 9.226 mls/hr IV .Q24H DANIELLE Rx#: [id number] Invasive Line 2 20 10 Intake, IV Titration 262.979 Amount Heparin Sod,Pork in 0.45% 37.979 NaCl 25,000 unit In 0.45 % NaCl 1 250ml.bag @ 18 UNITS/KG/HR 9.226 mls/hr IV .Q24H DANIELLE Rx#: [id number] Sodium Chloride 0.9% 1, 225 000 ml @ 75 mls/hr IV . [id number] DANIELLE Rx#:[id number] Oral 0 60 Output: Urine 850 550 Other: Voiding Method External Catheter External Catheter - Constitutional General appearance: Present: no acute distress, thin - EENT Eyes: Present: scleral icterus - Respiratory Details: breathing is even and unlabored - Cardiovascular Details: skin warm and dry - Integumentary Integumentary: Present: jaundiced. Absent: cyanotic - Musculoskeletal Musculoskeletal: Present: generalized weakness - Psychiatric Psychiatric: Present: A&O x's 3 - Labs CBC & Chem 7: 06/23/24 06:30 06/23/24 06:30 Labs: Abnormal Lab Results - Last 24 Hours (Table) 06/22/24 06/22/24 06/23/24 Range/Units 10:26 19:00 06:30 WBC (3.8-10.6) k/uL RBC (4.30-5.90) m/uL Hgb (13.0-17.5) gm/dL Hct (39.0-53.0) % MCV (80.0-100.0) fL RDW (11.5-15.5) % Plt Count (150-450) k/uL Neutrophils # (1.3-7.7) k/uL Macrocytosis APTT 58.3 H (22.0-30.0) sec Sodium 125 L (137-145) mmol/L Carbon Dioxide (22-30) mmol/L BUN (9-20) mg/dL POC Glucose (mg/dL) (70-110) mg/dL Calcium (8.4-10.2) mg/dL Total Bilirubin (0.2-1.3) mg/dL AST (17-59) U/L Alkaline Phosphatase (38-126) U/L Total Protein (6.3-8.2) g/dL Albumin (3.5-5.0) g/dL Ur Random Sodium <20 L (40-220) mmol/L 06/23/24 06/23/24 06/23/24 Range/Units 06:30 06:30 11:26 WBC 13.8 H (3.8-10.6) k/uL RBC 2.27 L (4.30-5.90) m/uL Hgb 7.9 L (13.0-17.5) gm/dL Hct 25.0 L (39.0-53.0) % MCV 110.1 H (80.0-100.0) fL RDW 25.8 H (11.5-15.5) % Plt Count 55 L (150-450) k/uL Neutrophils # 12.0 H (1.3-7.7) k/uL Macrocytosis Marked A APTT (22.0-30.0) sec Sodium 127 L (137-145) mmol/L Carbon Dioxide 17 L (22-30) mmol/L BUN 27 H (9-20) mg/dL POC Glucose (mg/dL) 111 H (70-110) mg/dL Calcium 6.7 L (8.4-10.2) mg/dL Total Bilirubin 3.6 H (0.2-1.3) mg/dL AST 77 H (17-59) U/L Alkaline Phosphatase 737 H (38-126) U/L Total Protein 4.9 L (6.3-8.2) g/dL Albumin 1.6 L (3.5-5.0) g/dL Ur Random Sodium (40-220) mmol/L Assessment and Plan (1) Abdominal pain Current Visit: Yes Status: Acute Code(s): R10.9 - UNSPECIFIED ABDOMINAL PAIN SNOMED Code(s): 69788182 (2) Abnormal liver enzymes Current Visit: Yes Status: Acute Code(s): R74.8 - ABNORMAL LEVELS OF OTHER SERUM ENZYMES SNOMED Code(s): 355935660 (3) Bicytopenia Current Visit: Yes Status: Acute Code(s): D75.89 - OTHER SPECIFIED DISEASES OF BLOOD AND BLOOD-FORMING ORGANS SNOMED Code(s): 54303084 (4) DVT, bilateral lower limbs Current Visit: Yes Status: Acute Code(s): I82.403 - ACUTE EMBOLISM AND THOMBOS UNSP DEEP VEINS OF LOW EXTRM, BI SNOMED Code(s): 491429211 (5) Hyponatremia Current Visit: Yes Status: Acute Code(s): E87.1 - HYPO-OSMOLALITY AND HYPONATREMIA SNOMED Code(s): 45964526 (6) Metastatic disease Current Visit: Yes Status: Acute Code(s): C79.9 - SECONDARY MALIGNANT NEOPLASM OF UNSPECIFIED SITE SNOMED Code(s): 602222157 (7) Pancreatic cancer Current Visit: Yes Status: Acute Code(s): C25.9 - MALIGNANT NEOPLASM OF PANCREAS, UNSPECIFIED SNOMED Code(s): 144230761 Plan: DVT: The patient has new diagnosis of the same, with Dopplers being done due to progressive lower extremity swelling. It was discussed with the patient and his family, that the presence of metastatic malignancy is a major risk factor for development of venous thromboembolism. The patient has other risk factors, including recent hospitalization, intravascular volume depletion, and markedly diminished activity level. -Vascular surgery following -Agree with IV heparin. Transition to oral AC once no intervention/procedures planned. Choice of outpatient anticoagulation would be dependent on his liver function. -Check CT angiogram within the next few days for baseline Bicytopenia: The patient is felt to have low hemoglobin, due to anemia of malignan cy/inflammation. The thrombocytopenia is new, compared to his recent admission. Differentials include effect of progressive liver damage, as well as tumor associated DIC .Plt counts are in a safe range. DIC workup negative, making progressive liver damage more likely. -Transfuse to keep platelet counts greater than 50,000 to maintain AC for acute VTE. Transfuse for hgb less than 7 or if symptomatic -Continue to closely monitor CBC Elevated LFTs: There has been a significant increase in his total bilirubin, as well as alkaline phosphatase. Possible etiologies for the same were discussed in detail with the patient and his family. CT scan did not mention any evidence of biliary obstruction. Dedicated ultrasound also showed no evidence of extrahepatic biliary obstruction. Hyperbilirubemia and elevated LFTs most likely due to progression of the malignancy in the liver parenchyma. Pleural effusion: -S/p right sided thoracentesis, with 800cc removed -Fluid studies pending Pancreatic adenocarcinoma: The prognosis in this situation is quite guarded. The patient had developed widespread metastatic disease, while on aggressive adjuvant chemotherapy. Currently performance status is quite poor. Concern for rapid parenchymal progression of metastatic disease, which indicates a poor prognosis, and is typically difficult to reverse even with aggressive chemotherapy given emergently. It was therefore discussed that his performance status remains poor and/or he has evidence of aggressive parenchymal hepatic progression, it would be reasonable to consider a comfort care approach. Family and pt verbalized understanding, and at this time would like to see how patient does over course of hospitalization. Family states patient would like to consider other treatment options and does not want to pursue comfort care measures at this time. -NGS testing did not reveal targetable mutations and MSI was stable, so he is not a candidate for IO. Still awaiting guardant testing. Unfortunately at this time, treatment options would be limited, and pt would need to have improvement in his performance status which is his current condition and disease state could be difficult to achieve All questions and concerns were addressed -Will continue to monitor closely and make further recommendations depending on the patient's course
[2024-06-23 20:13] LABS: Glucose,Whole Blood 87 mg/dL (70-110)
[2024-06-23 20:18] LABS: Appearance,BF Slightly Cloudy (Clear)
[2024-06-24 06:03] LABS: Glucose,Whole Blood 77 mg/dL (70-110)
--- NOTE | 2024-06-24 06:22 | P.PN ---
Subjective Progress Note Date: 06/23/24 68-year-old male came in because of severe bilateral flank pain. Patient was also found to have bilateral DVTs. Patient has history of pancreatic cancer for which patient has a Whipple's procedure and completed a chemotherapy is presently receiving radiation therapy. Patient had a CT of the chest and abdomen chest showed bilateral pleural effusions no pulmonary embolism patient does have significant ascites as well patient had a ascitic tap recently. Patient pain is better controlled with Dilaudid at this time I will start him on Eliquis as well as Toradol for pain. 06/22/2024 Patient is seen in follow-up today with multiple consultations following including nephrology, hematology/oncology and pulmonary has been consulted for pleural effusions. Patient is continued on IV heparin for the DVTs and discussing with oncology about initiating Eliquis. Will confirm with pulmonary and oncology if any further intervention being performed at this time prior to initiating the Eliquis. Patient is afebrile reports to feeling okay just tired and weak and has been eating. Patient was able to eat a whole banana today. Continue current other medication regimen. Overall prognosis remains extremely poor and guarded at this time. 06/23/2024 Patient is seen in follow-up today currently undergoing thoracentesis with pulmonary at the bedside of the right today. Plans for left-sided thoracentesis in the next day or so. Continue IV heparin for now and will transition to Eliquis once cleared by hematology and pulmonary. Patient is afebrile continues with significant weakness and overall significant clinical decline. Review of systems: Constitutional: reports of fatigue, no fever, or chills Cardiovascular: No reports of chest pain or palpitations Respiratory: No reports of shortness of breath or cough GI: No reports of nausea, vomiting, or diarrhea, reports attempting to eat more : No reports of dysuria or retention Neurovascular: reports of extreme weakness and inability to walk All medications have been reviewed PHYSICAL EXAMINATION: GENERAL: The patient is alert and oriented x3, not in any acute distress. Thin built, cachectic male, elderly appearing, extremely ill appearing HEENT: Pupils are round and equally reacting to light. EOMI. No scleral icterus. No conjunctival pallor. Normocephalic, atraumatic. No pharyngeal erythema. No thyromegaly. CARDIOVASCULAR: S1 and S2 present. No murmurs, rubs, or gallops. PULMONARY: Chest is clear to auscultation, no wheezing or crackles. ABDOMEN: Soft, nontender, does have ascites MUSCULOSKELETAL: No joint swelling or deformity. EXTREMITIES: No cyanosis, clubbing, or pedal edema. cachectic, emaciated with significant muscle wasting noted of upper extremities and chest and facial area NEUROLOGICAL no focal deficit with significant generalized weakness SKIN: No rashes. Assessment and plan -Abdominal pain secondary to peritoneal carcinomatosis patient will be started on Toradol as well as [place] along with senna and MiraLAX. -Bilateral pleural effusion secondary to pancreatic cancer, currently undergoing thoracentesis on the right with plans to have a thoracentesis on the left in the next 1 to 2 days. -Bilateral lower extremity DVT for which patient is on IV heparin can be transition to Eliquis and will transition to Eliquis after thoracentesis have been completed -Significant generalized weakness PT and OT consultation -Hyponatremia probably SIADH will obtain urine osmolality serum osmolality fluid restriction, nephrology consultation discontinue IV fluids. Will also obtain urine and sodium -Metastatic pancreatic cancer oncology consultation -Cough symptomatic treatment -Leukocytosis reactive -Type 2 diabetes mellitus -Hypertension For above-mentioned chronic medical problems patient resumed on appropriate home medications DVT prophylaxis: Patient is on IV heparin -GI prophylaxis Protonix Plan: Patient being followed by multiple consultations including oncology, nephrology, and pulmonary following. Chest ultrasound performed and patient currently undergoing right-sided thoracentesis at the bedside today. Plans for left-sided thoracentesis in the next 1 to 2 days per pulmonary Patient continues on IV heparin for bilateral DVT and discussing initiating Eliquis. Will confirm with pulmonary and oncology no further testing is being performed at this time that requires holding anticoagulation. Will continue with IV heparin for now and discuss with oncology and pulmonary once th oracentesis have been completed and when to resume Eliquis Patient remains full code and family wants to continue to pursue other options and will monitor the patient over the next few days for any improvements in functionality Recommend PT/OT therapy daily Follow-up with repeat labs and replace electrolytes per protocol. Transfuse if 7 or less and if requiring platelets Continue Marinol and other appropriate home medications Encourage small frequent meals and sitting up in the chair more often. Recommend aspiration precautions and supervision with meals as patient is significantly weak and having difficulty Again overall prognosis is extremely poor and guarded at this time The impression and plan of care has been dictated by Ana Pringle, Nurse Practitioner as directed. Dr. Hua MD I have performed a history and examination and MDM of this patient, discussed the same with the dictator, and agree with the dictator's assessment and plan as written ,documented as a scribe. Based on total visit time, I have performed more than 50% of the visit. Objective - Vital Signs Vital signs: Vital Signs Temp 97.4 F L 06/24/24 04:02 Pulse 67 06/24/24 04:02 Resp 16 06/24/24 04:02 BP 113/67 06/24/24 04:02 Pulse Ox 97 06/24/24 04:02 FiO2 Intake & Output 06/23/24 06/23/24 06/24/24 06:59 18:59 06:59 Intake Total 20 347.775 20 Output Total 550 650 350 Balance -530 -302.225 -330 Intake: IV 20 20 20 Invasive Line 2 20 20 20 Intake, IV Titration 207.775 Amount Heparin Sod,Pork in 0.45% 207.775 NaCl 25,000 unit In 0.45 % NaCl 1 250ml.bag @ 18 UNITS/KG/HR 9.226 mls/hr IV .Q24H [facility] Rx#: [id number] Oral 120 Output: Urine 550 650 350 Other: Voiding Method External Catheter External Catheter External Catheter # Bowel Movements 1 - Labs CBC & Chem 7: 06/23/24 06:30 06/23/24 06:30 Labs: Abnormal Lab Results - Last 24 Hours (Table) 06/23/24 06/23/24 06/23/24 Range/Units 06:30 06:30 06:30 WBC 13.8 H (3.8-10.6) k/uL RBC 2.27 L (4.30-5.90) m/uL Hgb 7.9 L (13.0-17.5) gm/dL Hct 25.0 L (39.0-53.0) % MCV 110.1 H (80.0-100.0) fL RDW 25.8 H (11.5-15.5) % Plt Count 55 L (150-450) k/uL Neutrophils # 12.0 H (1.3-7.7) k/uL Macrocytosis Marked A APTT 58.3 H (22.0-30.0) sec Sodium 127 L (137-145) mmol/L Carbon Dioxide 17 L (22-30) mmol/L BUN 27 H (9-20) mg/dL POC Glucose (mg/dL) (70-110) mg/dL Calcium 6.7 L (8.4-10.2) mg/dL Total Bilirubin 3.6 H (0.2-1.3) mg/dL AST 77 H (17-59) U/L Alkaline Phosphatase 737 H (38-126) U/L Total Protein 4.9 L (6.3-8.2) g/dL Albumin 1.6 L (3.5-5.0) g/dL Fluid Appearance (Clear) 06/23/24 06/23/24 Range/Units 11:26 11:45 WBC (3.8-10.6) k/uL RBC (4.30-5.90) m/uL Hgb (13.0-17.5) gm/dL Hct (39.0-53.0) % MCV (80.0-100.0) fL RDW (11.5-15.5) % Plt Count (150-450) k/uL Neutrophils # (1.3-7.7) k/uL Macrocytosis APTT (22.0-30.0) sec Sodium (137-145) mmol/L Carbon Dioxide (22-30) mmol/L BUN (9-20) mg/dL POC Glucose (mg/dL) 111 H (70-110) mg/dL Calcium (8.4-10.2) mg/dL Total Bilirubin (0.2-1.3) mg/dL AST (17-59) U/L Alkaline Phosphatase (38-126) U/L Total Protein (6.3-8.2) g/dL Albumin (3.5-5.0) g/dL Fluid Appearance Slightly Cloudy A (Clear) Microbiology - Last 24 Hours (Table) 06/23/24 11:45 Gram Stain - Preliminary Pleural Fluid
[2024-06-24 07:00] LABS: Anisocytosis Marked; Basophils % (A) 0 %; Eosinophils % (A) 0 %; HCT 24.1 % (39.0-53.0); HGB 7.9 gm/dL (13.0-17.5); Hypochromasia Moderate; Lymphocytes # (A) 0.8 k/uL (1.0-4.8); Lymphocytes % (A) 7 %; MCH 36.3 pg (25.0-35.0); MCHC 32.9 g/dL (31.0-37.0); MCV 110.3 fL (80.0-100.0); Macrocytosis Marked; Mean Platelet Volume 9.9; Monocytes # (A) 0.4 k/uL (0-1.0); Monocytes % (A) 4 %; Neutrophils # (A) 9.9 k/uL (1.3-7.7); Neutrophils % (A) 87 %; RBC 2.19 m/uL (4.30-5.90); WBC 11.4 k/uL (3.8-10.6)
[2024-06-24 07:04] LABS: RDW 25.9 % (11.5-15.5)
[2024-06-24 07:05] LABS: ALT 33 U/L (4-49); AST 65 U/L (17-59); African American GFR (CKD) >90 (>60 ml/min/1.73 sqM); Albumin 1.5 g/dL (3.5-5.0); Alkaline Phosphatase 727 U/L (38-126); Anion Gap 6 mmol/L; Blood Urea Nitrogen 28 mg/dL (9-20); Carbon Dioxide 18 mmol/L (22-30); Chloride 101 mmol/L (98-107); Glucose 71 mg/dL (74-99); Non-African American GFR(CKD) >90 (>60 ml/min/1.73 sqM); Platelet Count 35 k/uL (150-450); Potassium 3.9 mmol/L (3.5-5.1); Sodium 125 mmol/L (137-145); Total Bilirubin 3.7 mg/dL (0.2-1.3); Total Protein 4.8 g/dL (6.3-8.2)
[2024-06-24] MEDS: FUROSEMIDE 10 MG/ML 4 ML VIAL IV SCH (11:48)
[2024-06-24 11:52] LABS: Glucose,Whole Blood 83 mg/dL (70-110)
--- NOTE | 2024-06-24 12:57 | P.PN ---
Subjective patient is seen for follow-up for hyponatremia and acute kidney injury. Serum sodium fluctuates between 125-127. Maintained on IV Lasix. Currently off of IV fluids. BP has been low with systolic in the 80s and 90s. Started on midodrine and sodium bicarb tabs No significant shortness of breath. Objective - Vital Signs Vital signs: Vital Signs Temp 97.3 F L 06/24/24 11:10 Pulse 80 06/24/24 11:10 Resp 14 06/24/24 11:10 BP 84/52 06/24/24 11:10 Pulse Ox 98 06/24/24 11:10 FiO2 Intake & Output 06/23/24 06/24/24 06/24/24 18:59 06:59 18:59 Intake Total 347.775 20 129.934 Output Total 650 350 Balance -302.225 -330 129.934 Intake: IV 20 20 10 Invasive Line 2 20 20 10 Intake, IV Titration 207.775 119.934 Amount Heparin Sod,Pork in 0.45% 207.775 119.934 NaCl 25,000 unit In 0.45 % NaCl 1 250ml.bag @ 18 UNITS/KG/HR 9.226 mls/hr IV .Q24H [facility] Rx#: [id number] Oral 120 Output: Urine 650 350 Other: Voiding Method External Catheter External Catheter External Catheter # Bowel Movements 1 - Exam patient is awake, comfortable, no acute distress. Examination of the heart S1 and S2 Examination of the lungs bilateral breath sounds are heard Abdomen is soft nontender Examination of lower extremities shows 2+ edema bilaterally - Labs CBC & Chem 7: 06/24/24 06:15 06/24/24 06:15 Labs: Abnormal Lab Results - Last 24 Hours (Table) 06/23/24 06/24/24 06/24/24 Range/Units 11:45 06:15 06:15 WBC 11.4 H (3.8-10.6) k/uL RBC 2.19 L (4.30-5.90) m/uL Hgb 7.9 L (13.0-17.5) gm/dL Hct 24.1 L (39.0-53.0) % MCV 110.3 H (80.0-100.0) fL MCH 36.3 H (25.0-35.0) pg RDW 25.9 H (11.5-15.5) % Plt Count 35 L (150-450) k/uL Neutrophils # 9.9 H (1.3-7.7) k/uL Lymphocytes # 0.8 L (1.0-4.8) k/uL Macrocytosis Marked A APTT (22.0-30.0) sec Sodium 125 L (137-145) mmol/L Carbon Dioxide 18 L (22-30) mmol/L BUN 28 H (9-20) mg/dL Glucose 71 L (74-99) mg/dL Calcium 7.0 L (8.4-10.2) mg/dL Total Bilirubin 3.7 H (0.2-1.3) mg/dL AST 65 H (17-59) U/L Alkaline Phosphatase 727 H (38-126) U/L Total Protein 4.8 L (6.3-8.2) g/dL Albumin 1.5 L (3.5-5.0) g/dL Fluid Appearance Slightly Cloudy A (Clear) 06/24/24 Range/Units 06:15 WBC (3.8-10.6) k/uL RBC (4.30-5.90) m/uL Hgb (13.0-17.5) gm/dL Hct (39.0-53.0) % MCV (80.0-100.0) fL MCH (25.0-35.0) pg RDW (11.5-15.5) % Plt Count (150-450) k/uL Neutrophils # (1.3-7.7) k/uL Lymphocytes # (1.0-4.8) k/uL Macrocytosis APTT 55.4 H (22.0-30.0) sec Sodium (137-145) mmol/L Carbon Dioxide (22-30) mmol/L BUN (9-20) mg/dL Glucose (74-99) mg/dL Calcium (8.4-10.2) mg/dL Total Bilirubin (0.2-1.3) mg/dL AST (17-59) U/L Alkaline Phosphatase (38-126) U/L Total Protein (6.3-8.2) g/dL Albumin (3.5-5.0) g/dL Fluid Appearance (Clear) Microbiology - Last 24 Hours (Table) 06/23/24 11:45 Gram Stain - Preliminary Pleural Fluid Assessment and Plan Assessment: 1. Hyponatremia, appears hypervolemic. Blood pressure is low and patient has lower extremity edema which is also related to DVT. CT of the abdomen does show diffuse abdominal wall edema/anasarca. Status post IV fluids now being diuresed 2. Metastatic pancreatic cancer status post Whipple's procedure and chemotherapy 3. Acute kidney injury, nonoliguric associated with hypotension 4. Acute bilateral lower extremity DVT 5. Hyperkalemia associated with acute kidney injury, improved 6. Non-gap metabolic acidosis associated with acute kidney injury and IV fluids Plan: continue off of normal saline and Toradol. continue with IV Lasix [place] x1 today Continue with midodrine for hypotension Continue with oral sodium bicarb. Repeat labs in a.m.
[2024-06-24 13:06] LABS: Total Protein 4.8 g/dL (6.3-8.2)
--- NOTE | 2024-06-24 15:51 | P.PN ---
Subjective Progress Note Date: 06/24/24 Principal diagnosis: Bilateral pleural effusion. This is a 68-year-old male patient with a recent diagnosis of widespread metastatic pancreatic adenocarcinoma and had undergone a Whipple procedure in January 2024 at [facility]. He had also received 6 cycles of FOLFIRINOX. He also received palliative radiation to the liver mass. He had presented here to the emergency room on 06/20/2024 with the weakness, abdominal pain and cramping. Chest x-ray revealed patchy interstitial opacities and small effusions bilaterally. Doppler of the lower extremities revealed bilateral DVTs. Ultrasound of the liver revealed multiple hepatic lesions suspicious for metastatic disease. Mild ascites. Small right pleural effusion. White count 12.3. Hemoglobin 7.8. Platelets 59,000. Sodium 126. Potassium 4.8. Bicarb 16. BUN 28. Creatinine 1.05. Glucose 73. He is seen today in consultation on the selective care unit. He is currently resting in bed. Awake and alert. Maintaining good O2 saturations in the 90s on room air. Afebrile. He has been initiated on a heparin drip. Received IV Lasix. Progress note dated June 23, 2024. 68-year-old male seen in consultation yesterday, for bilateral pleural effusions. Today, the patient had a right-sided thoracentesis, and 800 cc of dark yellow fluid was removed from the right pleural space. The patient's fluid was sent for analysis including cytology, microbiology, and chemistry. The fluid looks exudative. Anyway, the patient tolerated the procedure well. He was on IV heparin which was turned off for about an hour before the procedure. The patient is not receiving any supplemental oxygen. Current labs include a white count 13.8, hemoglobin 7.9, hematocrit 25, and a platelet count of 55,000. PTT is 58.3. Sodium 127, potassium 4.1, chlorides 101, CO2 17, BUN 27, creatinine 0.89. Albumin is only 1.6. Chest x-ray after the procedure, shows an improving right lower lobe infiltrate, and effusion. Progress note dated June 24, 2024. This is a 68-year-old male with history of pancreatic cancer. We are consulted for bilateral pleural effusions. Yesterday, we did a right sided thoracentesis. 800 cc of fluid was removed. The patient is currently on room air. Saturations are excellent. He continues on IV heparin. There were no plans for thoracentesis on the left side today. The effusion on the left side was smaller. The fluid was sent for analysis. The patient's white count was 11.4, hemoglobin 7.9, hematocrit 24.1, platelet count was 35,000. PTT was 55.4. Sodium 125, potassium 3.9, chlorides 101, CO2 18, BUN 28, and creatinine 0.87. Glucose was 83. Albumin was 1.5. Objective - Vital Signs Vital signs: Vital Signs Temp 97.3 F L 06/24/24 11:10 Pulse 80 06/24/24 11:10 Resp 14 06/24/24 11:10 BP 84/52 06/24/24 11:10 Pulse Ox 98 06/24/24 11:10 FiO2 Intake & Output 06/23/24 06/24/24 06/24/24 18:59 06:59 18:59 Intake Total 347.775 20 139.934 Output Total 650 350 Balance -302.225 -330 139.934 Intake: IV 20 20 20 Invasive Line 2 20 20 20 Intake, IV Titration 207.775 119.934 Amount Heparin Sod,Pork in 0.45% 207.775 119.934 NaCl 25,000 unit In 0.45 % NaCl 1 250ml.bag @ 18 UNITS/KG/HR 9.226 mls/hr IV .Q24H [facility] Rx#: [id number] Oral 120 Output: Urine 650 350 Other: Voiding Method External Catheter External Catheter External Catheter # Bowel Movements 1 - Exam No acute distress, oriented 3. No respiratory distress. Currently on room air. HEENT examination is grossly unremarkable. Mucous membranes are moist. No oral lesions. Neck supple. Full range of motion. No adenopathy thyromegaly or neck vein distention. Cardiovascular examination reveals regular rhythm rate. S1-S2 normal. No S3 or S4. No discernible murmur noted. Lungs reveal diminished bibasilar breath sounds. No rhonchi. No wheezes. No crackles. Abdomen distended, with normal bowel sounds. Extremities are intact. No cyanosis clubbing or edema. Skin is without rash or lesion. Neurologic examination is brief but nonfocal. - Labs CBC & Chem 7: 06/24/24 06:15 06/24/24 06:15 Labs: Abnormal Lab Results - Last 24 Hours (Table) 06/23/24 06/24/24 06/24/24 Range/Units 11:45 06:15 06:15 WBC 11.4 H (3.8-10.6) k/uL RBC 2.19 L (4.30-5.90) m/uL Hgb 7.9 L (13.0-17.5) gm/dL Hct 24.1 L (39.0-53.0) % MCV 110.3 H (80.0-100.0) fL MCH 36.3 H (25.0-35.0) pg RDW 25.9 H (11.5-15.5) % Plt Count 35 L (150-450) k/uL Neutrophils # 9.9 H (1.3-7.7) k/uL Lymphocytes # 0.8 L (1.0-4.8) k/uL Macrocytosis Marked A APTT (22.0-30.0) sec Sodium 125 L (137-145) mmol/L Carbon Dioxide 18 L (22-30) mmol/L BUN 28 H (9-20) mg/dL Glucose 71 L (74-99) mg/dL Calcium 7.0 L (8.4-10.2) mg/dL Total Bilirubin 3.7 H (0.2-1.3) mg/dL AST 65 H (17-59) U/L Alkaline Phosphatase 727 H (38-126) U/L Lactate Dehydrogenase (120-246) U/L Total Protein 4.8 L (6.3-8.2) g/dL Albumin 1.5 L (3.5-5.0) g/dL Fluid Appearance Slightly Cloudy A (Clear) 06/24/24 06/24/24 Range/Units 06:15 12:17 WBC (3.8-10.6) k/uL RBC (4.30-5.90) m/uL Hgb (13.0-17.5) gm/dL Hct (39.0-53.0) % MCV (80.0-100.0) fL MCH (25.0-35.0) pg RDW (11.5-15.5) % Plt Count (150-450) k/uL Neutrophils # (1.3-7.7) k/uL Lymphocytes # (1.0-4.8) k/uL Macrocytosis APTT 55.4 H (22.0-30.0) sec Sodium (137-145) mmol/L Carbon Dioxide (22-30) mmol/L BUN (9-20) mg/dL Glucose (74-99) mg/dL Calcium (8.4-10.2) mg/dL Total Bilirubin (0.2-1.3) mg/dL AST (17-59) U/L Alkaline Phosphatase (38-126) U/L Lactate Dehydrogenase 582 H (120-246) U/L Total Protein 4.8 L (6.3-8.2) g/dL Albumin (3.5-5.0) g/dL Fluid Appearance (Clear) Microbiology - Last 24 Hours (Table) 06/23/24 11:45 Gram Stain - Preliminary Pleural Fluid Assessment and Plan Assessment: Abdominal pain in a patient with previous Whipple procedure and aggressive adjuvant chemotherapy for widely metastatic pancreatic cancer. Ultrasound of the liver reveals multiple metastatic lesions. Acute bilateral DVTs of the lower extremities. Bilateral pleural effusions, S/P right thoracentesis, on 06/23/2024. Pancytopenia. Hyponatremia. Diabetes mellitus. Hyperlipidemia. History of anxiety. Plan: Plan dated June 23, 2024. The patient was agreeable to have thoracentesis performed. He had bilateral pleural effusions, right greater than left. We did a right sided thoracentesis today. The patient tolerated the procedure well. There is no complication after the procedure. Were able to remove 800 cc of dark yellow fluid from the right pleural space. The patient tolerated the procedure well without complication. Additional recommendations and suggestions are forthcoming. Prognosis is poor. CODE STATUS should be addressed. Plan dated June 24, 2024. At this time, no plans for thoracentesis on the left side. The patient continues on IV heparin. In addition, the patient's platelet count is quite low. The patient is currently on room air. Saturations are 98%. The patient is not in any distress. The fluid from the right side, was sent for analysis. Results are currently pending including cytology, microbiology, as well as chemistry. We will continue to follow. Prognosis is poor. Time with Patient: Less than 30
[2024-06-24 16:52] LABS: Glucose,Whole Blood 97 mg/dL (70-110)
[2024-06-24 20:11] LABS: Glucose,Whole Blood 94 mg/dL (70-110)
--- NOTE | 2024-06-25 05:23 | P.PN ---
Subjective Progress Note Date: 06/24/24 68-year-old male came in because of severe bilateral flank pain. Patient was also found to have bilateral DVTs. Patient has history of pancreatic cancer for which patient has a Whipple's procedure and completed a chemotherapy is presently receiving radiation therapy. Patient had a CT of the chest and abdomen chest showed bilateral pleural effusions no pulmonary embolism patient does have significant ascites as well patient had a ascitic tap recently. Patient pain is better controlled with Dilaudid at this time I will start him on Eliquis as well as Toradol for pain. 06/22/2024 Patient is seen in follow-up today with multiple consultations following including nephrology, hematology/oncology and pulmonary has been consulted for pleural effusions. Patient is continued on IV heparin for the DVTs and discussing with oncology about initiating Eliquis. Will confirm with pulmonary and oncology if any further intervention being performed at this time prior to initiating the Eliquis. Patient is afebrile reports to feeling okay just tired and weak and has been eating. Patient was able to eat a whole banana today. Continue current other medication regimen. Overall prognosis remains extremely poor and guarded at this time. 06/23/2024 Patient is seen in follow-up today currently undergoing thoracentesis with pulmonary at the bedside of the right today. Plans for left-sided thoracentesis in the next day or so. Continue IV heparin for now and will transition to Eliquis once cleared by hematology and pulmonary. Patient is afebrile continues with significant weakness and overall significant clinical decline. 06/24/2024 Patient is seen in follow-up today status post thoracentesis on the right yesterday. Initial discussion of possible left-sided thoracentesis although patient is quite hypotensive today and platelets are extremely low with no plans of immediate thoracentesis on the left at this time. Patient denies any significant pain and denies shortness of breath maintaining room air oxygen saturations above 95%. Patient having difficulty with swallowing and awaiting to be evaluated by speech therapy. 1 daughter at the bedside concerned with abdominal distention and if there is fluid to be tapped. Patient did have previous imaging showing anasarca with no significant fluid to be removed on the abdomen at this time. Patient is maintained on IV Lasix along with midodrine and nephrology following closely. Sodium remains low at 125. Review of systems: Constitutional: reports of fatigue, no fever, or chills Cardiovascular: No reports of chest pain or palpitations Respiratory: No reports of shortness of breath or cough GI: No reports of nausea, vomiting, or diarrhea, reports having difficulty swallowing and not tolerating much diet : No reports of dysuria or retention Neurovascular: reports of extreme weakness and inability to walk All medications have been reviewed PHYSICAL EXAMINATION: GENERAL: The patient is alert and oriented x3, not in any acute distress. Fatigues easily, appears exhausted, thin built, cachectic male, elderly appearin g, extremely ill appearing HEENT: Pupils are round and equally reacting to light. EOMI. No scleral icterus. No conjunctival pallor. Normocephalic, atraumatic. No pharyngeal erythema. No thyromegaly. CARDIOVASCULAR: S1 and S2 present. No murmurs, rubs, or gallops. PULMONARY: Chest is clear to auscultation, no wheezing or crackles. ABDOMEN: Soft, nontender, does have ascites MUSCULOSKELETAL: No joint swelling or deformity. EXTREMITIES: No cyanosis, clubbing, or pedal edema. cachectic, emaciated with significant muscle wasting noted of upper extremities and chest and facial area NEUROLOGICAL no focal deficit with significant generalized weakness SKIN: No rashes. Assessment: -Abdominal pain secondary to peritoneal carcinomatosis -Bilateral pleural effusion secondary to pancreatic cancer, status post thoracentesis on the right of approximately 800 cc removed, initial discussion of plans to have a thoracentesis on the left in the next 1 to 2 days although patient remains hypotensive and platelets are low with no plans for immediate thoracentesis on the left. -Bilateral lower extremity DVT for which patient is on IV heparin can be transition to Eliquis and will transition to Eliquis after thoracentesis have been completed -Significant generalized weakness PT and OT consultation -Hyponatremia probably SIADH will obtain urine osmolality serum osmolality fluid restriction, nephrology consultation discontinue IV fluids. Now on IV Lasix per nephrology -Metastatic pancreatic cancer, oncology following -Cough symptomatic treatment -Leukocytosis reactive -Type 2 diabetes mellitus -Hypertension, currently hypotensive DVT prophylaxis: Patient is on IV heparin -GI prophylaxis Protonix , Full code Plan: Patient being followed by multiple consultations including oncology, nephrology, and pulmonary following. Chest ultrasound performed and patient is status post right-sided thoracentesis yesterday of approximately 800 cc. No plans for left- sided thoracentesis at this time per pulmonary Patient continues on IV heparin for bilateral DVT and discussing initiating Eliquis. Will confirm with pulmonary and oncology no further testing is being performed at this time that requires holding anticoagulation. Will continue with IV heparin for now and discuss with oncology and pulmonary once thoracentesis have been completed and when to resume Eliquis Patient remains full code and family wants to continue to pursue other options and will monitor the patient over the next few days for any improvements in functionality Recommend PT/OT therapy daily Follow-up with repeat labs and replace electrolytes per protocol. Transfuse if 7 or less and if requiring platelets Continue Marinol and other appropriate home medications Encourage small frequent meals and sitting up in the chair more often. Recommend aspiration precautions and supervision with meals as patient is significantly weak and having difficulty swallowing. Currently n.p.o. awaiting speech therapy evaluation Again overall prognosis is extremely poor and guarded at this time The impression and plan of care has been dictated by Ana Pringle, Nurse Practitioner as directed. Dr. Hua MD I have performed a history and examination and MDM of this patient, discussed the same with the dictator, and agree with the dictator's assessment and plan as written ,documented as a scribe. Based on total visit time, I have performed more than 50% of the visit. Objective - Vital Signs Vital signs: Vital Signs Temp 97.4 F L 06/24/24 04:02 Pulse 67 06/24/24 04:02 Resp 16 06/24/24 04:02 BP 113/67 06/24/24 04:02 Pulse Ox 97 06/24/24 04:02 FiO2 Intake & Output 06/23/24 06/24/24 06/24/24 18:59 06:59 18:59 Intake Total 347.775 20 119.934 Output Total 650 350 Balance -302.225 -330 119.934 Intake: IV 20 20 Invasive Line 2 20 20 Intake, IV Titration 207.775 119.934 Amount Heparin Sod,Pork in 0.45% 207.775 119.934 NaCl 25,000 unit In 0.45 % NaCl 1 250ml.bag @ 18 UNITS/KG/HR 9.226 mls/hr IV .Q24H [facility] Rx#: [id number] Oral 120 Output: Urine 650 350 Other: Voiding Method External Catheter External Catheter # Bowel Movements 1 - Labs CBC & Chem 7: 06/24/24 06:15 06/24/24 06:15 Labs: Abnormal Lab Results - Last 24 Hours (Table) 06/23/24 06/23/24 06/24/24 Range/Units 11:26 11:45 06:15 WBC 11.4 H (3.8-10.6) k/uL RBC 2.19 L (4.30-5.90) m/uL Hgb 7.9 L (13.0-17.5) gm/dL Hct 24.1 L (39.0-53.0) % MCV 110.3 H (80.0-100.0) fL MCH 36.3 H (25.0-35.0) pg RDW 25.9 H (11.5-15.5) % Plt Count 35 L (150-450) k/uL Neutrophils # 9.9 H (1.3-7.7) k/uL Lymphocytes # 0.8 L (1.0-4.8) k/uL Macrocytosis Marked A APTT (22.0-30.0) sec Sodium (137-145) mmol/L Carbon Dioxide (22-30) mmol/L BUN (9-20) mg/dL Glucose (74-99) mg/dL POC Glucose (mg/dL) 111 H (70-110) mg/dL Calcium (8.4-10.2) mg/dL Total Bilirubin (0.2-1.3) mg/dL AST (17-59) U/L Alkaline Phosphatase (38-126) U/L Total Protein (6.3-8.2) g/dL Albumin (3.5-5.0) g/dL Fluid Appearance Slightly Cloudy A (Clear) 06/24/24 06/24/24 Range/Units 06:15 06:15 WBC (3.8-10.6) k/uL RBC (4.30-5.90) m/uL Hgb (13.0-17.5) gm/dL Hct (39.0-53.0) % MCV (80.0-100.0) fL MCH (25.0-35.0) pg RDW (11.5-15.5) % Plt Count (150-450) k/uL Neutrophils # (1.3-7.7) k/uL Lymphocytes # (1.0-4.8) k/uL Macrocytosis APTT 55.4 H (22.0-30.0) sec Sodium 125 L (137-145) mmol/L Carbon Dioxide 18 L (22-30) mmol/L BUN 28 H (9-20) mg/dL Glucose 71 L (74-99) mg/dL POC Glucose (mg/dL) (70-110) mg/dL Calcium 7.0 L (8.4-10.2) mg/dL Total Bilirubin 3.7 H (0.2-1.3) mg/dL AST 65 H (17-59) U/L Alkaline Phosphatase 727 H (38-126) U/L Total Protein 4.8 L (6.3-8.2) g/dL Albumin 1.5 L (3.5-5.0) g/dL Fluid Appearance (Clear) Microbiology - Last 24 Hours (Table) 06/23/24 11:45 Gram Stain - Preliminary Pleural Fluid
[2024-06-25 06:08] LABS: Glucose,Whole Blood 81 mg/dL (70-110)
[2024-06-25 08:22] LABS: Anisocytosis Marked; HCT 24.6 % (39.0-53.0); HGB 7.9 gm/dL (13.0-17.5); Hypochromasia Moderate; MCH 35.8 pg (25.0-35.0); MCHC 32.1 g/dL (31.0-37.0); MCV 111.7 fL (80.0-100.0); Macrocytosis Marked; Mean Platelet Volume 10.5; RBC 2.21 m/uL (4.30-5.90)
[2024-06-25 08:23] LABS: Platelet Count 42 k/uL (150-450)
[2024-06-25 08:24] LABS: RDW 25.9 % (11.5-15.5)
[2024-06-25 08:41] LABS: African American GFR (CKD) >90 (>60 ml/min/1.73 sqM); Anion Gap 10 mmol/L; Blood Urea Nitrogen 32 mg/dL (9-20); Calcium 6.9 mg/dL (8.4-10.2); Carbon Dioxide 16 mmol/L (22-30); Chloride 102 mmol/L (98-107); Glucose 72 mg/dL (74-99); Non-African American GFR(CKD) 85 (>60 ml/min/1.73 sqM); Potassium 3.8 mmol/L (3.5-5.1); Sodium 128 mmol/L (137-145)
[2024-06-25 09:45] LABS: Lymphocytes # (M) 0.22 k/uL (1.0-4.8); Monocytes # (M) 0.43 k/uL (0-1.0); Neutrophils # (M) 10.26 k/uL (1.3-7.7); Neutrophils % (M) 95 %; Nucleated Red Blood Cells 2 /100 WBC (0-0); Total Cells Counted 200; WBC 10.8 k/uL (3.8-10.6)
[2024-06-25 09:48] LABS: Poikilocytosis (M) Present; Polychromasia Present; Target Cells Present
[2024-06-25] MEDS: APIXABAN 5 MG TAB PO SCH (10:39)
[2024-06-25 11:41] LABS: Glucose,Whole Blood 76 mg/dL (70-110)
--- NOTE | 2024-06-25 12:42 | P.PN ---
Subjective patient is seen for follow-up for hyponatremia and acute kidney injury. Serum sodium fluctuates between 125-127. Maintained on IV Lasix. Sodium is 128 today Currently off of IV fluids. BP has been low with systolic in the 80s and 90s. Maintained on midodrine No significant shortness of breath. Objective - Vital Signs Vital signs: Vital Signs Temp 98.1 F 06/25/24 04:00 Pulse 78 06/25/24 11:49 Resp 19 06/25/24 11:49 BP 88/60 06/25/24 11:49 Pulse Ox 100 06/25/24 11:49 FiO2 Intake & Output 06/24/24 06/25/24 06/25/24 18:59 06:59 18:59 Intake Total 139.934 416.942 10 Output Total 200 Balance 139.934 216.942 10 Intake: IV 20 30 10 Invasive Line 2 20 30 10 Intake, IV Titration 119.934 105.942 Amount Heparin Sod,Pork in 0.45% 119.934 105.942 NaCl 25,000 unit In 0.45 % NaCl 1 250ml.bag @ 18 UNITS/KG/HR 9.226 mls/hr IV .Q24H [facility] Rx#: [id number] Blood Product 0 281 Platelet Pheresis Pas 0 281 Psoralen Unit [id number] Output: Urine 200 Other: Voiding Method External Catheter External Catheter External Catheter - Exam patient is awake, comfortable, no acute distress. Examination of the heart S1 and S2 Examination of the lungs bilateral breath sounds are heard Abdomen is soft nontender Examination of lower extremities shows 2+ edema bilaterally - Labs CBC & Chem 7: 06/25/24 07:17 06/25/24 07:17 Labs: Abnormal Lab Results - Last 24 Hours (Table) 06/24/24 06/25/24 06/25/24 Range/Units 12:17 07:17 07:17 WBC 10.8 H (3.8-10.6) k/uL RBC 2.21 L (4.30-5.90) m/uL Hgb 7.9 L (13.0-17.5) gm/dL Hct 24.6 L (39.0-53.0) % MCV 111.7 H (80.0-100.0) fL MCH 35.8 H (25.0-35.0) pg RDW 25.9 H (11.5-15.5) % Plt Count 42 L (150-450) k/uL Neutrophils # (Manual) 10.26 H (1.3-7.7) k/uL Lymphocytes # (Manual) 0.22 L (1.0-4.8) k/uL Nucleated RBCs 2 H (0-0) /100 WBC Macrocytosis Marked A APTT >200.0 H* (22.0-30.0) sec Sodium (137-145) mmol/L Carbon Dioxide (22-30) mmol/L BUN (9-20) mg/dL Glucose (74-99) mg/dL Calcium (8.4-10.2) mg/dL Lactate Dehydrogenase 582 H (120-246) U/L Total Protein 4.8 L (6.3-8.2) g/dL 06/25/24 Range/Units 07:17 WBC (3.8-10.6) k/uL RBC (4.30-5.90) m/uL Hgb (13.0-17.5) gm/dL Hct (39.0-53.0) % MCV (80.0-100.0) fL MCH (25.0-35.0) pg RDW (11.5-15.5) % Plt Count (150-450) k/uL Neutrophils # (Manual) (1.3-7.7) k/uL Lymphocytes # (Manual) (1.0-4.8) k/uL Nucleated RBCs (0-0) /100 WBC Macrocytosis APTT (22.0-30.0) sec Sodium 128 L (137-145) mmol/L Carbon Dioxide 16 L (22-30) mmol/L BUN 32 H (9-20) mg/dL Glucose 72 L (74-99) mg/dL Calcium 6.9 L (8.4-10.2) mg/dL Lactate Dehydrogenase (120-246) U/L Total Protein (6.3-8.2) g/dL Microbiology - Last 24 Hours (Table) 06/23/24 11:45 Acid Fast Bacilli Smear - Preliminary Pleural Fluid 06/23/24 11:45 Gram Stain - Preliminary Pleural Fluid Body Fluid Culture - Preliminary Assessment and Plan Assessment: 1. Hyponatremia, appears hypervolemic. CT of the abdomen does show diffuse abdominal wall edema/anasarca. Status post IV fluids now being diuresed 2. Metastatic pancreatic cancer status post Whipple's procedure and chemotherapy 3. Acute kidney injury, nonoliguric associated with hypotension 4. Acute bilateral lower extremity DVT 5. Hyperkalemia associated with acute kidney injury, improved 6. Non-gap metabolic acidosis associated with acute kidney injury and IV fluids Plan: continue off of normal saline and Toradol. continue with IV Lasix Samsca x1 today Continue with midodrine for hypotension Continue with oral sodium bicarb. Repeat labs in a.m.
[2024-06-25] MEDS: TOLVAPTAN 15 MG TABLET PO ONE (13:14)
--- NOTE | 2024-06-25 14:21 | P.PN ---
Subjective Progress Note Date: 06/25/24 Principal diagnosis: Bilateral pleural effusion. This is a 68-year-old male patient with a recent diagnosis of widespread metastatic pancreatic adenocarcinoma and had undergone a Whipple procedure in January 2024 at [facility]. He had also received 6 cycles of FOLFIRINOX. He also received palliative radiation to the liver mass. He had presented here to the emergency room on 06/20/2024 with the weakness, abdominal pain and cramping. Chest x-ray revealed patchy interstitial opacities and small effusions bilaterally. Doppler of the lower extremities revealed bilateral DVTs. Ultrasound of the liver revealed multiple hepatic lesions suspicious for metastatic disease. Mild ascites. Small right pleural effusion. White count 12.3. Hemoglobin 7.8. Platelets 59,000. Sodium 126. Potassium 4.8. Bicarb 16. BUN 28. Creatinine 1.05. Glucose 73. He is seen today in consultation on the selective care unit. He is currently resting in bed. Awake and alert. Maintaining good O2 saturations in the 90s on room air. Afebrile. He has been initiated on a heparin drip. Received IV Lasix. Progress note dated June 23, 2024. 68-year-old male seen in consultation yesterday, for bilateral pleural effusions. Today, the patient had a right-sided thoracentesis, and 800 cc of dark yellow fluid was removed from the right pleural space. The patient's fluid was sent for analysis including cytology, microbiology, and chemistry. The fluid looks exudative. Anyway, the patient tolerated the procedure well. He was on IV heparin which was turned off for about an hour before the procedure. The patient is not receiving any supplemental oxygen. Current labs include a white count 13.8, hemoglobin 7.9, hematocrit 25, and a platelet count of 55,000. PTT is 58.3. Sodium 127, potassium 4.1, chlorides 101, CO2 17, BUN 27, creatinine 0.89. Albumin is only 1.6. Chest x-ray after the procedure, shows an improving right lower lobe infiltrate, and effusion. Progress note dated June 24, 2024. This is a 68-year-old male with history of pancreatic cancer. We are consulted for bilateral pleural effusions. Yesterday, we did a right sided thoracentesis. 800 cc of fluid was removed. The patient is currently on room air. Saturations are excellent. He continues on IV heparin. There were no plans for thoracentesis on the left side today. The effusion on the left side was smaller. The fluid was sent for analysis. The patient's white count was 11.4, hemoglobin 7.9, hematocrit 24.1, platelet count was 35,000. PTT was 55.4. Sodium 125, potassium 3.9, chlorides 101, CO2 18, BUN 28, and creatinine 0.87. Glucose was 83. Albumin was 1.5. Progress note dated June 25, 2024. 68-year-old male seen today in room 370. Family members are in the room. He has a history of metastatic pancreatic cancer. We are consulted for bilateral pleural effusions. The patient did have a right sided thoracentesis performed on June 23. No additional thoracentesis will be performed, as the patient is quite weak, and is very high risk given his platelet count, among other things. Anyway, the patient does have significant mount of ascites, and interventional radiology should be consulted to determine whether or not he would benefit from paracentesis abdominis. The patient is not receiving any IV fluids. The patient is on Eliquis. White count is 10.8, hemoglobin 7.9, macro 24.6, and platelet count 42,000. PTT is greater than 200. Sodium 128, potassium 3.8, chlorides 102, CO2 16, BUN 32, creatinine 0.94. Calcium is 6.9. Glucose is 76. Objective - Vital Signs Vital signs: Vital Signs Temp 98.1 F 06/25/24 04:00 Pulse 78 06/25/24 13:31 Resp 19 06/25/24 13:31 BP 88/60 06/25/24 11:49 Pulse Ox 100 06/25/24 11:49 FiO2 Intake & Output 06/24/24 06/25/24 06/25/24 18:59 06:59 18:59 Intake Total 139.934 416.942 20 Output Total 200 Balance 139.934 216.942 20 Weight 77.5 kg Intake: IV 20 30 20 Invasive Line 2 20 30 20 Intake, IV Titration 119.934 105.942 Amount Heparin Sod,Pork in 0.45% 119.934 105.942 NaCl 25,000 unit In 0.45 % NaCl 1 250ml.bag @ 18 UNITS/KG/HR 9.226 mls/hr IV .Q24H [facility] Rx#: [id number] Blood Product 0 281 Platelet Pheresis Pas 0 281 Psoralen Unit [id number] Output: Urine 200 Other: Voiding Method External Catheter External Catheter External Catheter - Exam No acute distress, oriented 3. No respiratory distress. Currently on room air. HEENT examination is grossly unremarkable. Mucous membranes are moist. No oral lesions. Neck supple. Full range of motion. No adenopathy thyromegaly or neck vein distention. Cardiovascular examination reveals regular rhythm rate. S1-S2 normal. No S3 or S4. No discernible murmur noted. Lungs reveal diminished bibasilar breath sounds. No rhonchi. No wheezes. No crackles. Abdomen distended, with normal bowel sounds. Extremities are intact. No cyanosis clubbing or edema. Skin is without rash or lesion. Neurologic examination is brief but nonfocal. - Labs CBC & Chem 7: 06/25/24 07:17 06/25/24 07:17 Labs: Abnormal Lab Results - Last 24 Hours (Table) 06/25/24 06/25/24 06/25/24 Range/Units 07:17 07:17 07:17 WBC 10.8 H (3.8-10.6) k/uL RBC 2.21 L (4.30-5.90) m/uL Hgb 7.9 L (13.0-17.5) gm/dL Hct 24.6 L (39.0-53.0) % MCV 111.7 H (80.0-100.0) fL MCH 35.8 H (25.0-35.0) pg RDW 25.9 H (11.5-15.5) % Plt Count 42 L (150-450) k/uL Neutrophils # (Manual) 10.26 H (1.3-7.7) k/uL Lymphocytes # (Manual) 0.22 L (1.0-4.8) k/uL Nucleated RBCs 2 H (0-0) /100 WBC Macrocytosis Marked A APTT >200.0 H* (22.0-30.0) sec Sodium 128 L (137-145) mmol/L Carbon Dioxide 16 L (22-30) mmol/L BUN 32 H (9-20) mg/dL Glucose 72 L (74-99) mg/dL Calcium 6.9 L (8.4-10.2) mg/dL Microbiology - Last 24 Hours (Table) 06/23/24 11:45 Acid Fast Bacilli Smear - Preliminary Pleural Fluid 06/23/24 11:45 Gram Stain - Preliminary Pleural Fluid Body Fluid Culture - Preliminary Assessment and Plan Assessment: Abdominal pain in a patient with previous Whipple procedure and aggressive ad juvant chemotherapy for widely metastatic pancreatic cancer. Ultrasound of the liver reveals multiple metastatic lesions. Acute bilateral DVTs of the lower extremities. Bilateral pleural effusions, S/P right thoracentesis, on 06/23/2024. Pancytopenia. Hyponatremia. Diabetes mellitus. Hyperlipidemia. History of anxiety. Plan: Plan dated June 23, 2024. The patient was agreeable to have thoracentesis performed. He had bilateral pleural effusions, right greater than left. We did a right sided thoracentesis today. The patient tolerated the procedure well. There is no complication after the procedure. Were able to remove 800 cc of dark yellow fluid from the right pleural space. The patient tolerated the procedure well without complication. Additional recommendations and suggestions are forthcoming. Prognosis is poor. CODE STATUS should be addressed. Plan dated June 24, 2024. At this time, no plans for thoracentesis on the left side. The patient continues on IV heparin. In addition, the patient's platelet count is quite low. The patient is currently on room air. Saturations are 98%. The patient is not in any distress. The fluid from the right side, was sent for analysis. Results are currently pending including cytology, microbiology, as well as chemistry. We will continue to follow. Prognosis is poor. Plan dated June 25, 2024. No plans for additional thoracentesis at this time. We believe the patient to be at high risk given his underlying pancreatic cancer, his significant ascites, and his coagulopathy. In addition, the right-sided pleural effusion was larger than the left, and only 800 cc of fluid was removed, when the thoracentesis was performed on the right side, on June 23. Labs, x-rays, medications are reviewed. The patient is not requiring any supplemental oxygen. He denies any respiratory issues at this time. Time with Patient: Less than 30
--- NOTE | 2024-06-25 15:37 | P.PN ---
Subjective Progress Note Date: 06/25/24 Patient lethargic. Denying abd pain and vomiting, intermittent nausea persisting. Bilirubin, LFTs remain elevated but stable. WBC 10.8, hgb 7.9, plt 42. Plan to transition to [facility] today. No reported episodes of acute bleeding Objective - Vital Signs Vital signs: Vital Signs Temp 98.1 F 06/25/24 04:00 Pulse 78 06/25/24 11:49 Resp 19 06/25/24 11:49 BP 88/60 06/25/24 11:49 Pulse Ox 100 06/25/24 11:49 FiO2 Intake & Output 06/24/24 06/25/24 06/25/24 18:59 06:59 18:59 Intake Total 139.934 416.942 10 Output Total 200 Balance 139.934 216.942 10 Intake: IV 20 30 10 Invasive Line 2 20 30 10 Intake, IV Titration 119.934 105.942 Amount Heparin Sod,Pork in 0.45% 119.934 105.942 NaCl 25,000 unit In 0.45 % NaCl 1 250ml.bag @ 18 UNITS/KG/HR 9.226 mls/hr IV .Q24H [facility] Rx#: [id number] Blood Product 0 281 Platelet Pheresis Pas 0 281 Psoralen Unit [id number] Output: Urine 200 Other: Voiding Method External Catheter External Catheter External Catheter - Constitutional General appearance: Present: no acute distress, thin - EENT Eyes: Present: scleral icterus - Respiratory Details: breathing is even and unlabored - Cardiovascular Details: skin warm and dry - Gastrointestinal General gastrointestinal: Present: distended - Integumentary Integumentary: Present: jaundiced - Musculoskeletal Musculoskeletal: Present: generalized weakness - Psychiatric Psychiatric Comment(s): lethargic - Labs CBC & Chem 7: 06/25/24 07:17 06/25/24 07:17 Labs: Abnormal Lab Results - Last 24 Hours (Table) 06/24/24 06/25/24 06/25/24 Range/Units 12:17 07:17 07:17 WBC 10.8 H (3.8-10.6) k/uL RBC 2.21 L (4.30-5.90) m/uL Hgb 7.9 L (13.0-17.5) gm/dL Hct 24.6 L (39.0-53.0) % MCV 111.7 H (80.0-100.0) fL MCH 35.8 H (25.0-35.0) pg RDW 25.9 H (11.5-15.5) % Plt Count 42 L (150-450) k/uL Neutrophils # (Manual) 10.26 H (1.3-7.7) k/uL Lymphocytes # (Manual) 0.22 L (1.0-4.8) k/uL Nucleated RBCs 2 H (0-0) /100 WBC Macrocytosis Marked A APTT >200.0 H* (22.0-30.0) sec Sodium (137-145) mmol/L Carbon Dioxide (22-30) mmol/L BUN (9-20) mg/dL Glucose (74-99) mg/dL Calcium (8.4-10.2) mg/dL Lactate Dehydrogenase 582 H (120-246) U/L Total Protein 4.8 L (6.3-8.2) g/dL 06/25/24 Range/Units 07:17 WBC (3.8-10.6) k/uL RBC (4.30-5.90) m/uL Hgb (13.0-17.5) gm/dL Hct (39.0-53.0) % MCV (80.0-100.0) fL MCH (25.0-35.0) pg RDW (11.5-15.5) % Plt Count (150-450) k/uL Neutrophils # (Manual) (1.3-7.7) k/uL Lymphocytes # (Manual) (1.0-4.8) k/uL Nucleated RBCs (0-0) /100 WBC Macrocytosis APTT (22.0-30.0) sec Sodium 128 L (137-145) mmol/L Carbon Dioxide 16 L (22-30) mmol/L BUN 32 H (9-20) mg/dL Glucose 72 L (74-99) mg/dL Calcium 6.9 L (8.4-10.2) mg/dL Lactate Dehydrogenase (120-246) U/L Total Protein (6.3-8.2) g/dL Microbiology - Last 24 Hours (Table) 06/23/24 11:45 Acid Fast Bacilli Smear - Preliminary Pleural Fluid 06/23/24 11:45 Gram Stain - Preliminary Pleural Fluid Body Fluid Culture - Preliminary Assessment and Plan (1) Abdominal pain Current Visit: Yes Status: Acute Code(s): R10.9 - UNSPECIFIED ABDOMINAL PAIN SNOMED Code(s): 80484901 (2) Abnormal liver enzymes Current Visit: Yes Status: Acute Code(s): R74.8 - ABNORMAL LEVELS OF OTHER SERUM ENZYMES SNOMED Code(s): 313992177 (3) Bicytopenia Current Visit: Yes Status: Acute Code(s): D75.89 - OTHER SPECIFIED DISEASES OF BLOOD AND BLOOD-FORMING ORGANS SNOMED Code(s): 69563962 (4) DVT, bilateral lower limbs Current Visit: Yes Status: Acute Code(s): I82.403 - ACUTE EMBOLISM AND THOMBOS UNSP DEEP VEINS OF LOW EXTRM, BI SNOMED Code(s): 069255990 (5) Hyponatremia Current Visit: Yes Status: Acute Code(s): E87.1 - HYPO-OSMOLALITY AND HYPONATREMIA SNOMED Code(s): 85847160 (6) Metastatic disease Current Visit: Yes Status: Acute Code(s): C79.9 - SECONDARY MALIGNANT NEOPLASM OF UNSPECIFIED SITE SNOMED Code(s): 630470998 (7) Pancreatic cancer Current Visit: Yes Status: Acute Code(s): C25.9 - MALIGNANT NEOPLASM OF PANCREAS, UNSPECIFIED SNOMED Code(s): 440052690 Plan: DVT: The patient has new diagnosis of the same, with Dopplers being done due to progressive lower extremity swelling. It was discussed with the patient and his family, that the presence of metastatic malignancy is a major risk factor for development of venous thromboembolism. The patient has other risk factors, including recent hospitalization, intravascular volume depletion, and markedly diminished activity level. -Vascular surgery following -Continues on IV heparin, plan to transition to Eliquis today Bicytopenia: The patient is felt to have low hemoglobin, due to anemia of malignancy/inflammation. The thrombocytopenia is new, compared to his recent admission. Differentials include effect of progressive liver damage, as well as tumor associated DIC. DIC workup negative, making progressive liver damage more likely. -Transfuse to keep platelet counts greater than 50,000 to maintain AC for acute VTE. Transfuse for hgb less than 7 or if symptomatic -Plt yesterday 35, 1 dose plts given. Plt today 42. Transitioned to Elqiuis today. Will give additional dose of plts to try to maintain plts at 50,000. At this time, pt and family are discussing possible hospice/comfort care measures. If they decide not to pursue hospice, will need evaluation for IVC filter. Discussed the same with pt and family and they would like to hold on IVC filter placement until they further discuss hospice. -Continue to closely monitor CBC Elevated LFTs: There has been a significant increase in his total bilirubin, as well as alkaline phosphatase. Possible etiologies for the same were discussed in detail with the patient and his family. CT scan did not mention any evidence of biliary obstruction. Dedicated ultrasound also showed no evidence of extrahepatic biliary obstruction. Hyperbilirubemia and elevated LFTs most likely due to progression of the malignancy in the liver parenchyma. Pleural effusion: -S/p right sided thoracentesis, with 800cc removed -Cytology pending Pancreatic adenocarcinoma: The prognosis in this situation is quite guarded. The patient had developed widespread metastatic disease, while on aggressive adjuvant chemotherapy. Currently performance status is quite poor. Concern for rapid parenchymal progression of metastatic disease, which indicates a poor prognosis, and is typically difficult to reverse even with aggressive chemotherapy given emergently. It was therefore discussed that his performance status remains poor and/or he has evidence of aggressive parenchymal hepatic progression, it would be reasonable to consider a comfort care approach. Family and pt verbalized understanding, and at this time would like to see how patient does over course of hospitalization. Family states patient would like to consider other treatment options and does not want to pursue comfort care measures at this time. -NGS testing did not reveal targetable mutations and MSI was stable, so he is not a candidate for IO. Guardant testing resulted, unfortunately not showing any targetable mutations to treat pancreatic cancer. Unfortunately at this time, treatment options would be limited, and pt would need to have improvement in his performance status which is his current condition and disease state would likely be difficult to achieve. Case discussed with his primary oncologist Dr. William Stanford, and due to his declining condition and poor PS, pt would not be a good candidate for gemzar/abraxane, and single agent Gemzar would unlikely provide any meaningful treatment response as he has already progressed on FOLFIRINOX previously, and at this time we would recommend comfort care measures. This was discussed in detail with pt and his family. All questions and concerns were addressed. They would like to wait on making a discussion at this time until they further discuss with his whole family. Case and POC discussed with admitting team today
[2024-06-25 16:16] LABS: INR 1.5 (<1.2); Prothrombin Time 16.1 sec (10.0-12.5)
[2024-06-25 16:37] LABS: Glucose,Whole Blood 67 mg/dL (70-110)
[2024-06-25 17:05] LABS: Glucose,Whole Blood 67 mg/dL (70-110)
[2024-06-25] MEDS: DEXTROSE 50% SYRINGE 50 ML IVP PRN (17:23)
--- NOTE | 2024-06-25 17:23 | P.PN ---
Subjective Progress Note Date: 06/25/24 68-year-old male came in because of severe bilateral flank pain. Patient was also found to have bilateral DVTs. Patient has history of pancreatic cancer for which patient has a Whipple's procedure and completed a chemotherapy is presently receiving radiation therapy. Patient had a CT of the chest and abdomen chest showed bilateral pleural effusions no pulmonary embolism patient does have significant ascites as well patient had a ascitic tap recently. Patient pain is better controlled with Dilaudid at this time I will start him on Eliquis as well as Toradol for pain. 06/22/2024 Patient is seen in follow-up today with multiple consultations following including nephrology, hematology/oncology and pulmonary has been consulted for pleural effusions. Patient is continued on IV heparin for the DVTs and discussing with oncology about initiating Eliquis. Will confirm with pulmonary and oncology if any further intervention being performed at this time prior to initiating the Eliquis. Patient is afebrile reports to feeling okay just tired and weak and has been eating. Patient was able to eat a whole banana today. Continue current other medication regimen. Overall prognosis remains extremely poor and guarded at this time. 06/23/2024 Patient is seen in follow-up today currently undergoing thoracentesis with pulmonary at the bedside of the right today. Plans for left-sided thoracentesis in the next day or so. Continue IV heparin for now and will transition to Eliquis once cleared by hematology and pulmonary. Patient is afebrile continues with significant weakness and overall significant clinical decline. 06/24/2024 Patient is seen in follow-up today status post thoracentesis on the right yesterday. Initial discussion of possible left-sided thoracentesis although patient is quite hypotensive today and platelets are extremely low with no plans of immediate thoracentesis on the left at this time. Patient denies any significant pain and denies shortness of breath maintaining room air oxygen saturations above 95%. Patient having difficulty with swallowing and awaiting to be evaluated by speech therapy. 1 daughter at the bedside concerned with abdominal distention and if there is fluid to be tapped. Patient did have previous imaging showing anasarca with no significant fluid to be removed on the abdomen at this time. Patient is maintained on IV Lasix along with midodrine and nephrology following closely. Sodium remains low at 125. 06/25/2024 Patient is seen in follow-up today extremely weak, hypotensive, not eating and not tolerating any oral intake having abdominal distention although after reviewing the images not recommended for paracentesis although interventional radiology was consulted for possible paracentesis. Not much fluid collection although reported as doable although after reviewing labs and blood pressure patient remains hypotensive with a systolic of 80 and platelets are low, IR is refusing to do the paracentesis. Patient is not stable. Heparin being discontinued and patient will transition to Eliquis. Long lengthy discussion was had with family and oncology Review of systems: Constitutional: reports of fatigue, no fever, or chills Cardiovascular: No reports of chest pain or palpitations Respiratory: No reports of shortness of breath or cough GI: No reports of nausea, vomiting, or diarrhea, reports having difficulty sw allowing and not tolerating much diet : No reports of dysuria or retention Neurovascular: reports of extreme weakness and inability to walk All medications have been reviewed PHYSICAL EXAMINATION: GENERAL: The patient is alert and oriented x3, not in any acute distress. Extremely lethargic, fatigues easily, appears exhausted, thin built, cachectic male, elderly appearing, extremely ill appearing HEENT: Pupils are round and equally reacting to light. EOMI. No scleral icterus. No conjunctival pallor. Normocephalic, atraumatic. No pharyngeal erythema. No thyromegaly. CARDIOVASCULAR: S1 and S2 present. No murmurs, rubs, or gallops. PULMONARY: Chest is clear to auscultation, no wheezing or crackles. ABDOMEN: Soft, nontender, does have ascites MUSCULOSKELETAL: No joint swelling or deformity. EXTREMITIES: No cyanosis, clubbing, or pedal edema. cachectic, emaciated with significant muscle wasting noted of upper extremities and chest and facial area NEUROLOGICAL no focal deficit with significant generalized weakness SKIN: No rashes. Assessment: -Abdominal pain secondary to peritoneal carcinomatosis -Bilateral pleural effusion secondary to pancreatic cancer, status post thor acentesis on the right of approximately 800 cc removed -Bilateral lower extremity DVT for which patient is on IV heparin and can be transitioned to Eliquis as there are no plans for further para or thoracentesis at this time -Significant generalized weakness PT and OT consultation -Hyponatremia probably SIADH will obtain urine osmolality serum osmolality fluid restriction, nephrology consultation discontinue IV fluids. Now on IV Lasix per nephrology -Metastatic pancreatic cancer, oncology following -Cough symptomatic treatment -Leukocytosis reactive -Type 2 diabetes mellitus -Hypertension, currently hypotensive DVT prophylaxis: Patient is on IV heparin -GI prophylaxis Protonix -Full code Plan: Patient being followed by multiple consultations including oncology, nephrology, and pulmonary following. Chest ultrasound performed and patient is status post right-sided thoracentesis yesterday of approximately 800 cc. No plans for left- sided thoracentesis at this time per pulmonary Patient continues on IV heparin for bilateral DVT and discussing initiating Eliquis. Confirmed with pulmonary and oncology no further testing is being performed at this time that requires holding anticoagulation. Will discontinue heparin and transition to Eliquis Patient remains full code and family wants to continue to pursue other options and will monitor the patient over the next few days for any improvements in functionality. There has been no improvement actual steady decline and patient is hypotensive and remaining hypotensive, low platelets, not eating and not tolerating any oral intake and now having hypoglycemic events. It was suggested along with multiple other consultations to consider hospice including oncology to make the patient comfortable Again overall prognosis is extremely poor and guarded at this time The impression and plan of care has been dictated by Ana Pringle, Nurse Practitioner as directed. Dr. Hua MD I have performed a history and examination and MDM of this patient, discussed the same with the dictator, and agree with the dictator's assessment and plan as written ,documented as a scribe. Based on total visit time, I have performed more than 50% of the visit. Objective - Vital Signs Vital signs: Vital Signs Temp 98.1 F 06/25/24 04:00 Pulse 81 06/25/24 08:40 Resp 19 06/25/24 08:40 BP 80/47 06/25/24 08:43 Pulse Ox 100 06/25/24 08:40 FiO2 Intake & Output 06/24/24 06/25/24 06/25/24 18:59 06:59 18:59 Intake Total 139.934 416.942 10 Output Total 200 Balance 139.934 216.942 10 Intake: IV 20 30 10 Invasive Line 2 20 30 10 Intake, IV Titration 119.934 105.942 Amount Heparin Sod,Pork in 0.45% 119.934 105.942 NaCl 25,000 unit In 0.45 % NaCl 1 250ml.bag @ 18 UNITS/KG/HR 9.226 mls/hr IV .Q24H [facility] Rx#: [id number] Blood Product 0 281 Platelet Pheresis Pas 0 281 Psoralen Unit [id number] Output: Urine 200 Other: Voiding Method External Catheter External Catheter - Labs CBC & Chem 7: 06/25/24 07:17 06/25/24 07:17 Labs: Abnormal Lab Results - Last 24 Hours (Table) 06/24/24 06/25/24 06/25/24 Range/Units 12:17 07:17 07:17 WBC 11.0 H (3.8-10.6) k/uL RBC 2.21 L (4.30-5.90) m/uL Hgb 7.9 L (13.0-17.5) gm/dL Hct 24.6 L (39.0-53.0) % MCV 111.7 H (80.0-100.0) fL MCH 35.8 H (25.0-35.0) pg RDW 25.9 H (11.5-15.5) % Plt Count 42 L (150-450) k/uL Macrocytosis Marked A APTT >200.0 H* (22.0-30.0) sec Sodium (137-145) mmol/L Carbon Dioxide (22-30) mmol/L BUN (9-20) mg/dL Glucose (74-99) mg/dL Calcium (8.4-10.2) mg/dL Lactate Dehydrogenase 582 H (120-246) U/L Total Protein 4.8 L (6.3-8.2) g/dL 06/25/24 Range/Units 07:17 WBC (3.8-10.6) k/uL RBC (4.30-5.90) m/uL Hgb (13.0-17.5) gm/dL Hct (39.0-53.0) % MCV (80.0-100.0) fL MCH (25.0-35.0) pg RDW (11.5-15.5) % Plt Count (150-450) k/uL Macrocytosis APTT (22.0-30.0) sec Sodium 128 L (137-145) mmol/L Carbon Dioxide 16 L (22-30) mmol/L BUN 32 H (9-20) mg/dL Glucose 72 L (74-99) mg/dL Calcium 6.9 L (8.4-10.2) mg/dL Lactate Dehydrogenase (120-246) U/L Total Protein (6.3-8.2) g/dL Microbiology - Last 24 Hours (Table) 06/23/24 11:45 Acid Fast Bacilli Smear - Preliminary Pleural Fluid 06/23/24 11:45 Gram Stain - Preliminary Pleural Fluid Body Fluid Culture - Preliminary
[2024-06-25 17:47] LABS: Glucose,Whole Blood 106 mg/dL (70-110)
[2024-06-25 20:26] LABS: Glucose,Whole Blood 92 mg/dL (70-110)
[2024-06-26 06:20] LABS: Glucose,Whole Blood 96 mg/dL (70-110)
[2024-06-26 07:25] LABS: Anisocytosis Marked; HCT 23.4 % (39.0-53.0); HGB 7.3 gm/dL (13.0-17.5); Hypochromasia Moderate; MCH 35.1 pg (25.0-35.0); MCHC 31.3 g/dL (31.0-37.0); MCV 112.4 fL (80.0-100.0); Macrocytosis Marked; Mean Platelet Volume 9.7; RBC 2.08 m/uL (4.30-5.90)
[2024-06-26 07:53] LABS: RDW 26.2 % (11.5-15.5)
[2024-06-26 07:54] LABS: Platelet Count 51 k/uL (150-450)
[2024-06-26 08:07] LABS: ALT 55 U/L (4-49); AST 234 U/L (17-59); African American GFR (CKD) 73 (>60 ml/min/1.73 sqM); Albumin 1.6 g/dL (3.5-5.0); Alkaline Phosphatase 569 U/L (38-126); Anion Gap 7 mmol/L; Blood Urea Nitrogen 36 mg/dL (9-20); Calcium 6.8 mg/dL (8.4-10.2); Carbon Dioxide 15 mmol/L (22-30); Chloride 105 mmol/L (98-107); Glucose 86 mg/dL (74-99); Non-African American GFR(CKD) 63 (>60 ml/min/1.73 sqM); Sodium 127 mmol/L (137-145); Total Bilirubin 4.2 mg/dL (0.2-1.3)
[2024-06-26 09:33] LABS: Band Neutrophils % 1 %; Lymphocytes # (M) 0.35 k/uL (1.0-4.8); Monocytes # (M) 0.23 k/uL (0-1.0); Neutrophils % (M) 95 %; Nucleated Red Blood Cells 1 /100 WBC (0-0); Total Cells Counted 200
[2024-06-26 09:34] LABS: WBC 11.6 k/uL (3.8-10.6)
[2024-06-26 09:35] LABS: Target Cells Present
[2024-06-26 11:27] LABS: Glucose,Whole Blood 100 mg/dL (70-110)
--- NOTE | 2024-06-26 13:42 | P.PN ---
Subjective Progress Note Date: 06/26/24 Patient lethargic. Denying abd pain and vomiting, intermittent nausea persisting. Bilirubin increased to 4.2, AST/ALT levels also increasing. WBC 11.6, hgb 7.3, plt 51. S/p 2 doses plts. No reported episodes of acute bleeding. Paracentesis was ordered due to increased abd distention, however due to hypote nsion and low counts procedure was canceled Objective - Vital Signs Vital signs: Vital Signs Temp 97.5 F L 06/26/24 08:42 Pulse 80 06/26/24 11:09 Resp 16 06/26/24 11:09 BP 93/61 06/26/24 11:09 Pulse Ox 99 06/26/24 11:09 FiO2 Intake & Output 06/25/24 06/26/24 06/26/24 18:59 06:59 18:59 Intake Total 371 20 Output Total 400 Balance 371 -380 Weight 77.5 kg 77.2 kg Intake: IV 20 20 Invasive Line 2 20 20 Oral 50 Blood Product 301 Platelet Pheresis Pas 301 Psoralen Unit [id number] Output: Urine 400 Other: Voiding Method External Catheter External Catheter External Catheter # Bowel Movements 1 - Constitutional General appearance: Present: no acute distress, thin - EENT Eyes: Present: scleral icterus ENT: Present: hearing grossly normal - Respiratory Details: breathing is even and unlabored - Cardiovascular Details: skin warm and dry - Gastrointestinal General gastrointestinal: Present: distended - Integumentary Integumentary: Present: jaundiced - Musculoskeletal Musculoskeletal: Present: generalized weakness - Labs CBC & Chem 7: 06/26/24 06:37 06/26/24 06:37 Labs: Abnormal Lab Results - Last 24 Hours (Table) 06/25/24 06/25/24 06/25/24 Range/Units 15:53 16:35 17:03 WBC (3.8-10.6) k/uL RBC (4.30-5.90) m/uL Hgb (13.0-17.5) gm/dL Hct (39.0-53.0) % MCV (80.0-100.0) fL MCH (25.0-35.0) pg RDW (11.5-15.5) % Plt Count (150-450) k/uL Neutrophils # (Manual) (1.3-7.7) k/uL Lymphocytes # (Manual) (1.0-4.8) k/uL Nucleated RBCs (0-0) /100 WBC Macrocytosis PT 16.1 H (10.0-12.5) sec INR 1.5 H (<1.2) Fibrinogen 179 L (200-500) mg/dL Sodium (137-145) mmol/L Carbon Dioxide (22-30) mmol/L BUN (9-20) mg/dL POC Glucose (mg/dL) 67 L 67 L (70-110) mg/dL Calcium (8.4-10.2) mg/dL Total Bilirubin (0.2-1.3) mg/dL AST (17-59) U/L ALT (4-49) U/L Alkaline Phosphatase (38-126) U/L Total Protein (6.3-8.2) g/dL Albumin (3.5-5.0) g/dL 06/26/24 06/26/24 Range/Units 06:37 06:37 WBC 11.6 H (3.8-10.6) k/uL RBC 2.08 L (4.30-5.90) m/uL Hgb 7.3 L (13.0-17.5) gm/dL Hct 23.4 L (39.0-53.0) % MCV 112.4 H (80.0-100.0) fL MCH 35.1 H (25.0-35.0) pg RDW 26.2 H (11.5-15.5) % Plt Count 51 L (150-450) k/uL Neutrophils # (Manual) 11.10 H (1.3-7.7) k/uL Lymphocytes # (Manual) 0.35 L (1.0-4.8) k/uL Nucleated RBCs 1 H (0-0) /100 WBC Macrocytosis Marked A PT (10.0-12.5) sec INR (<1.2) Fibrinogen (200-500) mg/dL Sodium 127 L (137-145) mmol/L Carbon Dioxide 15 L (22-30) mmol/L BUN 36 H (9-20) mg/dL POC Glucose (mg/dL) (70-110) mg/dL Calcium 6.8 L (8.4-10.2) mg/dL Total Bilirubin 4.2 H (0.2-1.3) mg/dL AST 234 H (17-59) U/L ALT 55 H (4-49) U/L Alkaline Phosphatase 569 H (38-126) U/L Total Protein 5.0 L (6.3-8.2) g/dL Albumin 1.6 L (3.5-5.0) g/dL Microbiology - Last 24 Hours (Table) 06/23/24 11:45 Gram Stain - Preliminary Pleural Fluid Body Fluid Culture - Preliminary Assessment and Plan (1) Abdominal pain Current Visit: Yes Status: Acute Code(s): R10.9 - UNSPECIFIED ABDOMINAL PAIN SNOMED Code(s): 93596202 (2) Abnormal liver enzymes Current Visit: Yes Status: Acute Code(s): R74.8 - ABNORMAL LEVELS OF OTHER SERUM ENZYMES SNOMED Code(s): 837486967 (3) Bicytopenia Current Visit: Yes Status: Acute Code(s): D75.89 - OTHER SPECIFIED DISEASES OF BLOOD AND BLOOD-FORMING ORGANS SNOMED Code(s): 52243906 (4) DVT, bilateral lower limbs Current Visit: Yes Status: Acute Code(s): I82.403 - ACUTE EMBOLISM AND THOMBOS UNSP DEEP VEINS OF LOW EXTRM, BI SNOMED Code(s): 396387183 (5) Hyponatremia Current Visit: Yes Status: Acute Code(s): E87.1 - HYPO-OSMOLALITY AND HYPONATREMIA SNOMED Code(s): 67764973 (6) Metastatic disease Current Visit: Yes Status: Acute Code(s): C79.9 - SECONDARY MALIGNANT NEOPLASM OF UNSPECIFIED SITE SNOMED Code(s): 165294330 (7) Pancreatic cancer Current Visit: Yes Status: Acute Code(s): C25.9 - MALIGNANT NEOPLASM OF PANCREAS, UNSPECIFIED SNOMED Code(s): 142909166 Plan: DVT: The patient has new diagnosis of the same, with Dopplers being done due to progressive lower extremity swelling. It was discussed with the patient and his family, that the presence of metastatic malignancy is a major risk factor for development of venous thromboembolism. The patient has other risk factors, including recent hospitalization, intravascular volume depletion, and markedly diminished activity level. -Vascular surgery following -Heparin transitioned to Eliquis Bicytopenia: The patient is felt to have low hemoglobin, due to anemia of malignancy/inflammation. The thrombocytopenia is new, compared to his recent a dmission. Differentials include effect of progressive liver damage, as well as tumor associated DIC. DIC workup negative, making progressive liver damage more likely. -Transfuse to keep platelet counts greater than 50,000 to maintain AC for acute VTE. Transfuse for hgb less than 7 or if symptomatic -Plt 51,000 todau, s/p 2 doses plts since admit. Transitioned to Eluis for DVT. At this time, pt and family are discussing possible hospice/comfort care measures. If they decide not to pursue hospice, will need evaluation for IVC filter. Discussed the same with pt and family and they would like to hold on IVC filter placement until they further discuss hospice. -Continue to monitor CBC Elevated LFTs: There has been a significant increase in his total bilirubin, as well as alkaline phosphatase. Possible etiologies for the same were discussed in detail with the patient and his family. CT scan did not mention any evidence of biliary obstruction. Dedicated ultrasound also showed no evidence of extrahepatic biliary obstruction. Hyperbilirubemia and elevated LFTs most likely due to progression of the malignancy in the liver parenchyma. Pleural effusion: -S/p right sided thoracentesis, with 800cc removed -Cytology pending Pancreatic adenocarcinoma: The prognosis in this situation is quite guarded. The patient had developed widespread metastatic disease, while on aggressive adjuvant chemotherapy. Currently performance status is quite poor. Concern for rapid parenchymal progression of metastatic disease, which indicates a poor prognosis, and is typically difficult to reverse even with aggressive chemotherapy given emergently. It was therefore discussed that his performance status remains poor and/or he has evidence of aggressive parenchymal hepatic progression, it would be reasonable to consider a comfort care approach. Family and pt verbalized understanding, and at this time would like to see how patient does over course of hospitalization. Family states patient would like to consider other treatment options and does not want to pursue comfort care measures at this time. -NGS testing did not reveal targetable mutations and MSI was stable, so he is not a candidate for IO. Guardant testing resulted, unfortunately not showing any targetable mutations to treat pancreatic cancer. Unfortunately at this time, treatment options would be limited, and pt would need to have improvement in his performance status which is his current condition and disease state would likely be difficult to achieve. Case discussed with his primary oncologist Dr. William fulton, and due to his declining condition and poor PS, pt would not be a good candidate for gemzar/abraxane, and single agent Gemzar would unlikely provide any meaningful treatment response as he has already progressed on FOLFIRINOX previously, and at this time we would recommend comfort care measures. This was discussed in detail with pt and his family. All questions and concerns were addressed. They would like to wait on making a discussion at this time until they further discuss with the rest of the family. Per daughter, patient's brother is coming from out of town this weekend -Code status discussed with daughter and spouse. After discussion they want to make patient DNR/DNI with instructions. This was discussed with primary RN and was updated within EMR Case and POC discussed with admitting team
--- NOTE | 2024-06-26 14:55 | P.PN ---
Subjective Progress Note Date: 06/26/24 Principal diagnosis: Bilateral pleural effusion. This is a 68-year-old male patient with a recent diagnosis of widespread metastatic pancreatic adenocarcinoma and had undergone a Whipple procedure in January 2024 at [facility]. He had also received 6 cycles of FOLFIRINOX. He also received palliative radiation to the liver mass. He had presented here to the emergency room on 06/20/2024 with the weakness, abdominal pain and cramping. Chest x-ray revealed patchy interstitial opacities and small effusions bilaterally. Doppler of the lower extremities revealed bilateral DVTs. Ultrasound of the liver revealed multiple hepatic lesions suspicious for metastatic disease. Mild ascites. Small right pleural effusion. White count 12.3. Hemoglobin 7.8. Platelets 59,000. Sodium 126. Potassium 4.8. Bicarb 16. BUN 28. Creatinine 1.05. Glucose 73. He is seen today in consultation on the selective care unit. He is currently resting in bed. Awake and alert. Maintaining good O2 saturations in the 90s on room air. Afebrile. He has been initiated on a heparin drip. Received IV Lasix. Progress note dated June 23, 2024. 68-year-old male seen in consultation yesterday, for bilateral pleural effusions. Today, the patient had a right-sided thoracentesis, and 800 cc of dark yellow fluid was removed from the right pleural space. The patient's fluid was sent for analysis including cytology, microbiology, and chemistry. The fluid looks exudative. Anyway, the patient tolerated the procedure well. He was on IV heparin which was turned off for about an hour before the procedure. The patient is not receiving any supplemental oxygen. Current labs include a white count 13.8, hemoglobin 7.9, hematocrit 25, and a platelet count of 55,000. PTT is 58.3. Sodium 127, potassium 4.1, chlorides 101, CO2 17, BUN 27, creatinine 0.89. Albumin is only 1.6. Chest x-ray after the procedure, shows an improving right lower lobe infiltrate, and effusion. Progress note dated June 24, 2024. This is a 68-year-old male with history of pancreatic cancer. We are consulted for bilateral pleural effusions. Yesterday, we did a right sided thoracentesis. 800 cc of fluid was removed. The patient is currently on room air. Saturations are excellent. He continues on IV heparin. There were no plans for thoracentesis on the left side today. The effusion on the left side was smaller. The fluid was sent for analysis. The patient's white count was 11.4, hemoglobin 7.9, hematocrit 24.1, platelet count was 35,000. PTT was 55.4. Sodium 125, potassium 3.9, chlorides 101, CO2 18, BUN 28, and creatinine 0.87. Glucose was 83. Albumin was 1.5. Progress note dated June 25, 2024. 68-year-old male seen today in room 370. Family members are in the room. He has a history of metastatic pancreatic cancer. We are consulted for bilateral pleural effusions. The patient did have a right sided thoracentesis performed on June 23. No additional thoracentesis will be performed, as the patient is quite weak, and is very high risk given his platelet count, among other things. Anyway, the patient does have significant mount of ascites, and interventional radiology should be consulted to determine whether or not he would benefit from paracentesis abdominis. The patient is not receiving any IV fluids. The patient is on Eliquis. White count is 10.8, hemoglobin 7.9, macro 24.6, and platelet count 42,000. PTT is greater than 200. Sodium 128, potassium 3.8, chlorides 102, CO2 16, BUN 32, creatinine 0.94. Calcium is 6.9. Glucose is 76. Progress note dated June 26, 2024. 68-year-old male seen today in room 370. The patient has a history of metastatic pancreatic cancer. The patient is on room air. The patient had a previous right sided thoracentesis. We asked interventional radiology to consider paracentesis abdominis, but they refused. Clinically, the patient is stable. No need for thoracentesis on the left side as the patient is not having any distress. White count 11.6, hemoglobin 7.3, hematocrit 23.4, platelet count 59,000. Sodium 127, potassium 4, chlorides 105, CO2 15, BUN 36, creatinine 9.20. Calcium is 6.8. Bilirubin 3.2. AST is 234. ALT is 55. Objective - Vital Signs Vital signs: Vital Signs Temp 97.5 F L 06/26/24 08:42 Pulse 80 06/26/24 13:21 Resp 16 06/26/24 13:21 BP 93/61 06/26/24 11:09 Pulse Ox 99 06/26/24 11:09 FiO2 Intake & Output 06/25/24 06/26/24 06/26/24 18:59 06:59 18:59 Intake Total 371 20 10 Output Total 400 Balance 371 -380 10 Weight 77.5 kg 77.2 kg Intake: IV 20 20 10 Invasive Line 2 20 20 10 Oral 50 Blood Product 301 Platelet Pheresis Pas 301 Psoralen Unit [id number] Output: Urine 400 Other: Voiding Method External Catheter External Catheter Indwelling Catheter # Bowel Movements 1 - Exam No acute distress, oriented 3. No respiratory distress. Currently on room air. HEENT examination is grossly unremarkable. Mucous membranes are moist. No oral lesions. Neck supple. Full range of motion. No adenopathy thyromegaly or neck vein distention. Cardiovascular examination reveals regular rhythm rate. S1-S2 normal. No S3 or S4. No discernible murmur noted. Lungs reveal diminished bibasilar breath sounds. No rhonchi. No wheezes. No crackles. Abdomen distended, with normal bowel sounds. Extremities are intact. No cyanosis clubbing or edema. Skin is without rash or lesion. Neurologic examination is brief but nonfocal. - Labs CBC & Chem 7: 06/26/24 06:37 06/26/24 06:37 Labs: Abnormal Lab Results - Last 24 Hours (Table) 06/25/24 06/25/24 06/25/24 Range/Units 15:53 16:35 17:03 WBC (3.8-10.6) k/uL RBC (4.30-5.90) m/uL Hgb (13.0-17.5) gm/dL Hct (39.0-53.0) % MCV (80.0-100.0) fL MCH (25.0-35.0) pg RDW (11.5-15.5) % Plt Count (150-450) k/uL Neutrophils # (Manual) (1.3-7.7) k/uL Lymphocytes # (Manual) (1.0-4.8) k/uL Nucleated RBCs (0-0) /100 WBC Macrocytosis PT 16.1 H (10.0-12.5) sec INR 1.5 H (<1.2) Fibrinogen 179 L (200-500) mg/dL Sodium (137-145) mmol/L Carbon Dioxide (22-30) mmol/L BUN (9-20) mg/dL POC Glucose (mg/dL) 67 L 67 L (70-110) mg/dL Calcium (8.4-10.2) mg/dL Total Bilirubin (0.2-1.3) mg/dL AST (17-59) U/L ALT (4-49) U/L Alkaline Phosphatase (38-126) U/L Total Protein (6.3-8.2) g/dL Albumin (3.5-5.0) g/dL 06/26/24 06/26/24 Range/Units 06:37 06:37 WBC 11.6 H (3.8-10.6) k/uL RBC 2.08 L (4.30-5.90) m/uL Hgb 7.3 L (13.0-17.5) gm/dL Hct 23.4 L (39.0-53.0) % MCV 112.4 H (80.0-100.0) fL MCH 35.1 H (25.0-35.0) pg RDW 26.2 H (11.5-15.5) % Plt Count 51 L (150-450) k/uL Neutrophils # (Manual) 11.10 H (1.3-7.7) k/uL Lymphocytes # (Manual) 0.35 L (1.0-4.8) k/uL Nucleated RBCs 1 H (0-0) /100 WBC Macrocytosis Marked A PT (10.0-12.5) sec INR (<1.2) Fibrinogen (200-500) mg/dL Sodium 127 L (137-145) mmol/L Carbon Dioxide 15 L (22-30) mmol/L BUN 36 H (9-20) mg/dL POC Glucose (mg/dL) (70-110) mg/dL Calcium 6.8 L (8.4-10.2) mg/dL Total Bilirubin 4.2 H (0.2-1.3) mg/dL AST 234 H (17-59) U/L ALT 55 H (4-49) U/L Alkaline Phosphatase 569 H (38-126) U/L Total Protein 5.0 L (6.3-8.2) g/dL Albumin 1.6 L (3.5-5.0) g/dL Microbiology - Last 24 Hours (Table) 06/23/24 11:45 Gram Stain - Preliminary Pleural Fluid Body Fluid Culture - Preliminary Assessment and Plan Assessment: Abdominal pain in a patient with previous Whipple procedure and aggressive adjuvant chemotherapy for widely metastatic pancreatic cancer. Ultrasound of the liver reveals multiple metastatic lesions. Acute bilateral DVTs of the lower extremities. Bilateral pleural effusions, S/P right thoracentesis, on 06/23/2024. Pancytopenia. Hyponatremia. Diabetes mellitus. Hyperlipidemia. History of anxiety. Plan: Plan dated June 23, 2024. The patient was agreeable to have thoracentesis performed. He had bilateral pleural effusions, right greater than left. We did a right sided thoracentesis today. The patient tolerated the procedure well. There is no complication after the procedure. Were able to remove 800 cc of dark yellow fluid from the right pleural space. The patient tolerated the procedure well without complication. Additional recommendations and suggestions are forthcoming. Prognosis is poor. CODE STATUS should be addressed. Plan dated June 24, 2024. At this time, no plans for thoracentesis on the left side. The patient continues on IV heparin. In addition, the patient's platelet count is quite low. The patient is currently on room air. Saturations are 98%. The patient is not in any distress. The fluid from the right side, was sent for analysis. Results are currently pending including cytology, microbiology, as well as chemistry. We will continue to follow. Prognosis is poor. Plan dated June 25, 2024. No plans for additional thoracentesis at this time. We believe the patient to be at high risk given his underlying pancreatic cancer, his significant ascites, and his coagulopathy. In addition, the right-sided pleural effusion was larger than the left, and only 800 cc of fluid was removed, when the thoracentesis was performed on the right side, on June 23. Labs, x-rays, medications are reviewed. The patient is not requiring any supplemental oxygen. He denies any respiratory issues at this time. Plan dated June 26, 2024. The patient is doing reasonably well. His overall prognosis is poor. No need for left-sided thoracentesis at this time. We asked interventional radiology to consider paracentesis abdominis. They feel it is too risky given his low platelet count, and they also feel that the amount of ascites, does not justify a paracentesis at this time. We will see the patient moving forward only as needed. No additional recommendations are made. Time with Patient: Less than 30
[2024-06-26 16:13] LABS: Glucose,Whole Blood 89 mg/dL (70-110)
--- NOTE | 2024-06-26 16:29 | P.PN ---
Subjective patient is seen for follow-up for hyponatremia and acute kidney injury. Serum sodium fluctuates between 125-127. Maintained on IV Lasix. Sodium is 127 today but creatinine increased to 1.2. Currently off of IV fluids. BP has been low with systolic in the 80s and 90s. Maintained on midodrine No significant shortness of breath. Objective - Vital Signs Vital signs: Vital Signs Temp 97.5 F L 06/26/24 08:42 Pulse 80 06/26/24 13:21 Resp 16 06/26/24 13:21 BP 93/61 06/26/24 11:09 Pulse Ox 99 06/26/24 11:09 FiO2 Intake & Output 06/25/24 06/26/24 06/26/24 18:59 06:59 18:59 Intake Total 371 20 10 Output Total 400 Balance 371 -380 10 Weight 77.5 kg 77.2 kg Intake: IV 20 20 10 Invasive Line 2 20 20 10 Oral 50 Blood Product 301 Platelet Pheresis Pas 301 Psoralen Unit [id number] Output: Urine 400 Other: Voiding Method External Catheter External Catheter Indwelling Catheter # Bowel Movements 1 - Exam patient is awake, comfortable, no acute distress. Examination of the heart S1 and S2 Examination of the lungs bilateral breath sounds are heard Abdomen is soft nontender Examination of lower extremities shows 2+ edema bilaterally - Labs CBC & Chem 7: 06/26/24 06:37 06/26/24 06:37 Labs: Abnormal Lab Results - Last 24 Hours (Table) 06/25/24 06/25/24 06/26/24 Range/Units 16:35 17:03 06:37 WBC 11.6 H (3.8-10.6) k/uL RBC 2.08 L (4.30-5.90) m/uL Hgb 7.3 L (13.0-17.5) gm/dL Hct 23.4 L (39.0-53.0) % MCV 112.4 H (80.0-100.0) fL MCH 35.1 H (25.0-35.0) pg RDW 26.2 H (11.5-15.5) % Plt Count 51 L (150-450) k/uL Neutrophils # (Manual) 11.10 H (1.3-7.7) k/uL Lymphocytes # (Manual) 0.35 L (1.0-4.8) k/uL Nucleated RBCs 1 H (0-0) /100 WBC Macrocytosis Marked A Sodium (137-145) mmol/L Carbon Dioxide (22-30) mmol/L BUN (9-20) mg/dL POC Glucose (mg/dL) 67 L 67 L (70-110) mg/dL Calcium (8.4-10.2) mg/dL Total Bilirubin (0.2-1.3) mg/dL AST (17-59) U/L ALT (4-49) U/L Alkaline Phosphatase (38-126) U/L Total Protein (6.3-8.2) g/dL Albumin (3.5-5.0) g/dL 06/26/24 Range/Units 06:37 WBC (3.8-10.6) k/uL RBC (4.30-5.90) m/uL Hgb (13.0-17.5) gm/dL Hct (39.0-53.0) % MCV (80.0-100.0) fL MCH (25.0-35.0) pg RDW (11.5-15.5) % Plt Count (150-450) k/uL Neutrophils # (Manual) (1.3-7.7) k/uL Lymphocytes # (Manual) (1.0-4.8) k/uL Nucleated RBCs (0-0) /100 WBC Macrocytosis Sodium 127 L (137-145) mmol/L Carbon Dioxide 15 L (22-30) mmol/L BUN 36 H (9-20) mg/dL POC Glucose (mg/dL) (70-110) mg/dL Calcium 6.8 L (8.4-10.2) mg/dL Total Bilirubin 4.2 H (0.2-1.3) mg/dL AST 234 H (17-59) U/L ALT 55 H (4-49) U/L Alkaline Phosphatase 569 H (38-126) U/L Total Protein 5.0 L (6.3-8.2) g/dL Albumin 1.6 L (3.5-5.0) g/dL Microbiology - Last 24 Hours (Table) 06/23/24 11:45 Gram Stain - Preliminary Pleural Fluid Body Fluid Culture - Preliminary Assessment and Plan Assessment: 1. Hyponatremia, appears hypervolemic. CT of the abdomen does show diffuse abdominal wall edema/anasarca. Status post IV fluids now being diuresed 2. Metastatic pancreatic cancer status post Whipple's procedure and chemo therapy 3. Acute kidney injury, nonoliguric associated with hypotension. Rule out urine retention 4. Acute bilateral lower extremity DVT 5. Hyperkalemia associated with acute kidney injury, improved 6. Non-gap metabolic acidosis associated with acute kidney injury and IV fluids Plan: Hold Lasix as creatinine has increased Check bladder scan rule out urine retention Continue with midodrine for hypotension Continue with oral sodium bicarb. Repeat labs in a.m.
[2024-06-26] MEDS: MIDODRINE 5 MG TAB PO ONE (20:26)
[2024-06-26 20:44] LABS: Glucose,Whole Blood 90 mg/dL (70-110)
[2024-06-26 23:16] LABS: Glucose,Whole Blood 79 mg/dL (70-110)
[2024-06-26] MEDS: SODIUM CHLORIDE 0.9% 500 ML 500 ML IV ONE (23:30)
[2024-06-26] MEDS: SODIUM CHLORIDE 0.9% 1,000 ML IV ONE (23:39)
[2024-06-27] MEDS: SODIUM CHLORIDE 0.9% 1,000 ML IV ONE (00:41)
[2024-06-27 01:38] LABS: Glucose,Whole Blood 67 mg/dL (70-110)
[2024-06-27] MEDS: NOREPINEPHRINE 4 MG in SODIUM CHLORIDE 0.9% 250 ML IV SCH (01:44)
[2024-06-27 01:58] LABS: Glucose,Whole Blood 63 mg/dL (70-110)
[2024-06-27] MEDS: ONDANSETRON 4 MG/2 ML VIAL IVP PRN (02:02)
[2024-06-27 02:23] LABS: Glucose,Whole Blood 65 mg/dL (70-110)
[2024-06-27] MEDS ORDERED: NALOXONE 0.4 MG/ML 1 ML VIAL IV PRN (02:25)
[2024-06-27 03:04] LABS: Glucose,Whole Blood 66 mg/dL (70-110)
[2024-06-27 03:46] LABS: Glucose,Whole Blood 118 mg/dL (70-110)
[2024-06-27 04:02] VITALS: TEMP 97.8
--- NOTE | 2024-06-27 06:29 | P.PN ---
Subjective Progress Note Date: 06/27/24 Principal diagnosis: Bilateral pleural effusion. This is a 68-year-old male patient with a recent diagnosis of widespread metastatic pancreatic adenocarcinoma and had undergone a Whipple procedure in January 2024 at [facility]. He had also received 6 cycles of FOLFIRINOX. He also received palliative radiation to the liver mass. He had presented here to the emergency room on 06/20/2024 with the weakness, abdominal pain and cramping. Chest x-ray revealed patchy interstitial opacities and small effusions bilaterally. Doppler of the lower extremities revealed bilateral DVTs. Ultrasound of the liver revealed multiple hepatic lesions suspicious for metastatic disease. Mild ascites. Small right pleural effusion. White count 12.3. Hemoglobin 7.8. Platelets 59,000. Sodium 126. Potassium 4.8. Bicarb 16. BUN 28. Creatinine 1.05. Glucose 73. He is seen today in consultation on the selective care unit. He is currently resting in bed. Awake and alert. Maintaining good O2 saturations in the 90s on room air. Afebrile. He has been initiated on a heparin drip. Received IV Lasix. Progress note dated June 23, 2024. 68-year-old male seen in consultation yesterday, for bilateral pleural effusions. Today, the patient had a right-sided thoracentesis, and 800 cc of dark yellow fluid was removed from the right pleural space. The patient's fluid was sent for analysis including cytology, microbiology, and chemistry. The fluid looks exudative. Anyway, the patient tolerated the procedure well. He was on IV heparin which was turned off for about an hour before the procedure. The patient is not receiving any supplemental oxygen. Current labs include a white count 13.8, hemoglobin 7.9, hematocrit 25, and a platelet count of 55,000. PTT is 58.3. Sodium 127, potassium 4.1, chlorides 101, CO2 17, BUN 27, creatinine 0.89. Albumin is only 1.6. Chest x-ray after the procedure, shows an improving right lower lobe infiltrate, and effusion. Progress note dated June 24, 2024. This is a 68-year-old male with history of pancreatic cancer. We are consulted for bilateral pleural effusions. Yesterday, we did a right sided thoracentesis. 800 cc of fluid was removed. The patient is currently on room air. Saturations are excellent. He continues on IV heparin. There were no plans for thoracentesis on the left side today. The effusion on the left side was smaller. The fluid was sent for analysis. The patient's white count was 11.4, hemoglobin 7.9, hematocrit 24.1, platelet count was 35,000. PTT was 55.4. Sodium 125, potassium 3.9, chlorides 101, CO2 18, BUN 28, and creatinine 0.87. Glucose was 83. Albumin was 1.5. Progress note dated June 25, 2024. 68-year-old male seen today in room 370. Family members are in the room. He has a history of metastatic pancreatic cancer. We are consulted for bilateral pleural effusions. The patient did have a right sided thoracentesis performed on June 23. No additional thoracentesis will be performed, as the patient is quite weak, and is very high risk given his platelet count, among other things. Anyway, the patient does have significant mount of ascites, and interventional radiology should be consulted to determine whether or not he would benefit from paracentesis abdominis. The patient is not receiving any IV fluids. The patient is on Eliquis. White count is 10.8, hemoglobin 7.9, macro 24.6, and platelet count 42,000. PTT is greater than 200. Sodium 128, potassium 3.8, chlorides 102, CO2 16, BUN 32, creatinine 0.94. Calcium is 6.9. Glucose is 76. Progress note dated June 26, 2024. 68-year-old male seen today in room 370. The patient has a history of metastatic pancreatic cancer. The patient is on room air. The patient had a previous right sided thoracentesis. We asked interventional radiology to consider paracentesis abdominis, but they refused. Clinically, the patient is stable. No need for thoracentesis on the left side as the patient is not having any distress. White count 11.6, hemoglobin 7.3, hematocrit 23.4, platelet count 59,000. Sodium 127, potassium 4, chlorides 105, CO2 15, BUN 36, creatinine 9.20. Calcium is 6.8. Bilirubin 3.2. AST is 234. ALT is 55. Progress note dated June 27, 2024. 68-year-old male that we have been seeing in the hospital for a number of days. We actually signed off of his case yesterday, as there was nothing more to offer him from the pulmonary standpoint. Overnight, the patient had a rapid response team called twice, and the patient was transferred back to the intensive care unit, for additional treatment of his hypotension. Upon the floor, the patient received 2 and half liters of saline, despite that, the patient's blood pressure was still low. He was placed on norepinephrine in the ICU, and is currently on 15.4 mcg/min. The patient is on room air. No additional IV fluids are being administered. Laboratory data today includes a glucose of 118. Pleural fluid cytology was positive for pancreatic cancer. Objective - Vital Signs Vital signs: Vital Signs Temp 97.8 F 06/27/24 04:01 Pulse 75 06/27/24 06:01 Resp 23 06/27/24 06:01 BP 89/49 06/27/24 06:01 Pulse Ox 98 06/27/24 06:01 FiO2 Intake & Output 06/26/24 06/26/24 06/27/24 06:59 18:59 06:59 Intake Total 20 10 116.523 Output Total 400 75 0 Balance -380 -65 116.523 Weight 77.2 kg Intake: IV 20 10 20 Invasive Line 2 20 10 20 Intake, IV Titration 96.523 Amount Norepinephrine 4 mg In 96.523 Sodium Chloride 0.9% 250 ml @ 0.03 MCG/KG/MIN 8. 824 mls/hr IV .Q24H [facility] Rx#:[id number] Output: Urine 400 75 0 Other: Voiding Method External Catheter Indwelling Catheter External Catheter # Bowel Movements 1 - Exam No acute distress, oriented 3. No respiratory distress. Currently on room air. HEENT examination is grossly unremarkable. Mucous membranes are moist. No oral lesions. Neck supple. Full range of motion. No adenopathy thyromegaly or neck vein distention. Cardiovascular examination reveals regular rhythm rate. S1-S2 normal. No S3 or S4. No discernible murmur noted. Lungs reveal diminished bibasilar breath sounds. No rhonchi. No wheezes. No crackles. Abdomen distended, with normal bowel sounds. Extremities are intact. No cyanosis clubbing or edema. Skin is without rash or lesion. Neurologic examination is brief but nonfocal. - Labs CBC & Chem 7: 06/26/24 06:37 06/26/24 06:37 Labs: Abnormal Lab Results - Last 24 Hours (Table) 06/26/24 06/26/24 06/27/24 Range/Units 06:37 06:37 01:36 WBC 11.6 H (3.8-10.6) k/uL RBC 2.08 L (4.30-5.90) m/uL Hgb 7.3 L (13.0-17.5) gm/dL Hct 23.4 L (39.0-53.0) % MCV 112.4 H (80.0-100.0) fL MCH 35.1 H (25.0-35.0) pg RDW 26.2 H (11.5-15.5) % Plt Count 51 L (150-450) k/uL Neutrophils # (Manual) 11.10 H (1.3-7.7) k/uL Lymphocytes # (Manual) 0.35 L (1.0-4.8) k/uL Nucleated RBCs 1 H (0-0) /100 WBC Macrocytosis Marked A Sodium 127 L (137-145) mmol/L Carbon Dioxide 15 L (22-30) mmol/L BUN 36 H (9-20) mg/dL POC Glucose (mg/dL) 67 L (70-110) mg/dL Calcium 6.8 L (8.4-10.2) mg/dL Total Bilirubin 4.2 H (0.2-1.3) mg/dL AST 234 H (17-59) U/L ALT 55 H (4-49) U/L Alkaline Phosphatase 569 H (38-126) U/L Total Protein 5.0 L (6.3-8.2) g/dL Albumin 1.6 L (3.5-5.0) g/dL 06/27/24 06/27/24 06/27/24 Range/Units 01:56 02:22 03:02 WBC (3.8-10.6) k/uL RBC (4.30-5.90) m/uL Hgb (13.0-17.5) gm/dL Hct (39.0-53.0) % MCV (80.0-100.0) fL MCH (25.0-35.0) pg RDW (11.5-15.5) % Plt Count (150-450) k/uL Neutrophils # (Manual) (1.3-7.7) k/uL Lymphocytes # (Manual) (1.0-4.8) k/uL Nucleated RBCs (0-0) /100 WBC Macrocytosis Sodium (137-145) mmol/L Carbon Dioxide (22-30) mmol/L BUN (9-20) mg/dL POC Glucose (mg/dL) 63 L 65 L 66 L (70-110) mg/dL Calcium (8.4-10.2) mg/dL Total Bilirubin (0.2-1.3) mg/dL AST (17-59) U/L ALT (4-49) U/L Alkaline Phosphatase (38-126) U/L Total Protein (6.3-8.2) g/dL Albumin (3.5-5.0) g/dL 06/27/24 Range/Units 03:44 WBC (3.8-10.6) k/uL RBC (4.30-5.90) m/uL Hgb (13.0-17.5) gm/dL Hct (39.0-53.0) % MCV (80.0-100.0) fL MCH (25.0-35.0) pg RDW (11.5-15.5) % Plt Count (150-450) k/uL Neutrophils # (Manual) (1.3-7.7) k/uL Lymphocytes # (Manual) (1.0-4.8) k/uL Nucleated RBCs (0-0) /100 WBC Macrocytosis Sodium (137-145) mmol/L Carbon Dioxide (22-30) mmol/L BUN (9-20) mg/dL POC Glucose (mg/dL) 118 H (70-110) mg/dL Calcium (8.4-10.2) mg/dL Total Bilirubin (0.2-1.3) mg/dL AST (17-59) U/L ALT (4-49) U/L Alkaline Phosphatase (38-126) U/L Total Protein (6.3-8.2) g/dL Albumin (3.5-5.0) g/dL Microbiology - Last 24 Hours (Table) 06/23/24 11:45 Gram Stain - Preliminary Pleural Fluid Body Fluid Culture - Preliminary Assessment and Plan Assessment: Abdominal pain in a patient with previous Whipple procedure and aggressive adjuvant chemotherapy for widely metastatic pancreatic cancer. Ultrasound of the liver reveals multiple metastatic lesions. Acute bilateral DVTs of the lower extremities. Bilateral pleural effusions, S/P right thoracentesis, on 06/23/2024, fluid cytology positive for pancreatic adenocarcinoma. Pancytopenia. Hyponatremia. Diabetes mellitus. Hyperlipidemia. History of anxiety. Plan: Plan dated June 23, 2024. The patient was agreeable to have thoracentesis performed. He had bilateral pleural effusions, right greater than left. We did a right sided thoracentesis today. The patient tolerated the procedure well. There is no complication after the procedure. Were able to remove 800 cc of dark yellow fluid from the right pleural space. The patient tolerated the procedure well without complication. Additional recommendations and suggestions are forthcoming. Prognosis is poor. CODE STATUS should be addressed. Plan dated June 24, 2024. At this time, no plans for thoracentesis on the left side. The patient continues on IV heparin. In addition, the patient's platelet count is quite low. The patient is currently on room air. Saturations are 98%. The patient is not in any distress. The fluid from the right side, was sent for analysis. Results are currently pending including cytology, microbiology, as well as chemistry. We will continue to follow. Prognosis is poor. Plan dated June 25, 2024. No plans for additional thoracentesis at this time. We believe the patient to be at high risk given his underlying pancreatic cancer, his significant ascites, and his coagulopathy. In addition, the right-sided pleural effusion was larger than the left, and only 800 cc of fluid was removed, when the thoracentesis was performed on the right side, on June 23. Labs, x-rays, medications are reviewed. The patient is not requiring any supplemental oxygen. He denies any respiratory issues at this time. Plan dated June 26, 2024. The patient is doing reasonably well. His overall prognosis is poor. No need for left-sided thoracentesis at this time. We asked interventional radiology to consider paracentesis abdominis. They feel it is too risky given his low platelet count, and they also feel that the amount of ascites, does not justify a paracentesis at this time. We will see the patient moving forward only as nee ded. No additional recommendations are made. Plan dated June 27, 2024. The patient was moved back to the intensive care unit, because of severe hypotension, unresponsive to fluid resuscitation. The patient received 2-1/2 L of saline on the floor. A rapid response was called twice on this patient, and we made the decision to move the patient back to the intensive care unit, for norepinephrine treatment. He is currently on 15.4 mcg/min of norepinephrine. Labs, x-rays, medications are reviewed. The patient is currently a no code. We talked to the family about comfort care, but they were not ready to go in that direction as yet. Labs, x-rays, and all medications are reviewed. Prognosis is extremely poor. Dictation was produced using [employer] dictation software. Please excuse any grammatical, word or spelling errors. Time with Patient: Greater than 30
[2024-06-27 06:41] LABS: Glucose,Whole Blood 83 mg/dL (70-110)
[2024-06-27 07:12] LABS: AST 427 U/L (17-59); African American GFR (CKD) 65 (>60 ml/min/1.73 sqM); Albumin 1.6 g/dL (3.5-5.0); Alkaline Phosphatase 495 U/L (38-126); Anion Gap 16 mmol/L; Blood Urea Nitrogen 38 mg/dL (9-20); Calcium 6.8 mg/dL (8.4-10.2); Chloride 106 mmol/L (98-107); Glucose 80 mg/dL (74-99); Non-African American GFR(CKD) 56 (>60 ml/min/1.73 sqM); Potassium 4.4 mmol/L (3.5-5.1); Sodium 131 mmol/L (137-145)
--- NOTE | 2024-06-27 07:27 | P.PN ---
Subjective Progress Note Date: 06/26/24 68-year-old male came in because of severe bilateral flank pain. Patient was also found to have bilateral DVTs. Patient has history of pancreatic cancer for which patient has a Whipple's procedure and completed a chemotherapy is presently receiving radiation therapy. Patient had a CT of the chest and ab domen chest showed bilateral pleural effusions no pulmonary embolism patient does have significant ascites as well patient had a ascitic tap recently. Patient pain is better controlled with Dilaudid at this time I will start him on Eliquis as well as Toradol for pain. 06/22/2024 Patient is seen in follow-up today with multiple consultations following including nephrology, hematology/oncology and pulmonary has been consulted for pleural effusions. Patient is continued on IV heparin for the DVTs and discussing with oncology about initiating Eliquis. Will confirm with pulmonary and oncology if any further intervention being performed at this time prior to initiating the Eliquis. Patient is afebrile reports to feeling okay just tired and weak and has been eating. Patient was able to eat a whole banana today. Continue current other medication regimen. Overall prognosis remains extremely poor and guarded at this time. 06/23/2024 Patient is seen in follow-up today currently undergoing thoracentesis with pulmonary at the bedside of the right today. Plans for left-sided thoracentesis in the next day or so. Continue IV heparin for now and will transition to Eliquis once cleared by hematology and pulmonary. Patient is afebrile continues with significant weakness and overall significant clinical decline. 06/24/2024 Patient is seen in follow-up today status post thoracentesis on the right yesterday. Initial discussion of possible left-sided thoracentesis although patient is quite hypotensive today and platelets are extremely low with no plans of immediate thoracentesis on the left at this time. Patient denies any significant pain and denies shortness of breath maintaining room air oxygen saturations above 95%. Patient having difficulty with swallowing and awaiting to be evaluated by speech therapy. 1 daughter at the bedside concerned with abdominal distention and if there is fluid to be tapped. Patient did have previous imaging showing anasarca with no significant fluid to be removed on the abdomen at this time. Patient is maintained on IV Lasix along with midodrine and nephrology following closely. Sodium remains low at 125. 06/25/2024 Patient is seen in follow-up today extremely weak, hypotensive, not eating and not tolerating any oral intake having abdominal distention although after reviewing the images not recommended for paracentesis although interventional radiology was consulted for possible paracentesis. Not much fluid collection although reported as doable although after reviewing labs and blood pressure patient remains hypotensive with a systolic of 80 and platelets are low, IR is refusing to do the paracentesis. Patient is not stable. Heparin being discontinued and patient will transition to Eliquis. Long lengthy discussion was had with family and oncology 06/26/2024 Patient evaluated today in follow up remains on the cardiac stepdown unit. Family and oncology have had follow up discussion today and they are still not ready for hospice at this time. Patients blood counts remain low today with hemoglobin at 7.3, platelet count of 15. Sodium of 127, BUN 36, creatinine of 1.20. Nephrology has stopped the IV lasix at this time due to slightly increased creatinine. patients blood pressures have been running low. Family did refuse all medications this morning had been considering possible hospice but now at this time have decided against and would like to continue treatment. Indwelling catheter was placed with concern for urinary retention although when placed per nursing only 30 ml of urine came back on return. Plans for paracentesis also on hold at this time secondary to his blood counts and blood pressures. Patient remains lethargic and with low energy and low appetite. Review of systems: Constitutional: reports of fatigue, no fever, or chills Cardiovascular: No reports of chest pain or palpitations Respiratory: No reports of shortness of breath or cough GI: No reports of nausea, vomiting, or diarrhea, reports having difficulty swallowing and not tolerating much diet : No reports of dysuria or retention Neurovascular: reports of extreme weakness and inability to walk All medications have been reviewed PHYSICAL EXAMINATION: GENERAL: The patient is alert and oriented x3, not in any acute distress. Extremely lethargic, fatigues easily, appears exhausted, thin built, cachectic male, elderly appearing, extremely ill appearing HEENT: Pupils are round and equally reacting to light. EOMI. No scleral icterus. No conjunctival pallor. Normocephalic, atraumatic. No pharyngeal erythema. No thyromegaly. CARDIOVASCULAR: S1 and S2 present. No murmurs, rubs, or gallops. PULMONARY: Chest is clear to auscultation, no wheezing or crackles. ABDOMEN: Soft, nontender, does have ascites MUSCULOSKELETAL: No joint swelling or deformity. EXTREMITIES: No cyanosis, clubbing, or pedal edema. cachectic, emaciated with significant muscle wasting noted of upper extremities and chest and facial area NEUROLOGICAL no focal deficit with significant generalized weakness SKIN: No rashes. Assessment: -Abdominal pain secondary to peritoneal carcinomatosis -Bilateral pleural effusion secondary to pancreatic cancer, status post thoracentesis on the right of approximately 800 cc removed -Bilateral lower extremity DVT for which patient is on IV heparin and can be transitioned to Eliquis as there are no plans for further para or thoracentesis at this time -Significant generalized weakness PT and OT consultation -Hyponatremia probably SIADH will obtain urine osmolality serum osmolality fluid restriction, nephrology consultation discontinue IV fluids. Now on IV Lasix per nephrology -Metastatic pancreatic cancer, oncology following -Cough symptomatic treatment -Leukocytosis reactive -Type 2 diabetes mellitus -Hypertension, currently hypotensive DVT prophylaxis: Patient is on IV heparin -GI prophylaxis Protonix -Full code Plan: Patient being followed by multiple consultations including oncology, nephrology, and pulmonary following. Chest ultrasound performed and patient is status post right-sided thoracentesis yesterday of approximately 800 cc. No plans for left- sided thoracentesis at this time per pulmonary Patient has been transitioned to oral eliquis at this time. Confirmed with pulmonary and oncology no further testing is being performed at this time that requires holding anticoagulation. Code status has been changed to DNI and family wants to continue to pursue other options and will monitor the patient over the next few days for any improvements in functionality. There has been no improvement actual steady decline and patient is hypotensive and remaining hypotensive, low platelets, not eating and not tolerating any oral intake and now having hypoglycemic events. It was suggested along with multiple other consultations to consider hospice including oncology to make the patient comfortable. At this time family is not ready for hospice. Again overall prognosis is extremely poor and guarded at this time The impression and plan of care has been dictated by Kayleigh Faith Nurse Practitioner as directed. Dr. Hua MD I have performed a history and examination and MDM of this patient, discussed the same with the dictator, and agree with the dictator's assessment and plan as written ,documented as a scribe. Based on total visit time, I have performed more than 50% of the visit. Objective - Vital Signs Vital signs: Vital Signs Temp 97.5 F L 06/26/24 08:42 Pulse 83 06/26/24 08:42 Resp 16 06/26/24 08:42 BP 83/51 06/26/24 08:42 Pulse Ox 99 06/26/24 08:42 FiO2 Intake & Output 06/25/24 06/26/24 06/26/24 18:59 06:59 18:59 Intake Total 371 20 Output Total 400 Balance 371 -380 Weight 77.5 kg 77.2 kg Intake: IV 20 20 Invasive Line 2 20 20 Oral 50 Blood Product 301 Platelet Pheresis Pas 301 Psoralen Unit [id number] Output: Urine 400 Other: Voiding Method External Catheter External Catheter External Catheter # Bowel Movements 1 - Labs CBC & Chem 7: 06/26/24 06:37 06/26/24 06:37 Labs: Abnormal Lab Results - Last 24 Hours (Table) 06/25/24 06/25/24 06/25/24 Range/Units 15:53 16:35 17:03 WBC (3.8-10.6) k/uL RBC (4.30-5.90) m/uL Hgb (13.0-17.5) gm/dL Hct (39.0-53.0) % MCV (80.0-100.0) fL MCH (25.0-35.0) pg RDW (11.5-15.5) % Plt Count (150-450) k/uL Neutrophils # (Manual) (1.3-7.7) k/uL Lymphocytes # (Manual) (1.0-4.8) k/uL Nucleated RBCs (0-0) /100 WBC Macrocytosis PT 16.1 H (10.0-12.5) sec INR 1.5 H (<1.2) Fibrinogen 179 L (200-500) mg/dL Sodium (137-145) mmol/L Carbon Dioxide (22-30) mmol/L BUN (9-20) mg/dL POC Glucose (mg/dL) 67 L 67 L (70-110) mg/dL Calcium (8.4-10.2) mg/dL Total Bilirubin (0.2-1.3) mg/dL AST (17-59) U/L ALT (4-49) U/L Alkaline Phosphatase (38-126) U/L Total Protein (6.3-8.2) g/dL Albumin (3.5-5.0) g/dL 06/26/24 06/26/24 Range/Units 06:37 06:37 WBC 11.6 H (3.8-10.6) k/uL RBC 2.08 L (4.30-5.90) m/uL Hgb 7.3 L (13.0-17.5) gm/dL Hct 23.4 L (39.0-53.0) % MCV 112.4 H (80.0-100.0) fL MCH 35.1 H (25.0-35.0) pg RDW 26.2 H (11.5-15.5) % Plt Count 51 L (150-450) k/uL Neutrophils # (Manual) 11.10 H (1.3-7.7) k/uL Lymphocytes # (Manual) 0.35 L (1.0-4.8) k/uL Nucleated RBCs 1 H (0-0) /100 WBC Macrocytosis Marked A PT (10.0-12.5) sec INR (<1.2) Fibrinogen (200-500) mg/dL Sodium 127 L (137-145) mmol/L Carbon Dioxide 15 L (22-30) mmol/L BUN 36 H (9-20) mg/dL POC Glucose (mg/dL) (70-110) mg/dL Calcium 6.8 L (8.4-10.2) mg/dL Total Bilirubin 4.2 H (0.2-1.3) mg/dL AST 234 H (17-59) U/L ALT 55 H (4-49) U/L Alkaline Phosphatase 569 H (38-126) U/L Total Protein 5.0 L (6.3-8.2) g/dL Albumin 1.6 L (3.5-5.0) g/dL Microbiology - Last 24 Hours (Table) 06/23/24 11:45 Gram Stain - Preliminary Pleural Fluid Body Fluid Culture - Preliminary Assessment and Plan Time with Patient: Greater than 30
[2024-06-27 08:09] LABS: ALT 110 U/L (4-49); Carbon Dioxide 9 mmol/L (22-30)
[2024-06-27] MEDS: HYDROmorphone 0.5 MG/0.5 ML SYRINGE IVP STA (10:17)
[2024-06-27] MEDS ORDERED: MORPHINE SULFATE 2 MG/ML SYRINGE IV PRN (10:22)
[2024-06-27] MEDS: MORPHINE SULFATE 4 MG/ML SYRINGE IV PRN (10:29)
[2024-06-27] MEDS: MORPHINE SULFATE (100 MG/2 ML) 100 MG in SODIUM CHLORIDE 0.9% 100 ML IV SCH (10:40)
[2024-06-27] MEDS: LORazepam 2 MG/ML INJ IV PRN (12:05)
[2024-06-27 12:45] VITALS: BP 53/22
[2024-06-27 14:08] VITALS: PULSE 76; RESP 14
[2024-06-27] MEDS ORDERED: MIDODRINE 5 MG TAB PO ONE (20:19)
--- NOTE | 2024-06-28 20:26 | P.DS ---
Providers Date of admission: 06/20/24 18:10 Attending physician: Pato Chaudhry Consults: 06/20/24 18:09 Consult Physician Routine Consulting Provider: Burton Stanford Consult Reason/Comments: known Do you want consulting provider notified?: Yes 06/21/24 10:16 Consult Physician Routine Consulting Provider: Robby Smith Consult Reason/Comments: Hyponatremia Do you want consulting provider notified?: Yes 06/21/24 13:57 Consult Physician Routine Consulting Provider: Cecy Lomeli Consult Reason/Comments: New onset pleural effusions, productive cough Do you want consulting provider notified?: Yes 06/27/24 02:25 Consult Physician Stat Consulting Provider: Pato Chaudhry Consult Reason/Comments: hypotension Do you want consulting provider notified?: Yes Primary care physician: Carole Riddle Hospital Course: 68-year-old male came in because of severe bilateral flank pain. Patient was also found to have bilateral DVTs. Patient has history of pancreatic cancer for which patient has a Whipple's procedure and completed a chemotherapy is presently receiving radiation therapy. Patient had a CT of the chest and abdomen chest showed bilateral pleural effusions no pulmonary embolism patient does have significant ascites as well patient had a ascitic tap recently. Patient pain is better controlled with Dilaudid at this time I will start him on Eliquis as well as Toradol for pain. 06/22/2024 Patient is seen in follow-up today with multiple consultations following including nephrology, hematology/oncology and pulmonary has been consulted for pleural effusions. Patient is continued on IV heparin for the DVTs and discussing with oncology about initiating Eliquis. Will confirm with pulmonary and oncology if any further intervention being performed at this time prior to initiating the Eliquis. Patient is afebrile reports to feeling okay just tired and weak and has been eating. Patient was able to eat a whole banana today. Continue current other medication regimen. Overall prognosis remains extremely poor and guarded at this time. 06/23/2024 Patient is seen in follow-up today currently undergoing thoracentesis with pulmonary at the bedside of the right today. Plans for left-sided thoracentesis in the next day or so. Continue IV heparin for now and will transition to Eliquis once cleared by hematology and pulmonary. Patient is afebrile continues with significant weakness and overall significant clinical decline. 06/24/2024 Patient is seen in follow-up today status post thoracentesis on the right yesterday. Initial discussion of possible left-sided thoracentesis although patient is quite hypotensive today and platelets are extremely low with no plans of immediate thoracentesis on the left at this time. Patient denies any significant pain and denies shortness of breath maintaining room air oxygen saturations above 95%. Patient having difficulty with swallowing and awaiting to be evaluated by speech therapy. 1 daughter at the bedside concerned with abdominal distention and if there is fluid to be tapped. Patient did have previous imaging showing anasarca with no significant fluid to be removed on the abdomen at this time. Patient is maintained on IV Lasix along with midodrine and nephrology following closely. Sodium remains low at 125. 06/25/2024 Patient is seen in follow-up today extremely weak, hypotensive, not eating and not tolerating any oral intake having abdominal distention although after reviewing the images not recommended for paracentesis although interventional radiology was consulted for possible paracentesis. Not much fluid collection although reported as doable although after reviewing labs and blood pressure patient remains hypotensive with a systolic of 80 and platelets are low, IR is refusing to do the paracentesis. Patient is not stable. Heparin being discontinued and patient will transition to Eliquis. Long lengthy discussion was had with family and oncology 06/26/2024 Patient evaluated today in follow up remains on the cardiac stepdown unit. Family and oncology have had follow up discussion today and they are still not ready for hospice at this time. Patients blood counts remain low today with hemoglobin at 7.3, platelet count of 15. Sodium of 127, BUN 36, creatinine of 1.20. Nephrology has stopped the IV lasix at this time due to slightly increased creatinine. patients blood pressures have been running low. Family did refuse all medications this morning had been considering possible hospice but now at this time have decided against and would like to continue treatment. Indwelling catheter was placed with concern for urinary retention although when placed per nursing only 30 ml of urine came back on return. Plans for paracentesis also on hold at this time secondary to his blood counts and blood pressures. Patient remains lethargic and with low energy and low appetite. 06/27/2024 Patient had worsening hypotension was 18 to multiple times with weekly intensive care unit and started on Levophed. Patient was made a DO NOT INTUBATE, at the bedside. Patient was having significant decline and comfort was obtained. Family had decided to make the patient comfortable at this time and requesting comfort medications. He was started on a morphine drip hospice was consulted. Patient on 06/27/2024 at 1700. Preliminary cause of metastatic pancreatic cancer. Review of systems: Constitutional: reports of fatigue, no fever, or chills Cardiovascular: No reports of chest pain or palpitations Respiratory: No reports of shortness of breath or cough GI: No reports of nausea, vomiting, or diarrhea, reports having difficulty swallowing and not tolerating much diet : No reports of dysuria or retention Neurovascular: reports of extreme weakness and inability to walk All medications have been reviewed PHYSICAL EXAMINATION: GENERAL: The patient is alert and oriented x3, not in any acute distress. Extremely lethargic, fatigues easily, appears exhausted, thin built, cachectic male, elderly appearing, extremely ill appearing HEENT: Pupils are round and equally reacting to light. EOMI. No scleral icterus. No conjunctival pallor. Normocephalic, atraumatic. No pharyngeal erythema. No thyromegaly. CARDIOVASCULAR: S1 and S2 present. No murmurs, rubs, or gallops. PULMONARY: Chest is clear to auscultation, no wheezing or crackles. ABDOMEN: Soft, nontender, does have ascites MUSCULOSKELETAL: No joint swelling or deformity. EXTREMITIES: No cyanosis, clubbing, or pedal edema. cachectic, emaciated with significant muscle wasting noted of upper extremities and chest and facial area NEUROLOGICAL no focal deficit with significant generalized weakness SKIN: No rashes. Assessment: -Abdominal pain secondary to peritoneal carcinomatosis -Bilateral pleural effusion secondary to pancreatic cancer, status post thoracentesis on the right of approximately 800 cc removed -Bilateral lower extremity DVT for which patient is on IV heparin and can be transitioned to Eliquis as there are no plans for further para or thoracentesis at this time -Significant generalized weakness PT and OT consultation -Hyponatremia probably SIADH will obtain urine osmolality serum osmolality fluid restriction, nephrology consultation discontinue IV fluids. Now on IV Lasix per nephrology -Metastatic pancreatic cancer, oncology following -Cough symptomatic treatment -Leukocytosis reactive -Type 2 diabetes mellitus -Hypertension, currently hypotensive DVT prophylaxis: Patient is on IV heparin -GI prophylaxis Protonix -Full code Plan: Patient being followed by multiple consultations including oncology, nephrology, and pulmonary following. Chest ultrasound performed and patient is status post right-sided thoracentesis yesterday of approximately 800 cc. No plans for left- sided thoracentesis at this time per pulmonary Patient has been transitioned to oral eliquis at this time. Confirmed with pulmonary and oncology no further testing is being performed at this time that requires holding anticoagulation. Code status has been changed to DNI and family wants to continue to pursue other options and will monitor the patient over the next few days for any improvements in functionality. There has been no improvement actual steady decline and patient is hypotensive and remaining hypotensive, low platelets, not eating and not tolerating any oral intake and now having hypoglycemic events. It was suggested along with multiple other consultations to consider hospice including oncology to make the patient comfortable. Initially family was not ready for hospice however patient had significant hypotension requiring pressor support was moved to the intensive care unit. At that time family have decided for hospice and comfort care measures. Again overall prognosis is extremely poor and guarded at this time The impression and plan of care has been dictated by Kayleigh Faith, Nurse Practitioner as directed. Dr. Hua MD I have performed a history and examination and MDM of this patient, discussed the same with the dictator, and agree with the dictator's assessment and plan as written ,documented as a scribe. Based on total visit time, I have performed more than 50% of the visit. Plan - Discharge Summary Discharge Rx Participant: No New Discharge Prescriptions: No Action metFORMIN HCL [Glucophage] 1,000 mg PO BID Pantoprazole [Protonix] 40 mg PO DAILY OLANZapine [ZyPREXA] 2.5 mg PO HS Empagliflozin [Jardiance] 25 mg PO DAILY Simvastatin [Zocor] 10 mg PO HS Docusate [Colace] 100 mg PO DAILY #30 cap Ondansetron Odt [Zofran Odt] 8 mg PO Q8HR PRN PRN Reason: Nausea And Vomiting Prochlorperazine [Compazine] 10 mg PO Q6H PRN PRN Reason: Nausea And Vomiting Lipase/Protease/Amylase [Fernando Sotelo 36,000 Unit Capsule] 1 cap PO TID-W/MEALS LORazepam [Ativan] 0.5 mg PO TID PRN PRN Reason: Anxiety droNABinol [Marinol] 2.5 mg PO AC-BID cap polyethylene glycoL 3350 [Miralax] 17 gm PO DAILY #30 packet Discharge Medication List metFORMIN HCL [Glucophage] 1,000 mg PO BID 09/14/19 [History] Pantoprazole [Protonix] 40 mg PO DAILY 03/10/24 [History] OLANZapine [ZyPREXA] 2.5 mg PO HS 03/24/24 [History] Empagliflozin [Jardiance] 25 mg PO DAILY 04/10/24 [History] Lipase/Protease/Amylase [Creon Dr 36,000 Unit Capsule] 1 cap PO TID-W/MEALS 04/10/24 [History] Prochlorperazine [Compazine] 10 mg PO Q6H PRN 04/10/24 [History] LORazepam [Ativan] 0.5 mg PO TID PRN 06/05/24 [History] Simvastatin [Zocor] 10 mg PO HS 06/05/24 [History] Docusate [Colace] 100 mg PO DAILY #30 cap 06/10/24 [Rx] droNABinol [Marinol] 2.5 mg PO AC-BID cap 06/10/24 [Rx] polyethylene glycoL 3350 [Miralax] 17 gm PO DAILY #30 packet 06/10/24 [Rx] Ondansetron Odt [Zofran Odt] 8 mg PO Q8HR PRN 06/20/24 [History] Follow up Appointment(s)/Referral(s): Carole Jaimes DO [Primary Care Provider] - 1-2 days Discharge Disposition: - Preliminary Cause of Preliminary Cause of : Metastatic Pancreatic cancer
--- NOTE | 2024-06-29 15:10 | CDI ---
Documentation Clarification Form Date: 06/29/2024 02:52:13 PM From: Joceline Silva RN, CCDS Email: [email or web address] Admit Date: 06/20/2024 06:10:00 PM Patient Name: Oswaldo Cloud Visit Number: [id number] Discharge Date: 06/27/2024 05:00:00 PM ATTENTION: The Clinical Documentation Specialists (CDI) and [facility] Coding Staff appreciate your assistance in clarifying documentation. Please respond to the clarification below the line at the bottom and electronically sign. The CDI & [facility] Coding staff will review the response and follow-up if needed. Please note: Queries are made part of the Legal Health Record. If you have any questions, please contact the author of this message via ITS. Doctor Keren Sequeira The patient had liver mets and worsening liver enzymes. Based on this information and the findings below, is there an additional diagnosis that is clinically appropriate for this patient? Patient history/risk factors: pancreatic cancer with Whipple procedure and chemotherapy with mets to liver. Presented with severe BL flank pain. Admitted with advanced peritoneal carcinomatosis, BL pleural effusion and multiple metastatic lesions in liver. Clinical Indicators: 06/20 CT A/P: Hypodense metastatic liver lesions 06/21 Oncology consult: "there was worsening of his liver enzymes including bilirubin, and alkaline phosphatase." 06/26 Surgery: "Hyperbilirubinemia and elevated LFTs most likely due to progression of the malignancy in the liver parenchyma." 06/26 IM: "Plans for paracentesis also on hold at this time secondary to his blood counts and blood pressures." 06/22 U/S liver: Multiple hepatic lesions suspicious for metastatic disease. Mild ascites. Small right pleural effusion. 06/20-06/27 AST: [id number] 06/20-06/27 ALT: 45-27-43-110 06/20-06/27 ALP: [id number] 06/27 T. Bilirubin: 5.0 Treatment: Monitor labs; s/p thoracentesis 06/23; patient made comfort care Is there an additional diagnosis that is clinically appropriate for this patient? [ ] Acute liver failure [ ] Acute on chronic liver failure [ x] No additional diagnosis [ ] Unable to determine [ ] Other, please specify MTDD
--- NOTE | 2024-06-29 16:17 | CDI ---
Documentation Clarification Form Date: 06/29/2024 03:11:36 PM From: Joceline Silva RN, CCDS Email: [email or web address] Admit Date: 06/20/2024 06:10:00 PM Patient Name: sOwaldo Cloud Visit Number: [id number] Discharge Date: 06/27/2024 05:00:00 PM ATTENTION: The Clinical Documentation Specialists (CDI) and [facility] Coding Staff appreciate your assistance in clarifying documentation. Please respond to the clarification below the line at the bottom and electronically sign. The CDI & [facility] Coding staff will review the response and follow-up if needed. Please note: Queries are made part of the Legal Health Record. If you have any questions, please contact the author of this message via ITS. Doctor Tania Santiago Acute kidney injury is documented in the progress notes. Additional clarification is requested. History/Risk factors: pancreatic cancer with Whipple procedure and chemotherapy with mets to liver. Presented with severe BL flank pain. Admitted with advanced peritoneal carcinomatosis, BL pleural effusion and multiple metastatic lesions in liver. Clinical Indicators: 06/22 Nephrology: "Acute kidney injury, nonoliguric associated with hypotension. Hyperkalemia associated with acute kidney injury, improved. Non gap metabolic acidosis associated with acute kidney injury and IV fluids." Labs: 06/20-06/27 Cr: 0.69-0.90-1.05-1.32 06/20-06/27 BUN: 22-28-36-38 06/20 Urinalysis: dark brown, cloudy, 2+ bilirubin, 10 WBC, 53 hyaline cases, many mucus 06/21 K+: 5.3 06/20-06/27 BP: 93/61-81/51-53/22 Treatment: Midodrine for hypotension; D/C Toradol; IV Lasix 40mg x1 on 06/22; IV Lasix 20mg x1 on 06/22; IV Lasix 40mg x1 on 06/23; IV Lasix 40mg Q12H; 1L 0.9 NS IV bolus x2 on 06/22, 06/26 and 06/27 Please clarify the acute kidney injury, if known: [X ] SREEDHAR with Acute Tubular Necrosis [ ] SREEDHAR with other specified pathological cause, please specify [ ] Unable to determine [ ] Other, please specify MTDD
--- NOTE | 2024-06-29 16:22 | CDI ---
Documentation Clarification Form Date: 06/29/2024 04:04:37 PM From: Joceline Silva RN, CCDS Email: [email or web address] Admit Date: 06/20/2024 06:10:00 PM Patient Name: Oswaldo Cloud Visit Number: [id number] Discharge Date: 06/27/2024 05:00:00 PM ATTENTION: The Clinical Documentation Specialists (CDI) and [facility] Coding Staff appreciate your assistance in clarifying documentation. Please respond to the clarification below the line at the bottom and electronically sign. The CDI & [facility] Coding staff will review the response and follow-up if needed. Please note: Queries are made part of the Legal Health Record. If you have any questions, please contact the author of this message via ITS. Doctor Brandt Beckman The patient had hypotension and was started on IV Levophed. Based on this information and the findings below, is there an additional diagnosis that is clinically appropriate for this patient? Patient history/risk factors: pancreatic cancer with Whipple procedure and chemotherapy with mets to liver. Presented with severe BL flank pain. Admitted with advanced peritoneal carcinomatosis, BL pleural effusion and multiple metastatic lesions in liver. Clinical Indicators: Discharge summary: "Patient had worsening hypotension multiple times with intensive care unit and started on Levophed. Patient was made a Do Not Intubate, at the bedside. Patient was having significant decline and comfort was obtained." 06/20-06/27 BP: 93/61-81/51-53/22 Treatment: IV Levophed titrated 06/27; 1L 0.9 NS IV bolus x2 on 06/22, 06/26 and 06/27 Is there an additional diagnosis that is clinically appropriate for this patient? [ ] Hypovolemic shock [ x ] Shock unspecified [ ] No additional diagnosis/Not clinically significant [ ] Unable to determine [ ] Other, please specify MTDD
== END 2024-06-27 17:00 | disposition expired | DRG 435 ==
LOC: EC 15:04 → 3SCARD 18:10 → 3NCARDOBS 06-24 15:24 → 3SCARD 06-24 15:24 → 2SICU 06-27 01:25
PROVIDERS: ADMIT Hospitalist; ATTEND Hospitalist
PROC: 0W993ZZ Drainage of Right Pleural Cavity, Percutaneous Approach (ICD-10-PCS; principal; 2024-06-23)
PROC: 3E043XZ Introduction of Vasopressor into Central Vein, Percutaneous Approach (ICD-10-PCS; 2024-06-27)
DX: C25.9 Malignant neoplasm of pancreas, unspecified (principal); N17.0 Acute kidney failure with tubular necrosis; C78.6 Secondary malignant neoplasm of retroperitoneum and peritoneum; I82.4Y3 Acute embolism and thrombosis of unspecified deep veins of proximal lower extremity, bilateral; I82.422 Acute embolism and thrombosis of left iliac vein; I82.412 Acute embolism and thrombosis of left femoral vein; E22.2 Syndrome of inappropriate secretion of antidiuretic hormone; E87.20 Acidosis, unspecified; J91.8 Pleural effusion in other conditions classified elsewhere; D61.818 Other pancytopenia; R18.8 Other ascites; C78.7 Secondary malignant neoplasm of liver and intrahepatic bile duct; R57.9 Shock, unspecified; Z66 Do not resuscitate; Z51.5 Encounter for palliative care; R13.10 Dysphagia, unspecified; E86.9 Volume depletion, unspecified; I10 Essential (primary) hypertension; E11.9 Type 2 diabetes mellitus without complications; Z53.8 Procedure and treatment not carried out for other reasons; E78.5 Hyperlipidemia, unspecified; D72.828 Other elevated white blood cell count; E87.70 Fluid overload, unspecified; F41.9 Anxiety disorder, unspecified; E87.5 Hyperkalemia; Z90.411 Acquired partial absence of pancreas; Z85.07 Personal history of malignant neoplasm of pancreas; Z79.84 Long term (current) use of oral hypoglycemic drugs; Z79.899 Other long term (current) drug therapy
CPT/HCPCS: 36415; 71045; 74176; 76604; 76705; 80048; 80053; 81001; 82140; 82150; 82248; 83036; 83605; 83615; 83690; 83735; 83930; 83935; 84100; 84155; 84295; 84300; 84439; 84443; 84484; 85025; 85027; 85384; 85610; 85730; 86850; 86900; 86901; 87070; 87102; 87116; 87205; 87206; 87496; 87498; 87502; 87529; 87634; 87635; 87636; 87798; 88108; 88305; 88341; 88342; 89050; 93970; 96365; 96366; 96375; 96376; 99285